=== PATIENT | male | born 1945 | race Caucasian/White ===

== ENCOUNTER → 2017-01-29 | Outpatient (CLI) | payer OTHER ==
[~2017-01-29] MED LIST: ASPEC81 PO; FLM4 PO; LPT40 PO; MULTTAB58 PO; NITR0.4S UT; NRN600 PO; NYSS/ PO; OXGN; OXYC-81 PO; PRT40 PO; PXL20 PO; RIVA1TAB4 PO
--- NOTE | 2017-01-29 14:54 | DIAGNOSTIC IMAGING REPORT ---
VIDEO SWALLOW STUDY CLINICAL HISTORY: Polyneuropathy. Dysphagia. COMPARISON STUDY: Video swallow study dated 06/13/2009. Fluoroscopy time: 3.6 minutes. FINDINGS: Fluoroscopic guidance was provided to the Department of Speech Pathology in performing a video swallow study. The patient consumed barium-impregnated pudding, cracker with paste, nectar thick liquid, and thin barium while the swallowing mechanism was observed in real-time. Disordered swallowing was observed during the examination with large pharyngeal residuals. Silent aspiration was observed with thin barium. No penetration or aspiration was seen with any of the additional sampled textures. IMPRESSION: 1. Silent aspiration was seen with thin barium swallows. 2. No penetration or aspiration was seen with the remaining sampled textures. 3. Disordered swallowing was observed. 4. See dedicated speech pathology report for detailed findings and recommendations. Dictated: 01/29/2017 2:26 PM Transcribed: 01/29/2017 2:53 PM [place] Electronically signed by: Curt Delaney M.D. 01/29/2017 2:56 PM Dictated Date/Time: 01/29/2017 2:26 PM
--- NOTE | 2017-01-29 15:50 | SWALLOWING EVALUATION ---
HISTORY: This 71 year-old man, from home, was referred for a VFSS at [facility] in order to rule out aspiration and identify safe consistencies and compensatory strategies for optimal oral intake. The patient has a PMH significant for Sjogren's syndrome, peripheral neuropathy, GERD, and prostate cancer. He has had 3 previous Swallow studies 2003 with globus sensation, 2005 with worsening globus sensation, dysmotility with solids, incomplete swallows, and CP not opening. Most recent swallow study was 2008 with increased coughing and no dysphasia. Pt's current diet level is regular with thin liquids. PROCEDURE: The patient was seen in the Radiology Department of [facility] for the VFSS. Cursory examination of the oral cavity revealed upper and lower dentures. Movement of the articulators was functional. The patient was seated upright in his motorized wheelchair and was only viewed in the Lateral plane as attempts at viewing A-P were unsuccessful to obstruction from the chair. Volitional phonation exercises were not completed however phonation and vocal quality were WFL. In the lateral plane, the patient was given the following barium-infused boluses: Thin and nectar thick liquids via spoon, cup and straw presentations. Pt. was also given pudding and cracker with barium paste throughout testing. Compensatory strategies included head turn to the left as well as 2 second prep set with chin tuck. RESULTS: Oral Phase: Pt. had labial escape of liquid 1x to mid-chin which he wiped clean independently. Pt. demonstrated a cohesive bolus between tongue and palatal seal. Timely and efficient chewing and mashing was observed with all consistencies as well as brisk tongue motion and complete oral clearance. Initiation of pharyngeal swallow began with bolus head in the pyriforms or below. Overall WFL with the exception of the delay in the initiation of the pharyngeal swallow. Pharyngeal Phase: Soft Palate Elevation was complete for all boluses. Laryngeal elevation was decreased with minimal superior movement of the thyroid cartilage/minimal approximation of arytenoids to epiglottic base. NO EPIGLOTTIC inversion or movement occurred. Laryngeal vestibular closure was limited with a wide column of barium in the laryngeal vestibule. No pharyngeal stripping wave with very limited pharyngeal constriction demonstrating bilateral bulging. Minimal distension with a marked to nearly total obstruction of flow was noted. Tongue base retraction was noted with all consistencies and tongue base made effective contact with posterior pharyngeal wall throughout study. Minimal to NO pharyngeal clearance was observed resulting in need for throat clearing and double effortful swallows to somewhat clear pharyngeal area. Overall moderate pharyngeal dyshagia. Pt. demonstrated penetration consistently with thin liquids. Pt. silently aspirated thin liquids with sequential cup drinks as well as with large drink and straw drinks. No aspiration with small controlled single swallows. Pt. penetrated nectar thick liquids as well as residue of pudding and cracker however no aspiration occurred on these consistencies throughout this study. Pt. has NO epiglottic movement at this time as well as significant impairment in pharyngeal constriction and laryngeal elevation. Pt. was instructed to turn his head to the left as that is his weaker side however no improvement in swallow. Pt. was instructed to complete oral hold with chin tuck which demonstrated slight airway protection with decreased pharyngeal stasis. Pt's had severe pharyngeal stasis which increasingly worsened with increased textured food items. Pt. was educated to completed throat clear/cough with effortful swallow in attempts to clear however pt. only able to clear 50-75% of residue. Esophageal Phase: The UES was not viewed secondary to pt. positioning and wheelchair obstruction. Suspect esophageal dysmotility. SUMMARY/RECOMMENDATIONS: Overall pt. presented with moderate pharyngeal dysphasia characterized by silent aspiration of large uncontrolled amounts of thin liquids as well as no epiglottic movement and significant pharyngeal residue that he is unable to effectively clear. ENDOCRINOLOGY NURSE discussed results of study to pt. and his . They questioned out pt speech therapy to attempt to strengthen musculature. ENDOCRINOLOGY NURSE encouraged pt to attempt speech therapy for dysphagia management, full diet recommendations and pharyngeal strengthening. Recommendin. Regular "SLIPPERY" diet with thin liquids Written diet recommendations given 2. Aspiration precautions - NO STRAWS, oral hold with chin tuck, upright for all meals. 3. Safe Swallow Strategies - SINGLE-SMALL sips, small bites, slow rate 4. GERD Precautions - Upright for all meals and 20 min after, alternate consistencies, follow food suggestions given, elevate head of bed at least 30 degrees at all times 5. Outpt. speech therapy to teach compensatory strategies (aspiration/GERD/Safe swallow), further educate pt. and family on diet recommendations, and complete pharyngeal strengthening exercises. Thank you for referral of this patient. Please contact me at if any additional information is needed.
== END | disposition home or self-care (01) ==
LOC: C.RAD 13:35
PROVIDERS: ATTEND Family Medicine
DX: R13.10 Dysphagia, unspecified (principal); G63 Polyneuropathy in diseases classified elsewhere; R47.02 Dysphasia

== ENCOUNTER 2020-11-07 22:44 | Inpatient (IN) ==
[2020-11-07] MEDS ORDERED: ACETAMINOPHEN 500 MG TAB PO STA (23:01)
[2020-11-07] MEDS ORDERED: PIPERACILL/TAZOBAC CONSULT ACTIVE PRN (23:01)
[2020-11-07] MEDS ORDERED: PIPERACILLIN/TAZOBACTAM 4.5 GM/120 ML BAG IV ONE (23:01)
[2020-11-07] MEDS ORDERED: dexAMETHasone**PF** 10 MG/ML VIAL IV ONE (23:03)
--- NOTE | 2020-11-07 23:06 | Emergency Department Note ---
Impression & Plan Pneumonia, Hypoxia, Fever, Hypomagnesemia ED Provider Note NAME: SEVERIANO GALAVIZ AGE: 75 SEX: M : 1945 ARRIVES VIA: Ambulance INFORMANT: Patient, the patient's significant other ED PROVIDER(S): Octavio Jerome DO CHIEF COMPLAINT: Difficulty breathing HPI: The patient is a 75-year-old male who presented to the emergency department for an evaluation of difficulty breathing. The patient noticed a cough over the last few days. He had his first Covid vaccination last week. The patient started developing fever and cough over the last few days. His symptoms have slowly been worsening. He was not seen by his primary care provider for the symptoms. The patient states that he has been having productive sputum. He does have a history of muscular dystrophy and has difficulty with clearing his secretions. He is also bedbound. The patient denies having any recent traveling. He notices swelling in his legs but this is not new for him. He has been using Tylenol with good relief of the fever symptoms. His last dose was at 7 PM this evening. He has had no abdominal pain. He denies having any nausea or vomiting. The patient states his symptoms are moderate and his significant other called 911 so the patient could be brought to the emergency department by ambulance. ROS: See above HPI for pertinent positives & negatives. A total of 10 systems reviewed and were otherwise negative. PAST MEDICAL HISTORY: See Below PAST SURGICAL HISTORY: See Below FAMILY HISTORY: See Below SOCIAL HISTORY: See Below HOME MEDICATIONS: See Below ALLERGIES: See Below VITALS: See Below PHYSICAL EXAMINATION: GENERAL: The patient is listless but responds to questions appropriately. EYES: The conjunctivae are clear. The pupils are round and reactive. EARS, NOSE, MOUTH AND THROAT: The nose is without any evidence of any deformity. NECK: The neck is nontender and supple. RESPIRATORY: Shallow respirations were noted. Absent breath sounds were noted at the left base. There were scattered rhonchi noted throughout right greater than left. There was significant conversational dyspnea appreciated. CARDIOVASCULAR: Regular rate and rhythm noted there no murmurs rubs or gallops normal S1 normal S2. GASTROINTESTINAL: The abdomen is soft. Abdomen is nontender. MUSCULOSKELETAL/EXTREMITIES: There is no evidence of gross deformity full range of motion is noted in the hips and shoulders. SKIN: Pedal edema was noted bilaterally. Skin was cool and dry. NEUROLOGIC: Patient is awake alert and oriented x3. MEDICAL DECISION MAKING: The patient is a 75-year-old male who presented to the emergency department for an evaluation of difficulty breathing and cough. The patient was noted to have a fever. The patient's chest x-ray initially did not appear to be consistent with an infiltrate rather it appeared to be consistent with an elevated left hemidiaphragm and atelectasis. The patient had a physical exam consistent with pneumonia. He was hypoxic. He was treated with IV fluids IV antibiotics and Tylenol in the emergency department. He was reevaluated multiple times. On subsequent reevaluation he was somewhat improved. Because of the findings on chest x-ray CT of the chest was obtained to further evaluate for possible source of infection. This does appear to be consistent with a left lower lobe infiltrate. I [facility] the [facility] They will evaluate the patient in the emergency department for further management and disposition. Triage Nursing notes reviewed. Prior medical records reviewed Vital Signs: reviewed and remarkable for fever, elevation in blood pressure initially. Differential diagnosis: Viral syndrome, otitis, pharyngitis, pneumonia, influenza, meningitis, urinary t ract infection, sepsis, bacteremia, as well as other pathologies. ER treatment provided: See below Diagnostics interpreted by me: ECG: EKG was obtained in the emergency department. My interpretation is sinus rhythm at 100 bpm. There was no ectopy. There inferior and low lateral ST segment abnormalities were noted. This was compared to a tracing from November 302018. No significant changes were noted. Cardiac Monitoring: An order was placed for continuous cardiac monitoring. The monitor shows a rate of 85 bpm with sinus rhythm. Laboratory studies: As stated above and show below. Imaging studies: See below Consultation(s): [id number]: I discussed this case with Dr. Cowart who is on-call for the [facility] hospitalist group. Past Med/Surg History Medical History (Updated 11/08/20 @ 01:55 by Octavio Jerome DO) Atrial flutter Henry's esophagus Benign neoplasm of colon " 06/09/99- hyperplastic polyp and tubular adenoma 06/27/2011- 2 polyps, path shows adenomatous" BPH (benign prostatic hypertrophy) Dyslipidemia GERD (gastroesophageal reflux disease) H/O alcohol abuse History of stroke "per Epic record, old infarct noted on head CT 08/13" HTN (hypertension) Hx of sepsis Inclusion body myositis (IBM) Malignant neoplasm prostate "s/p implant 07/10/02" Neuropathy Osteoarthritis Paroxysmal atrial tachycardia Sjogren's syndrome Typical atrial flutter Surgical History H/O colonoscopy H/O elbow surgery S/P hemorrhoidectomy S/P hip replacement S/P shoulder replacement "left" Family History Other Family history non-contributory Social History Smoking Status: Former smoker Hx Alcohol Use: Yes Alcohol type: hard liquor Hx Substance Use: No Preferred Language: Arabic Communication Ability: Effective Spouter Required: No Beliefs That Will Affect Care: None marital status: Current Living Situation: Spouse current occupational status: retired Feels Safe at Home: Yes Assistive Devices: None Allergies Allergies Allergy/AdvReac Type Severity Reaction Status Date / Time bee venom protein (honey bee) Allergy Severe ANAPHYLAXIS Verified 11/07/20 23:31 sulfamethoxazole Allergy Intermediate RED Verified 11/07/20 23:31 [From Bactrim] SWOLLEN HIVES trimethoprim [From Bactrim] Allergy Intermediate RED Verified 11/07/20 23:31 SWOLLEN HIVES Home Meds Home Medications Medication Instructions Recorded Confirmed acetaminophen [Tylenol Extra 1,000 mg PO DIRECTED PRN 12/01/18 11/08/20 Strength] atorvastatin 80 mg PO QPM 12/01/18 11/08/20 gabapentin 1,200 mg PO TID 12/01/18 11/08/20 hydroxyzine HCl 12.5 - 25 mg PO Q6H PRN 12/01/18 11/08/20 metoprolol tartrate 25 mg PO BID 12/01/18 11/08/20 pantoprazole 40 mg PO BID 12/01/18 11/08/20 paroxetine HCl [Paxil] 30 mg PO BID 12/01/18 11/08/20 tamsulosin [Flomax] 0.8 mg PO HS 12/01/18 11/08/20 Results & Data (ED) Vital Signs Vital Signs - 24 hr 11/07/20 22:47 11/07/20 23:00 11/07/20 23:02 Temperature 38.6 C H Temperature Source Oral Pulse Rate 106 H 103 H 101 H Pulse Rate from SpO2 Sensor 103 H 102 H Respiratory Rate 28 H 24 24 Respiratory Effort / Characteristics Labored Blood Pressure 186/106 H 175/99 H Blood Pressure Mean 132 124 Pulse Oximetry 85 L 97 96 Oxygen Delivery Method Room Air Oxygen Flow Rate 2 2 Sepsis Recent Fever Within 48 Hours Yes Sepsis New/Unexplained Change in Mental Status N/A Sepsis Action Taken by Nursing Previously Notified 11/07/20 23:23 11/07/20 23:30 11/08/20 00:00 Temperature Temperature Source Pulse Rate 107 H 102 H Pulse Rate from SpO2 Sensor 107 H Respiratory Rate 18 16 Respiratory Effort / Characteristics Blood Pressure Blood Pressure Mean Pulse Oximetry 98 98 99 Oxygen Delivery Method Room Air Nasal Cannula Oxygen Flow Rate 2 2 2 Sepsis Recent Fever Within 48 Hours Sepsis New/Unexplained Change in Mental Status Sepsis Action Taken by Nursing 11/08/20 00:13 11/08/20 00:14 11/08/20 00:30 Temperature Temperature Source Pulse Rate 98 H 97 H 91 H Pulse Rate from SpO2 Sensor 97 H 98 H 89 Respiratory Rate 20 22 18 Respiratory Effort / Characteristics Blood Pressure 119/63 107/58 L Blood Pressure Mean 81 74 Pulse Oximetry 99 95 96 Oxygen Delivery Method Oxygen Flow Rate 2 Sepsis Recent Fever Within 48 Hours Sepsis New/Unexplained Change in Mental Status Sepsis Action Taken by Nursing 11/08/20 00:31 11/08/20 01:08 11/08/20 01:10 Temperature Temperature Source Pulse Rate 93 H 85 Pulse Rate from SpO2 Sensor 86 87 85 Respiratory Rate 19 23 Respiratory Effort / Characteristics Blood Pressure 102/78 Blood Pressure Mean 86 Pulse Oximetry 77 L 96 96 Oxygen Delivery Method Oxygen Flow Rate Sepsis Recent Fever Within 48 Hours Sepsis New/Unexplained Change in Mental Status Sepsis Action Taken by Nursing 11/08/20 01:30 Temperature 37.2 C Temperature Source Oral Pulse Rate Pulse Rate from SpO2 Sensor Respiratory Rate Respiratory Effort / Characteristics Blood Pressure Blood Pressure Mean Pulse Oximetry Oxygen Delivery Method Oxygen Flow Rate Sepsis Recent Fever Within 48 Hours Sepsis New/Unexplained Change in Mental Status Sepsis Action Taken by Detention Medications Current Medication List: was personally reviewed by me Laboratory Data Attestation: I reviewed the patient's lab results. Result diagrams: 11/07/20 23:27 11/07/20 23:27 Lab Results 11/07/20 11/07/2011/07/21 Range/Units 23:00 23:00 23:27 WBC 9.48 (4.8-10.8) K/uL RBC 3.91 L (4.7-6.1) M/uL Hgb 13.6 L (14.0-18.0) g/dL Hct 38.5 L (42-52) % MCV 98.5 (80-100) fL MCH 34.8 H (25-34) pg MCHC 35.3 (32-36) g/dL RDW Std Deviation 45.5 (36.4-46.3) fL RDW Coeff of Mayelin 12.7 (11.5-14.5) % Plt Count 126 L (130-400) K/uL MPV 11.3 H (7.4-10.4) fL Immature Gran % (Auto) 0.1 % Neut % (Auto) 83.7 % Lymph % (Auto) 4.9 % [place] % (Auto) 10.9 % Eos % (Auto) 0.4 % Baso % (Auto) 0.0 % Neut # (Auto) 7.94 H (1.4-6.5) K/uL Lymph # (Auto) 0.46 L (1.2-3.4) K/uL [place] # (Auto) 1.03 H (0.11-0.59) K/uL Eos # (Auto) 0.04 (0-0.5) K/uL Baso # (Auto) 0.00 (0-0.2) K/uL Immature Gran # (Auto) 0.01 (0.00-0.02) K/uL PT (9.0-12.0) Seconds INR (0.9-1.1) APTT (21.0-31.0) Seconds PTT Ratio Sodium (136-145) mmol/L Potassium (3.5-5.1) mmol/L Chloride (98-107) mmol/L Carbon Dioxide (21-32) mmol/L Anion Gap (3-11) BUN (7-18) mg/dl Creatinine (0.6-1.4) mg/dl Est Cr Clr Drug Dosing ml/min Est GFR ( Amer) Est GFR (Non-Af Amer) BUN/Creatinine Ratio (10-20) Glucose (70-99) mg/dl Lactate (0.4-2.0) mmol/L Calcium (8.5-10.1) mg/dl Magnesium (1.8-2.4) mg/dl Total Bilirubin (0.2-1) mg/dl AST (15-37) U/L ALT (12-78) U/L Alkaline Phosphatase (45-117) U/L Troponin I (0-0.045) ng/ml C-Reactive Protein (0-0.29) mg/dl Total Protein (6.4-8.2) gm/dl Albumin (3.4-5.0) gm/dl Globulin (2.5-4.0) gm/dl Albumin/Globulin Ratio (0.9-2) Procalcitonin (0-0.5) ng/ml Urine Color Urine Appearance (Clear) Urine pH (4.5-7.5) Ur Specific Story (1.000-1.030) Urine Protein (Negative) Urine Glucose (UA) (Negative) Urine Ketones (Negative) Urine Blood (Negative) Urine Nitrite (Negative) Urine Bilirubin (Negative) Urine Urobilinogen (Negative) Ur Leukocyte Esterase (Negative) COVID-19 Eval Order CovFluRsv at [facility] SARS-CoV-2 (PCR) NEGATIVE (Negative) Influenza Type A (PCR) Negative (Neg) Influenza Type B (PCR) Negative (Neg) RSV (RT-PCR) Negative (Neg) 11/07/20 11/07/20 11/07/20 Range/Units 23:27 23:27 23:27 WBC (4.8-10.8) K/uL RBC (4.7-6.1) M/uL Hgb (14.0-18.0) g/dL Hct (42-52) % MCV (80-100) fL MCH (25-34) pg MCHC (32-36) g/dL RDW Std Deviation (36.4-46.3) fL RDW Coeff of Mayelin (11.5-14.5) % Plt Count (130-400) K/uL MPV (7.4-10.4) fL Immature Gran % (Auto) % Neut % (Auto) % Lymph % (Auto) % [place] % (Auto) % Eos % (Auto) % Baso % (Auto) % Neut # (Auto) (1.4-6.5) K/uL Lymph # (Auto) (1.2-3.4) K/uL [place] # (Auto) (0.11-0.59) K/uL Eos # (Auto) (0-0.5) K/uL Baso # (Auto) (0-0.2) K/uL Immature Gran # (Auto) (0.00-0.02) K/uL PT 9.8 (9.0-12.0) Seconds INR 1.0 (0.9-1.1) APTT 25.9 (21.0-31.0) Seconds PTT Ratio 1.0 Sodium 132 L (136-145) mmol/L Potassium 4.0 (3.5-5.1) mmol/L Chloride 97 L (98-107) mmol/L Carbon Dioxide 32 (21-32) mmol/L Anion Gap 3.0 (3-11) BUN 14 (7-18) mg/dl Creatinine 0.49 L (0.6-1.4) mg/dl Est Cr Clr Drug Dosing 142.2 ml/min Est GFR ( Amer) 123.0 Est GFR (Non-Af Amer) 106.1 BUN/Creatinine Ratio 27.5 H (10-20) Glucose 100 H (70-99) mg/dl Lactate 1.0 (0.4-2.0) mmol/L Calcium 9.1 (8.5-10.1) mg/dl Magnesium 1.5 L (1.8-2.4) mg/dl Total Bilirubin 0.6 (0.2-1) mg/dl AST 51 H (15-37) U/L ALT 70 (12-78) U/L Alkaline Phosphatase 132 H (45-117) U/L Troponin I < 0.015 (0-0.045) ng/ml C-Reactive Protein 0.81 H (0-0.29) mg/dl Total Protein 7.8 (6.4-8.2) gm/dl Albumin 3.5 (3.4-5.0) gm/dl Globulin 4.3 H (2.5-4.0) gm/dl Albumin/Globulin Ratio 0.8 L (0.9-2) Procalcitonin (0-0.5) ng/ml Urine Color Urine Appearance (Clear) Urine pH (4.5-7.5) Ur Specific Story (1.000-1.030) Urine Protein (Negative) Urine Glucose (UA) (Negative) Urine Ketones (Negative) Urine Blood (Negative) Urine Nitrite (Negative) Urine Bilirubin (Negative) Urine Urobilinogen (Negative) Ur Leukocyte Esterase (Negative) COVID-19 Eval Order SARS-CoV-2 (PCR) (Negative) Influenza Type A (PCR) (Neg) Influenza Type B (PCR) (Neg) RSV (RT-PCR) (Neg) 11/07/20 11/07/20 Range/Units 23:27 23:55 WBC (4.8-10.8) K/uL RBC (4.7-6.1) M/uL Hgb (14.0-18.0) g/dL Hct (42-52) % MCV (80-100) fL MCH (25-34) pg MCHC (32-36) g/dL RDW Std Deviation (36.4-46.3) fL RDW Coeff of Mayelin (11.5-14.5) % Plt Count (130-400) K/uL MPV (7.4-10.4) fL Immature Gran % (Auto) % Neut % (Auto) % Lymph % (Auto) % [place] % (Auto) % Eos % (Auto) % Baso % (Auto) % Neut # (Auto) (1.4-6.5) K/uL Lymph # (Auto) (1.2-3.4) K/uL [place] # (Auto) (0.11-0.59) K/uL Eos # (Auto) (0-0.5) K/uL Baso # (Auto) (0-0.2) K/uL Immature Gran # (Auto) (0.00-0.02) K/uL PT (9.0-12.0) Seconds INR (0.9-1.1) APTT (21.0-31.0) Seconds PTT Ratio Sodium (136-145) mmol/L Potassium (3.5-5.1) mmol/L Chloride (98-107) mmol/L Carbon Dioxide (21-32) mmol/L Anion Gap (3-11) BUN (7-18) mg/dl Creatinine (0.6-1.4) mg/dl Est Cr Clr Drug Dosing ml/min Est GFR ( Amer) Est GFR (Non-Af Amer) BUN/Creatinine Ratio (10-20) Glucose (70-99) mg/dl Lactate (0.4-2.0) mmol/L Calcium (8.5-10.1) mg/dl Magnesium (1.8-2.4) mg/dl Total Bilirubin (0.2-1) mg/dl AST (15-37) U/L ALT (12-78) U/L Alkaline Phosphatase (45-117) U/L Troponin I (0-0.045) ng/ml C-Reactive Protein (0-0.29) mg/dl Total Protein (6.4-8.2) gm/dl Albumin (3.4-5.0) gm/dl Globulin (2.5-4.0) gm/dl Albumin/Globulin Ratio (0.9-2) Procalcitonin < 0.05 (0-0.5) ng/ml Urine Color Yellow Urine Appearance Clear (Clear) Urine pH 8.0 H (4.5-7.5) Ur Specific Story 1.013 (1.000-1.030) Urine Protein Negative (Negative) Urine Glucose (UA) Negative (Negative) Urine Ketones Negative (Negative) Urine Blood Negative (Negative) Urine Nitrite Negative (Negative) Urine Bilirubin Negative (Negative) Urine Urobilinogen Negative (Negative) Ur Leukocyte Esterase Negative (Negative) COVID-19 Eval Order SARS-CoV-2 (PCR) (Negative) Influenza Type A (PCR) (Neg) Influenza Type B (PCR) (Neg) RSV (RT-PCR) (Neg) Administered Medications Magnesium Sulfate/Dextrose (Magnesium Sulfate / D5w) 1 gm in 100 mls @ 100 mls/hr IV Q1H RUPERTO Stop: 11/08/20 02:22 Last Admin: 11/08/20 01:20 Dose: 100 mls/hr Documented by: [id number] Discontinued Medications Acetaminophen (Acetaminophen 500 Mg Tab) 1,000 mg PO NOW STA Stop: 11/07/20 23:02 Last Admin: 11/07/20 23:57 Dose: 1,000 mg Documented by: [id number] Dexamethasone Sodium Phosphate (DexamethasonePf 10 Mg/Ml Vial) 10 mg IV NOW ONE Stop: 11/07/20 23:04 Last Admin: 11/07/20 23:58 Dose: 10 mg Documented by: [id number] Piperacillin Sod/Tazobactam Sod (Zosyn) 4.5 gm in 120 mls @ 240 mls/hr IV NOW ONE Stop: 11/07/20 23:30 Last Admin: 11/07/20 23:57 Dose: 240 mls/hr Documented by: [id number] Sodium Chloride (Nss 1000ml) 1,000 mls @ 999 mls/hr IV .Q1H1M ONE Stop: 11/08/20 01:48 Last Admin: 11/08/20 01:20 Dose: 999 mls/hr Documented by: [id number] Ioversol (Optiray 320 125ml) 125 ml IV ONCE ONE Stop: 11/08/20 01:13 Last Admin: 11/08/20 01:13 Dose: 118 ml Documented by: [id number] Imaging Data Attestation: I personally reviewed and interpreted this imaging study as follows: My Impression: 1 view chest x-ray was obtained in the emergency department. My interpretation is elevation of the left hemidiaphragm. There is atelectasis at the left base. No free air was appreciated. No definite infiltrate was noted. This was compared to a chest x-ray from November 302018. There appears to be increased atelectasis at the left base. Otherwise no significant changes were noted. Radiologist's Impression: Patient: SEVERIANO GALAVIZ (Male) : 43 Status: ER Date: 11/08/20 01:11 Room #: History: FEVER WITH ABD PAIN Slices: 729 Priors: Tech: Cruz Rodriguez @ [phone] Exams: CT ABDOMEN & PELVIS With Contrast Contrast: IV Amt: 118 ML OPTIRAY 320 Accession Numbers: [id number] Preliminary Findings Only See Final Report For Complete Findings CT ABDOMEN & PELVIS With Contrast: Volume loss versus consolidation in the left lung base. No small bowel obstruction. No free fluid or free air. Normal appendix. Stable L3 compression deformity. Multilevel thoracolumbar spondylosis. Comparison made with 02/19/2011 CT lumbar spine Radiologist: Javy Yeboah MD Study ready at 01:17 and initial results transmitted at 01:44 Patient: SEVERIANO GALAVIZ (Male) : 43 Status: ER Date: 11/08/20 01:12 Room #: History: FEVER WITH SOB, R/O PE Slices: 729 Priors: Tech: Cruz Rodriguez @ [phone] Exams: CTA CHEST Contrast: IV Amt: 118 ML OPTIRAY 320 Accession Numbers: [id number] Preliminary Findings Only See Final Report For Complete Findings CTA CHEST: No central pulmonary embolus. Secondary to suboptimal contrast bolus timing, segmental and subsegmental pulmonary emboli cannot be excluded, particularly in the upper portions of the lungs. Several small foci of inflammation about the airways in the left upper lobe which may represent atypical respiratory infection/noninfectious inflammation. Multivessel coronary artery calcifications. Chronic volume loss in the left lung base similar to appearance on 12/24/2015 CT pulmonary angiogram. Radiologist: Javy Yeboah MD Study ready at 01:22 and initial results transmitted at 01:57 Discharge Plan Visit Data Chief Complaint: Fever Stated Complaint: FEVER/SOB ED Provider: Octavio Jerome Discharge Problem: Pneumonia, Hypoxia, Fever, Hypomagnesemia Patient Disposition: Being Evaluated by Hospitalist Condition: Good Forms Stand Alone Forms: My [facility] Prescriptions Prescriptions: No Action atorvastatin 80 mg Tablet 80 mg PO QPM RF: 0 gabapentin 600 mg Tablet 1,200 mg PO TID RF: 0 acetaminophen [Tylenol Extra Strength] 500 mg Tablet 1,000 mg PO DIRECTED PRN (Reason: Fever Or Pain) RF: 0 tamsulosin [Flomax] 0.4 mg Capsule 0.8 mg PO HS RF: 0 paroxetine HCl [Paxil] 30 mg Tablet 30 mg PO BID RF: 0 pantoprazole 40 mg Tablet,Delayed Release (Dr/Ec) 40 mg PO BID RF: 0 hydroxyzine HCl 25 mg Tablet 12.5 - 25 mg PO Q6H PRN (Reason: Itching) RF: 0 metoprolol tartrate 25 mg Tablet 25 mg PO BID RF: 0 Referrals Referrals: Clark Mcfarland MD [Primary Care Provider] - Discharge Problem: Pneumonia Qualifiers: Pneumonia type: due to unspecified organism Laterality: left Lung location: lower lobe of lung Qualified Code(s): J18.9 - Pneumonia, unspecified organism Fever Qualifiers: Fever type: unspecified Qualified Code(s): R50.9 - Fever, unspecified
[2020-11-07 23:44] LABS: Influenza A virus by PCR Negative (Neg); Influenza B virus by PCR Negative (Neg); RSV by PCR Negative (Neg); SARS CoV2 RNA(COVID-19) InHosp NEGATIVE (Negative)
[2020-11-07 23:48] LABS: Eosinophils # (auto) 0.04 K/uL (0-0.5); Eosinophils % (auto) 0.4 %; Hematocrit (blood only) 38.5 % (42-52); Hemoglobin 13.6 g/dL (14.0-18.0); Immature Granulocytes # (auto) 0.01 K/uL (0.00-0.02); Immature Granulocytes % (auto) 0.1 %; Lymphocytes # (auto) 0.46 K/uL (1.2-3.4); Lymphocytes % (auto) 4.9 %; Mean Corpuscular Hemoglobin 34.8 pg (25-34); Mean Corpuscular Hgb Conc 35.3 g/dL (32-36); Mean Corpuscular Volume 98.5 fL (80-100); Mean Platelet Volume 11.3 fL (7.4-10.4); Monocytes # (auto) 1.03 K/uL (0.11-0.59); Monocytes % (auto) 10.9 %; Neutrophils # (auto) 7.94 K/uL (1.4-6.5); Neutrophils % (auto) 83.7 %; Platelet Count 126 K/uL (130-400); RDW Coefficient of Variation 12.7 % (11.5-14.5); RDW Standard Deviation 45.5 fL (36.4-46.3); Red Blood Count 3.91 M/uL (4.7-6.1); White Blood Count 9.48 K/uL (4.8-10.8)
[2020-11-07 23:58] LABS: Partial Thromboplastin Time 25.9 Seconds (21.0-31.0); Prothrombin Time 9.8 Seconds (9.0-12.0)
[2020-11-08 00:06] LABS: Alanine Aminotransferase 70 U/L (12-78); Albumin Level 3.5 gm/dl (3.4-5.0); Aspartate Aminotransferase 51 U/L (15-37); BUN Creatinine Ratio 27.5 (10-20); Blood Urea Nitrogen 14 mg/dl (7-18); Calcium 9.1 mg/dl (8.5-10.1); Carbon Dioxide 32 mmol/L (21-32); Chloride 97 mmol/L (98-107); Creatinine Clr Calc Pharmacy 142.2 ml/min; Est GFR (Non-African American) 106.1; Glucose 100 mg/dl (70-99); Magnesium 1.5 mg/dl (1.8-2.4); Sodium 132 mmol/L (136-145)
[2020-11-08 00:11] LABS: Albumin Globulin Ratio 0.8 (0.9-2); Alkaline Phosphatase 132 U/L (45-117); Bilirubin,Total 0.6 mg/dl (0.2-1); Globulin 4.3 gm/dl (2.5-4.0); Total Protein 7.8 gm/dl (6.4-8.2); Troponin I < 0.015 ng/ml (0-0.045)
[2020-11-08 00:15] LABS: C Reactive Protein 0.81 mg/dl (0-0.29)
[2020-11-08] MEDS ORDERED: SODIUM CHLORIDE 0.9% 1000ML 1,000 ML IV ONE ×2 (00:48→05:30)
[2020-11-08 00:56] LABS: Appearance Urine Clear (Clear); Bilirubin Urine Negative (Negative); Blood Urine Negative (Negative); Color Urine Yellow; Glucose Urine UA Negative (Negative); Ketones Urine Negative (Negative); Leukocyte Esterase Urine Negative (Negative); Nitrite Urine Negative (Negative); Protein Urine Negative (Negative); Specific Gravity Urine 1.013 (1.000-1.030); Urobilinogen Urine Negative (Negative)
[2020-11-08] MEDS ORDERED: OPTIRAY 320 125ml IV ONE (01:12)
[2020-11-08] MEDS: MAGNESIUM SULFATE / D5W 1 GM/100 ML BAG IV SCH ×2 (01:20→03:12)
[2020-11-08 02:56] LABS: Base Excess ABG 1.5 mEq/L (-9-1.8); HCO3 ABG 28 mmol/L (19-24); Oxygen Saturation ABG 95.9 % (90-95); PCO2 ABG 53 mmHg (35-46); PO2 ABG 82 mmHg (80-95); pH ABG 7.34 (7.35-7.45)
[2020-11-08 02:57] LABS: Allen Test POS (Pos)
[2020-11-08] MEDS ORDERED: DOXYCYCLINE HYCLATE 100 MG in DEXTROSE 5% 100 ML IV STA (03:34)
[2020-11-08] MEDS ORDERED: ALBUT/IPRATROP 3MG/0.5MG NEB 3 ML VIAL NEB STA (03:48)
--- NOTE | 2020-11-08 03:49 | History & Physical Report ---
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 on home O2 Sepsis secondary to above paroxysmal atrial flutter status post ablation, patient NSR PVD as per records valvular heart disease (mild /AI) hypertension, BP on the lower side hyperlipidemia on statin Rx Traumatic subdural hematoma as per records prostate cancer status post radiation pancytopenia as per records, possible myelodysplastic syndrome as per hematology Hyperglycemia, possible prediabetes, hemoglobin A1c of 6.1 in 2004 past tobacco/alcohol abuse Medical telemetry Supplemental O2 Cultures, Doxycycline, Zosyn Prednisone course for RLE exacerbation Nebs RTC Aspiration precautions, swallow eval Pulmonary consult if without improvement Check hemoglobin A1c DVT prophylaxis with SCDs Re: Chronic thrombocytopenia, history subdural hematoma Full code Patient's requesting updates for providers. Ms. Maribel Ayala, contact #[phone]. Text document was generated using [email or web address] voice recognition software. It may contain grammatical or spelling errors. Kindly contact undersigned for clarification of any documentation item in question. History of Present Illness Chief Complaint: Cough, shortness of breath Primary Care Provider: Clark Mcfarland MD History obtained from patient, family, and records. 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 Patient confined to [facility] 2018 for traumatic subdural hematoma. No o perative intervention. Patient seen at PCPs office August 2020 for routine follow-up visit. Swallowing difficulty problems as per documentation. Choking episodes on food from time to time as per patient. Patient received first dose of Covid 19 vaccine last week. Dry cough symptoms the last few days which became progressively junky. No chest pain. Worsening shortness of breath. No unusual leg swelling. Noted to be hypoxemic at the ER, O2 sats 70s. Patient received Decadron and Zosyn at the ER for pneumonia. Patient currently more comfortable. 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, lives with Allergies Allergy/AdvReac Type Severity Reaction Status Date / Time bee venom protein (honey bee) Allergy Severe ANAPHYLAXIS Verified 11/07/20 23:31 sulfamethoxazole Allergy Intermediate RED Verified 11/07/20 23:31 [From Bactrim] SWOLLEN HIVES trimethoprim [From Bactrim] Allergy Intermediate RED Verified 11/07/20 23:31 SWOLLEN HIVES Home Medications Medication Instructions Recorded Confirmed Type acetaminophen [Tylenol Extra 1,000 mg PO DIRECTED PRN 12/01/18 11/08/20 History Strength] atorvastatin 80 mg PO QPM 12/01/18 11/08/20 History gabapentin 1,200 mg PO TID 12/01/18 11/08/20 History hydroxyzine HCl 12.5 - 25 mg PO Q6H PRN 12/01/18 11/08/20 History metoprolol tartrate 25 mg PO BID 12/01/18 11/08/20 History pantoprazole 40 mg PO BID 12/01/18 11/08/20 History paroxetine HCl [Paxil] 30 mg PO BID 12/01/18 11/08/20 History tamsulosin [Flomax] 0.8 mg PO HS 12/01/18 11/08/20 History Past Med/Surg History Medical History (Updated 11/08/20 @ 13:27 by Nidhi Canada DO) Atrial flutter Henry's esophagus Benign neoplasm of colon " 06/09/99- hyperplastic polyp and tubular adenoma 06/27/2011- 2 polyps, path shows adenomatous" BPH (benign prostatic hypertrophy) Dyslipidemia GERD (gastroesophageal reflux disease) H/O alcohol abuse History of stroke "per Epic record, old infarct noted on head CT 08/13" HTN (hypertension) Hx of sepsis Inclusion body myositis (IBM) Malignant neoplasm prostate "s/p implant 07/10/02" Neuropathy Osteoarthritis Paroxysmal atrial tachycardia Sjogren's syndrome Typical atrial flutter Surgical History H/O colonoscopy H/O elbow surgery S/P hemorrhoidectomy S/P hip replacement S/P shoulder replacement "left" Family History Other Family history non-contributory Social History Smoking Status: Former smoker Hx Alcohol Use: Yes Alcohol type: other Hx Substance Use: No Preferred Language: Mozambican Communication Ability: Effective Criminal Intelligence Analyst Required: No Beliefs That Will Affect Care: None marital status: Current Living Situation: Family current occupational status: retired Feels Safe at Home: Yes Safety Concerns: Feels Safe At This Time Assistive Devices: Oxygen - Continuous Review of Systems Review of Systems: As per HPI, all 10 systems reviewed, all other ROS negative Physical Exam Physical Exam: GENERAL: Comfortable, pleasant, obese, minimal respiratory distress SKIN: Normal color, warm HEENT: [place] palpebral conjunctivae, no ptosis, dry buccal mucosa, nasal cannula in place NECK : Supple, no tenderness CHEST : Decreased breath sounds, scattered expiratory wheezes,, no tenderness HEART : RRR, systolic murmur ABDOMEN: Some distention, nontender EXTREMITIES : No LE swelling/tenderness, flexion deformity of the upper extremities NEUROLOGIC : Coherent, no facial asymmetry, MMTS BUE 3/5, BLE 2/5 Results & Data Results & Data ([facility]) Vital Signs (Past 12 Hours) Vital Signs Temp Pulse Resp BP Pulse Ox 11/08/20 02:30 15 93 11/08/20 02:01 79 24 91/55 L 93 11/08/20 02:00 79 26 H 92 11/08/20 01:31 80 22 94 11/08/20 01:30 37.2 C 81 23 100/54 L 94 11/08/20 01:10 85 23 102/78 96 11/08/20 01:08 96 11/08/20 00:31 93 H 19 77 L 11/08/20 00:30 91 H 18 107/58 L 96 11/08/20 00:14 97 H 22 95 11/08/20 00:13 98 H 20 119/63 99 11/08/20 00:00 102 H 16 99 11/07/20 23:30 107 H 18 98 11/07/20 23:23 98 11/07/20 23:02 101 H 24 96 11/07/20 23:00 103 H 24 175/99 H 97 11/07/20 22:47 38.6 C H 106 H 28 H 186/106 H 85 L Laboratory Results Laboratory Results WBC 9.48 K/uL (4.8-10.8) 11/07/20 23: RBC 3.91 M/uL (4.7-6.1) L 11/07/20 23: Hgb 13.6 g/dL (14.0-18.0) L 11/07/20 23: Hct 38.5 % (42-52) L 11/07/20 23: MCV 98.5 fL (80-100) 11/07/20: MCH 34.8 pg (25-34) H 11/07/20: MCHC 35.3 g/dL (32-36) 11/07/20: RDW Std Deviation 45.5 fL (36.4-46.3) 11/07/20: RDW Coeff of Mayelin 12.7 % (11.5-14.5) 11/07/20: Plt Count 126 K/uL (130-400) L 11/07/20: MPV 11.3 fL (7.4-10.4) H 11/07/20: Immature Gran % (Auto) 0.1 % 11/07/20: Neut % (Auto) 83.7 % 11/07/20 23: Lymph % (Auto) 4.9 % 11/07/20: [place] % (Auto) 10.9 % 11/07/20: Eos % (Auto) 0.4 % 11/07/20: Baso % (Auto) 0.0 % 11/07/20: Neut # (Auto) 7.94 K/uL (1.4-6.5) H 11/07/20: Lymph # (Auto) 0.46 K/uL (1.2-3.4) L 11/07/20: [place] # (Auto) 1.03 K/uL (0.11-0.59) H 11/07/20: Eos # (Auto) 0.04 K/uL (0-0.5) 11/07/20 23: Baso # (Auto) 0.00 K/uL (0-0.2) 11/07/20 23: Immature Gran # (Auto) 0.01 K/uL (0.00-0.02) 11/07/20 23: PT 9.8 Seconds (9.0-12.0) 11/07/20: INR 1.0 (0.9-1.1) 11/07/20: APTT 25.9 Seconds (21.0-31.0) 11/07/20: PTT Ratio 1.0 11/07/20 23: ABG pH 7.34 (7.35-7.45) L 11/08/20 02:40 ABG pCO2 53 mmHg (35-46) H 11/08/20 02:40 ABG pO2 82 mmHg (80-95) 11/08/20 02:40 ABG HCO3 28 mmol/L (19-24) H 11/08/20 02:40 ABG O2 Saturation 95.9 % (90-95) H 11/08/20 02:40 ABG Base Excess 1.5 mEq/L (-9-1.8) 11/08/20 02:40 Star Test POS (Pos) 11/08/20 02:40 Barometric Pressure 738.0 mm/Hg 11/08/20 02:40 Oxygen Given 2 L 11/08/20 02:40 Sodium 132 mmol/L (136-145) L 11/07/20 23: Potassium 4.0 mmol/L (3.5-5.1) 11/07/20: Chloride 97 mmol/L (98-107) L 11/07/20 23: Carbon Dioxide 32 mmol/L (21-32) 11/07/20 23: Anion Gap 3.0 (3-11) 11/07/20: BUN 14 mg/dl (7-18) 11/07/20 23: Creatinine 0.49 mg/dl (0.6-1.4) L 11/07/20 23: Est Cr Clr Drug Dosing 142.2 ml/min 11/07/20 23: Est GFR ( Amer) 123.0 11/07/20 23:27 Est GFR (Non-Af Amer) 106.1 11/07/20 23: BUN/Creatinine Ratio 27.5 (10-20) H 11/07/20 23: Glucose 100 mg/dl (70-99) H 11/07/20 23: Lactate 1.0 mmol/L (0.4-2.0) 11/07/20 23: Calcium 9.1 mg/dl (8.5-10.1) 11/07/20 23: Magnesium 1.5 mg/dl (1.8-2.4) L 11/07/20 23: Total Bilirubin 0.6 mg/dl (0.2-1) 11/07/20 23: AST 51 U/L (15-37) H 11/07/20 23: ALT 70 U/L (12-78) 11/07/20 23: Alkaline Phosphatase 132 U/L (45-117) H 11/07/20 23: Troponin I < 0.015 ng/ml (0-0.045) 11/07/20 23: C-Reactive Protein 0.81 mg/dl (0-0.29) H 11/07/20 23: Total Protein 7.8 gm/dl (6.4-8.2) 11/07/20 23: Albumin 3.5 gm/dl (3.4-5.0) 11/07/20 23: Globulin 4.3 gm/dl (2.5-4.0) H 11/07/20 23: Albumin/Globulin Ratio 0.8 (0.9-2) L 11/07/20 23: Procalcitonin < 0.05 ng/ml (0-0.5) 11/07/20 23: Urine Color Yellow 11/07/20 23:55 Urine Appearance Clear (Clear) 11/07/20 23: Urine pH 8.0 (4.5-7.5) H 11/07/20 23:55 Ur Specific [place] 1.013 (1.000-1.030) 11/07/20 23:55 Urine Protein Negative (Negative) 11/07/20 23: Urine Glucose (UA) Negative (Negative) 11/07/20 23: Urine Ketones Negative (Negative) 11/07/20 23:55 Urine Blood Negative (Negative) 11/07/20 23:55 Urine Nitrite Negative (Negative) 11/07/20 23:55 Urine Bilirubin Negative (Negative) 11/07/20 23:55 Urine Urobilinogen Negative (Negative) 11/07/20 23:55 Ur Leukocyte Esterase Negative (Negative) 11/07/20 23:55 COVID-19 Eval Order CovFluRsv at [facility] 11/07/20 23:00 SARS-CoV-2 (PCR) NEGATIVE (Negative) 11/07/20 23:00 Influenza Type A (PCR) Negative (Neg) 11/07/20 23:00 Influenza Type B (PCR) Negative (Neg) 11/07/20 23:00 RSV (RT-PCR) Negative (Neg) 11/07/20 23:[address] chest initial read: No syncopal embolus. Several small foci of inflammation about the airways in the left upper lobe which may represent atypical respiratory infection/noninfectious inflammation. Multivessel coronary calcifications. CT abdomen pelvis initial read: Volume loss versus consolidation left lung base. No small bowel obstruction. Stable L3 compression deformity. EKG as per my interpretation rate 100, NSR, normal axis, LVH, no ischemia
[2020-11-08] MEDS ORDERED: oxyCODONE HCL IR 5 MG TAB (IMMEDIATE RELEASE) PO PRN (05:30)
[2020-11-08] MEDS ORDERED: PROMETHAZINE HCL 12.5 MG in SODIUM CHLORIDE 0.9% 50 ML IV PRN (05:30)
[2020-11-08] MEDS ORDERED: ACETAMINOPHEN 325 MG TAB PO PRN (05:30)
[2020-11-08 05:54] LABS: Hematocrit (blood only) 37.2 % (42-52); Hemoglobin 13.1 g/dL (14.0-18.0); Immature Granulocytes # (auto) 0.02 K/uL (0.00-0.02); Immature Granulocytes % (auto) 0.2 %; Lymphocytes # (auto) 0.42 K/uL (1.2-3.4); Lymphocytes % (auto) 3.7 %; Mean Corpuscular Hemoglobin 34.9 pg (25-34); Mean Corpuscular Hgb Conc 35.2 g/dL (32-36); Mean Corpuscular Volume 99.2 fL (80-100); Mean Platelet Volume 11.2 fL (7.4-10.4); Monocytes % (auto) 3.5 %; Neutrophils # (auto) 10.58 K/uL (1.4-6.5); Neutrophils % (auto) 92.6 %; Platelet Count 116 K/uL (130-400); RDW Coefficient of Variation 12.7 % (11.5-14.5); RDW Standard Deviation 46.2 fL (36.4-46.3); Red Blood Count 3.75 M/uL (4.7-6.1); White Blood Count 11.42 K/uL (4.8-10.8)
[2020-11-08 06:19] LABS: Albumin Level 3.2 gm/dl (3.4-5.0); BUN Creatinine Ratio 23.7 (10-20); Bilirubin Direct 0.3 mg/dl (0-0.2); Calcium 8.5 mg/dl (8.5-10.1); Creatinine Clr Calc Pharmacy 128.9 ml/min; Est GFR (African American) 118.2; Magnesium 2.2 mg/dl (1.8-2.4); Potassium 3.9 mmol/L (3.5-5.1)
--- NOTE | 2020-11-08 06:20 | XRay Report ---
XR chest 1V portable CLINICAL HISTORY: SEPSIS COMPARISON STUDY: Chest radiograph November 30, 2018. FINDINGS: Left shoulder arthroplasty is partially imaged. Elevation left hemidiaphragm is unchanged. There is left basilar opacity. There is no evidence for pulmonary edema. Cardiomegaly is unchanged. IMPRESSION: No acute cardiopulmonary findings. No significant change in appearance of the chest. ACT 112: Negative or not required by law. Electronically signed by: Reggie Knight M.D. 11/08/2020 6:18 AM
[2020-11-08 06:23] LABS: Bilirubin,Total 0.6 mg/dl (0.2-1); Total Protein 7.9 gm/dl (6.4-8.2)
[2020-11-08] MEDS: PIPERACILLIN/TAZOBACTAM 3.375 GM in DEXTROSE 5% 100 ML IV SCH ×3 (06:26→22:06)
--- NOTE | 2020-11-08 06:27 | CT Scan Report ---
CT ANGIOGRAPHY OF THE CHEST, PULMONARY EMBOLUS PROTOCOL CLINICAL HISTORY: Fever. Shortness of breath. COMPARISON STUDY: Chest CT December 24, 2015. Chest radiograph performed earlier today. TECHNIQUE: Following IV administration of 118 mL of Optiray-320, helical axial images of the chest we re obtained utilizing the pulmonary embolus protocol. Maximal intensity projections and sagittal and coronal reformats were viewed on an independent 3D workstation. IV contrast was administered withou t complication. Automated exposure control was utilized for the study. A dose lowering technique wa s utilized adhering to the principles of ALARA. CT DOSE: 1928.77 mGy.cm FINDINGS: No central pulmonary embolus is identified. The remainder of the pulmonary arteries are dowling boptimally assessed on this exam due to respiratory motion artifact and suboptimal opacification of t he upper lobe vessels. There is moderate cardiomegaly. There is no thoracic aortic dissection. Extens jason coronary artery calcification is noted. No enlarged thoracic lymph nodes are present. Elevation o f the left hemidiaphragm is unchanged. Extensive left lower lobe airspace opacity with volume loss fa vors atelectasis. Note is made of multiple small groundglass opacities within the left upper lobe. No pneumothorax is present. There is no pleural effusion. No suspicious lesions within the bony thorax are noted. Abdomen and pelvis will be reported separately. IMPRESSION: 1. No central pulmonary emboli identified. Remainder of pulmonary arteries suboptimally assessed on t his exam, as described above. 2. Multifocal groundglass opacities within left upper lobe suggestive of an infectious process. 3. Stable elevation of the left hemidiaphragm with extensive left lower lobe airspace opacity with vo lume loss which favors atelectasis. 4. Moderate cardiomegaly. Extensive coronary artery calcification. ACT 112: Negative or not required by law. Electronically signed by: Reggie Knight M.D. 11/08/2020 6:25 AM
--- NOTE | 2020-11-08 06:34 | CT Scan Report ---
CT OF THE ABDOMEN AND PELVIS WITH CONTRAST CLINICAL HISTORY: Fever. Abdominal pain. COMPARISON STUDY: CT of the abdomen and pelvis February 19, 2011. TECHNIQUE: Following IV administration of 118 mL of Optiray-320, axial images of the abdomen and pelv is were obtained from the lung bases to the proximal femurs. Images were reviewed in the axial, sagit luis miguel, and coronal planes. IV contrast was administered without complication. Automated exposure contr ol was utilized for the study. A dose lowering technique was utilized adhering to the principles of ALARA. FINDINGS: The chest CT will be reported separately. Elevation of the left hemidiaphragm is chronic. E xtensive left lower lobe airspace opacity favors atelectasis. There are multifocal groundglass opacit ies within the lingula which are likely infectious. No pneumatosis, free air or portal venous gas is present. Liver, spleen, adrenal glands, kidneys and pancreas are unremarkable. There is no biliary or pancreatic ductal dilatation. No hydronephrosis. There is no peripancreatic or pericholecystic infil tration. Left hip arthroplasty is noted. Sigmoid colon is mildly distended There is no evidence for a bowel obstruction. There is no lymphadenopathy or ascites. There are brachytherapy seeds within the prostate. Moderate atherosclerotic plaque is noted. Old L3 compression fracture is noted. Multilevel degenerative changes within lumbar spine are incidentally noted. Old fracture of the left inferior pu bic ramus is noted. IMPRESSION: 1. No acute process within the abdomen or pelvis. 2. Mild distention of the sigmoid colon without evidence for a bowel obstruction. 3. No bowel wall thickening. Normal appendix. 3. Elevation of the left hemidiaphragm with left lower lobe airspace opacity consistent with atelecta sis. Lingular groundglass opacities, better depicted on chest CT, suggest an infectious process. ACT 112: Negative or not required by law. Electronically signed by: Reggie Knight M.D. 11/08/2020 6:32 AM
[2020-11-08] MEDS ORDERED: IPRATROPIUM BROMIDE NEB SOLN 0.02% 2.5 ML VIAL INH SCH (07:00)
[2020-11-08] MEDS ORDERED: LEVALBUTEROL 1.25MG/0.5ML NEB INH SCH (07:00)
[2020-11-08] MEDS ORDERED: XOPENEX/ATROVENT 1.25mg/0.5MG NEB COMBO NEB SCH (07:00)
[2020-11-08] MEDS: GABAPENTIN 600 MG TAB PO SCH ×3 (08:55→21:13)
[2020-11-08] MEDS: PANTOprazole 40 MG TAB PO SCH ×2 (08:55→21:13)
[2020-11-08] MEDS: PARoxetine HCL 20 MG TAB PO SCH ×2 (08:55→21:13)
[2020-11-08] MEDS: METOPROLOL TARTRATE 25 MG TAB PO SCH ×2 (08:55→21:13)
[2020-11-08] MEDS ORDERED: predniSONE 20 MG TAB PO SCH (09:00)
[2020-11-08] MEDS ORDERED: METOPROLOL TARTRATE 25 MG TAB PO SCH (09:00)
--- NOTE | 2020-11-08 09:24 | Hospitalist Progress Note ---
Date of Service November 08, 2020 Assessment & Plan (1) Hypoxia: Secondary to restrictive lung disease exacerbation secondary to CAP, possible aspiration hx chronic respiratory failure secondary to bronchiectasis, muscular dystrophy/inclusion body myositis as per records on home O2 At baseline patient uses 2 LPM via nasal cannula at night. He continues to require continuous oxygen but is feeling much improved today. Continue current antibiotic therapy with Zosyn and doxycycline. We will stop steroid therapy for now with no evidence of wheezing and improvement overnight. De-escalate bronchodilator therapy to as needed. De-escalate therapy pending blood cultures and continued clinical improvement. Continue good pulmonary toilet efforts in this bedbound patient. (2) Pneumonia: Continue antibiotic therapy as above. (3) Sepsis: Resuscitated, likely secondary to pneumonia. (4) Dysphagia: Related to progressive muscular dystrophy and inclusion body myositis. Minced and moist diet. (5) Paroxysmal atrial flutter: Remains in sinus rhythm on telemetry overnight. Continue metoprolol twice daily per home regimen. 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 Continue aggressive pulmonary toilet measures. (7) Hereditary progressive muscular dystrophy: Chronic, plan as above. (8) DVT prophylaxis: SCDs/no chemoprophylaxis in setting of history of subdural hematoma. Full code Disposition-patient to return home once clinically improved and oxygen needs are back to baseline DO Josef Walker Hospitalist Admission and Anticipated Discharge Date Admission Date: November 08, 2020 Subjective Mr. Gipson is a 75-year-old bedbound man who presented to the emergency department via ambulance from home for evaluation of difficulty breathing. After his first Covid vaccination last week he developed fever and cough over the last few days which is slowly been worsening. Sputum has been nonproductive. He does have missed muscular dystrophy and has difficulty with clearing secretions and is bedbound. In the ER he was hypoxic and was treated with IV fluids IV antibiotics and Tylenol. Imaging revealed evidence of pneumonia and he had no evidence of a pulmonary embolus on CT angio of the chest. No concerning findings on EKG were present. Initial temperature was 38.6, pulse was 106 and with infectious symptoms, developing sepsis was a concern. He was admitted to the hospitalist service and placed on Zosyn and doxycycline in addition to a prednisone course. Bronchodilators were scheduled. This morning the patient reports feeling much better overall. He is tolerating his clear liquid diet and is asking for something more substantial. Denies any GI symptoms or chest pain at this time. Review of Systems Review of Systems: All systems reviewed & are unremarkable except as noted in Subjective Physical Exam Physical Exam: CONSTITUTIONAL: WNWD, vitals as above, generally well- appearing EYES: normal conjunctivae, no scleral icterus ENT: external ear and nose normal, oropharynx clear, MMM, edentulous NECK: trachea midline RESPIRATORY: clear to auscultation bilaterally, no crackles, rales or wheezes, normal respiratory effort CARDIOVASCULAR: regular rate and rhythm, S1 and 2 heard without murmurs, gallops or rubs, no JVD, no peripheral edema GASTROINTESTINAL: soft, nontender, nondistended MUSCULOSKELETAL: moves extremities equally but generalized weakness present. SKIN: warm and dry NEUROLOGIC: CN 2-12 grossly intact, normal cognition, normal speech PSYCHIATRIC: alert cooperative and oriented to person, place and time. Results & Data Results & Data ([facility]) Vital Signs (Past 12 Hours) Vital Signs Temp Pulse Pulse Resp BP BP Pulse Ox 11/08/20 08:19 36.6 C 87 16 157/74 H 99 11/08/20 07:04 81 18 97 11/08/20 06:09 73 11/08/20 05:00 36.5 C 78 22 160/83 H 97 11/08/20 04:32 75 18 98 11/08/20 04:30 75 22 96 11/08/20 04:00 74 22 129/70 96 11/08/20 03:30 78 21 129/76 97 11/08/20 03:16 163/108 H 95 11/08/20 03:01 91 H 100/82 92 11/08/20 03:00 87 95 11/08/20 02:30 15 93 11/08/20 02:01 79 24 91/55 L 93 11/08/20 02:00 79 26 H 92 11/08/20 01:31 80 22 94 11/08/20 01:30 37.2 C 81 23 100/54 L 94 11/08/20 01:10 85 23 102/78 96 11/08/20 01:08 96 11/08/20 00:31 93 H 19 77 L 11/08/20 00:30 91 H 18 107/58 L 96 11/08/20 00:14 97 H 22 95 11/08/20 00:13 98 H 20 119/63 99 11/08/20 00:00 102 H 16 99 11/07/20 23:30 107 H 18 98 11/07/20 23:23 98 11/07/20 23:02 101 H 24 96 11/07/20 23:00 103 H 24 175/99 H 97 11/07/20 22:47 38.6 C H 106 H 28 H 186/106 H 85 L Laboratory Results Short CBC 11/07/20 11/08/20 Range/Units 23:27 05:37 WBC 9.48 11.42 H (4.8-10.8) K/uL Hgb 13.6 L 13.1 L (14.0-18.0) g/dL Hct 38.5 L 37.2 L (42-52) % Plt Count 126 L 116 L (130-400) K/uL BMP 11/07/20 11/08/20 23:27 05:37 Sodium 132 L 133 L Potassium 4.0 3.9 Chloride 97 L 98 Carbon Dioxide 32 31 BUN 14 13 Creatinine 0.49 L 0.54 L Glucose 100 H 164 H Calcium 9.1 8.5 Cardiac Enzymes 11/07/20 Range/Units 23:27 Troponin I < 0.015 (0-0.045) ng/ml Liver Function 11/07/20 11/08/20 Range/Units 23:27 05:37 Total Bilirubin 0.6 0.6 (0.2-1) mg/dl Direct Bilirubin 0.3 H (0-0.2) mg/dl AST 51 H 42 H (15-37) U/L ALT 70 63 (12-78) U/L Alkaline Phosphatase 132 H 122 H (45-117) U/L Albumin 3.5 3.2 L (3.4-5.0) gm/dl Urine 11/07/20 Range/Units 23:55 Urine Color Yellow Urine Appearance Clear (Clear) Urine pH 8.0 H (4.5-7.5) Ur Specific [place] 1.013 (1.000-1.030) Urine Protein Negative (Negative) Urine Glucose (UA) Negative (Negative) Medications Administered Current Inpatient Medications Acetaminophen (Acetaminophen 325 Mg Tab) 325 mg PO Q6H PRN PRN Reason: Mild Pain Stop: 12/08/20 05:29 Atorvastatin Calcium (Atorvastatin 40 Mg Tab) 80 mg PO QPM [facility] Stop: 12/08/20 20:59 Doxycycline Hyclate (Doxycycline Hyclate 100 Mg Cap) 100 mg PO BID [facility] Stop: 11/15/20 20:59 Gabapentin (Gabapentin 600 Mg Tab) 1,200 mg PO TID [facility] Stop: 12/08/20 08:59 Last Admin: 11/08/20 08:55 Dose: 1,200 mg Documented by: Sodium Chloride (Nss 1000ml) 1,000 mls @ 50 mls/hr IV .Q20H ONE Stop: 11/09/20 01:29 Last Admin: 11/08/20 05:44 Dose: 50 mls/hr Documented by: Promethazine HCl 12.5 mg/ (Sodium Chloride) 50.5 mls @ 202 mls/hr IV Q6H PRN PRN Reason: Nausea And Vomiting Stop: 12/08/20 05:29 Piperacillin Sod/Tazobactam (Sod 3.375 gm/ Dextrose) 115 mls @ 28.75 mls/hr IV Q8H [facility]; Protocol Stop: 11/15/20 05:59 Last Admin: 11/08/20 06:26 Dose: 28.8 mls/hr Documented by: Ipratropium [place] (Ipratropium [place] Neb Soln 0.02% 2.5 Ml Vial) 0.5 mg INH Q6R [facility] Stop: 12/08/20 06:59 Last Admin: 11/08/20 07:04 Dose: 0.5 mg Documented by: Levalbuterol HCl (Levalbuterol 1.25mg/0.5ml Neb) 1.25 mg INH Q6R [facility] Stop: 12/08/20 06:59 Last Admin: 11/08/20 07:04 Dose: 1.25 mg Documented by: Metoprolol Tartrate (Metoprolol Tartrate 25 Mg Tab) 25 mg PO BID [facility] Stop: 12/08/20 08:59 Last Admin: 11/08/20 08:55 Dose: 25 mg Documented by: Miscellaneous Information (Piperacill/Tazobac Consult Active) 1 ea N/A UD PRN PRN Reason: Consult Stop: 12/07/20 23:00 Oxycodone HCl (Oxycodone Hcl Ir 5 Mg Tab (Immediate Release)) 5 mg PO Q4H PRN PRN Reason: Pain Stop: 11/22/20 05:29 Pantoprazole Sodium (Pantoprazole 40 Mg Tab) 40 mg PO BID [facility] Stop: 12/08/20 08:59 Last Admin: 11/08/20 08:55 Dose: 40 mg Documented by: Paroxetine HCl (Paroxetine Hcl 20 Mg Tab) 30 mg PO BID [facility] Stop: 12/08/20 08:59 Last Admin: 11/08/20 08:55 Dose: 30 mg Documented by: Prednisone (Prednisone 20 Mg Tab) 40 mg PO DAILY [facility] Stop: 11/12/20 08:59 Tamsulosin HCl (Tamsulosin Hcl 0.4 Mg Cap) 0.8 mg PO HS [facility] Stop: 12/08/20 20:59 (1) Pneumonia Laterality: left Lung location: lower lobe of lung Pneumonia type: due to unspecified organism Qualified Code(s): J18.9 - Pneumonia, unspecified organism (2) Sepsis Sepsis type: sepsis due to unspecified organism Qualified Code(s): A41.9 - Sepsis, unspecified organism (3) Dysphagia Dysphagia type: unspecified Qualified Code(s): R13.10 - Dysphagia, unspecified
[2020-11-08] MEDS ORDERED: LEVALBUTEROL 1.25MG/0.5ML NEB INH PRN (12:38)
[2020-11-08] MEDS ORDERED: IPRATROPIUM BROMIDE NEB SOLN 0.02% 2.5 ML VIAL INH PRN (12:38)
--- NOTE | 2020-11-08 15:05 | Electrocardiogram Report ---
Test Reason : Blood Pressure : / mmHG Vent. Rate : 100 BPM Atrial Rate : 100 BPM P-R Int : 148 ms QRS Dur : 092 ms QT Int : 358 ms P-R-T Axes : 045 024 028 degrees QTc Int : 461 ms Normal sinus rhythm Minimal voltage criteria for LVH, may be normal variant Nonspecific ST abnormality Abnormal ECG When compared with ECG of 30-NOV-2018 23:33, No significant change was found Confirmed by Octavio Magaña ([id number]) on 11/08/2020 3:05:25 PM Referred By: REFERRED SELF Confirmed By:Octavio Magaña
[2020-11-08] MEDS ORDERED: hydrALAZINE HCL 20 MG/ML VIAL IV STA (16:49)
[2020-11-08] MEDS ORDERED: hydrALAZINE HCL 20 MG/ML VIAL ONE (16:52)
[2020-11-08] MEDS: TAMSULOSIN HCL 0.4 MG CAP PO SCH (21:13)
[2020-11-08] MEDS: DOXYCYCLINE HYCLATE 100 MG CAP PO SCH (21:13)
[2020-11-08] MEDS: ATORVASTATIN 40 MG TAB PO SCH (21:14)
[2020-11-09] MEDS: PIPERACILLIN/TAZOBACTAM 3.375 GM in DEXTROSE 5% 100 ML IV SCH ×3 (05:00→21:55)
[2020-11-09 06:17] LABS: Hematocrit (blood only) 35.1 % (42-52); Hemoglobin 12.4 g/dL (14.0-18.0); Mean Corpuscular Hemoglobin 34.5 pg (25-34); Mean Corpuscular Hgb Conc 35.3 g/dL (32-36); Mean Corpuscular Volume 97.8 fL (80-100); Mean Platelet Volume 11.7 fL (7.4-10.4); Platelet Count 120 K/uL (130-400); RDW Coefficient of Variation 12.7 % (11.5-14.5); RDW Standard Deviation 45.1 fL (36.4-46.3); Red Blood Count 3.59 M/uL (4.7-6.1)
[2020-11-09 06:45] LABS: BUN Creatinine Ratio 25.4 (10-20); Calcium 8.6 mg/dl (8.5-10.1); Creatinine Clr Calc Pharmacy 182.8 ml/min; Est GFR (African American) 136.6; Est GFR (Non-African American) 117.8; Magnesium 1.8 mg/dl (1.8-2.4); Potassium 3.6 mmol/L (3.5-5.1)
[2020-11-09 06:46] LABS: Phosphorus 2.4 mg/dl (2.5-4.9)
[2020-11-09] MEDS: GABAPENTIN 600 MG TAB PO SCH ×3 (08:16→19:18)
[2020-11-09] MEDS: METOPROLOL TARTRATE 25 MG TAB PO SCH ×2 (08:16→19:18)
[2020-11-09] MEDS: PARoxetine HCL 20 MG TAB PO SCH ×2 (08:16→19:16)
[2020-11-09] MEDS: PANTOprazole 40 MG TAB PO SCH ×2 (08:16→19:18)
[2020-11-09] MEDS: DOXYCYCLINE HYCLATE 100 MG CAP PO SCH ×2 (08:17→19:17)
[2020-11-09] MEDS ORDERED: SODIUM PHOSPHATE 3 MMOL/1 ML INFUSION IV STA (09:03)
[2020-11-09] MEDS ORDERED: MAGNESIUM SULFATE / D5W 1 GM/100 ML BAG IV ONE (09:15)
[2020-11-09] MEDS ORDERED: SODIUM PHOSPHATE 9 MMOL in SODIUM CHLORIDE 0.9% 250 ML IV ONE (09:30)
--- NOTE | 2020-11-09 16:41 | Hospitalist Progress Note ---
Date of Service November 09, 2020 Assessment & Plan (1) Hypoxia: Secondary to restrictive lung disease exacerbation secondary to CAP, possible aspiration hx chronic respiratory failure secondary to bronchiectasis, muscular dystrophy/inclusion body myositis as per records on home O2 At baseline patient uses 2 LPM via nasal cannula at night. He continues to require continuous oxygen and still feeling short of breath but is feeling improved today, less "wet" breathing. Continue current antibiotic therapy with Zosyn and doxycycline. We will stop steroid therapy for now with no evidence of wheezing and improvement overnight. De-escalate bronchodilator therapy to as needed. De-escalate therapy pending blood cultures and continued clinical improvement. Continue good pulmonary toilet efforts in this bedbound patient. (2) Pneumonia: Continue antibiotic therapy as above. (3) Sepsis: Resuscitated, likely secondary to pneumonia. (4) Dysphagia: Related to progressive muscular dystrophy and inclusion body myositis. Minced and moist diet. (5) Paroxysmal atrial flutter: Remains in sinus rhythm on telemetry overnight. Continue metoprolol twice daily per home regimen. 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 Continue aggressive pulmonary toilet measures. (7) Hereditary progressive muscular dystrophy: Chronic, plan as above. Diarrhea/ ? chronic -per pt has had for at least several weeks- months after loose stools/ formed stools/ now loose again - will obtain c. diff and stool cultx (8) DVT prophylaxis: SCDs/no chemoprophylaxis in setting of history of subdural hematoma. Full code Disposition-patient to return home once clinically improved and oxygen needs are back to baseline. Pt's Maribel updated at the bedside. Admission and Anticipated Discharge Date Admission Date: November 08, 2020 Subjective Pt seen in follow up of hypoxia, shortness of breath, pna Mr. Gipson is a 75-year-old bedbound man who presented to the emergency department via ambulance from home for evaluation of difficulty breathing. After his first Covid vaccination last week he developed fever and cough over the last few days which is slowly been worsening. Sputum has been nonproductive. He does have muscular dystrophy and has difficulty with clearing secretions and is bedbound. In the ER he was hypoxic and was treated with IV fluids IV antibiotics and Tylenol. Imaging revealed evidence of pneumonia and he had no evidence of a pulmonary embolus on CT angio of the chest. No concerning findings on EKG were present. Initial temperature was 38.6, pulse was 106 and with infectious symptoms, developing sepsis was a concern. He was admitted to the hospitalist service and placed on Zosyn and doxycycline in addition to a prednisone course. Bronchodilators were scheduled. Pt is currently laying in bed in [facility], using suppl O2 2L, and reports some shortness of breath No fever or chills Pt's is at the bedside They both report that his breathing does not sound as "wet" but still feels short of breath also reports weeks of diarrhea and and then formed stool and again loose stools, almost watery, will obtain c. diff and stool cultx Review of Systems Review of Systems: All systems reviewed & are unremarkable except as noted in HPI & below Constitutional: + fatigue; no fever and no chills Respiratory: + cough and + dyspnea (somewhat improved) Cardiovascular: no chest pain and no palpitations Gastrointestinal: + diarrhea/loose stools; no vomiting Physical Exam Physical Exam: CONSTITUTIONAL: WNWD, elderly male laying in bed, on 2L of O2 EYES: normal conjunctivae, no scleral icterus ENT: external ear and nose normal, oropharynx clear, MMM NECK: trachea midline RESPIRATORY: clear to auscultation bilaterally, no crackles, rales or wheezes, normal respiratory effort CARDIOVASCULAR: regular rate and rhythm, S1 and 2, no gallops or rubs, no JVD, no peripheral edema GASTROINTESTINAL: soft, nontender, nondistended, + bowel sounds MUSCULOSKELETAL: moves extremities equally but generalized weakness present. SKIN: warm and dry NEUROLOGIC: CN 2-12 grossly intact, normal cognition, normal speech PSYCHIATRIC: alert cooperative and oriented to person, place and time. Results & Data Results & Data ([facility]) Vital Signs (Past 12 Hours) Vital Signs Temp Pulse Pulse Resp BP BP Pulse Ox 11/09/20 15:37 75 11/09/20 15:25 36.4 C L 76 19 174/83 H 91 11/09/20 12:00 169/87 H 11/09/20 10:55 36.6 C 76 20 169/92 H 100 11/09/20 08:01 159/85 H 11/09/20 08:00 75 11/09/20 07:30 36.5 C 84 16 178/79 H 94 Laboratory Results 11/09/20 11/09/2021 Range/Units 05:31 05:31 05:31 WBC 9.00 (4.8-10.8) K/uL RBC 3.59 L (4.7-6.1) M/uL Hgb 12.4 L (14.0-18.0) g/dL Hct 35.1 L (42-52) % MCV 97.8 (80-100) fL MCH 34.5 H (25-34) pg MCHC 35.3 (32-36) g/dL RDW Std Deviation 45.1 (36.4-46.3) fL RDW Coeff of Mayelin 12.7 (11.5-14.5) % Plt Count 120 L (130-400) K/uL MPV 11.7 H (7.4-10.4) fL Sodium 131 L (136-145) mmol/L Potassium 3.6 (3.5-5.1) mmol/L Chloride 97 L (98-107) mmol/L Carbon Dioxide 30 (21-32) mmol/L Anion Gap 4.0 (3-11) BUN 10 (7-18) mg/dl Creatinine 0.38 L (0.6-1.4) mg/dl Est Cr Clr Drug Dosing 182.8 ml/min Est GFR ( Amer) 136.6 Est GFR (Non-Af Amer) 117.8 BUN/Creatinine Ratio 25.4 H (10-20) Glucose 134 H (70-99) mg/dl Calcium 8.6 (8.5-10.1) mg/dl Phosphorus 2.4 L (2.5-4.9) mg/dl Magnesium 1.8 (1.8-2.4) mg/dl Procalcitonin 0.05 (0-0.5) ng/ml Medications Administered Current Inpatient Medications Acetaminophen (Acetaminophen 325 Mg Tab) 325 mg PO Q6H PRN PRN Reason: Mild Pain Stop: 12/08/20 05:29 Atorvastatin Calcium (Atorvastatin 40 Mg Tab) 80 mg PO QPM RUPERTO Stop: 12/08/20 20:59 Last Admin: 11/08/20 21:14 Dose: 80 mg Documented by: Doxycycline Hyclate (Doxycycline Hyclate 100 Mg Cap) 100 mg PO BID RUPERTO Stop: 11/15/20 20:59 Last Admin: 11/09/20 08:17 Dose: 100 mg Documented by: Gabapentin (Gabapentin 600 Mg Tab) 1,200 mg PO TID [facility] Stop: 12/08/20 08:59 Last Admin: 11/09/20 13:47 Dose: 1,200 mg Documented by: Promethazine HCl 12.5 mg/ (Sodium Chloride) 50.5 mls @ 202 mls/hr IV Q6H PRN PRN Reason: Nausea And Vomiting Stop: 12/08/20 05:29 Piperacillin Sod/Tazobactam (Sod 3.375 gm/ Dextrose) 115 mls @ 28.75 mls/hr IV Q8H RUPERTO; Protocol Stop: 11/15/20 05:59 Last Admin: 11/09/20 13:46 Dose: 28.8 mls/hr Documented by: Potassium Chloride (K Alex / Wtr) 10 meq in 100 mls @ 100 mls/hr IV Q1H STA Stop: 11/09/20 17:40 Ipratropium [place] (Ipratropium [place] Neb Soln 0.02% 2.5 Ml Vial) 0.5 mg INH Q6R PRN PRN Reason: SOB/wheezing Stop: 12/08/20 06:59 Levalbuterol HCl (Levalbuterol 1.25mg/0.5ml Neb) 1.25 mg INH Q6R PRN PRN Reason: SOB/wheezing Stop: 12/08/20 06:59 Metoprolol Tartrate (Metoprolol Tartrate 25 Mg Tab) 25 mg PO BID [facility] Stop: 12/08/20 08:59 Last Admin: 11/09/20 08:16 Dose: 25 mg Documented by: Miscellaneous Information (Piperacill/Tazobac Consult Active) 1 ea N/A UD PRN PRN Reason: Consult Stop: 12/07/20 23:00 Oxycodone HCl (Oxycodone Hcl Ir 5 Mg Tab (Immediate Release)) 5 mg PO Q4H PRN PRN Reason: Pain Stop: 11/22/20 05:29 Pantoprazole Sodium (Pantoprazole 40 Mg Tab) 40 mg PO BID [facility] Stop: 12/08/20 08:59 Last Admin: 11/09/20 08:16 Dose: 40 mg Documented by: Paroxetine HCl (Paroxetine Hcl 20 Mg Tab) 30 mg PO BID [facility] Stop: 12/08/20 08:59 Last Admin: 11/09/20 08:16 Dose: 30 mg Documented by: Tamsulosin HCl (Tamsulosin Hcl 0.4 Mg Cap) 0.8 mg PO HS RUPERTO Stop: 12/08/20 20:59 Last Admin: 11/08/20 21:13 Dose: 0.8 mg Documented by:
[2020-11-09] MEDS ORDERED: POTASSIUM CHLORIDE / WTR 10 MEQ/100 ML PLCT IV SCH (17:00)
[2020-11-09] MEDS ORDERED: POTASSIUM CHLORIDE CRTAB 20 MEQ TABCR PO STA (17:29)
--- NOTE | 2020-11-09 17:39 | XRay Report ---
XR chest 1V portable HISTORY: 75 years-old Male follow up acute shortness of breath with fever COMPARISON: CTA chest 11/08/2020, chest radiograph 11/07/2020 TECHNIQUE: Portable AP view of the chest FINDINGS: Cardiomegaly. Unchanged left hemidiaphragmatic elevation with unchanged left lung base consolidation. The previously noted ill-defined groundglass densities of the lingula are better characterized on co mparison CTA of the chest. Degenerative changes of the right shoulder and spine. Left shoulder total joint arthroplasty. IMPRESSION: 1. Cardiomegaly without pulmonary edema. 2. Unchanged left hemidiaphragmatic elevation with left lung base consolidation. 3. Groundglass opacities of the left upper lobe are better seen on comparison chest CT. ACT 112: Negative or not required by law. The above report was generated using voice recognition software. It may contain grammatical, syntax o r spelling errors. Electronically signed by: Saul Moran M.D. 11/09/2020 5:38 PM
[2020-11-09] MEDS: TAMSULOSIN HCL 0.4 MG CAP PO SCH (19:16)
[2020-11-09] MEDS: ATORVASTATIN 40 MG TAB PO SCH (19:18)
[2020-11-10] MEDS: PIPERACILLIN/TAZOBACTAM 3.375 GM in DEXTROSE 5% 100 ML IV SCH ×3 (05:52→21:38)
[2020-11-10 07:15] LABS: Hematocrit (blood only) 35.8 % (42-52); Hemoglobin 12.5 g/dL (14.0-18.0); Mean Corpuscular Hemoglobin 34.3 pg (25-34); Mean Corpuscular Hgb Conc 34.9 g/dL (32-36); Mean Corpuscular Volume 98.4 fL (80-100); Mean Platelet Volume 11.5 fL (7.4-10.4); Platelet Count 119 K/uL (130-400); RDW Coefficient of Variation 12.9 % (11.5-14.5); RDW Standard Deviation 46.5 fL (36.4-46.3); Red Blood Count 3.64 M/uL (4.7-6.1); White Blood Count 7.21 K/uL (4.8-10.8)
[2020-11-10 07:41] LABS: BUN Creatinine Ratio 19.8 (10-20); Calcium 8.8 mg/dl (8.5-10.1); Creatinine Clr Calc Pharmacy 182.4 ml/min; Est GFR (African American) 136.6; Est GFR (Non-African American) 117.8; Magnesium 1.8 mg/dl (1.8-2.4); Potassium 3.4 mmol/L (3.5-5.1)
[2020-11-10 07:42] LABS: Phosphorus 2.3 mg/dl (2.5-4.9)
[2020-11-10] MEDS: DOXYCYCLINE HYCLATE 100 MG CAP PO SCH ×2 (08:03→21:38)
[2020-11-10] MEDS: PARoxetine HCL 20 MG TAB PO SCH ×2 (08:03→21:37)
[2020-11-10] MEDS: METOPROLOL TARTRATE 25 MG TAB PO SCH ×2 (08:03→21:36)
[2020-11-10] MEDS: GABAPENTIN 600 MG TAB PO SCH ×3 (08:03→21:36)
[2020-11-10] MEDS: PANTOprazole 40 MG TAB PO SCH ×2 (08:03→21:37)
[2020-11-10] MEDS ORDERED: POTASSIUM CHLORIDE CRTAB 20 MEQ TABCR PO STA (08:49)
[2020-11-10] MEDS ORDERED: POTASSIUM PHOS 3 MMOL/1 ML INFUSION IV STA (08:49)
--- NOTE | 2020-11-10 08:52 | Hospitalist Progress Note ---
Date of Service November 10, 2020 Assessment & Plan (1) Hypoxia: Secondary to restrictive lung disease exacerbation secondary to CAP, possible aspiration hx chronic respiratory failure secondary to bronchiectasis, muscular dystrophy/inclusion body myositis as per records on home O2 At baseline patient uses 2 LPM via nasal cannula at night. He continues to require continuous oxygen and still feeling short of breath but is feeling improved today Continue current antibiotic therapy with Zosyn and doxycycline. Cont. steroid therapy for now as +wheezing bronchodilator therapy to as needed blood cultures - 1 bottle posit. for coag negat. staph, repeat blood cultx (poss. contaminant) Continue good pulmonary toilet efforts in this bedbound patient. (2) Pneumonia: Continue antibiotic therapy as above. (3) Sepsis: Resuscitated, likely secondary to pneumonia. (4) Dysphagia: Related to progressive muscular dystrophy and inclusion body myositis. Minced and moist diet. (5) Paroxysmal atrial flutter: Remains in sinus rhythm on telemetry overnight. Continue metoprolol twice daily per home regimen. 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 Continue aggressive pulmonary toilet measures. (7) Hereditary progressive muscular dystrophy: Chronic, plan as above. Diarrhea/ ? chronic -per pt has had for at least several weeks- months after loose stools/ formed stools/ now loose again - will obtain c. diff and stool cultx (8) DVT prophylaxis: SCDs/no chemoprophylaxis in setting of history of subdural hematoma. Full code Disposition-patient to return home once clinically improved and oxygen needs are back to baseline. Pt's Maribel updated at the bedside yesterday. Admission and Anticipated Discharge Date Admission Date: November 08, 2020 Subjective Pt seen in follow up of hypoxia, shortness of breath, pna Mr. Gipson is a 75 y/o bedbound man who presented to the ED via ambulance from [facility] for evaluation of difficulty breathing. After his first Covid vaccination last week he developed fever and cough over the last few days which is slowly been worsening. Sputum has been nonproductive. He does have muscular dystrophy and has difficulty with clearing secretions and is bedbound. In the ER he was hypoxic and was treated with IV fluids IV antibiotics and Tylenol. Initial temperature was 38.6, pulse was 106 and with infectious symptoms, developing sepsis was a concern. On Zosyn and doxycycline in addition to a prednisone course. Bronchodilators were scheduled. Pt is currently laying in bed in [facility], using suppl O2 2L, in NAD No fever or chills mentioned yesterday weeks of diarrhea off and ordered c. diff and stool cultx 1 blood cultx - coag negative staph, repeat blood cultx obtained Review of Systems Review of Systems: All systems reviewed & are unremarkable except as noted in HPI & below As per HPI, all 10 systems reviewed, all other ROS negative Constitutional: + fatigue; no fever and no chills Respiratory: + cough and + dyspnea (somewhat improved) Cardiovascular: no chest pain and no palpitations Gastrointestinal: + diarrhea/loose stools; no vomiting Physical Exam Physical Exam: CONSTITUTIONAL: WNWD, elderly male laying in bed, on 2L of O2 EYES: normal conjunctivae, no scleral icterus ENT: external ear and nose normal, oropharynx clear, MMM NECK: trachea midline RESPIRATORY: clear to auscultation bilaterally, no crackles, rales or wheezes, normal respiratory effort CARDIOVASCULAR: regular rate and rhythm, S1 and 2, no gallops or rubs, no JVD, no peripheral edema GASTROINTESTINAL: soft, nontender, nondistended, + bowel sounds MUSCULOSKELETAL: moves extremities equally but generalized weakness present. SKIN: warm and dry NEUROLOGIC: CN 2-12 grossly intact, normal cognition, normal speech PSYCHIATRIC: alert cooperative and oriented to person, place and time. Results & Data Results & Data ([facility]) Vital Signs (Past 12 Hours) Vital Signs Temp Pulse Pulse Pulse Resp BP Pulse Ox 11/10/20 07:27 36 C L 87 20 180/93 H 97 11/10/20 04:26 79 11/10/20 04:00 36.6 C 98 H 18 167/76 H 94 11/10/20 00:34 36.7 C 76 18 153/78 H 92 11/09/20 22:59 36.5 C 74 18 166/86 H 94 Laboratory Results 11/10/20 11/10/20 11/07/20 Range/Units 06:46 06:46 23:27 WBC 7.21 (4.8-10.8) K/uL RBC 3.64 L (4.7-6.1) M/uL Hgb 12.5 L (14.0-18.0) g/dL Hct 35.8 L (42-52) % MCV 98.4 (80-100) fL MCH 34.3 H (25-34) pg MCHC 34.9 (32-36) g/dL RDW Std Deviation 46.5 H (36.4-46.3) fL RDW Coeff of Mayelin 12.9 (11.5-14.5) % Plt Count 119 L (130-400) K/uL MPV 11.5 H (7.4-10.4) fL Sodium 134 L (136-145) mmol/L Potassium 3.4 L (3.5-5.1) mmol/L Chloride 100 (98-107) mmol/L Carbon Dioxide 32 (21-32) mmol/L Anion Gap 2.0 L (3-11) BUN 8 (7-18) mg/dl Creatinine 0.38 L (0.6-1.4) mg/dl Est Cr Clr Drug Dosing 182.4 ml/min Est GFR ( Amer) 136.6 Est GFR (Non-Af Amer) 117.8 BUN/Creatinine Ratio 19.8 (10-20) Glucose 97 (70-99) mg/dl Calcium 8.8 (8.5-10.1) mg/dl Phosphorus 2.3 L (2.5-4.9) mg/dl Magnesium 1.8 (1.8-2.4) mg/dl Bld Cult Staph aureus PCR Negative (Negative) Blood Culture MRSA PCR Negative (Negative) Medications Administered Current Inpatient Medications Acetaminophen (Acetaminophen 325 Mg Tab) 325 mg PO Q6H PRN PRN Reason: Mild Pain Stop: 12/08/20 05:29 Atorvastatin Calcium (Atorvastatin 40 Mg Tab) 80 mg PO QPM RUPERTO Stop: 12/08/20 20:59 Last Admin: 11/09/20 19:18 Dose: 80 mg Documented by: Doxycycline Hyclate (Doxycycline Hyclate 100 Mg Cap) 100 mg PO BID [facility]ERTO Stop: 11/15/20 20:59 Last Admin: 11/10/20 08:03 Dose: 100 mg Documented by: Gabapentin (Gabapentin 600 Mg Tab) 1,200 mg PO TID [facility]ERTO Stop: 12/08/20 08:59 Last Admin: 11/10/20 08:03 Dose: 1,200 mg Documented by: Promethazine HCl 12.5 mg/ (Sodium Chloride) 50.5 mls @ 202 mls/hr IV Q6H PRN PRN Reason: Nausea And Vomiting Stop: 12/08/20 05:29 Piperacillin Sod/Tazobactam (Sod 3.375 gm/ Dextrose) 115 mls @ 28.75 mls/hr IV Q8H RUPERTO; Protocol Stop: 11/15/20 05:59 Last Admin: 11/10/20 05:52 Dose: 28.8 mls/hr Documented by: Magnesium Sulfate/Dextrose (Magnesium Sulfate / D5w) 1 gm in 100 mls @ 50 mls/hr IV ONE ONE Stop: 11/10/20 10:49 Ipratropium [place] (Ipratropium [place] Neb Soln 0.02% 2.5 Ml Vial) 0.5 mg INH Q6R PRN PRN Reason: SOB/wheezing Stop: 12/08/20 06:59 Levalbuterol HCl (Levalbuterol 1.25mg/0.5ml Neb) 1.25 mg INH Q6R PRN PRN Reason: SOB/wheezing Stop: 12/08/20 06:59 Metoprolol Tartrate (Metoprolol Tartrate 25 Mg Tab) 25 mg PO BID [facility] Stop: 12/08/20 08:59 Last Admin: 11/10/20 08:03 Dose: 25 mg Documented by: Miscellaneous Information (Piperacill/Tazobac Consult Active) 1 ea N/A UD PRN PRN Reason: Consult Stop: 12/07/20 23:00 Oxycodone HCl (Oxycodone Hcl Ir 5 Mg Tab (Immediate Release)) 5 mg PO Q4H PRN PRN Reason: Pain Stop: 11/22/20 05:29 Pantoprazole Sodium (Pantoprazole 40 Mg Tab) 40 mg PO BID [facility] Stop: 12/08/20 08:59 Last Admin: 11/10/20 08:03 Dose: 40 mg Documented by: Paroxetine HCl (Paroxetine Hcl 20 Mg Tab) 30 mg PO BID [facility] Stop: 12/08/20 08:59 Last Admin: 11/10/20 08:03 Dose: 30 mg Documented by: Potassium Chloride (Potassium Chloride Crtab 20 Meq Tabcr) 20 meq PO NOW STA Stop: 11/10/20 08:50 Potassium Phosphate (Potassium Phos 3 Mmol/1 Ml Infusion) 9 mmol IV NOW STA Stop: 11/10/20 08:50 Tamsulosin HCl (Tamsulosin Hcl 0.4 Mg Cap) 0.8 mg PO HS [facility] Stop: 12/08/20 20:59 Last Admin: 11/09/20 19:16 Dose: 0.8 mg Documented by:
[2020-11-10] MEDS ORDERED: MAGNESIUM SULFATE / D5W 1 GM/100 ML BAG IV ONE (09:30)
[2020-11-10] MEDS ORDERED: POTASSIUM PHOSPHATE 9 MMOL in SODIUM CHLORIDE 0.9% 250 ML IV ONE (11:00)
[2020-11-10] MEDS ORDERED: methylPREDNISolone 40 MG in SYRINGE 0 ML IV ONE (14:30)
[2020-11-10] MEDS: IPRATROPIUM BROMIDE NEB SOLN 0.02% 2.5 ML VIAL INH SCH (20:14)
[2020-11-10] MEDS: LEVALBUTEROL 1.25MG/0.5ML NEB INH SCH (20:14)
[2020-11-10] MEDS: TAMSULOSIN HCL 0.4 MG CAP PO SCH (21:35)
[2020-11-10] MEDS: ATORVASTATIN 40 MG TAB PO SCH (21:36)
[2020-11-11] MEDS: IPRATROPIUM BROMIDE NEB SOLN 0.02% 2.5 ML VIAL INH SCH ×2 (00:18→07:41)
[2020-11-11] MEDS: LEVALBUTEROL 1.25MG/0.5ML NEB INH SCH ×2 (00:18→07:41)
[2020-11-11] MEDS ORDERED: METOPROLOL TARTRATE 1 MG/ML VIAL IV STA ×2 (01:33→09:14)
[2020-11-11] MEDS ORDERED: CALCIUM CARBONATE 500 MG CHEWABLE TAB PO STA (01:34)
[2020-11-11] MEDS ORDERED: METOPROLOL TARTRATE 1 MG/ML VIAL IV ONE (01:39)
[2020-11-11 05:38] LABS: Hematocrit (blood only) 34.4 % (42-52); Mean Corpuscular Hemoglobin 34.5 pg (25-34); Mean Corpuscular Hgb Conc 34.9 g/dL (32-36); Mean Corpuscular Volume 98.9 fL (80-100); Mean Platelet Volume 10.8 fL (7.4-10.4); Platelet Count 120 K/uL (130-400); RDW Coefficient of Variation 12.8 % (11.5-14.5); RDW Standard Deviation 45.9 fL (36.4-46.3); Red Blood Count 3.48 M/uL (4.7-6.1); White Blood Count 5.37 K/uL (4.8-10.8)
[2020-11-11 06:20] LABS: BUN Creatinine Ratio 22.2 (10-20); Blood Urea Nitrogen 9 mg/dl (7-18); Calcium 8.5 mg/dl (8.5-10.1); Carbon Dioxide 33 mmol/L (21-32); Chloride 99 mmol/L (98-107); Creatinine Clr Calc Pharmacy 177.7 ml/min; Est GFR (African American) 135.1; Est GFR (Non-African American) 116.6; Glucose 124 mg/dl (70-99); Phosphorus 3.2 mg/dl (2.5-4.9); Potassium 3.7 mmol/L (3.5-5.1); Sodium 135 mmol/L (136-145); Troponin I < 0.015 ng/ml (0-0.045)
[2020-11-11] MEDS: PIPERACILLIN/TAZOBACTAM 3.375 GM in DEXTROSE 5% 100 ML IV SCH ×3 (06:35→22:10)
[2020-11-11] MEDS: METOPROLOL TARTRATE 25 MG TAB PO SCH ×2 (08:08→22:09)
[2020-11-11] MEDS: GABAPENTIN 600 MG TAB PO SCH ×3 (08:10→22:09)
[2020-11-11] MEDS: PARoxetine HCL 20 MG TAB PO SCH ×2 (08:11→22:08)
[2020-11-11] MEDS: PANTOprazole 40 MG TAB PO SCH ×2 (08:12→22:08)
[2020-11-11] MEDS: DOXYCYCLINE HYCLATE 100 MG CAP PO SCH ×2 (08:12→22:07)
[2020-11-11] MEDS ORDERED: LEVALBUTEROL 1.25MG/0.5ML NEB INH PRN (08:16)
[2020-11-11] MEDS ORDERED: IPRATROPIUM BROMIDE NEB SOLN 0.02% 2.5 ML VIAL INH PRN (08:16)
[2020-11-11] MEDS ORDERED: POTASSIUM CHLORIDE CRTAB 20 MEQ TABCR PO STA (09:11)
--- NOTE | 2020-11-11 09:57 | Hospitalist Progress Note ---
Date of Service November 11, 2020 Assessment & Plan (1) Hypoxia: Secondary to restrictive lung disease exacerbation secondary to CAP, possible aspiration hx chronic respiratory failure secondary to bronchiectasis, muscular dystrophy/inclusion body myositis as per records on home O2 At baseline patient uses 2 LPM via nasal cannula at night. He continues to require continuous oxygen, he actually feels improved but now in afib / flutter w/ RVR Continue current antibiotic therapy with Zosyn and doxycycline. +/- steroid therapy for now as was wheezing yesterday, no wheezing today bronchodilator therapy as needed Will try to only use as needed as may be contributing to pt's arrhythmia blood cultures - 1 bottle posit. for coag negat. staph, repeat blood cultx (poss. contaminant) Continue good pulmonary toilet efforts in this bedbound patient. (2) Pneumonia: Continue antibiotic therapy as above. (3) Sepsis: Resuscitated, likely secondary to pneumonia. (4) Dysphagia: Related to progressive muscular dystrophy and inclusion body myositis. Mi nced and moist diet. (5) Paroxysmal atrial flutter: Pt was in sinus rhythm Afib/flutter overnight received IV metoprolol Afib/flutter w/ RVR again this AM (11/11) Continued home PO metoprolol twice daily per home regimen. Gave IV metoprolol Cardiology consulted Pt not anticoagulated d/t hx of subdural hematoma in 2019 and hx of thrombocytopenia Hx of ablation? 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 Continue aggressive pulmonary toilet measures. (7) Hereditary progressive muscular dystrophy: Chronic, plan as above. Diarrhea/ ? chronic -per pt has had for at least several weeks- months after loose stools/ formed stools/ now loose again - will obtain c. diff and stool cultx (8) DVT prophylaxis: SCDs/no chemoprophylaxis in setting of history of subdural hematoma. Will discuss further w/ cardiology given now in Afib/flutter. Full code Disposition-patient to return home once clinically improved and oxygen needs are back to baseline. Pt's Maribel to be updated. Admission and Anticipated Discharge Date Admission Date: November 08, 2020 Subjective Pt seen in follow up of hypoxia, shortness of breath, pna Mr. Gipson is a 75 y/o bedbound man who presented from home for evaluation of difficulty breathing. He does have muscular dystrophy and has difficulty with clearing secretions and is bedbound. In the ER he was hypoxic and was treated with IV fluids IV an tibiotics. Initial temperature was 38.6, pulse was 106 and with infectious symptoms, developing sepsis was a concern. On Zosyn and doxycycline in addition to a prednisone course. Bronchodilators wer e scheduled. Overnight pt in Afib/ aflutter w/ RVR, received IV metoprolol 5mg Pt is currently laying in bed in NAD, using suppl O2 2-4L, in NAD Again went into Afib/flutter at HR 150-160, pt asymptomatic , IV and PO metoprolol given, cardiology consulted Pt is not any anticoag. d/t hx of sudural hematoma, hx of ablation for aflutter No fever or chills 1 blood cultx - coag negative staph,poss. contaminant, cont. IV Abx, repeat blood cultx obtained Review of Systems Review of Systems: All systems reviewed & are unremarkable except as noted in HPI & below As per HPI, all 10 systems reviewed, all other ROS negative Constitutional: + fatigue; no fever and no chills Respiratory: + cough and + dyspnea (somewhat improved) Cardiovascular: no chest pain Gastrointestinal: + diarrhea/loose stools; no vomiting Physical Exam Physical Exam: CONSTITUTIONAL: WNWD, elderly male laying in bed, on 2L of O2 EYES: normal conjunctivae, no scleral icterus ENT: external ear and nose normal, oropharynx clear, MMM NECK: trachea midline RESPIRATORY: clear to auscultation bilaterally, no crackles, rales or wheezes, normal respiratory effort CARDIOVASCULAR: regular rate and rhythm, S1 and 2, no gallops or rubs, no JVD, no peripheral edema GASTROINTESTINAL: soft, nontender, nondistended, + bowel sounds MUSCULOSKELETAL: moves extremities equally but generalized weakness present. SKIN: warm and dry NEUROLOGIC: CN 2-12 grossly intact, normal cognition, normal speech PSYCHIATRIC: alert cooperative and oriented to person, place and time. Results & Data Results & Data ([facility]) Vital Signs (Past 12 Hours) Vital Signs Temp Pulse Pulse Pulse Resp BP BP 11/11/20 09:31 155 H 105/82 11/11/20 08:27 36.5 C 108 H 18 139/75 11/11/20 08:05 139/75 11/11/20 07:41 71 16 11/11/20 04:00 36.4 C L 95 H 18 133/81 11/11/20 02:00 95 H 134/86 11/11/20 01:50 125 H 110/76 11/11/20 01:45 153 H 109/75 11/11/20 01:30 36.8 C 153 H 17 109/76 11/11/20 00:18 95 H 18 11/10/20 23:31 95 H 11/10/20 23:09 36.6 C 79 18 175/85 H Pulse Ox 11/11/20 09:31 11/11/20 08:27 94 11/11/20 08:05 11/11/20 07:41 95 11/11/20 04:00 96 11/11/20 02:00 11/11/20 01:50 11/11/20 01:45 11/11/20 01:30 97 11/11/20 00:18 94 11/10/20 23:31 11/10/20 23:09 94 Laboratory Results 11/11/20 11/11/20 11/11/20 Range/Units 07:40 05:29 05:29 WBC 5.37 (4.8-10.8) K/uL RBC 3.48 L (4.7-6.1) M/uL Hgb 12.0 L (14.0-18.0) g/dL Hct 34.4 L (42-52) % MCV 98.9 (80-100) fL MCH 34.5 H (25-34) pg MCHC 34.9 (32-36) g/dL RDW Std Deviation 45.9 (36.4-46.3) fL RDW Coeff of Mayelin 12.8 (11.5-14.5) % Plt Count 120 L (130-400) K/uL MPV 10.8 H (7.4-10.4) fL Sodium 135 L (136-145) mmol/L Potassium 3.7 (3.5-5.1) mmol/L Chloride 99 (98-107) mmol/L Carbon Dioxide 33 H (21-32) mmol/L Anion Gap 3.0 (3-11) BUN 9 (7-18) mg/dl Creatinine 0.39 L (0.6-1.4) mg/dl Est Cr Clr Drug Dosing 177.7 ml/min Est GFR ( Amer) 135.1 Est GFR (Non-Af Amer) 116.6 BUN/Creatinine Ratio 22.2 H (10-20) Glucose 124 H (70-99) mg/dl POC Glucose 124 H (70-99) mg/dl Calcium 8.5 (8.5-10.1) mg/dl Phosphorus 3.2 (2.5-4.9) mg/dl Magnesium 2.0 (1.8-2.4) mg/dl Troponin I < 0.015 (0-0.045) ng/ml Medications Administered Current Inpatient Medications Acetaminophen (Acetaminophen 325 Mg Tab) 325 mg PO Q6H PRN PRN Reason: Mild Pain Stop: 12/08/20 05:29 Atorvastatin Calcium (Atorvastatin 40 Mg Tab) 80 mg PO QPM [facility] Stop: 12/08/20 20:59 Last Admin: 11/10/20 21:36 Dose: 80 mg Documented by: Doxycycline Hyclate (Doxycycline Hyclate 100 Mg Cap) 100 mg PO BID [facility] Stop: 11/15/20 20:59 Last Admin: 11/11/20 08:12 Dose: 100 mg Documented by: Gabapentin (Gabapentin 600 Mg Tab) 1,200 mg PO TID [facility] Stop: 12/08/20 08:59 Last Admin: 11/11/20 08:10 Dose: 1,200 mg Documented by: Promethazine HCl 12.5 mg/ (Sodium Chloride) 50.5 mls @ 202 mls/hr IV Q6H PRN PRN Reason: Nausea And Vomiting Stop: 12/08/20 05:29 Piperacillin Sod/Tazobactam (Sod 3.375 gm/ Dextrose) 115 mls @ 28.75 mls/hr IV Q8H [facility]; Protocol Stop: 11/15/20 05:59 Last Admin: 11/11/20 06:35 Dose: 28.8 mls/hr Documented by: Ipratropium [place] (Ipratropium [place] Neb Soln 0.02% 2.5 Ml Vial) 0.5 mg INH Q6R PRN PRN Reason: Shortness Of Breath Or Wheezing Stop: 12/10/20 18:59 Levalbuterol HCl (Levalbuterol 1.25mg/0.5ml Neb) 1.25 mg INH Q6R PRN PRN Reason: Shortness Of Breath Or Wheezing Stop: 12/10/20 18:59 Metoprolol Tartrate (Metoprolol Tartrate 25 Mg Tab) 25 mg PO BID [facility] Stop: 12/08/20 08:59 Last Admin: 11/11/20 08:08 Dose: 25 mg Documented by: Miscellaneous Information (Piperacill/Tazobac Consult Active) 1 ea N/A UD PRN PRN Reason: Consult Stop: 12/07/20 23:00 Oxycodone HCl (Oxycodone Hcl Ir 5 Mg Tab (Immediate Release)) 5 mg PO Q4H PRN PRN Reason: Pain Stop: 11/22/20 05:29 Pantoprazole Sodium (Pantoprazole 40 Mg Tab) 40 mg PO BID [facility] Stop: 12/08/20 08:59 Last Admin: 11/11/20 08:12 Dose: 40 mg Documented by: Paroxetine HCl (Paroxetine Hcl 20 Mg Tab) 30 mg PO BID [facility] Stop: 12/08/20 08:59 Last Admin: 11/11/20 08:11 Dose: 30 mg Documented by: Tamsulosin HCl (Tamsulosin Hcl 0.4 Mg Cap) 0.8 mg PO HS [facility] Stop: 12/08/20 20:59 Last Admin: 11/10/20 21:35 Dose: 0.8 mg Documented by:
--- NOTE | 2020-11-11 09:57 | Cardiology Consultation ---
Date of Consultation November 11, 2020 Assessment & Plan (1) Hypoxia: Hypoxic on admission but is better now on oxygen. (2) Pneumonia: Chest x-ray has groundglass appearance of the apex bilaterally possibly consistent with infectious pneumonitis. (3) Acute and chronic respiratory failure with hypercapnia: The patient has a history of muscular dystrophy and chronic aspiration. (4) Atrial fibrillation with RVR: This patient had a brief episode of sinus mechanism after being given IV metoprolol. He is not a great candidate for anticoagulation due to his history of muscular dystrophy, falls and a previous subdural hematoma. I think it is in the best interest of the patient that we try to get him into sinus mechanism as quickly as possible. Although amiodarone is a less attractive drug in somebody that has a pneumonitis it is our best antiarrhythmic for atrial fibrillation. Therefore I am going to start IV amiodarone on the patient. We will follow his clinical course thereafter and make further decisions regarding long-term antiarrhythmic therapy. History of Present Illness Attending Physician: Collin Granda MD History of Present Illness This is a 75-year-old male patient with a history of muscular dystrophy. He was admitted with progressive respiratory failure. He is being treated for CAP and possible aspiration. He has had a previous ablation performed in 2015 for atrial flutter. He is now having runs of atrial fibrillation with RVR. This arrhythmia started this morning and he was given some IV metoprolol. He broke from the atrial fibrillation for short time and then reverted back into this arrhythmia. He has a history of a subdural hematoma in 2019. He is not a great candidate for anticoagulation. We have been asked to see him in regard to the atrial fibrillation. He has the past medical history as listed below. Past medical history: 1. Paroxysmal atrial flutter (typical) s/p CTI ablation 01/2016 -no recurrence -regular rhythm on exam 2. Mild aortic stenosis - stable per echocardiogram 03/2019 3. Dyslipidemia goal LDL less than 70mg/dL - borderline control, tolerating atorvastatin 4. Labile HTN - controlled 5. PVC's 6. Former tobacco abuse 7. Inclusion body myositis Allergies Allergy/AdvReac Type Severity Reaction Status Date / Time bee venom protein (honey bee) Allergy Severe ANAPHYLAXIS Verified 11/07/20 23:31 sulfamethoxazole Allergy Intermediate RED Verified 11/07/20 23:31 [From Bactrim] SWOLLEN HIVES trimethoprim [From Bactrim] Allergy Intermediate RED Verified 11/07/20 23:31 SWOLLEN HIVES Home Medications Medication Instructions Recorded Confirmed Type acetaminophen [Tylenol Extra 1,000 mg PO DIRECTED PRN 12/01/18 11/08/20 History Strength] atorvastatin 80 mg PO QPM 12/01/18 11/08/20 History gabapentin 1,200 mg PO TID 12/01/18 11/08/20 History hydroxyzine HCl 12.5 - 25 mg PO Q6H PRN 12/01/18 11/08/20 History metoprolol tartrate 25 mg PO BID 12/01/18 11/08/20 History pantoprazole 40 mg PO BID 12/01/18 11/08/20 History paroxetine HCl [Paxil] 30 mg PO BID 12/01/18 11/08/20 History tamsulosin [Flomax] 0.8 mg PO HS 12/01/18 11/08/20 History Patient History Medical History (Updated 11/11/20 @ 10:16 by Efren Robert DO) Atrial flutter Henry's esophagus Benign neoplasm of colon " 06/09/99- hyperplastic polyp and tubular adenoma 06/27/2011- 2 polyps, path shows adenomatous" BPH (benign prostatic hypertrophy) Dyslipidemia GERD (gastroesophageal reflux disease) H/O alcohol abuse History of stroke "per Epic record, old infarct noted on head CT 08/13" HTN (hypertension) Hx of sepsis Inclusion body myositis (IBM) Malignant neoplasm prostate "s/p implant 07/10/02" Neuropathy Osteoarthritis Paroxysmal atrial tachycardia Sjogren's syndrome Typical atrial flutter Surgical History H/O colonoscopy H/O elbow surgery S/P hemorrhoidectomy S/P hip replacement S/P shoulder replacement "left" Family History Other Family history non-contributory Social History Smoking Status: Former smoker Hx Alcohol Use: Yes Alcohol type: other Hx Substance Use: No Preferred Language: Ukrainian Communication Ability: Effective Credit And Collection Manager Required: No Beliefs That Will Affect Care: None marital status: Current Living Situation: Family current occupational status: retired Feels Safe at Home: Yes Safety Concerns: Feels Safe At This Time Assistive Devices: Oxygen - Continuous Review of Systems Review of Systems: All systems reviewed & are unremarkable except as noted in HPI & below Nothing additional to add. Physical Exam Physical Exam: General: no acute distress and stated age Head: normocephalic, no masses, lesions, tenderness or abnormalities Eyes: conjunctiva are pink and non-injected, sclera clear Neck: supple, no adenopathy, no bruits, normal jugular venous pulse, no hepatojugular reflux Chest: normal shape and normal respiratory effort Lungs: clear to auscultation and percussion Cardiac Exam: - irregular rate & rhythm, no murmurs gallops or rubs - normal S1, normal S2 Pulses: 2(+) throughout Abdomen: abdomen soft, non-tender, no abnormal masses and no hepatosplenomegaly Musculoskeletal: no gait disturbance, no joint inflammation, no deforming arthritis Extremities: no edema and no cyanosis Neuro: grossly normal exam Results & Data ([facility]) Vital Signs (Past 12 Hours) Vital Signs Temp Pulse Pulse Pulse Resp BP BP 11/11/20 09:31 155 H 105/82 11/11/20 08:27 36.5 C 108 H 18 139/75 11/11/20 08:05 139/75 11/11/20 07:41 71 16 11/11/20 04:00 36.4 C L 95 H 18 133/81 11/11/20 02:00 95 H 134/86 11/11/20 01:50 125 H 110/76 11/11/20 01:45 153 H 109/75 11/11/20 01:30 36.8 C 153 H 17 109/76 11/11/20 00:18 95 H 18 11/10/20 23:31 95 H 11/10/20 23:09 36.6 C 79 18 175/85 H Pulse Ox 11/11/20 09:31 11/11/20 08:27 94 11/11/20 08:05 11/11/20 07:41 95 11/11/20 04:00 96 11/11/20 02:00 11/11/20 01:50 11/11/20 01:45 11/11/20 01:30 97 11/11/20 00:18 94 11/10/20 23:31 11/10/20 23:09 94 Laboratory Results Laboratory Results - last 24 hr 11/11/20 11/11/20 11/11/20 05:29 05:29 07:40 WBC 5.37 RBC 3.48 L Hgb 12.0 L Hct 34.4 L MCV 98.9 MCH 34.5 H MCHC 34.9 RDW Std Deviation 45.9 RDW Coeff of Mayelin 12.8 Plt Count 120 L MPV 10.8 H Sodium 135 L Potassium 3.7 Chloride 99 Carbon Dioxide 33 H Anion Gap 3.0 BUN 9 Creatinine 0.39 L Est Cr Clr Drug Dosing 177.7 Est GFR ( Amer) 135.1 Est GFR (Non-Af Amer) 116.6 BUN/Creatinine Ratio 22.2 H Glucose 124 H POC Glucose 124 H Calcium 8.5 Phosphorus 3.2 Magnesium 2.0 Troponin I < 0.015 Diagnostic Findings Telemetry reviewed and consistent with atrial fibrillation RVR. Medications Administered Current Inpatient Medications Acetaminophen (Acetaminophen 325 Mg Tab) 325 mg PO Q6H PRN PRN Reason: Mild Pain Stop: 12/08/20 05:29 Amiodarone HCl (Amiodarone Iv Bolus & Drip) 1 ea IV NOW STA; Protocol Stop: 11/11/20 10:11 Atorvastatin Calcium (Atorvastatin 40 Mg Tab) 80 mg PO QPM [facility] Stop: 12/08/20 20:59 Last Admin: 11/10/20 21:36 Dose: 80 mg Documented by: Doxycycline Hyclate (Doxycycline Hyclate 100 Mg Cap) 100 mg PO BID [facility] Stop: 11/15/20 20:59 Last Admin: 11/11/20 08:12 Dose: 100 mg Documented by: Gabapentin (Gabapentin 600 Mg Tab) 1,200 mg PO TID [facility] Stop: 12/08/20 08:59 Last Admin: 11/11/20 08:10 Dose: 1,200 mg Documented by: Promethazine HCl 12.5 mg/ (Sodium Chloride) 50.5 mls @ 202 mls/hr IV Q6H PRN PRN Reason: Nausea And Vomiting Stop: 12/08/20 05:29 Piperacillin Sod/Tazobactam (Sod 3.375 gm/ Dextrose) 115 mls @ 28.75 mls/hr IV Q8H [facility]; Protocol Stop: 11/15/20 05:59 Last Admin: 11/11/20 06:35 Dose: 28.8 mls/hr Documented by: N/A (0.2 Micron Filter Set 17" W/Clave,Non-Dehp) 0 mls @ 0.333 mls/hr IV ONE ONE Stop: 11/11/20 10:11 Amiodarone HCl/Dextrose (Nexterone / D5w) 150 mg in 100 mls @ 600 mls/hr IV NOW STA Stop: 11/11/20 10:19 Amiodarone HCl/Dextrose (Nexterone / D5w) 360 mg in 200 mls @ 33.333 mls/hr IV ONE ONE Stop: 11/11/20 16:09 Amiodarone HCl/Dextrose (Nexterone / D5w) 360 mg in 200 mls @ 16.667 mls/hr IV .Q12H [facility] Stop: 12/11/20 16:09 Ipratropium [place] (Ipratropium [place] Neb Soln 0.02% 2.5 Ml Vial) 0.5 mg INH Q6R PRN PRN Reason: Shortness Of Breath Or Wheezing Stop: 12/10/20 18:59 Levalbuterol HCl (Levalbuterol 1.25mg/0.5ml Neb) 1.25 mg INH Q6R PRN PRN Reason: Shortness Of Breath Or Wheezing Stop: 12/10/20 18:59 Metoprolol Tartrate (Metoprolol Tartrate 25 Mg Tab) 25 mg PO BID [facility] Stop: 12/08/20 08:59 Last Admin: 11/11/20 08:08 Dose: 25 mg Documented by: Metoprolol Tartrate (Metoprolol Tartrate 25 Mg Tab) 12.5 mg PO QAM [facility] Stop: 12/11/20 10:14 Miscellaneous (Stat Iv Infusion Titration Per Protocol) 1 ea N/A NOW STA Stop: 11/11/20 10:11 Miscellaneous Information (Piperacill/Tazobac Consult Active) 1 ea N/A UD PRN PRN Reason: Consult Stop: 12/07/20 23:00 Oxycodone HCl (Oxycodone Hcl Ir 5 Mg Tab (Immediate Release)) 5 mg PO Q4H PRN PRN Reason: Pain Stop: 04/13/21 05:29 Pantoprazole Sodium (Pantoprazole 40 Mg Tab) 40 mg PO BID [facility] Stop: 12/08/20 08:59 Last Admin: 11/11/20 08:12 Dose: 40 mg Documented by: Paroxetine HCl (Paroxetine Hcl 20 Mg Tab) 30 mg PO BID [facility] Stop: 12/08/20 08:59 Last Admin: 11/11/20 08:11 Dose: 30 mg Documented by: Tamsulosin HCl (Tamsulosin Hcl 0.4 Mg Cap) 0.8 mg PO HS [facility] Stop: 12/08/20 20:59 Last Admin: 11/10/20 21:35 Dose: 0.8 mg Documented by: (1) Pneumonia Laterality: left Lung location: lower lobe of lung Pneumonia type: due to unspecified organism Qualified Code(s): J18.9 - Pneumonia, unspecified organism
[2020-11-11] MEDS ORDERED: STAT IV Infusion **Titration per Protocol STA (10:10)
[2020-11-11] MEDS ORDERED: 0.2 MICRON FILTER SET 1 EA IV ONE (10:10)
[2020-11-11] MEDS ORDERED: AMIODARONE IV BOLUS & DRIP IV STA (10:10)
[2020-11-11] MEDS ORDERED: METOPROLOL TARTRATE 25 MG TAB PO SCH (10:15)
[2020-11-11] MEDS ORDERED: AMIODARONE / D5W 150 MG/100 ML BAG IV STA (10:17)
[2020-11-11] MEDS ORDERED: AMIODARONE / D5W 360 MG/200 ML BAG IV ONE (10:27)
[2020-11-11] MEDS ORDERED: hydrOXYzine HCl 25 MG TAB PO PRN (11:56)
--- NOTE | 2020-11-11 16:08 | Electrocardiogram Report ---
Test Reason : Blood Pressure : / mmHG Vent. Rate : 154 BPM Atrial Rate : 159 BPM P-R Int : 000 ms QRS Dur : 090 ms QT Int : 308 ms P-R-T Axes : 000 032 259 degrees QTc Int : 493 ms Atrial fibrillation with rapid ventricular response with premature ventricular or aberrantly conducte d complexes Marked ST abnormality, possible inferior subendocardial injury Marked ST abnormality, possible anterior subendocardial injury Abnormal ECG When compared with ECG of 07-NOV-2020 23:18, Significant changes have occurred Confirmed by Octavio Magaña ([id number]) on 11/11/2020 4:07:56 PM Referred By: REFERRED SELF Confirmed By:Octavio Magaña
[2020-11-11] MEDS: AMIODARONE / D5W 360 MG/200 ML BAG IV SCH (17:01)
[2020-11-11] MEDS: ATORVASTATIN 40 MG TAB PO SCH (22:07)
[2020-11-11] MEDS: TAMSULOSIN HCL 0.4 MG CAP PO SCH (22:08)
[2020-11-12] MEDS: AMIODARONE / D5W 360 MG/200 ML BAG IV SCH ×2 (04:41→16:56)
[2020-11-12] MEDS: PIPERACILLIN/TAZOBACTAM 3.375 GM in DEXTROSE 5% 100 ML IV SCH ×2 (06:48→14:52)
[2020-11-12 07:15] LABS: Hematocrit (blood only) 40.3 % (42-52); Hemoglobin 13.2 g/dL (14.0-18.0); Mean Corpuscular Hemoglobin 32.8 pg (25-34); Mean Corpuscular Hgb Conc 32.8 g/dL (32-36); Mean Corpuscular Volume 100.2 fL (80-100); Platelet Count 121 K/uL (130-400); RDW Coefficient of Variation 12.9 % (11.5-14.5); RDW Standard Deviation 47.4 fL (36.4-46.3); Red Blood Count 4.02 M/uL (4.7-6.1); White Blood Count 4.84 K/uL (4.8-10.8)
[2020-11-12 07:43] LABS: BUN Creatinine Ratio 17.3 (10-20); Calcium 9.1 mg/dl (8.5-10.1); Creatinine Clr Calc Pharmacy 162.8 ml/min; Est GFR (African American) 131.1; Est GFR (Non-African American) 113.1; Magnesium 1.6 mg/dl (1.8-2.4); Phosphorus 3.5 mg/dl (2.5-4.9); Potassium 3.5 mmol/L (3.5-5.1)
[2020-11-12] MEDS: PARoxetine HCL 20 MG TAB PO SCH ×2 (08:10→19:53)
[2020-11-12] MEDS: PANTOprazole 40 MG TAB PO SCH ×2 (08:10→19:53)
[2020-11-12] MEDS: METOPROLOL TARTRATE 25 MG TAB PO SCH ×2 (08:10→19:52)
[2020-11-12] MEDS: DOXYCYCLINE HYCLATE 100 MG CAP PO SCH ×2 (08:11→19:52)
[2020-11-12] MEDS: GABAPENTIN 600 MG TAB PO SCH ×3 (08:11→19:53)
--- NOTE | 2020-11-12 08:46 | Electrocardiogram Report ---
Test Reason : Blood Pressure : / mmHG Vent. Rate : 081 BPM Atrial Rate : 081 BPM P-R Int : 142 ms QRS Dur : 086 ms QT Int : 392 ms P-R-T Axes : 052 039 042 degrees QTc Int : 455 ms Normal sinus rhythm Left atrial enlargement Borderline ECG When compared with ECG of 11-NOV-2020 01:29, Sinus rhythm has replaced Atrial fibrillation Vent. rate has decreased BY [address] no longer depressed in Inferior leads ST no longer depressed in Anterolateral leads Confirmed by Man Menjivar ([id number]) on 11/12/2020 8:46:05 AM Referred By: REFERRED SELF Confirmed By:Man Menjivar
--- NOTE | 2020-11-12 09:36 | Hospitalist Progress Note ---
Date of Service November 12, 2020 Assessment & Plan (1) Hypoxia: Secondary to restrictive lung disease exacerbation secondary to CAP, possible aspiration hx chronic respiratory failure secondary to bronchiectasis, muscular dystrophy/inclusion body myositis as per records on home O2 At baseline patient uses 2 LPM via nasal cannula at night. He continues to require continuous oxygen, he actually feels improved but developed afib w/ RVR Continue current antibiotic therapy with Zosyn and doxycycline. +/- steroid therapy for now as was wheezing before, no wheezing today bronchodilator therapy as needed Will try to only use as needed as may be contributing to pt's arrhythmia blood cultures - 1 bottle posit. for coag negat. staph not lugdunensis , (likely contaminant), repeat blood cultx negative Continue good pulmonary toilet efforts in this bedbound patient. (2) Pneumonia: Continue antibiotic therapy as above. (3) Sepsis: Resuscitated, likely secondary to pneumonia. (4) Dysphagia: Related to progressive muscular dystrophy and inclusion body myositis. Minced and moist diet. (5) Paroxysmal atrial flutter: Pt was in sinus rhythm on admission Developed Afib w/ RVR AM (11/11) Continued home PO metoprolol twice daily per home regimen. 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 Continue aggressive pulmonary toilet measures. (7) Hereditary progressive muscular dystrophy: Chronic, plan as above. Diarrhea/ ? chronic -per pt has had for at least several weeks- months after loose stools/ formed stools/ now loose again - will obtain c. diff and stool cultx (8) DVT prophylaxis: SCDs/no chemoprophylaxis in setting of history of subdural hematoma. Full code Disposition-patient to return home once clinically improved and oxygen needs are back to baseline. Pt's Maribel to be updated. Admission and Anticipated Discharge Date Admission Date: November 08, 2020 Subjective Pt seen in follow up of hypoxia, shortness of breath, pna Pt is bedbound, presented from home for evaluation of difficulty breathing. Has muscular dystrophy and has difficulty with clearing secretions and is bedbound. Developed Afib/ aflutter w/ RVR, now on amio drip Pt converted to sinus rhythm yesterday PM Pt is currently laying in bed in NAD, denies shortness of breath, chest pain, palp., using suppl O2 2L, in NAD Pt is not any anticoag. d/t hx of sudural hematoma, hx of ablation for aflutter No fever or chills 1 blood cultx - coag negative staph,poss. contaminant, cont. IV Abx, repeat blood cultx obtained Review of Systems Review of Systems: All systems reviewed & are unremarkable except as noted in HPI & below Constitutional: no fever and no chills Respiratory: + cough and + dyspnea (improved) Cardiovascular: no chest pain and no palpitations Gastrointestinal: no abdominal pain, no nausea and no vomiting Physical Exam Physical Exam: CONSTITUTIONAL: WNWD, elderly male laying in bed, in NAD, on 2L of O2 EYES: normal conjunctivae, no scleral icterus ENT: external ear and nose normal, oropharynx clear, MMM NECK: trachea midline RESPIRATORY: normal respiratory effort, on suppl. O2, +mild rhonchi, no wheezing CARDIOVASCULAR: regular rate and rhythm, S1 and 2, no gallops or rubs, no JVD, no peripheral edema GASTROINTESTINAL: soft, nontender, nondistended, + bowel sounds MUSCULOSKELETAL: moves extremities but generalized weakness present. SKIN: warm and dry NEUROLOGIC: CN 2-12 grossly intact, normal cognition, normal speech PSYCHIATRIC: alert cooperative and oriented to person, place and time. Results & Data Results & Data ([facility]) Vital Signs (Past 12 Hours) Vital Signs Temp Pulse Pulse Pulse Resp BP BP 11/12/20 07:35 36.9 C 79 21 172/63 H 11/12/20 03:00 36.7 C 70 20 169/90 H 11/11/20 23:00 36.7 C 81 78 16 166/92 H Pulse Ox 11/12/20 07:35 97 11/12/20 03:00 99 11/11/20 23:00 93 Laboratory Results 11/12/20 11/12/20 Range/Units 06:51 06:51 WBC 4.84 (4.8-10.8) K/uL RBC 4.02 L (4.7-6.1) M/uL Hgb 13.2 L (14.0-18.0) g/dL Hct 40.3 L (42-52) % MCV 100.2 H (80-100) fL MCH 32.8 (25-34) pg MCHC 32.8 (32-36) g/dL RDW Std Deviation 47.4 H (36.4-46.3) fL RDW Coeff of Mayelin 12.9 (11.5-14.5) % Plt Count 121 L (130-400) K/uL MPV 11.0 H (7.4-10.4) fL Sodium 132 L (136-145) mmol/L Potassium 3.5 (3.5-5.1) mmol/L Chloride 97 L (98-107) mmol/L Carbon Dioxide 31 (21-32) mmol/L Anion Gap 4.0 (3-11) BUN 7 (7-18) mg/dl Creatinine 0.42 L (0.6-1.4) mg/dl Est Cr Clr Drug Dosing 162.8 ml/min Est GFR ( Amer) 131.1 Est GFR (Non-Af Amer) 113.1 BUN/Creatinine Ratio 17.3 (10-20) Glucose 98 (70-99) mg/dl Calcium 9.1 (8.5-10.1) mg/dl Phosphorus 3.5 (2.5-4.9) mg/dl Magnesium 1.6 L (1.8-2.4) mg/dl Medications Administered Current Inpatient Medications Acetaminophen (Acetaminophen 325 Mg Tab) 325 mg PO Q6H PRN PRN Reason: Mild Pain Stop: 12/08/20 05:29 Atorvastatin Calcium (Atorvastatin 40 Mg Tab) 80 mg PO QPM [facility] Stop: 12/08/20 20:59 Last Admin: 11/11/20 22:07 Dose: 80 mg Documented by: Doxycycline Hyclate (Doxycycline Hyclate 100 Mg Cap) 100 mg PO BID R[facility]ERTO Stop: 11/15/20 20:59 Last Admin: 11/12/20 08:11 Dose: 100 mg Documented by: Gabapentin (Gabapentin 600 Mg Tab) 1,200 mg PO TID RUPERTO Stop: 12/08/20 08:59 Last Admin: 11/12/20 08:11 Dose: 1,200 mg Documented by: Promethazine HCl 12.5 mg/ (Sodium Chloride) 50.5 mls @ 202 mls/hr IV Q6H PRN PRN Reason: Nausea And Vomiting Stop: 12/08/20 05:29 Piperacillin Sod/Tazobactam (Sod 3.375 gm/ Dextrose) 115 mls @ 28.75 mls/hr IV Q8H [facility]; Protocol Stop: 11/15/20 05:59 Last Admin: 11/12/20 06:48 Dose: 28.8 mls/hr Documented by: Amiodarone HCl/Dextrose (Nexterone / D5w) 360 mg in 200 mls @ 16.667 mls/hr IV .Q12H [facility] Stop: 12/11/20 16:26 Last Admin: 11/12/20 04:41 Dose: 0.5 mg/min, 16.7 mls/hr Documented by: Magnesium Sulfate/Dextrose (Magnesium Sulfate / D5w) 1 gm in 100 mls @ 50 mls/hr IV ONE ONE Stop: 11/12/20 11:59 Ipratropium [place] (Ipratropium [place] Neb Soln 0.02% 2.5 Ml Vial) 0.5 mg INH Q6R PRN PRN Reason: Shortness Of Breath Or Wheezing Stop: 12/10/20 18:59 Levalbuterol HCl (Levalbuterol 1.25mg/0.5ml Neb) 1.25 mg INH Q6R PRN PRN Reason: Shortness Of Breath Or Wheezing Stop: 12/10/20 18:59 Metoprolol Tartrate (Metoprolol Tartrate 25 Mg Tab) 25 mg PO BID [facility] Stop: 12/08/20 08:59 Last Admin: 11/12/20 08:10 Dose: 25 mg Documented by: Miscellaneous Information (Piperacill/Tazobac Consult Active) 1 ea N/A UD PRN PRN Reason: Consult Stop: 12/07/20 23:00 Oxycodone HCl (Oxycodone Hcl Ir 5 Mg Tab (Immediate Release)) 5 mg PO Q4H PRN PRN Reason: Pain Stop: 11/22/20 05:29 Pantoprazole Sodium (Pantoprazole 40 Mg Tab) 40 mg PO BID [facility] Stop: 12/08/20 08:59 Last Admin: 11/12/20 08:10 Dose: 40 mg Documented by: Paroxetine HCl (Paroxetine Hcl 20 Mg Tab) 30 mg PO BID [facility] Stop: 12/08/20 08:59 Last Admin: 11/12/20 08:10 Dose: 30 mg Documented by: Potassium Chloride (Potassium Chloride Crtab 20 Meq Tabcr) 40 meq PO NOW ONE Stop: 11/12/20 10:01 Tamsulosin HCl (Tamsulosin Hcl 0.4 Mg Cap) 0.8 mg PO HS [facility] Stop: 12/08/20 20:59 Last Admin: 11/11/20 22:08 Dose: 0.8 mg Documented by:
[2020-11-12] MEDS ORDERED: POTASSIUM CHLORIDE CRTAB 20 MEQ TABCR PO ONE (10:00)
[2020-11-12] MEDS ORDERED: MAGNESIUM SULFATE / D5W 1 GM/100 ML BAG IV ONE (10:00)
[2020-11-12] MEDS ORDERED: AMIODARONE 200 MG TAB PO STA (16:55)
--- NOTE | 2020-11-12 17:04 | Cardiology Progress Note ---
Date of Service November 12, 2020 Assessment & Plan (1) Atrial fibrillation with RVR: Outpatient problem list as follows: 1. Paroxysmal atrial flutter (typical) s/p CTI ablation 01/2016 2. Mild aortic stenosis - stable per echocardiogram 03/2019 3. Dyslipidemia 4. Labile 5. PVC's 6. Former tobacco abuse 7. Inclusion body myositis EKG performed 11/11/2020 at 1:29 AM revealed atrial fibrillation with rapid ventricular response 154 bpm, with diffuse ST depression consistent with rate related ischemia. Repeat tracing performed 11/11/2020, 1822, reveals sinus rhythm [address] depression has resolved. Patient with atrial fibrillation, likely related to pneumonitis, as well as the medication effects of his inhaled bronchodilators. Discontinue amiodarone infusion. Transition to oral amiodarone 200 mg twice daily. Continue metoprolol tartrate 25 mg twice daily. He is felt to be a poor anticoagulation candidate with history of past subdural hematoma. Magnesium and potassium replacement ordered earlier today by the primary team. Repeat TSH and LFTs tomorrow. Admission and Anticipated Discharge Date Admission Date: November 08, 2020 Subjective Patient seen in cardiology follow-up. He is feeling well. Not coughing. Swallowing pills. He remains in sinus rhythm in the 60s, currently on an amiodarone infusion. Physical Exam Physical Exam: Temp Pulse Resp BP Pulse Ox 36.5 C 70 18 165/88 H 97 11/12/20 14:26 11/12/20 15:00 11/12/20 14:26 11/12/20 14:26 11/12/20 14:26 Constitutional: WD/WN, vitals as above Respiratory: Coarse breath sounds at the apices, no rales rhonchi or wheezing Cardiovascular: Rate/Rhythm: regular rhythm Heart Sounds: + murmur (1/6 systolic murmur) Gastrointestinal (Abdomen): normal bowel sounds, soft, nontender, no hepatosplenomegaly Neurologic: PERRL, EOMI, accommodation nl, no face palsy, no dysarthria Results & Data ([facility]) Vital Signs (Past 12 Hours) Vital Signs Temp Pulse Pulse Resp BP BP Pulse Ox 11/12/20 15:00 70 11/12/20 14:26 36.5 C 71 18 165/88 H 97 11/12/20 11:57 95 11/12/20 11:28 36.6 C 71 20 176/85 H 86 L 11/12/20 07:35 36.9 C 79 21 172/63 H 97 Laboratory Results CBC 11/12/20 Range/Units 06:51 WBC 4.84 (4.8-10.8) K/uL RBC 4.02 L (4.7-6.1) M/uL Hgb 13.2 L (14.0-18.0) g/dL Hct 40.3 L (42-52) % Plt Count 121 L (130-400) K/uL Comprehensive Metabolic Panel 11/12/20 Range/Units 06:51 Sodium 132 L (136-145) mmol/L Potassium 3.5 (3.5-5.1) mmol/L Chloride 97 L (98-107) mmol/L Carbon Dioxide 31 (21-32) mmol/L BUN 7 (7-18) mg/dl Creatinine 0.42 L (0.6-1.4) mg/dl Glucose 98 (70-99) mg/dl Calcium 9.1 (8.5-10.1) mg/dl Intake and Output 11/12/20 11/12/20 11/12/20 06:59 14:59 22:59 Intake Total 709.833 / 2394.833 740 / 940 200 / 940 Output Total 1451 / 2251 500 / 500 Balance -741.167 / 143.833 240 / 440 200 / 440 Intake: IV 309.833 / 839.833 215 / 415 200 / 415 NEXTERONE / D5W 360 mg In 200 194.833 / 194.833 200 / 200 ml @ 0.5 MG/MIN 16.667 mls/hr IV .Q12H [facility] Rx#:[id number] MAGNESIUM SULFATE / D5W 1 gm In 100 / 100 100 ml @ 50 mls/hr IV ONE ONE Rx#:[id number] Zosyn 3.375 gm In D5 100 ml @ 115 / 345 115 / 115 28.75 mls/hr IV Q8H [facility] Rx#: [id number] Oral 400 / 1555 525 / 525 Output: Urine 1450 / 2250 500 / 500 # Bowel Movements / Other: Weight 89.7 kg Weight Measurement Method Built in [facility]
[2020-11-12] MEDS: TAMSULOSIN HCL 0.4 MG CAP PO SCH (19:52)
[2020-11-12] MEDS: ATORVASTATIN 40 MG TAB PO SCH (19:52)
[2020-11-13] MEDS: PIPERACILLIN/TAZOBACTAM 3.375 GM in DEXTROSE 5% 100 ML IV SCH ×4 (01:01→22:08)
--- NOTE | 2020-11-13 07:07 | Hospitalist Progress Note ---
Date of Service November 13, 2020 Assessment & Plan (1) Hypoxia: Secondary to restrictive lung disease exacerbation secondary to CAP, possible aspiration hx chronic respiratory failure secondary to bronchiectasis, muscular dystrophy/inclusion body myositis as per records on home O2 At baseline patient uses 2 LPM via nasal cannula at night. He continues to require continuous oxygen, he actually feels improved but developed afib w/ RVR Continue current antibiotic therapy with Zosyn and doxycycline. +/- steroid therapy for now as was wheezing before, no wheezing now bronchodilator therapy as needed Will try to only use as needed as may be contributing to pt's arrhythmia blood cultures - 1 bottle posit. for coag negat. staph not lugdunensis , (likely contaminant), repeat blood cultx negative Continue good pulmonary toilet efforts in this bedbound patient. Patient currently feeling much better (4/), he is still on 2 liters of supplemental O2, however satting 98%, discussed with the nursing staff to try to wean off of oxygen. Continues to be now in sinus rhythm on telemetry. (2) Pneumonia: Continue antibiotic therapy as above. (3) Sepsis: Resuscitated, likely secondary to pneumonia. (4) Dysphagia: Related to progressive muscular dystrophy and inclusion body myositis. Minced and moist diet. (5) Paroxysmal atrial flutter: Pt was in sinus rhythm on admission Developed Afib w/ RVR AM (11/11) Continued home PO metoprolol twice daily per home regimen. 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 Continue aggressive pulmonary toilet measures. (7) Hereditary progressive muscular dystrophy: Chronic, plan as above. Diarrhea/ ? chronic -per pt has had for at least several weeks- months after loose stools/ formed stools/ now loose again - will obtain c. diff and stool cultx Discussed with the patient, he reports to have loose stools, couple a day, per nursing staff, his stools were not loose. We will continue to closely monitor. If patient does have loose stools we will send for cultures as above. (8) DVT prophylaxis: SCDs/no chemoprophylaxis in setting of history of subdural hematoma. Full code Disposition-patient to return home once clinically improved and oxygen needs are back to baseline. Pt's Maribel to be updated. Admission and Anticipated Discharge Date Admission Date: November 08, 2020 Subjective Pt seen in follow up of hypoxia, shortness of breath, pna Pt is bedbound, presented from home for evaluation of difficulty breathing. Has muscular dystrophy and has difficulty with clearing secretions and is bedbound. Developed Afib/ aflutter w/ RVR, was started on amio Pt converted to sinus rhythm Pt is currently laying in bed in NAD, denies shortness of breath, chest pain, palp., using suppl O2 2L, in NAD and satting 98% this AM Discussed with nursing staff to try to wean off oxygen during the day No fever or chills Also discussed with nursing staff patient's concern for loose stools. Per nursing staff patient did not have loose stools, will continue to monitor. If patient has loose stools will send for stool culture. Review of Systems Review of Systems: All systems reviewed & are unremarkable except as noted in HPI & below As per HPI, all 10 systems reviewed, all other ROS negative Constitutional: no fever and no chills Respiratory: + cough and + dyspnea (improved) Cardiovascular: no chest pain and no palpitations Gastrointestinal: no abdominal pain, no nausea and no vomiting Physical Exam Physical Exam: CONSTITUTIONAL: WNWD, elderly male laying in bed, in NAD, on 2L of O2 EYES: normal conjunctivae, no scleral icterus ENT: external ear and nose normal, oropharynx clear, MMM NECK: trachea midline RESPIRATORY: normal respiratory effort, on suppl. O2, +mild rhonchi, no wheezing CARDIOVASCULAR: regular rate and rhythm, S1 and 2, no gallops or rubs, no JVD, no peripheral edema GASTROINTESTINAL: soft, nontender, nondistended, + bowel sounds MUSCULOSKELETAL: moves extremities but generalized weakness present. SKIN: warm and dry NEUROLOGIC: CN 2-12 grossly intact, normal cognition, normal speech PSYCHIATRIC: alert cooperative and oriented to person, place and time. Results & Data Results & Data ([facility]) Vital Signs (Past 12 Hours) Vital Signs Temp Pulse Pulse Resp BP Pulse Ox 11/13/20 03:00 36.7 C 16 116/64 94 04/04/21 00:07 71 11/12/20 23:00 36.8 C 75 17 175/91 H 92 11/12/20 19:48 199/102 H Laboratory Results 11/13/20 Range/Units 06:29 Sodium 133 L (136-145) mmol/L Potassium 3.8 (3.5-5.1) mmol/L Chloride 99 (98-107) mmol/L Carbon Dioxide 30 (21-32) mmol/L Anion Gap 4.0 (3-11) BUN 7 (7-18) mg/dl Creatinine 0.43 L (0.6-1.4) mg/dl Est Cr Clr Drug Dosing 159.2 ml/min Est GFR ( Amer) 129.8 Est GFR (Non-Af Amer) 112.0 BUN/Creatinine Ratio 15.2 (10-20) Glucose 99 (70-99) mg/dl Calcium 8.8 (8.5-10.1) mg/dl Phosphorus 4.0 (2.5-4.9) mg/dl Magnesium 1.7 L (1.8-2.4) mg/dl Total Bilirubin 0.5 (0.2-1) mg/dl AST 91 H (15-37) U/L ALT 94 H (12-78) U/L Alkaline Phosphatase 101 (45-117) U/L Total Protein 7.3 (6.4-8.2) gm/dl Albumin 2.9 L (3.4-5.0) gm/dl Globulin 4.4 H (2.5-4.0) gm/dl Albumin/Globulin Ratio 0.7 L (0.9-2) TSH 4.910 H (0.300-4.500) uIu/ml Free T4 1.39 (0.8-1.6) ng/dl Specimen Hemolysis Medications Administered Current Inpatient Medications Acetaminophen (Acetaminophen 325 Mg Tab) 325 mg PO Q6H PRN PRN Reason: Mild Pain Stop: 12/08/20 05:29 Amiodarone HCl (Amiodarone 200 Mg Tab) 200 mg PO BIDM R[facility]ERTO Stop: 12/13/20 07:59 Atorvastatin Calcium (Atorvastatin 40 Mg Tab) 80 mg PO QPM [facility]O Stop: 12/08/20 20:59 Last Admin: 11/12/20 19:52 Dose: 80 mg Documented by: Doxycycline Hyclate (Doxycycline Hyclate 100 Mg Cap) 100 mg PO BID [facility] Stop: 11/15/20 20:59 Last Admin: 11/12/20 19:52 Dose: 100 mg Documented by: Gabapentin (Gabapentin 600 Mg Tab) 1,200 mg PO TID [facility] Stop: 12/08/20 08:59 Last Admin: 11/12/20 19:53 Dose: 1,200 mg Documented by: Promethazine HCl 12.5 mg/ (Sodium Chloride) 50.5 mls @ 202 mls/hr IV Q6H PRN PRN Reason: Nausea And Vomiting Stop: 12/08/20 05:29 Piperacillin Sod/Tazobactam (Sod 3.375 gm/ Dextrose) 115 mls @ 28.75 mls/hr IV Q8H [facility]; Protocol Stop: 11/15/20 05:59 Last Admin: 11/13/20 05:23 Dose: 28.8 mls/hr Documented by: Magnesium Sulfate/Dextrose (Magnesium Sulfate / D5w) 1 gm in 100 mls @ 50 mls/hr IV Q2H [facility] Stop: 11/13/20 10:09 Ipratropium [place] (Ipratropium [place] Neb Soln 0.02% 2.5 Ml Vial) 0.5 mg INH Q6R PRN PRN Reason: Shortness Of Breath Or Wheezing Stop: 12/10/20 18:59 Levalbuterol HCl (Levalbuterol 1.25mg/0.5ml Neb) 1.25 mg INH Q6R PRN PRN Reason: Shortness Of Breath Or Wheezing Stop: 12/10/20 18:59 Metoprolol Tartrate (Metoprolol Tartrate 25 Mg Tab) 25 mg PO BID [facility] Stop: 12/08/20 08:59 Last Admin: 11/12/20 19:52 Dose: 25 mg Documented by: Miscellaneous Information (Piperacill/Tazobac Consult Active) 1 ea N/A UD PRN PRN Reason: Consult Stop: 12/07/20 23:00 Oxycodone HCl (Oxycodone Hcl Ir 5 Mg Tab (Immediate Release)) 5 mg PO Q4H PRN PRN Reason: Pain Stop: 11/22/20 05:29 Pantoprazole Sodium (Pantoprazole 40 Mg Tab) 40 mg PO BID [facility] Stop: 12/08/20 08:59 Last Admin: 11/12/20 19:53 Dose: 40 mg Documented by: Paroxetine HCl (Paroxetine Hcl 20 Mg Tab) 30 mg PO BID [facility] Stop: 12/08/20 08:59 Last Admin: 11/12/20 19:53 Dose: 30 mg Documented by: Tamsulosin HCl (Tamsulosin Hcl 0.4 Mg Cap) 0.8 mg PO HS [facility] Stop: 12/08/20 20:59 Last Admin: 11/12/20 19:52 Dose: 0.8 mg Documented by:
[2020-11-13 07:37] LABS: Albumin Level 2.9 gm/dl (3.4-5.0); BUN Creatinine Ratio 15.2 (10-20); Calcium 8.8 mg/dl (8.5-10.1); Creatinine Clr Calc Pharmacy 159.2 ml/min; Est GFR (African American) 129.8; Magnesium 1.7 mg/dl (1.8-2.4); Potassium 3.8 mmol/L (3.5-5.1)
[2020-11-13 07:49] LABS: Albumin Globulin Ratio 0.7 (0.9-2); Bilirubin,Total 0.5 mg/dl (0.2-1); Globulin 4.4 gm/dl (2.5-4.0); Thyroid Stimulating Hormone 4.91 uIu/ml (0.300-4.500); Total Protein 7.3 gm/dl (6.4-8.2)
[2020-11-13 08:05] LABS: T4 Free Thyroxine 1.39 ng/dl (0.8-1.6)
[2020-11-13] MEDS ORDERED: POTASSIUM CHLORIDE CRTAB 20 MEQ TABCR PO STA (08:12)
[2020-11-13] MEDS: PANTOprazole 40 MG TAB PO SCH ×2 (08:21→20:53)
[2020-11-13] MEDS: DOXYCYCLINE HYCLATE 100 MG CAP PO SCH ×2 (08:21→20:53)
[2020-11-13] MEDS: GABAPENTIN 600 MG TAB PO SCH ×3 (08:22→20:52)
[2020-11-13] MEDS: METOPROLOL TARTRATE 25 MG TAB PO SCH ×2 (08:22→20:52)
[2020-11-13] MEDS: PARoxetine HCL 20 MG TAB PO SCH ×2 (08:22→20:51)
[2020-11-13] MEDS: AMIODARONE 200 MG TAB PO SCH ×2 (08:22→17:48)
[2020-11-13] MEDS: MAGNESIUM SULFATE / D5W 1 GM/100 ML BAG IV SCH ×2 (09:06→11:12)
--- NOTE | 2020-11-13 12:28 | Communication Note ---
Date of Service: November 13, 2020 Denies in chest pain. Remains in SR.
--- NOTE | 2020-11-13 12:33 | Cardiology Progress Note ---
Date of Service November 13, 2020 Assessment & Plan (1) Atrial fibrillation with RVR: Outpatient problem list as follows: 1. Paroxysmal atrial flutter (typical) s/p CTI ablation 01/2016 2. Mild aortic stenosis - stable per echocardiogram 03/2019 3. Dyslipidemia 4. Labile 5. PVC's 6. Former tobacco abuse 7. Inclusion body myositis EKG performed 11/11/2020 at 1:29 AM revealed atrial fibrillation with rapid ventricular response 154 bpm, with diffuse ST depression consistent with rate related ischemia. Repeat tracing performed 11/11/2020, 1822, reveals sinus rhythm [address] depression had resolved. Patient with atrial fibrillation, likely related to pneumonitis, as well as the medication effects of his inhaled bronchodilators. Denies in chest pain. Remains in SR. AST / ALT, TSH mildly elevated. Continue oral metoprolol 25 mg BID. Continue oral amiodarone 200 mg BID for now, feel benefits of rhythm control strategy with amiodarone outweigh risks. Has other potential causes of elevated LFTs, sepsis, antibiotic therapy. Poor anticoagulation candidate. Admission and Anticipated Discharge Date Admission Date: November 08, 2020 Subjective No complaints. Remains in SR. Physical Exam Physical Exam: Temp Pulse Resp BP Pulse Ox 36.7 C 73 17 145/88 H 98 11/13/20 11:00 11/13/20 11:00 11/13/20 11:00 11/13/20 11:00 11/13/20 11:00 Constitutional: WD/WN, vitals as above Respiratory: no cough Auscultation: no crackles and no wheezes Cardiovascular: RRR, no murmur, no edema Neurologic: PERRL, EOMI, accommodation nl, no face palsy, no dysarthria Results & Data ([facility]) Vital Signs (Past 12 Hours) Vital Signs Temp Pulse Pulse Pulse Resp BP Pulse Ox 11/13/20 11:00 36.7 C 73 17 145/88 H 98 11/13/20 07:15 79 11/13/20 07:13 36.4 C L 73 20 146/79 H 98 11/13/20 03:00 36.7 C 16 116/64 94 Laboratory Results Cardiac Enzymes 11/13/20 Range/Units 06:29 AST 91 H (15-37) U/L Comprehensive Metabolic Panel 11/13/20 Range/Units 06:29 Sodium 133 L (136-145) mmol/L Potassium 3.8 (3.5-5.1) mmol/L Chloride 99 (98-107) mmol/L Carbon Dioxide 30 (21-32) mmol/L BUN 7 (7-18) mg/dl Creatinine 0.43 L (0.6-1.4) mg/dl Glucose 99 (70-99) mg/dl Calcium 8.8 (8.5-10.1) mg/dl AST 91 H (15-37) U/L ALT 94 H (12-78) U/L Alkaline Phosphatase 101 (45-117) U/L Total Protein 7.3 (6.4-8.2) gm/dl Albumin 2.9 L (3.4-5.0) gm/dl Intake and Output 11/12/20 11/13/20 11/13/20 22:59 06:59 14:59 Intake Total 565 / 1720 415 / 1720 215 / 215 Output Total 1300 / 2150 350 / 2150 Balance -735 / -430 65 / -430 215 / 215 Intake: IV 315 / 645 115 / 645 215 / 215 NEXTERONE / D5W 360 mg In 200 200 / 200 ml @ 0.5 MG/MIN 16.667 mls/hr IV .Q12H [facility] Rx#:[id number] MAGNESIUM SULFATE / D5W 1 gm In 100 / 100 100 ml @ 50 mls/hr IV Q2H [facility] Rx#:[id number] Zosyn 3.375 gm In D5 100 ml @ 115 / 345 115 / 345 115 / 115 28.75 mls/hr IV Q8H [facility] Rx#: [id number] Oral 250 / 1075 300 / 1075 Output: Urine 1300 / 2150 350 / 2150 Other: Weight 89.9 kg
--- NOTE | 2020-11-13 13:41 | XRay Report ---
SINGLE VIEW CHEST CLINICAL HISTORY: Fever and dyspnea. FINDINGS: An AP, portable, upright chest radiograph is compared to study dated 11/09/2020 and correlat ed with chest CT dated 11/08/2020. The examination is degraded by portable technique, apical lordotic positioning, and patient rotation. The heart is enlarged noting atherosclerotic calcification of the thoracic and. The pulmonary vasculature is noncongested. There is chronic elevation of left hemidiaph ragm with atelectasis of the left lung base. Scarring/atelectasis is also seen at the right lung base . No lobar consolidation or large pleural effusion is identified. No pneumothorax is seen. The skelet al structures are osteopenic. The bony thorax is grossly intact. A left shoulder arthroplasty is in p lace. IMPRESSION: 1. Cardiomegaly without radiographic evidence of congestive failure. 2. Chronic parenchymal changes as above with no acute cardiopulmonary abnormality. 3. Patchy groundglass opacities seen by CT cannot be assessed by x-ray. ACT 112: Negative or not required by law. Electronically signed by: Curt Delaney M.D. 11/13/2020 1:40 PM
[2020-11-13] MEDS: ATORVASTATIN 40 MG TAB PO SCH (20:51)
[2020-11-13] MEDS: TAMSULOSIN HCL 0.4 MG CAP PO SCH (20:53)
[2020-11-14] MEDS: PIPERACILLIN/TAZOBACTAM 3.375 GM in DEXTROSE 5% 100 ML IV SCH ×2 (06:01→14:13)
[2020-11-14 07:20] LABS: BUN Creatinine Ratio 18.7 (10-20); Calcium 8.6 mg/dl (8.5-10.1); Creatinine Clr Calc Pharmacy 163.5 ml/min; Est GFR (African American) 131.1; Est GFR (Non-African American) 113.1; Phosphorus 3.6 mg/dl (2.5-4.9); Potassium 3.6 mmol/L (3.5-5.1)
[2020-11-14] MEDS: PANTOprazole 40 MG TAB PO SCH (08:12)
[2020-11-14] MEDS: AMIODARONE 200 MG TAB PO SCH ×2 (08:12→17:15)
[2020-11-14] MEDS: METOPROLOL TARTRATE 25 MG TAB PO SCH (08:12)
[2020-11-14] MEDS: DOXYCYCLINE HYCLATE 100 MG CAP PO SCH (08:12)
[2020-11-14] MEDS: PARoxetine HCL 20 MG TAB PO SCH (08:12)
[2020-11-14] MEDS: GABAPENTIN 600 MG TAB PO SCH ×2 (08:12→14:08)
--- NOTE | 2020-11-14 08:21 | Hospitalist Progress Note ---
Date of Service November 14, 2020 Assessment & Plan (1) Hypoxia: Secondary to restrictive lung disease exacerbation secondary to CAP, possible aspiration hx chronic respiratory failure secondary to bronchiectasis, muscular dystrophy/inclusion body myositis as per records on home O2 At baseline patient uses 2 LPM via nasal cannula at night. He continues to require continuous oxygen, he actually feels improved but developed afib w/ RVR Continue current antibiotic therapy with Zosyn and doxycycline. +/- steroid therapy for now as was wheezing before, no wheezing now bronchodilator therapy as needed Will try to only use as needed as may be contributing to pt's arrhythmia blood cultures - 1 bottle posit. for coag negat. staph not lugdunensis , (likely contaminant), repeat blood cultx negative Continue good pulmonary toilet efforts in this bedbound patient. Patient currently feeling much better (11/13), he is still on 2 liters of supplemental O2, however satting 98%, discussed with the nursing staff to try to wean off of oxygen. Patient was then on room air yesterday, also on room air this morning (11/14), satting 91-92%. Breathing comfortably, speaking in full sentences, not using any accessory muscles. He is inquiring about going home. Continues to be now in sinus rhythm on telemetry. Discussed upcoming follow-up appointments with his as well. (2) Pneumonia: Continue antibiotic therapy as above. (3) Sepsis: Resuscitated, likely secondary to pneumonia. (4) Dysphagia: Related to progressive muscular dystrophy and inclusion body myositis. Minced and moist diet. (5) Paroxysmal atrial flutter: Pt was in sinus rhythm on admission Developed Afib w/ RVR AM (11/11) Continued home PO metoprolol twice daily per home regimen. Cardiology consulted, pt started on IV amiodarone Pt converted to sinus rhythm 11/12 Pt not anticoagulated d/t hx of subdural hematoma in 2018 and hx of thrombocytopenia Hx of ablation for Aflutter in the past Now switch to PO amiodarone 200 BID - per cardiology, plan for 200 mg twice daily for 5 days, then 200 mg daily. He is supposed to follow-up with cardiology in 1 to 2 weeks. 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 Continue aggressive pulmonary toilet measures. (7) Hereditary progressive muscular dystrophy: Chronic, plan as above. Diarrhea/ ? chronic -per pt has had for at least several weeks- months after loose stools/ formed stools/ now loose again - will obtain c. diff and stool cultx Discussed with the patient, he reports to have loose stools, couple a day, per nursing staff, his stools were not loose. We will continue to closely monitor. If patient does have loose stools we will send for cultures as above. Per nursing staff, patient has soft stools, but normal, and not adequate for cultures. (8) DVT prophylaxis: SCDs/no chemoprophylaxis in setting of history of subdural hematoma. Full code Disposition- plan to return home Pt's Maribel updated over the phone. Admission and Anticipated Discharge Date Admission Date: November 08, 2020 Subjective Pt seen in follow up of hypoxia, shortness of breath, A. fib Pt is bedbound, presented from home for evaluation of difficulty breathing. Has muscular dystrophy and has difficulty with clearing secretions Developed Afib/ aflutter w/ RVR, was started on amio Pt converted to sinus rhythm Pt is currently sitting up in bed in NAD, denies shortness of breath, chest pain, palpitations Yesterday he was using oxygen, 2 L, and was satting in high 90s. Then he was on room air yesterday. Room air as well this morning, satting about 91 to 92%. He is not short of breath, very comfortable, and he is inquiring about going home. He tells me that at home usually he is satting 88 to 90% on room air. He occasionally uses oxygen during the day as well. I discussed this with his , and he may use oxygen as needed at home. Continue 2 L at night. They have already appointment scheduled with pulmonary medicine. I discussed with the also upcoming appointment with cardiology, given new treatment for A. fib with RVR. Review of Systems Review of Systems: All systems reviewed & are unremarkable except as noted in HPI & below Constitutional: no fever and no chills Respiratory: + cough (chronic); no dyspnea Cardiovascular: no chest pain and no palpitations Gastrointestinal: no abdominal pain, no nausea, no vomiting and no diarrhea/loose stools Physical Exam Physical Exam: CONSTITUTIONAL: WNWD, elderly male laying in bed, in NAD, on 2L of O2 EYES: normal conjunctivae, no scleral icterus ENT: external ear and nose normal, oropharynx clear, MMM NECK: trachea midline RESPIRATORY: normal respiratory effort, on suppl. O2, +mild rhonchi, no wheezing CARDIOVASCULAR: regular rate and rhythm, S1 and 2, no gallops or rubs, no JVD, no peripheral edema GASTROINTESTINAL: soft, nontender, nondistended, + bowel sounds MUSCULOSKELETAL: moves extremities but generalized weakness present. SKIN: warm and dry NEUROLOGIC: CN 2-12 grossly intact, normal cognition, normal speech PSYCHIATRIC: alert cooperative and oriented to person, place and time. Results & Data Results & Data ([facility]) Vital Signs (Past 12 Hours) Vital Signs Temp Pulse Pulse Pulse Resp BP Pulse Ox 11/14/20 08:05 36.4 C L 71 18 127/72 96 11/14/20 07:09 66 11/14/20 05:00 11/14/20 03:30 36.5 C 70 20 118/72 96 11/13/20 23:20 36.7 C 72 20 115/62 98 11/13/20 23:05 71 11/13/20 20:49 86 175/94 H Pulse Ox 11/14/20 08:05 11/14/20 07:09 11/14/20 05:00 94 11/14/20 03:30 11/13/20 23:20 11/13/20 23:05 11/13/20 20:49 Laboratory Results 11/14/20 Range/Units 05:48 Sodium 133 L (136-145) mmol/L Potassium 3.6 (3.5-5.1) mmol/L Chloride 97 L (98-107) mmol/L Carbon Dioxide 33 H (21-32) mmol/L Anion Gap 3.0 (3-11) BUN 8 (7-18) mg/dl Creatinine 0.42 L (0.6-1.4) mg/dl Est Cr Clr Drug Dosing 163.5 ml/min Est GFR ( Amer) 131.1 Est GFR (Non-Af Amer) 113.1 BUN/Creatinine Ratio 18.7 (10-20) Glucose 101 H (70-99) mg/dl Calcium 8.6 (8.5-10.1) mg/dl Phosphorus 3.6 (2.5-4.9) mg/dl Magnesium 2.0 (1.8-2.4) mg/dl Medications Administered Current Inpatient Medications Acetaminophen (Acetaminophen 325 Mg Tab) 325 mg PO Q6H PRN PRN Reason: Mild Pain Stop: 12/08/20 05:29 Amiodarone HCl (Amiodarone 200 Mg Tab) 200 mg PO BIDM [facility] Stop: 12/13/20 07:59 Last Admin: 11/14/20 08:12 Dose: 200 mg Documented by: Atorvastatin Calcium (Atorvastatin 40 Mg Tab) 80 mg PO QPM [facility] Stop: 12/08/20 20:59 Last Admin: 11/13/20 20:51 Dose: 80 mg Documented by: Doxycycline Hyclate (Doxycycline Hyclate 100 Mg Cap) 100 mg PO BID [facility] Stop: 11/15/20 20:59 Last Admin: 11/14/20 08:12 Dose: 100 mg Documented by: Gabapentin (Gabapentin 600 Mg Tab) 1,200 mg PO TID [facility] Stop: 12/08/20 08:59 Last Admin: 11/14/20 08:12 Dose: 1,200 mg Documented by: Promethazine HCl 12.5 mg/ (Sodium Chloride) 50.5 mls @ 202 mls/hr IV Q6H PRN PRN Reason: Nausea And Vomiting Stop: 12/08/20 05:29 Piperacillin Sod/Tazobactam (Sod 3.375 gm/ Dextrose) 115 mls @ 28.75 mls/hr IV Q8H [facility]; Protocol Stop: 11/15/20 05:59 Last Admin: 11/14/20 06:01 Dose: 28.8 mls/hr Documented by: Ipratropium [place] (Ipratropium [place] Neb Soln 0.02% 2.5 Ml Vial) 0.5 mg INH Q6R PRN PRN Reason: Shortness Of Breath Or Wheezing Stop: 12/10/20 18:59 Levalbuterol HCl (Levalbuterol 1.25mg/0.5ml Neb) 1.25 mg INH Q6R PRN PRN Reason: Shortness Of Breath Or Wheezing Stop: 12/10/20 18:59 Metoprolol Tartrate (Metoprolol Tartrate 25 Mg Tab) 25 mg PO BID [facility] Stop: 12/08/20 08:59 Last Admin: 11/14/20 08:12 Dose: 25 mg Documented by: Miscellaneous Information (Piperacill/Tazobac Consult Active) 1 ea N/A UD PRN PRN Reason: Consult Stop: 12/07/20 23:00 Oxycodone HCl (Oxycodone Hcl Ir 5 Mg Tab (Immediate Release)) 5 mg PO Q4H PRN PRN Reason: Pain Stop: 11/22/20 05:29 Pantoprazole Sodium (Pantoprazole 40 Mg Tab) 40 mg PO BID [facility] Stop: 12/08/20 08:59 Last Admin: 11/14/20 08:12 Dose: 40 mg Documented by: Paroxetine HCl (Paroxetine Hcl 20 Mg Tab) 30 mg PO BID [facility] Stop: 12/08/20 08:59 Last Admin: 11/14/20 08:12 Dose: 30 mg Documented by: Potassium Chloride (Potassium Chloride Crtab 20 Meq Tabcr) 20 meq PO NOW STA Stop: 11/14/20 08:20 Tamsulosin HCl (Tamsulosin Hcl 0.4 Mg Cap) 0.8 mg PO HS [facility] Stop: 12/08/20 20:59 Last Admin: 11/13/20 20:53 Dose: 0.8 mg Documented by:
[2020-11-14] MEDS ORDERED: POTASSIUM CHLORIDE CRTAB 20 MEQ TABCR PO ONE (08:30)
[2020-11-14] MEDS ORDERED: COUGH DROP (SUGAR FREE) LOZ 24 LOZ/1 BOX BUCCAL PRN (09:16)
--- NOTE | 2020-11-14 11:18 | Cardiology Progress Note ---
Date of Service November 14, 2020 Assessment & Plan (1) Paroxysmal atrial fibrillation: (2) Pneumonia: (3) Inclusion body myositis (IBM): 75-year-old patient admitted with restrictive lung disease exacerbation related to community-acquired pneumonia. Transient atrial fibrillation treated with intravenous amiodarone to maintain sinus rhythm. Continue amiodarone 200 mg twice daily for 5 days then reduce dose to 200 mg daily. Atrial fibrillation occurring in setting of potentially reversible causes although he carries history of atrial flutter making possibility paroxysmal atrial fibrillation more likely throughout his lifetime. Outpatient cardiology follow-up in 1 to 2 weeks. Plan repeat ZIO monitor for assessment of rhythm control. Anticoagulation may be considered in the future if necessary. Patient has not suffered any recurrent falls recently. He is essentially wheelchair-bound at this time. Recommend repeat LFTs in 1 week post discharge. Admission and Anticipated Discharge Date Admission Date: November 08, 2020 Subjective Patient seen and examined at the bedside. Telemetry reveals sinus rhythm in the 70s. No recurrent atrial fibrillation. Tolerating metoprolol and amiodarone. Chart reviewed. Atrial fibrillation present in the setting of acute pneumonitis. Overall, respiratory status has improved with residual cough. Patient reports sputum production in the a.m. No orthopnea or PND. Denies palpitations, lightheadedness, dizziness, syncope, or near syncope. No chest discomfort or heaviness. Review of Systems Review of Systems: All systems reviewed & are unremarkable except as noted in HPI & below Physical Exam Constitutional: well nourished and + ill appearing; no acute distress Respiratory: Auscultation: + diminished lung sounds (B/L); no rales, no rhonchi and no wheezes Cardiovascular: Rate/Rhythm: regular rate and regular rhythm Heart Sounds: normal S1 and normal S2; no murmur Vessels: no JVD Extremities: no edema Gastrointestinal (Abdomen): Inspection/Auscultation: abdomen normal to inspection and normal bowel sounds; abdomen not distended Percussion/Palp ation: abdomen soft; abdomen nontender, no guarding and abdomen not rigid Psychiatric: A+Ox3, euthymic affect Results & Data ([facility]) Vital Signs (Past 12 Hours) Vital Signs Temp Pulse Pulse Pulse Resp BP Pulse Ox 11/14/20 08:05 36.4 C L 71 18 127/72 96 11/14/20 07:09 66 11/14/20 05:00 11/14/20 03:30 36.5 C 70 20 118/72 96 11/13/20 23:20 36.7 C 72 20 115/62 98 Pulse Ox 11/14/20 08:05 11/14/20 07:09 11/14/20 05:00 94 11/14/20 03:30 11/13/20 23:20 (1) Pneumonia Laterality: unspecified laterality Lung location: unspecified part of lung Pneumonia type: due to unspecified organism Qualified Code(s): J18.9 - Pneumonia, unspecified organism
--- NOTE | 2020-11-14 13:08 | Discharge Summary ---
Date of Service November 14, 2020 Admission HPI Per Admitting Provider History obtained from patient, family, and records. 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 Patient confined to [facility] 2018 for traumatic subdural hematoma. No ope rative intervention. Patient seen at PCPs office August 2020 for routine follow-up visit. Swallowing difficulty problems as per documentation. Choking episodes on food from time to time as per patient. Patient received first dose of Covid 19 vaccine last week. Dry cough symptoms the last few days which became progressively junky. No chest pain. Worsening shortness of breath. No unusual leg swelling. Noted to be hypoxemic at the ER, O2 sats 70s. Patient received Decadron and Zosyn at the ER for pneumonia. Patient currently more comfortable. 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, lives with Admission Exam Per Admitting Provider GENERAL: Comfortable, pleasant, obese, minimal respiratory distress SKIN: Normal color, warm HEENT: [place] palpebral conjunctivae, no ptosis, dry buccal mucosa, nasal cannula in place NECK : Supple, no tenderness CHEST : Decreased breath sounds, scattered expiratory wheezes,, no tenderness HEART : RRR, systolic murmur ABDOMEN: Some distention, nontender EXTREMITIES : No LE swelling/tenderness, flexion deformity of the upper extremities NEUROLOGIC : Coherent, no facial asymmetry, MMTS BUE 3/5, BLE 2/5 Principal Diagnosis Hypoxia, respiratory failure, possible aspiration in the setting of restrictive lung disease, muscular dystrophy/inclusion body myositis and dysphagia Atrial fibrillation with RVR Discharge Exam CONSTITUTIONAL: WNWD, elderly male laying in bed, in NAD, on 2L of O2 EYES: normal conjunctivae, no scleral icterus ENT: external ear and nose normal, oropharynx clear, MMM NECK: trachea midline RESPIRATORY: normal respiratory effort, on suppl. O2, +mild rhonchi, no wheezing CARDIOVASCULAR: regular rate and rhythm, S1 and 2, no gallops or rubs, no JVD, no peripheral edema GASTROINTESTINAL: soft, nontender, nondistended, + bowel sounds MUSCULOSKELETAL: moves extremities but generalized weakness present. SKIN: warm and dry NEUROLOGIC: CN 2-12 grossly intact, normal cognition, normal speech PSYCHIATRIC: alert cooperative and oriented to person, place and time. Discharge Data Allergies Allergy/AdvReac Type Severity Reaction Status Date / Time bee venom protein (honey bee) Allergy Severe ANAPHYLAXIS Verified 11/07/20 23:31 sulfamethoxazole Allergy Intermediate RED Verified 11/07/20 23:31 [From Bactrim] SWOLLEN HIVES trimethoprim [From Bactrim] Allergy Intermediate RED Verified 11/07/20 23:31 SWOLLEN HIVES Consultations 11/08/20 01:41 ED Decision to Admit Stat 11/11/20 09:16 Consult Cardiology Routine Ordered Studies 11/08/20 00:20 CT angio chest PE protocol Urgent IMPRESSION: 1. No central pulmonary emboli identified. Remainder of pulmonary arteries suboptimally assessed on this exam, as described above. 2. Multifocal groundglass opacities within left upper lobe suggestive of an infectious process. 3. Stable elevation of the left hemidiaphragm with extensive left lower lobe airspace opacity with volume loss which favors atelectasis. 4. Moderate cardiomegaly. Extensive coronary artery calcification. 11/08/20 00:40 CT abd pelvis IV con only Urgent IMPRESSION: 1. No acute process within the abdomen or pelvis. 2. Mild distention of the sigmoid colon without evidence for a bowel obstruction. 3. No bowel wall thickening. Normal appendix. 3. Elevation of the left hemidiaphragm with left lower lobe airspace opacity consistent with atelectasis. Lingular groundglass opacities, better depicted on chest CT, suggest an infectious process. Hospital Course (1) Hypoxia: Secondary to restrictive lung disease exacerbation secondary to CAP, possible aspiration hx chronic respiratory failure secondary to bronchiectasis, muscular dystrophy/inclusion body myositis as per records on home O2 At baseline patient uses 2 LPM via nasal cannula at night. He continues to require continuous oxygen, he actually feels improved but developed afib w/ RVR Continue current antibiotic therapy with Zosyn and doxycycline. +/- steroid therapy for now as was wheezing before, no wheezing now bronchodilator therapy as needed Will try to only use as needed as may be contributing to pt's arrhythmia blood cultures - 1 bottle posit. for coag negat. staph not lugdunensis , (likely contaminant), repeat blood cultx negative Continue good pulmonary toilet efforts in this bedbound patient. Patient currently feeling much better (11/13), he is still on 2 liters of supplemental O2, however satting 98%, discussed with the nursing staff to try to wean off of oxygen. Patient was then on room air yesterday, also on room air this morning (11/14), satting 91-92%. Breathing comfortably, speaking in full sentences, not using any accessory muscles. He is inquiring about going home. Continues to be now in sinus rhythm on telemetry. Discussed upcoming follow-up appointments with his as well. (2) Pneumonia: Continue antibiotic therapy as above. (3) Sepsis: Resuscitated, likely secondary to pneumonia. (4) Dysphagia: Related to progressive muscular dystrophy and inclusion body myositis. Minced and moist diet. (5) Paroxysmal atrial flutter: Pt was in sinus rhythm on admission Developed Afib w/ RVR AM (11/11) Continued home PO metoprolol twice daily per home regimen. Cardiology consulted, pt started on IV amiodarone Pt converted to sinus rhythm 11/12 Pt not anticoagulated d/t hx of subdural hematoma in 2018 and hx of thrombocytopenia Hx of ablation for Aflutter in the past Now switch to PO amiodarone 200 BID - per cardiology, plan for 200 mg twice daily for 5 days, then 200 mg daily. He is supposed to follow-up with cardiology in 1 to 2 weeks. 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 Continue aggressive pulmonary toilet measures. (7) Hereditary progressive muscular dystrophy: Chronic, plan as above. Diarrhea/ ? chronic -per pt has had for at least several weeks- months after loose stools/ formed stools/ now loose again - will obtain c. diff and stool cultx Discussed with the patient, he reports to have loose stools, couple a day, per nursing staff, his stools were not loose. We will continue to closely monitor. If patient does have loose stools we will send for cultures as above. Per nursing staff, patient has soft stools, but normal, and not adequate for cultures. (8) DVT prophylaxis: SCDs/no chemoprophylaxis in setting of history of subdural hematoma. Full code Disposition- plan to return home Pt's Maribel updated over the phone. Total Time Total Time Spent Total Time Spent (In Minutes): 37 Total Time Includes: Examination of the Patient, Discharge Planning and Me dication Reconciliation Discharge Plan Discharge Items Patient Disposition: Home - Self-Care Reason For Visit: RESPIRATORY FAILURE Discharge Diagnosis: Hypoxia, respiratory failure, possible aspiration in the setting of restrictive lung disease, muscular dystrophy/inclusion body myositis and dysphagia Atrial fibrillation with RVR Condition on Discharge: Good Activity: Per Instructions section Non-emergency contact: Primary Care Provider and Foot Press Operator Call non-emergency contact if: you have any medication questions and your symptoms worsen Follow-up/Referrals: Clark Mcfarland MD [Primary Care Provider] - (Date & Time 11/18/2020 3:00 PM Provider Clark Mcfarland MD [facility] ) Diet: Regular and Other - See Diet Comment Diet Comment: Minced and moist diet, dysphagia diet Addtl Attending Provider Instructions: Follow-up with your primary care doctor, the appointment was scheduled for you for November 18. You will also need to follow-up with cardiology you will be contacted about the appointment -you should be seen in 1 to 2 weeks. You were started on a new medication, amiodarone, for your abnormal heart rhythm. Take amiodarone 200 mg twice a day for 5 days, then reduce the dose to 200 mg daily. Finish antibiotic treatment as prescribed, with Augmentin and doxycycline. Do not take hydroxyzine, while you are taking the amiodarone. Pending Studies at Discharge: No Stand-Alone Forms: [facility] [employer], Smoking Cessation Medications and DC Order Prescriptions: New doxycycline hyclate 100 mg Capsule 100 mg PO BID 2 Days Qty: 4 RF: 0 amiodarone 200 mg Tablet 200 mg PO UD Qty: 30 RF: 0 amoxicillin-pot clavulanate [Augmentin] 875-125 mg tablet 1 tab PO BID 2 Days Qty: 4 RF: 0 Continued atorvastatin 80 mg Tablet 80 mg PO QPM RF: 0 gabapentin 600 mg Tablet 1,200 mg PO TID RF: 0 acetaminophen [Tylenol Extra Strength] 500 mg Tablet 1,000 mg PO DIRECTED PRN (Reason: Fever Or Pain) RF: 0 tamsulosin [Flomax] 0.4 mg Capsule 0.8 mg PO HS RF: 0 paroxetine HCl [Paxil] 30 mg Tablet 30 mg PO BID RF: 0 pantoprazole 40 mg Tablet,Delayed Release (Dr/Ec) 40 mg PO BID RF: 0 metoprolol tartrate 25 mg Tablet 25 mg PO BID RF: 0 Discontinued hydroxyzine HCl 25 mg Tablet 12.5 - 25 mg PO Q6H PRN (Reason: Itching) RF: 0 Discharge Orders: Discharge Order (Routine); Ordered 11/14/20 Ordered By: Collin Woodward/Other Patient Handouts: Understanding Atrial Fibrillation, Amiodarone tablets Admission Data Admit Date/Time: 11/08/20 03:51 Attending Provider: Collin Granda Admit Provider: Johnathon Faustin Primary Care Provider: Clark Mcfarland Other Providers: Nidhi [place] ; Johnathon Faustin ; Efren Robert
== END 2020-11-14 18:25 | disposition home health service (06) | DRG 871 ==
LOC: ED 22:44 → 2S 11-08 03:51 → SUATTDRO 11-08 03:51 → 2S 11-08 05:13 → 2W 11-10 00:03 → 2S 11-11 11:51

== ENCOUNTER 2021-03-18 09:54 | Inpatient (IN) ==
--- NOTE | 2021-03-18 10:46 | Emergency Department Note ---
Impression & Plan Aspiration pneumonia, Hypoxia, Hereditary progressive muscular dystrophy, Breathlessness ED Provider Note Provider: Ruben Howell MD DATE OF SERVICE: 03/18/2021 CHIEF COMPLAINT: Cough, shortness of breath HISTORY OF PRESENT ILLNESS: Patient is a 75-year-old gentleman with a past medical history of hypertension, Henry's esophagus, myotonic dystrophy, and paroxysmal atrial fibrillation presenting today with stating over the past approximately 3 days she had worsening breathing. States has had some increased secretions and has been coughing some stuff up. Denies any fever or chills. Reports some upper pain behind his shoulder blades. Denies any abdominal pain or nausea. States when he lays flat the breathing seems much worse. Similar to prior episode in November when he was admitted here for pneumonia. Reports he uses some home oxygen at night and intermittently over the last day or 2 has been using it at home due to shortness of breath. No significant leg swelling jennings ges been reported. Patient has received the Covid vaccine. Patient relays a history of chronic issues with swallowing due to his myotonic dystrophy and states he often has aspiration events. REVIEW OF SYSTEMS: A total of 10 review of systems was obtained and negative except as stated above in the HPI. PAST MEDICAL HISTORY: As noted above MEDICATIONS: Reviewed home medication list SOCIAL HISTORY: Lives at home with PHYSICAL EXAM: GENERAL: alert and oriented in no acute distress on stretcher Head: normocephalic and atraumatic EYES: No injection, discharge or icterus. NECK: Trachea midline. Supple. ENT: Mucous membranes pink and moist. Pharynx without erythema or exudate. LUNGS: Airway patent. Mild increased work of breathing and tachypnea. Crackles in the bilateral bases. No significant wheeze appreciated. HEART: Regular rate and rhythm. No chest wall tenderness ABDOMEN: Soft and non-tender, without guarding or rebound. SKIN: Acyanotic, warm, dry EXTREMITIES: Trace bilateral pedal edema without bilateral calf tenderness. Some mild contractures and weakness of the hands noted. NEUROLOGICAL: No focal deficits. No aphasia. No facial droop or slurred speech. EK bpm normal sinus rhythm. No PVC or PAC. No acute ST segment elevation or depression. QTC 449. CONTINUOUS CARDIAC MONITORING: was ordered and showed a heart rate of bpm in Patient's laboratory studies and imaging reviewed. Differential includes Reactive airway disease, pneumonia, pneumothorax, COPD, CHF, infections, cardiac ischemia, pulmonary embolism, musculoskeletal, gastrointestinal, as well as other pathologies. IMPRESSION/MEDICAL DECISION MAKING: Patient with unfortunate history of muscular dystrophy now with some worsening breathing a little bit of posterior back discomfort. No fevers reported. Patient is a history of aspiration and a history of pneumonia. Some mild in creased work of breathing and tachypnea is noted on clinical exam. Does have some what sounds like crackles in the bilateral lower lung yu and is requiring a little bit of oxygen on room air at this point. Minimal swelling of the lower legs and low suspicion for CHF exacerbation. Basic labs will be ordered. Chest x-ray per radiology questions left basilar infiltrate with chronic left diaphragm elevation. Patient and report that with nebulizers he has had episodes of A. fib before and they wish to avoid this if possible. Patient has been Covid vaccinated. Covid test negative. Blood work reviewed with chronic hyponatremia but little bit of ALT and alk phos elevation. Benign abdomen on exam. Urinalysis is negative. Troponin undetectable and lactate not elevated. He is requiring some oxygen at rest at room air which is new during the day and question given his swallowing issues if this is an aspiration. Chest x-ray questions a left lower lobe infiltrate versus atelectasis. D-dimer was positive and given his immobile status will complete a CT of the chest to exclude PE as well and further evaluate the lung. Given concerns however empirically given a dose of Zosyn for pna. Blood cultures are previously obtained but he does not appear septic. Given his ox requirement during the day and slight tachypnea feel that in any event he will require further care here at the hospital. Updated the patient and his at bedside. CT scan of the chest to be completed.evidence of Per radiology no evidence of large PE although some limitations in the distal vasculature due to motion; multifocal pneumonia noted. Hospitalist contacted. DIAGNOSIS: Multifocal pneumonia, hypoxia, hereditary muscular dystrophy DISPOSITION: Hospitalist will evaluate Patient was agreeable with this plan. Past Med/Surg History Medical History (Updated 03/18/21 @ 14:59 by Ruben Howell M.D.) Atrial flutter Henry's esophagus Benign neoplasm of colon " 06/09/99- hyperplastic polyp and tubular adenoma 06/27/2011- 2 polyps, path shows adenomatous" BPH (benign prostatic hypertrophy) Dyslipidemia GERD (gastroesophageal reflux disease) H/O alcohol abuse History of stroke "per Epic record, old infarct noted on head CT 08/13" HTN (hypertension) Hx of sepsis Inclusion body myositis (IBM) Malignant neoplasm prostate "s/p implant 07/10/02" Neuropathy Osteoarthritis Paroxysmal atrial tachycardia Sjogren's syndrome Typical atrial flutter Surgical History H/O colonoscopy H/O elbow surgery S/P hemorrhoidectomy S/P hip replacement S/P shoulder replacement "left" Family History Other Family history non-contributory Social History Smoking Status: Former smoker Hx Alcohol Use: Yes Alcohol type: other Hx Substance Use: No Preferred Language: Pashto Communication Ability: Effective Horticultural Agent Required: No Beliefs That Will Affect Care: None marital status: Current Living Situation: Family current occupational status: retired Feels Safe at Home: Yes Assistive Devices: Oxygen - at Night Allergies Allergies Allergy/AdvReac Type Severity Reaction Status Date / Time bee venom protein (honey bee) Allergy Severe ANAPHYLAXIS Verified 11/07/20 23:31 sulfamethoxazole Allergy Intermediate RED Verified 11/07/20 23:31 [From Bactrim] SWOLLEN HIVES trimethoprim [From Bactrim] Allergy Intermediate RED Verified 11/07/20 23:31 SWOLLEN HIVES Home Meds Home Medications Medication Instructions Recorded Confirmed acetaminophen 500 mg tablet 1,000 mg PO DIRECTED PRN 12/01/18 11/08/20 (Tylenol Extra Strength) atorvastatin 80 mg tablet 80 mg PO QPM 12/01/18 11/08/20 gabapentin 600 mg tablet 1,200 mg PO TID 12/01/18 11/08/20 metoprolol tartrate 25 mg tablet 25 mg PO BID 12/01/18 11/08/20 pantoprazole 40 mg tablet,delayed 40 mg PO BID 12/01/18 11/08/20 release paroxetine HCl 30 mg tablet (Paxil) 30 mg PO BID 12/01/18 11/08/20 tamsulosin 0.4 mg capsule (Flomax) 0.8 mg PO HS 12/01/18 11/08/20 Previous Rx's Medication Instructions Recorded amiodarone 200 mg tablet 200 mg PO UD #30 tab 11/14/20 Results & Data (ED) Vital Signs Vital Signs - 24 hr 03/18/21 10:07 03/18/21 10:30 03/18/21 11:17 Temperature 36.4 C L 37.2 C 37.2 C Temperature Source Temporal Artery Scan Oral Oral Pulse Rate 86 Pulse Rate [Right Radial] 88 88 Pulse Rhythm Regular Pulse Rhythm [Right Radial] Regular Regular Pulse Strength Normal Pulse Strength [Right Radial] Normal Normal Respiratory Rate 20 24 24 Respiratory Effort / Characteristics Non-Labored Spontaneous Short of Breath Short of Breath Respiratory Depth Normal Normal Normal Respiratory Pattern Regular Tachypnea Tachypnea Blood Pressure 129/71 Blood Pressure [Right Arm] 182/95 H 182/95 H Blood Pressure Mean 90 Blood Pressure Mean [Right Arm] 124 124 Blood Pressure Position Sitting Blood Pressure Position [Right Arm] Semi-fowlers Semi-fowlers Pulse Oximetry 88 L 96 Oxygen Delivery Method Room Air Nasal Cannula Nasal Cannula Oxygen Flow Rate 2 2 Sepsis Recent Fever Within 48 Hours No Sepsis New/Unexplained Change in Mental Status N/A Sepsis Action Taken by Nursing No Action Required Pulse Oximetry Post Tiitration 96 03/18/21 11:21 03/18/21 13:01 Temperature Temperature Source Pulse Rate 87 Pulse Rate [Right Radial] 89 Pulse Rhythm Regular Pulse Rhythm [Right Radial] Pulse Strength Pulse Strength [Right Radial] Respiratory Rate 22 26 H Respiratory Effort / Characteristics Respiratory Depth Respiratory Pattern Blood Pressure Blood Pressure [Right Arm] 206/92 H Blood Pressure Mean Blood Pressure Mean [Right Arm] 130 Blood Pressure Position Blood Pressure Position [Right Arm] Sitting Pulse Oximetry 96 96 Oxygen Delivery Method Nasal Cannula Nasal Cannula Oxygen Flow Rate 2 2 Sepsis Recent Fever Within 48 Hours Sepsis New/Unexplained Change in Mental Status Sepsis Action Taken by Nursing Pulse Oximetry Post Tiitration Laboratory Data Result diagrams: 03/18/21 11:20 03/18/21 11:20 Lab Results 03/18/21 03/18/21 03/18/21 Range/Units 11:20 11:20 11:20 WBC 8.50 (4.8-10.8) K/uL RBC 4.17 L (4.7-6.1) M/uL Hgb 14.0 (14.0-18.0) g/dL Hct 40.6 L (42-52) % MCV 97.4 (80-100) fL MCH 33.6 (25-34) pg MCHC 34.5 (32-36) g/dL RDW Std Deviation 46.0 (36.4-46.3) fL RDW Coeff of [place] 13.1 (11.5-14.5) % Plt Count 168 (130-400) K/uL MPV 11.6 H (7.4-10.4) fL Immature Gran % (Auto) 0.2 % Neut % (Auto) 83.0 % Lymph % (Auto) 5.6 % [place] % (Auto) 10.0 % Eos % (Auto) 1.1 % Baso % (Auto) 0.1 % Neut # (Auto) 7.05 H (1.4-6.5) K/uL Lymph # (Auto) 0.48 L (1.2-3.4) K/uL [place] # (Auto) 0.85 H (0.11-0.59) K/uL Eos # (Auto) 0.09 (0-0.5) K/uL Baso # (Auto) 0.01 (0-0.2) K/uL Immature Gran # (Auto) 0.02 (0.00-0.02) K/uL PT Cancelled INR Cancelled D-Dimer Cancelled Sodium 131 L (136-145) mmol/L Potassium (3.5-5.1) mmol/L Chloride 96 L (98-107) mmol/L Carbon Dioxide 34 H (21-32) mmol/L Anion Gap 1.0 L (3-11) BUN 10 (7-18) mg/dl Creatinine 0.38 L (0.6-1.4) mg/dl Est Cr Clr Drug Dosing Not Reportable Est GFR ( Amer) 136.6 ml/min Est GFR (Non-Af Amer) 117.8 ml/min BUN/Creatinine Ratio 25.7 H (10-20) Glucose 121 H (70-99) mg/dl Lactate (0.4-2.0) mmol/L Calcium 8.8 (8.5-10.1) mg/dl Magnesium (1.8-2.4) mg/dl Total Bilirubin 0.6 (0.2-1) mg/dl AST (15-37) U/L ALT 96 H (12-78) U/L Alkaline Phosphatase 131 H (45-117) U/L Troponin I < 0.015 (0-0.045) ng/ml NT-Pro-B Natriuret Pep 437 (0-1800) pg/ml Total Protein 7.8 (6.4-8.2) gm/dl Albumin 3.2 L (3.4-5.0) gm/dl Globulin 4.6 H (2.5-4.0) gm/dl Albumin/Globulin Ratio 0.7 L (0.9-2) Urine Color Urine Appearance (Clear) Urine pH (4.5-7.5) Ur Specific [place] (1.000-1.030) Urine Protein (Negative) Urine Glucose (UA) (Negative) Urine Ketones (Negative) Urine Blood (Negative) Urine Nitrite (Negative) Urine Bilirubin (Negative) Urine Urobilinogen (Negative) Ur Leukocyte Esterase (Negative) COVID-19 Eval Order SARS-CoV-2 (PCR) (Negative) 03/18/21 03/18/21 03/18/21 Range/Units 11:40 11:40 12:19 WBC (4.8-10.8) K/uL RBC (4.7-6.1) M/uL Hgb (14.0-18.0) g/dL Hct (42-52) % MCV (80-100) fL MCH (25-34) pg MCHC (32-36) g/dL RDW Std Deviation (36.4-46.3) fL RDW Coeff of [place] (11.5-14.5) % Plt Count (130-400) K/uL MPV (7.4-10.4) fL Immature Gran % (Auto) % Neut % (Auto) % Lymph % (Auto) % [place] % (Auto) % Eos % (Auto) % Baso % (Auto) % Neut # (Auto) (1.4-6.5) K/uL Lymph # (Auto) (1.2-3.4) K/uL [place] # (Auto) (0.11-0.59) K/uL Eos # (Auto) (0-0.5) K/uL Baso # (Auto) (0-0.2) K/uL Immature Gran # (Auto) (0.00-0.02) K/uL PT INR D-Dimer Sodium (136-145) mmol/L Potassium (3.5-5.1) mmol/L Chloride (98-107) mmol/L Carbon Dioxide (21-32) mmol/L Anion Gap (3-11) BUN (7-18) mg/dl Creatinine (0.6-1.4) mg/dl Est Cr Clr Drug Dosing Est GFR ( Amer) ml/min Est GFR (Non-Af Amer) ml/min BUN/Creatinine Ratio (10-20) Glucose (70-99) mg/dl Lactate 0.8 (0.4-2.0) mmol/L Calcium (8.5-10.1) mg/dl Magnesium (1.8-2.4) mg/dl Total Bilirubin (0.2-1) mg/dl AST (15-37) U/L ALT (12-78) U/L Alkaline Phosphatase (45-117) U/L Troponin I (0-0.045) ng/ml NT-Pro-B Natriuret Pep (0-1800) pg/ml Total Protein (6.4-8.2) gm/dl Albumin (3.4-5.0) gm/dl Globulin (2.5-4.0) gm/dl Albumin/Globulin Ratio (0.9-2) Urine Color Urine Appearance (Clear) Urine pH (4.5-7.5) Ur Specific [place] (1.000-1.030) Urine Protein (Negative) Urine Glucose (UA) (Negative) Urine Ketones (Negative) Urine Blood (Negative) Urine Nitrite (Negative) Urine Bilirubin (Negative) Urine Urobilinogen (Negative) Ur Leukocyte Esterase (Negative) COVID-19 Eval Order Covid19 at [facility] SARS-CoV-2 (PCR) NEGATIVE (Negative) 03/18/21 03/18/21 Range/Units 12:19 12:21 WBC (4.8-10.8) K/uL RBC (4.7-6.1) M/uL Hgb (14.0-18.0) g/dL Hct (42-52) % MCV (80-100) fL MCH (25-34) pg MCHC (32-36) g/dL RDW Std Deviation (36.4-46.3) fL RDW Coeff of [place] (11.5-14.5) % Plt Count (130-400) K/uL MPV (7.4-10.4) fL Immature Gran % (Auto) % Neut % (Auto) % Lymph % (Auto) % [place] % (Auto) % Eos % (Auto) % Baso % (Auto) % Neut # (Auto) (1.4-6.5) K/uL Lymph # (Auto) (1.2-3.4) K/uL [place] # (Auto) (0.11-0.59) K/uL Eos # (Auto) (0-0.5) K/uL Baso # (Auto) (0-0.2) K/uL Immature Gran # (Auto) (0.00-0.02) K/uL PT 10.0 INR 1.0 D-Dimer 560 H* Sodium (136-145) mmol/L Potassium (3.5-5.1) mmol/L Chloride (98-107) mmol/L Carbon Dioxide (21-32) mmol/L Anion Gap (3-11) BUN (7-18) mg/dl Creatinine (0.6-1.4) mg/dl Est Cr Clr Drug Dosing Est GFR ( Amer) ml/min Est GFR (Non-Af Amer) ml/min BUN/Creatinine Ratio (10-20) Glucose (70-99) mg/dl Lactate (0.4-2.0) mmol/L Calcium (8.5-10.1) mg/dl Magnesium (1.8-2.4) mg/dl Total Bilirubin (0.2-1) mg/dl AST (15-37) U/L ALT (12-78) U/L Alkaline Phosphatase (45-117) U/L Troponin I (0-0.045) ng/ml NT-Pro-B Natriuret Pep (0-1800) pg/ml Total Protein (6.4-8.2) gm/dl Albumin (3.4-5.0) gm/dl Globulin (2.5-4.0) gm/dl Albumin/Globulin Ratio (0.9-2) Urine Color Dark Yellow Urine Appearance Clear (Clear) Urine pH 7.0 (4.5-7.5) Ur Specific [place] 1.018 (1.000-1.030) Urine Protein Negative (Negative) Urine Glucose (UA) Negative (Negative) Urine Ketones Negative (Negative) Urine Blood Negative (Negative) Urine Nitrite Negative (Negative) Urine Bilirubin Negative (Negative) Urine Urobilinogen Negative (Negative) Ur Leukocyte Esterase Negative (Negative) COVID-19 Eval Order SARS-CoV-2 (PCR) (Negative) Administered Medications Discontinued Medications Piperacillin Sod/Tazobactam Sod (Zosyn) 4.5 gm in 120 mls @ 240 mls/hr IV NOW ONE Stop: 03/18/21 13:41 Last Infusion: 03/18/21 13:53 Dose: 0 mls/hr Documented by: [id number] Admin: 03/18/21 13:23 Dose: 240 mls/hr Documented by: [id number] Ioversol (Optiray 320 125ml) 120 ml IV ONCE ONE Stop: 03/18/21 13:16 Last Admin: 03/18/21 13:15 Dose: 120 ml Documented by: [id number] Imaging Data Radiologist's Impression: Chest X-Ray 03/18/21 10:30 XR chest 1V portable CLINICAL HISTORY: Dyspnea COMPARISON STUDY: November 13, 2020 FINDINGS: No definite pneumothorax seen however evaluation is limited because bilateral lung apices are obscured by patient's chin. . Significantly elevated left hemidiaphragm is again seen and associated with atelectasis/infiltrate at the left base. Diffuse reticular nodular prominence of pulmonary interstitium is seen bilaterally. Possible minimal atelectasis at the right base. Cardiomediastinal silhouette is mildly enlarged. Pulmonary vasculature is indistinct. Aorta is calcified. Osseous structures: Degenerative changes of the spine. Prosthetic left shoulder joint is again seen. Gas-filled loops of large bowel is seen within left upper quadrant. IMPRESSION: 1. Persistent elevation of the left hemidiaphragm associated with atelectasis/infiltrate at the left base. 2. Small atelectasis at the right base. 3. Stable cardiomegaly. ACT 112: Negative or not required by law. The above report was generated using voice recognition software. It may contain grammatical, syntax or spelling errors. Electronically signed by: Raiza Powers DO 03/18/2021 11:20 AM Chest CTA 03/18/21 13:12 CT ANGIOGRAM OF THE CHEST CLINICAL HISTORY: PE, +dimer, sob hypoxia, ?LLL PNA COMPARISON STUDY: November 08, 2020 TECHNIQUE: Following the IV administration of 120 mL of Optiray, CT angiogram of the thorax was performed from the thoracic inlet to the lung bases utilizing the pulmonary embolus protocol. Images are reviewed in the axial, sagittal, and coronal planes. IV contrast was administered without complication. MIP imaging was performed. A dose lowering technique was utilized adhering to the principles of ALARA. CT DOSE: 414.39 mGy.cm FINDINGS: There is adequate opacification within main pulmonary artery. Evaluation is limited due to beam hardening and motion artifact. No definite central pulmonary embolus is seen. Evaluation of peripheral branches of pulmonary artery is limited due to motion artifact. Main pulmonary artery is within upper limits of normal. No right heart strain seen. Mild four-chamber cardiomegaly seen. Severe calcifications of the mitral annulus, aortic valve and coronary arteries are seen. There is no axillary, supra clavicle or internal mammary lymphadenopathy seen. Thoracic inlet evaluation is significantly limited due to beam hardening artifact from left shoulder orthopedic hardware. Mediastinal lymph nodes are not significantly enlarged. Visualized portion of thyroid gland shows no evidence of focal lesions. Superior aspect of esophagus is patulous. Moderate hiatal hernia is seen. There was no evidence of thoracic aortic dilatation. Scattered calcifications of aortic wall are seen. Tracheobronchial tree is patent. The study was acquired during partial expiratory phase. Multifocal airspace opacities are seen within the right upper lobe, left middle lobe. Almost complete collapse of the left lower lobe is seen. Minimal left pleural effusion is seen. Also there is atelectasis at dependent portion of the right lower lobe. Limited evaluation of upper abdominal viscera shows gaseous distention of the colonic loop and elevation of the left hemidiaphragm. Osseous structures: Multilevel degenerative changes of the spine. IMPRESSION: No definite acute central pulmonary embolus is seen. Evaluation of peripheral branches of the pulmonary artery is limited due to motion artifact. Multifocal airspace opacity within the right upper lobe and left upper lobe likely representing pneumonia. Short-term follow-up in 4-[address] on nonemergency basis is recommended. Evaluation of the right hemidiaphragm with complete atelectasis of the left lower lobe. Gas-filled loop of large bowel is seen within upper abdomen which is in upper limits of normal. Mild four-chamber cardiomegaly. The rest of findings as above. ACT 112: Positive. There are findings on this exam that require communication between the performing entity and the patient following Patient Test Result Information Act ([place] Act 112) guidelines. The above report was generated using voice recognition software. It may contain grammatical, syntax or spelling errors. Electronically signed by: Raiza Powers DO 03/18/2021 2:54 PM Discharge Plan Visit Data Chief Complaint: Shortness of Breath/Dyspnea Stated Complaint: SOB ED Provider: Ruben Howell Discharge Problem: Aspiration pneumonia, Hypoxia, Hereditary progressive muscular dystrophy, Breathlessness Patient Disposition: Being Evaluated by Hospitalist Forms Stand Alone Forms: [facility] Prescriptions Prescriptions: No Action atorvastatin 80 mg Tablet 80 mg PO QPM RF: 0 gabapentin 600 mg Tablet 1,200 mg PO TID RF: 0 acetaminophen [Tylenol Extra Strength] 500 mg Tablet 1,000 mg PO DIRECTED PRN (Reason: Fever Or Pain) RF: 0 tamsulosin [Flomax] 0.4 mg Capsule 0.8 mg PO HS RF: 0 paroxetine HCl [Paxil] 30 mg Tablet 30 mg PO BID RF: 0 pantoprazole 40 mg Tablet,Delayed Release (Dr/Ec) 40 mg PO BID RF: 0 metoprolol tartrate 25 mg Tablet 25 mg PO BID RF: 0 amiodarone 200 mg Tablet 200 mg PO UD Qty: 30 RF: 0 Referrals Referrals: Clark Mcfarland MD [Primary Care Provider] -
--- NOTE | 2021-03-18 11:21 | XRay Report ---
XR chest 1V portable CLINICAL HISTORY: Dyspnea COMPARISON STUDY: November 13, 2020 FINDINGS: No definite pneumothorax seen however evaluation is limited because bilateral lung apices are obscure d by patient's chin. . Significantly elevated left hemidiaphragm is again seen and associated with atelectasis/infiltrate at the left base. Diffuse reticular nodular prominence of pulmonary interstitium is seen bilaterally. Possible minimal atelectasis at the right base. Cardiomediastinal silhouette is mildly enlarged. Pulmonary vasculature is indistinct. Aorta is calcified. Osseous structures: Degenerative changes of the spine. Prosthetic left shoulder joint is again seen. Gas-filled loops of large bowel is seen within left upper quadrant. IMPRESSION: 1. Persistent elevation of the left hemidiaphragm associated with atelectasis/infiltrate at the left base. 2. Small atelectasis at the right base. 3. Stable cardiomegaly. ACT 112: Negative or not required by law. The above report was generated using voice recognition software. It may contain grammatical, syntax o r spelling errors. Electronically signed by: Raiza Powers DO 03/18/2021 11:20 AM
[2021-03-18 11:31] LABS: Basophils # (auto) 0.01 K/uL (0-0.2); Basophils % (auto) 0.1 %; Eosinophils # (auto) 0.09 K/uL (0-0.5); Eosinophils % (auto) 1.1 %; Hematocrit (blood only) 40.6 % (42-52); Immature Granulocytes # (auto) 0.02 K/uL (0.00-0.02); Immature Granulocytes % (auto) 0.2 %; Lymphocytes # (auto) 0.48 K/uL (1.2-3.4); Lymphocytes % (auto) 5.6 %; Mean Corpuscular Hemoglobin 33.6 pg (25-34); Mean Corpuscular Hgb Conc 34.5 g/dL (32-36); Mean Corpuscular Volume 97.4 fL (80-100); Mean Platelet Volume 11.6 fL (7.4-10.4); Monocytes # (auto) 0.85 K/uL (0.11-0.59); Neutrophils # (auto) 7.05 K/uL (1.4-6.5); Platelet Count 168 K/uL (130-400); RDW Coefficient of Variation 13.1 % (11.5-14.5); Red Blood Count 4.17 M/uL (4.7-6.1)
[2021-03-18 11:54] LABS: Blood Urea Nitrogen 10 mg/dl (7-18); Carbon Dioxide 34 mmol/L (21-32); Chloride 96 mmol/L (98-107); Sodium 131 mmol/L (136-145)
[2021-03-18 11:55] LABS: Alanine Aminotransferase 96 U/L (12-78); Albumin Level 3.2 gm/dl (3.4-5.0); BUN Creatinine Ratio 25.7 (10-20); Calcium 8.8 mg/dl (8.5-10.1); Est GFR (African American) 136.6 ml/min; Est GFR (Non-African American) 117.8 ml/min; Glucose 121 mg/dl (70-99)
[2021-03-18 11:57] LABS: Albumin Globulin Ratio 0.7 (0.9-2); Alkaline Phosphatase 131 U/L (45-117); Bilirubin,Total 0.6 mg/dl (0.2-1); Globulin 4.6 gm/dl (2.5-4.0); NT Pro B Type Natriuretic Pept 437 pg/ml (0-1800); Total Protein 7.8 gm/dl (6.4-8.2); Troponin I < 0.015 ng/ml (0-0.045)
[2021-03-18 12:35] LABS: Appearance Urine Clear (Clear); Bilirubin Urine Negative (Negative); Blood Urine Negative (Negative); Color Urine Dark Yellow; Glucose Urine UA Negative (Negative); Ketones Urine Negative (Negative); Leukocyte Esterase Urine Negative (Negative); Nitrite Urine Negative (Negative); Protein Urine Negative (Negative); Specific Gravity Urine 1.018 (1.000-1.030); Urobilinogen Urine Negative (Negative)
[2021-03-18 12:58] LABS: D Dimer 560 ug/L FEU (0-500)
[2021-03-18] MEDS ORDERED: PIPERACILL/TAZOBAC CONSULT ACTIVE PRN (13:12)
[2021-03-18] MEDS ORDERED: PIPERACILLIN/TAZOBACTAM 4.5 GM/120 ML BAG IV ONE (13:12)
[2021-03-18] MEDS ORDERED: OPTIRAY 320 125ml IV ONE (13:15)
--- NOTE | 2021-03-18 14:55 | CT Scan Report ---
CT ANGIOGRAM OF THE CHEST CLINICAL HISTORY: PE, +dimer, sob hypoxia, ?LLL PNA COMPARISON STUDY: November 08, 2020 TECHNIQUE: Following the IV administration of 120 mL of Optiray, CT angiogram of the thorax was perfo rmed from the thoracic inlet to the lung bases utilizing the pulmonary embolus protocol. Images are r eviewed in the axial, sagittal, and coronal planes. IV contrast was administered without complication . MIP imaging was performed. A dose lowering technique was utilized adhering to the principles of AL RAFAEL. CT DOSE: 414.39 mGy.cm FINDINGS: There is adequate opacification within main pulmonary artery. Evaluation is limited due to beam harde cosme and motion artifact. No definite central pulmonary embolus is seen. Evaluation of peripheral branches of pulmonary artery is limited due to motion artifact. Main pulmonary artery is within upper limits of normal. No right heart strain seen. Mild four-chamber cardiomegaly seen. Severe calcifications of the mitral annulus, aortic valve and co ronary arteries are seen. There is no axillary, supra clavicle or internal mammary lymphadenopathy seen. Thoracic inlet evaluat ion is significantly limited due to beam hardening artifact from left shoulder orthopedic hardware. M ediastinal lymph nodes are not significantly enlarged. Visualized portion of thyroid gland shows no evidence of focal lesions. Superior aspect of esophagus is patulous. Moderate hiatal hernia is seen. There was no evidence of thoracic aortic dilatation. Scattered calcifications of aortic wall are seen . Tracheobronchial tree is patent. The study was acquired during partial expiratory phase. Multifocal airspace opacities are seen within the right upper lobe, left middle lobe. Almost complete collapse of the left lower lobe is seen. Minimal left pleural effusion is seen. Also there is atelectasis at dependent portion of the right lower lobe. Limited evaluation of upper abdominal viscera shows gaseous distention of the colonic loop and elevat ion of the left hemidiaphragm. Osseous structures: Multilevel degenerative changes of the spine. IMPRESSION: No definite acute central pulmonary embolus is seen. Evaluation of peripheral branches of the pulmona ry artery is limited due to motion artifact. Multifocal airspace opacity within the right upper lobe and left upper lobe likely representing pneum onia. Short-term follow-up in 4-[address] on nonemergency basis is recommended. Evaluation of the right hemidiaphragm with complete atelectasis of the left lower lobe. Gas-filled loop of large bowel is seen within upper abdomen which is in upper limits of normal. Mild four-chamber cardiomegaly. The rest of findings as above. ACT 112: Positive. There are findings on this exam that require communication between the performing entity and the patient following Patient Test Result Information Act ([place] Act 112) guidelines. The above report was generated using voice recognition software. It may contain grammatical, syntax o r spelling errors. Electronically signed by: Raiza Powers DO 03/18/2021 2:54 PM
--- NOTE | 2021-03-18 18:00 | History & Physical Report ---
Date of Service March 18, 2021 Assessment & Plan (1) Acute and chronic respiratory failure with hypoxia: (2) Aspiration pneumonia: (3) Multilobar lung infiltrate: Plan: This is a 75-year-old male with PMH of inclusion body myositis muscular dystrophy, chronic hyponatremia, MITZI with nocturnal hypoxemia on 2 L nasal cannula O2, restrictive lung disease due to muscular dystrophy, paroxysmal atrial fibrillation in setting of bronchodilators, hypertension, mild aortic valve stenosis, BPH and other medical problems listed below who presents with worsening shortness of breath over the past few days and found to have acute on chronic hypoxic respiratory failure and multilobar pneumonia. Hypoxic at 88% on room air initially with respiratory distress, improved to 97% on 4L oxymask Chest CTA with multifocal airspace opacity within the right upper lobe and left upper lobe likely representing pneumonia. Complete atelectasis of the left lower lobe. No PE visualized Started on empiric Zosyn. Will continue and add Doxycycline for atypical coverage. MRSA swab pending Xopenex nebs PRN only for now due to development of A Fib with RVR in setting of previous bronchodilators Mucinex 1,200mg BID, flutter valve, chest PT Speech therapy consult due to chronic aspiration in setting of muscular dystrophy Continue supplemental O2 Consider pulm consult if no improvement (4) Inclusion body myositis (IBM): Plan: Progressive, very limited motor function in LUE. Now ambulating in motorized scooter Follows with [facility] Fall precautions, able to eat soft bite sized diet (5) Chronic hyponatremia: Plan: Baseline Na 129-131 in setting of SIADH and excessive fluid intake, per recent consultation by Dr. Leggett Continue fluid restriction of 1.7 L Monitor with daily BMP (6) Paroxysmal atrial fibrillation: Plan: Follows with Dr. Bowen of cardiology Amiodarone recently discontinued Continue Lopressor 25mg BID Awaiting results of OP ziomonitor Ongoing discussion re: anticoagulation (7) BPH (benign prostatic hypertrophy): Plan: Continue Flomax DVT Ppx: SQ heparin Code status: FULL PCP: Bruna Dispo: Admitted to PCU. Discharge planning ordered Patient seen in collaboration with Dr. Granda. Please see addendum. 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 Patient significantly short of breath 4 days ago, requiring him to sit upright. Also endorsing cough with productive yellow sputum. Issues with chronic aspiration in setting of muscular dystrophy. No fever or chills. Denies any headache, lightheadedness, chest pain. Some pleuritic pain in central back when coughing. Denies any nausea, vomiting or abdominal pain. No dysuria, diarrhea constipation. Patient now ambulates with motorized vehicle. 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 Recommended for fluids to be restricted to 60 ounces daily. Also recently established with Dr. Minor of cardiology in setting of paroxysmal atrial fibrillation in setting of bronchodilators. Amiodarone was discontinued at this visit. Outpatient Zio patch monitor results pending. Not on anticoagulation at this point. PCP is Dr. Mcfarland. Allergies Allergy/AdvReac Type Severity Reaction Status Date / Time bee venom protein (honey bee) Allergy Severe ANAPHYLAXIS Verified 03/18/21 16:38 sulfamethoxazole Allergy Intermediate RED Verified 03/18/21 16:38 [From Bactrim] SWOLLEN HIVES trimethoprim [From Bactrim] Allergy Intermediate RED Verified 03/18/21 16:38 SWOLLEN HIVES Home Medications Medication Instructions Recorded Confirmed Type acetaminophen 500 mg tablet 1,000 mg PO DIRECTED PRN 12/01/18 03/18/21 History (Tylenol Extra Strength) gabapentin 600 mg tablet 1,200 mg PO BID 12/01/18 03/18/21 History metoprolol tartrate 25 mg tablet 25 mg PO BID 12/01/18 03/18/21 History pantoprazole 40 mg tablet,delayed 40 mg PO BID 12/01/18 03/18/21 History release paroxetine HCl 30 mg tablet (Paxil) 30 mg PO BID 12/01/18 03/18/21 History tamsulosin 0.4 mg capsule (Flomax) 0.8 mg PO HS 12/01/18 03/18/21 History aspirin 81 mg tablet 81 mg PO DAILY 03/18/21 03/18/21 History atorvastatin 40 mg tablet 40 mg PO DAILY 03/18/21 03/18/21 History hydroxyzine HCl 25 mg tablet 25 mg PO Q6 PRN 03/18/21 03/18/21 History magnesium chloride 64 mg 64 mg PO DAILY 03/18/21 03/18/21 History tablet,extended release triamcinolone acetonide 0.1 % 1 applic TOPICAL BID 03/18/21 03/18/21 History topical cream Past Med/Surg History Medical History (Updated 03/19/21 @ 19:14 by Yenny Ruvalcaba MD) Atrial flutter Henry's esophagus Benign neoplasm of colon " 06/09/99- hyperplastic polyp and tubular adenoma 06/27/2011- 2 polyps, path shows adenomatous" BPH (benign prostatic hypertrophy) Chronic hyponatremia Dyslipidemia GERD (gastroesophageal reflux disease) H/O alcohol abuse History of stroke "per Epic record, old infarct noted on head CT 08/13" HTN (hypertension) Hx of sepsis Inclusion body myositis (IBM) Malignant neoplasm prostate "s/p implant 07/10/02" Neuropathy Osteoarthritis Paroxysmal atrial tachycardia Sjogren's syndrome Typical atrial flutter Surgical History H/O colonoscopy H/O elbow surgery S/P hemorrhoidectomy S/P hip replacement S/P shoulder replacement "left" Family History Other Cancer Diabetes Heart disease Stroke Social History Smoking Status: Former smoker Hx Alcohol Use: Yes Alcohol type: other Hx Substance Use: No Preferred Language: Setswana Communication Ability: Effective Personal Financial Planner Required: No Beliefs That Will Affect Care: None marital status: Current Living Situation: Spouse and Family current occupational status: retired Other Information That Helps Us Care for You: No Feels Safe at Home: Yes Safety Concerns: Feels Safe At This Time Assistive Devices: Denture - Upper, Denture - Lower and Oxygen - Continuous Assistive Devices Comment: no glasses with him Review of Systems Review of Systems: At least ten systems reviewed and negative except as noted in the HPI. Physical Exam Physical Exam: General Appearance: vitals as above, NAD, sitting up in bed, pleasant, conversing easily Head: normocephalic, atraumatic Eyes: normal inspection, PERRL, conjunctivae normal, anicteric sclerae ENT: external ear and nose normal, oropharynx normal Neck: normal visual inspection, trachea midline, no thyromegaly Respiratory: increased respiratory effort, diminished lung sounds throughout with rhonchi, no wheeze or rales. + accessory muscle use Cardiovascular: tachycardic rate, rhythm, no murmur appreciated, normal peripheral pulses, 1+ BLE edema. Vessels: no JVD Chest: normal inspection of chest Abdomen/GI: normal bowel sounds, soft, nontender, no hepatosplenomegaly Extremities/Musculoskeletal: Hands contracted bilaterally, chronic LUE weakness, no cyanosis or clubbing Neurologic: PERRL, EOMI, accommodation nl, no face palsy, no dysarthria, CN's II-XI intact bilaterally and moves all extremities Psychiatric: A+Ox3, euthymic affect Skin: no rashes, normal color, warm/dry Results & Data Results & Data ([facility]) Vital Signs (Past 12 Hours) Vital Signs Temp Pulse Pulse Resp BP BP Pulse Ox 03/18/21 17:00 94 H 20 180/105 H 97 03/18/21 16:00 92 H 27 H 186/93 H 98 03/18/21 15:39 95 H 27 H 166/99 H 96 03/18/21 15:00 95 H 20 184/102 H 94 03/18/21 14:02 91 H 26 H 191/80 H 96 03/18/21 13:01 89 26 H 206/92 H 96 03/18/21 11:21 87 22 96 03/18/21 11:17 37.2 C 88 24 182/95 H 03/18/21 10:30 37.2 C 88 24 182/95 H 96 03/18/21 10:07 36.4 C L 86 20 129/71 88 L Laboratory Results Short CBC 03/18/21 Range/Units 11:20 WBC 8.50 (4.8-10.8) K/uL Hgb 14.0 (14.0-18.0) g/dL Hct 40.6 L (42-52) % Plt Count 168 (130-400) K/uL BMP 03/18/21 11:20 Sodium 131 L Potassium Chloride 96 L Carbon Dioxide 34 H BUN 10 Creatinine 0.38 L Glucose 121 H Calcium 8.8 Cardiac Enzymes 03/18/21 Range/Units 11:20 Troponin I < 0.015 (0-0.045) ng/ml Liver Function 03/18/21 Range/Units 11:20 Total Bilirubin 0.6 (0.2-1) mg/dl AST (15-37) U/L ALT 96 H (12-78) U/L Alkaline Phosphatase 131 H (45-117) U/L Albumin 3.2 L (3.4-5.0) gm/dl Urine 03/18/21 Range/Units 12:21 Urine Color Dark Yellow Urine Appearance Clear (Clear) Urine pH 7.0 (4.5-7.5) Ur Specific [place] 1.018 (1.000-1.030) Urine Protein Negative (Negative) Urine Glucose (UA) Negative (Negative) Diagnostic Findings Chest X-Ray 03/18/21 10:30 XR chest 1V portable CLINICAL HISTORY: Dyspnea COMPARISON STUDY: November 13, 2020 FINDINGS: No definite pneumothorax seen however evaluation is limited because bilateral lung apices are obscured by patient's chin. . Significantly elevated left hemidiaphragm is again seen and associated with atelectasis/infiltrate at the left base. Diffuse reticular nodular prominence of pulmonary interstitium is seen bilaterally. Possible minimal atelectasis at the right base. Cardiomediastinal silhouette is mildly enlarged. Pulmonary vasculature is indistinct. Aorta is calcified. Osseous structures: Degenerative changes of the spine. Prosthetic left shoulder joint is again seen. Gas-filled loops of large bowel is seen within left upper quadrant. IMPRESSION: 1. Persistent elevation of the left hemidiaphragm associated with atelectasis/infiltrate at the left base. 2. Small atelectasis at the right base. 3. Stable cardiomegaly. ACT 112: Negative or not required by law. The above report was generated using voice recognition software. It may contain grammatical, syntax or spelling errors. Electronically signed by: Raiza Powers DO 03/18/2021 11:20 AM Chest CTA 03/18/21 13:12 CT ANGIOGRAM OF THE CHEST CLINICAL HISTORY: PE, +dimer, sob hypoxia, ?LLL PNA COMPARISON STUDY: November 08, 2020 TECHNIQUE: Following the IV administration of 120 mL of Optiray, CT angiogram of the thorax was performed from the thoracic inlet to the lung bases utilizing the pulmonary embolus protocol. Images are reviewed in the axial, sagittal, and coronal planes. IV contrast was administered without complication. MIP imaging was performed. A dose lowering technique was utilized adhering to the principles of ALARA. CT DOSE: 414.39 mGy.cm FINDINGS: There is adequate opacification within main pulmonary artery. Evaluation is limited due to beam hardening and motion artifact. No definite central pulmonary embolus is seen. Evaluation of peripheral branches of pulmonary artery is limited due to motion artifact. Main pulmonary artery is within upper limits of normal. No right heart strain seen. Mild four-chamber cardiomegaly seen. Severe calcifications of the mitral annulus, aortic valve and coronary arteries are seen. There is no axillary, supra clavicle or internal mammary lymphadenopathy seen. Thoracic inlet evaluation is significantly limited due to beam hardening artifact from left shoulder orthopedic hardware. Mediastinal lymph nodes are not significantly enlarged. Visualized portion of thyroid gland shows no evidence of focal lesions. Superior aspect of esophagus is patulous. Moderate hiatal hernia is seen. There was no evidence of thoracic aortic dilatation. Scattered calcifications of aortic wall are seen. Tracheobronchial tree is patent. The study was acquired during partial expiratory phase. Multifocal airspace opacities are seen within the right upper lobe, left middle lobe. Almost complete collapse of the left lower lobe is seen. Minimal left pleural effusion is seen. Also there is atelectasis at dependent portion of the right lower lobe. Limited evaluation of upper abdominal viscera shows gaseous distention of the colonic loop and elevation of the left hemidiaphragm. Osseous structures: Multilevel degenerative changes of the spine. IMPRESSION: No definite acute central pulmonary embolus is seen. Evaluation of peripheral branches of the pulmonary artery is limited due to motion artifact. Multifocal airspace opacity within the right upper lobe and left upper lobe likely representing pneumonia. Short-term follow-up in 4-[address] on nonemergency basis is recommended. Evaluation of the right hemidiaphragm with complete atelectasis of the left lower lobe. Gas-filled loop of large bowel is seen within upper abdomen which is in upper limits of normal. Mild four-chamber cardiomegaly. The rest of findings as above. ACT 112: Positive. There are findings on this exam that require communication between the performing entity and the patient following Patient Test Result Information Act ([place] Act 112) guidelines. The above report was generated using voice recognition software. It may contain grammatical, syntax or spelling errors. Electronically signed by: Raiza JuanitaelsaDO 03/18/2021 2:54 PM Code Status & VTE Plan VTE Prophylaxis Plan VTE Prophylaxis will be ordered: Yes Supervising Physician Co-Signing Physician Notes Patient seen and examined by me, care coordinated with Radha Cruz PA-C, please refer to note above for further detail. 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 Patient is currently sitting up in bed, in ER, on oxygen mask, more comfortable. He is not using accessory muscles anymore. Lung sounds are mostly diminished, with mild rhonchi noted, no significant wheezing noted. Mildly tachycardic. Abdomen is soft, nontender, nondistended. No significant lower extremity edema noted. Patient is able to answer simple questions, he is alert and oriented x3. Patient's is at the bedside. Both report difficulty with getting any mucus out however patient is coughing at home without much difficulty. Patient's reports that amiodarone was discontinued recently and also both very hesitant about any DuoNeb's treatment to avoid tachycardia or A. fib. Denies any fever or chills, chest pain. Continue current treatment, closely monitor on telemetry. Will start Mucinex, flutter valve, chest PT. Continue Zosyn and doxycycline for now. Will discuss further with pulmonary medicine if patient does not improve. Jasmyn Granda MD (1) Aspiration pneumonia Aspiration pneumonia type: unspecified Laterality: bilateral Lung location: upper lobe of lung Qualified Code(s): J69.0 - Pneumonitis due to inhalation of food and vomit
[2021-03-18] MEDS ORDERED: hydrOXYzine HCl 25 MG TAB PO PRN (18:27)
[2021-03-18] MEDS ORDERED: LEVALBUTEROL 0.31MG/3 ML VIAL NEB PRN (18:27)
[2021-03-18] MEDS ORDERED: ACETAMINOPHEN 325 MG TAB PO PRN (18:27)
[2021-03-18] MEDS ORDERED: POLYETHYLENE (MIRALAX) 17 GM PACK PO PRN (18:27)
[2021-03-18] MEDS ORDERED: ONDANSETRON INJ 2 MG/ML 2 ML VIAL IV PRN (18:27)
[2021-03-18 18:42] LABS: Allen Test Pos (Pos); Base Excess ABG 5.7 mEq/L (-9-1.8); HCO3 ABG 32 mmol/L (19-24); Oxygen Saturation ABG 95.9 % (90-95); PCO2 ABG 52 mmHg (35-46); PO2 ABG 80 mmHg (80-95)
[2021-03-18] MEDS ORDERED: hydrALAZINE HCL 20 MG/ML VIAL IV PRN (19:00)
[2021-03-18] MEDS ORDERED: PATIENT'S HEIGHT NEEDED SCH (19:30)
[2021-03-18] MEDS ORDERED: SODIUM BICARB 8.4% INJ 50 MEQ/50 ML SYR IV ONE ×2 (19:41→19:44)
[2021-03-18] MEDS ORDERED: MIDAZOLAM HCL 5 MG/ML VIAL IV ONE ×2 (19:43→19:44)
[2021-03-18] MEDS ORDERED: ROCURONIUM BROMIDE 10 MG/ML 5 ML VIAL IV ONE (19:43)
[2021-03-18] MEDS ORDERED: fentaNYL citrate 100 MCG/2 ML VIAL IV ONE (19:43)
[2021-03-18] MEDS ORDERED: ETOMIDATE 2 MG/ML 20 ML VIAL IV ONE (19:43)
[2021-03-18] MEDS ORDERED: LIDOCAINE 2% 20 MG/ML 5 ML SYR IV ONE (19:44)
[2021-03-18] MEDS ORDERED: SODIUM CHLORIDE 0.9% 10ML FLUSH IV ONE (19:44)
[2021-03-18] MEDS: PIPERACILLIN/TAZOBACTAM 3.375 GM in DEXTROSE 5% 100 ML IV SCH (20:04)
[2021-03-18] MEDS: guaiFENesin 600 MG TABCR PO SCH (20:05)
[2021-03-18] MEDS: PANTOprazole 40 MG TAB PO SCH (20:18)
[2021-03-18] MEDS: TRIAMCINOLONE ACET 0.1% CR 15 GM TUBE TOP SCH (20:18)
[2021-03-18] MEDS: TAMSULOSIN HCL 0.4 MG CAP PO SCH (20:18)
[2021-03-18] MEDS: METOPROLOL TARTRATE 25 MG TAB PO SCH (20:19)
[2021-03-18] MEDS: GABAPENTIN 600 MG TAB PO SCH (20:19)
[2021-03-18] MEDS: PARoxetine HCL 20 MG TAB PO SCH (20:20)
[2021-03-18] MEDS: HEPARIN SOD 5,000 UNIT/0.5 ML VIAL SQ SCH (21:43)
[2021-03-18] MEDS: DOXYCYCLINE HYCLATE 100 MG in DEXTROSE 5% 100 ML IV SCH (22:16)
[2021-03-19] MEDS: PIPERACILLIN/TAZOBACTAM 3.375 GM in DEXTROSE 5% 100 ML IV SCH ×3 (04:08→20:36)
[2021-03-19 05:15] LABS: Hematocrit (blood only) 35.7 % (42-52); Mean Corpuscular Hemoglobin 32.8 pg (25-34); Mean Corpuscular Hgb Conc 33.6 g/dL (32-36); Mean Corpuscular Volume 97.5 fL (80-100); Mean Platelet Volume 10.4 fL (7.4-10.4); Platelet Count 117 K/uL (130-400); RDW Standard Deviation 46.3 fL (36.4-46.3); Red Blood Count 3.66 M/uL (4.7-6.1); White Blood Count 10.18 K/uL (4.8-10.8)
[2021-03-19] MEDS: HEPARIN SOD 5,000 UNIT/0.5 ML VIAL SQ SCH ×3 (05:37→21:55)
[2021-03-19 05:46] LABS: BUN Creatinine Ratio 27.5 (10-20); Calcium 8.4 mg/dl (8.5-10.1); Creatinine Clr Calc Pharmacy 178.8 ml/min; Est GFR (Non-African American) 123.4 ml/min; Magnesium 1.7 mg/dl (1.8-2.4); Potassium 3.6 mmol/L (3.5-5.1)
[2021-03-19 05:47] LABS: Phosphorus 3.1 mg/dl (2.5-4.9)
--- NOTE | 2021-03-19 07:24 | Electrocardiogram Report ---
Test Reason : Blood Pressure : / mmHG Vent. Rate : 084 BPM Atrial Rate : 084 BPM P-R Int : 158 ms QRS Dur : 092 ms QT Int : 380 ms P-R-T Axes : 041 005 040 degrees QTc Int : 449 ms Normal sinus rhythm Normal ECG When compared with ECG of 11-NOV-2020 18:22, No significant change was found Confirmed by Sandeep Ballesteros ([id number]) on 03/19/2021 7:24:30 AM Referred By: REFERRED SELF Confirmed By:Ezio Ballesteros
[2021-03-19] MEDS: DOXYCYCLINE HYCLATE 100 MG in DEXTROSE 5% 100 ML IV SCH ×2 (08:38→20:36)
[2021-03-19] MEDS: ASPIRIN 81 MG ECTAB PO SCH (08:43)
[2021-03-19] MEDS: ATORVASTATIN 40 MG TAB PO SCH (08:44)
[2021-03-19] MEDS: GABAPENTIN 600 MG TAB PO SCH ×2 (08:44→20:36)
[2021-03-19] MEDS: guaiFENesin 600 MG TABCR PO SCH ×2 (08:44→20:36)
[2021-03-19] MEDS: MAGNESIUM CHLORIDE 64MG DELAYED REL TAB PO SCH (08:44)
[2021-03-19] MEDS: METOPROLOL TARTRATE 25 MG TAB PO SCH ×2 (08:44→20:37)
[2021-03-19] MEDS: PARoxetine HCL 20 MG TAB PO SCH ×2 (08:45→20:37)
[2021-03-19] MEDS: TRIAMCINOLONE ACET 0.1% CR 15 GM TUBE TOP SCH ×2 (08:46→21:54)
[2021-03-19] MEDS: PANTOprazole 40 MG TAB PO SCH ×2 (09:01→20:37)
--- NOTE | 2021-03-19 09:45 | Hospitalist Progress Note ---
Date of Service March 19, 2021 Assessment & Plan (1) Acute and chronic respiratory failure with hypoxia: (2) Aspiration pneumonia: (3) Multilobar lung infiltrate: Plan: This is a 75-year-old male with PMH of inclusion body myositis muscular dystrophy, chronic hyponatremia, MITZI with nocturnal hypoxemia on 2 L nasal cannula O2, restrictive lung disease due to muscular dystrophy, paroxysmal atrial fibrillation in setting of bronchodilators, hypertension, mild aortic valve stenosis, BPH and other medical problems listed below who presents with worsening shortness of breath over the past few days and found to have acute on chronic hypoxic respiratory failure and multilobar pneumonia. Hypoxic at 88% on room air initially with respiratory distress, improved to 97% on 4L oxymask Chest CTA with multifocal airspace opacity within the right upper lobe and left upper lobe likely representing pneumonia. Complete atelectasis of the left lower lobe. No PE visualized Started on empiric Zosyn. Will continue and add Doxycycline for atypical coverage. MRSA swab pending Xopenex nebs PRN only for now due to development of A Fib with RVR in setting of previous bronchodilators Mucinex 1,200mg BID, flutter valve, chest PT Speech therapy consult due to chronic aspiration in setting of muscular dystrophy Continue supplemental O2 Consider pulm consult if no improvement 03/19 -patient w/ more coarse lung sounds today on physical exam, and per nurse patient was more struggling with breathing earlier. Will order Lasix, BiPAP as needed, will obtain ABG and chest x-ray Also contacted pulmonary medicine for further evaluation. (4) Inclusion body myositis (IBM): Plan: Progressive, very limited motor function in LUE. Now ambulating in motorized scooter Follows with [facility] Fall precautions, able to eat soft bite sized diet (5) Chronic hyponatremia: Plan: Baseline Na 129-131 in setting of SIADH and excessive fluid intake, per recent consultation by Dr. Leggett Continue fluid restriction of 1.7 L Monitor with daily BMP (6) Paroxysmal atrial fibrillation: Plan: Follows with Dr. Bowen of cardiology Amiodarone recently discontinued Continue Lopressor 25mg BID Awaiting results of OP ziomonitor Ongoing discussion re: anticoagulation (7) BPH (benign prostatic hypertrophy): Plan: Continue Flomax DVT Ppx: SQ heparin Code status: FULL PCP: Bruna Dispo: Admitted to PCU. Discharge planning ordered Update: pt now transferred to ICU, pls see ICU note for further detail. Admission and Anticipated Discharge Date Admission Date: March 18, 2021 Subjective Patient seen in follow-up of increased shortness of breath Currently sitting in bed, in no acute distress, he is alert oriented and answering questions appropriately Per nursing staff, he seemed to struggle more with breathing Currently he is on oxygen mask 4 L, without any accessory muscle use Denies any chest pain, or discomfort He feels more tired, reports he still has difficulty getting any sputum out His breath sounds also sounds more coarse Ordered chest x-ray, Lasix, ABG, BiPAP as needed and contacted pulmonary medicine as well for further evaluation. Update: Later in the day, patient's was visiting, and as pt was eating dinner, she noted that he choked on his food. VERONIQUE SPANN was called, patient required resuscitation and intubation, was taken to the ICU for further treatment Review of Systems Review of Systems: All systems reviewed & are unremarkable except as noted in Subjective Physical Exam Physical Exam: General Appearance: sitting up in bed in NAD, on oxymask Head: normocephalic, atraumatic Eyes: normal inspection, PERRL, EOMI, conjunctivae normal, anicteric sclerae ENT: external ear and nose normal, oropharynx normal Neck: normal visual inspection, trachea midline, no thyromegaly Respiratory:+ course diffuse breath sounds Cardiovascular: RRR no murmur appreciated, normal peripheral pulses, 1+ BLE edema. Vessels: no JVD Chest: normal inspection of chest Abdomen/GI: normal bowel sounds, soft, nontender Extremities/Musculoskeletal: Hands contracted bilaterally, chronic LUE weakness, no cyanosis or clubbing Neurologic: PERRL, EOMI, no face palsy, speech unchanged Psychiatric: A+Ox3, euthymic affect, answering questions appropriately Skin: no rashes, normal color, warm/dry Results & Data Results & Data ([facility]) Vital Signs (Past 12 Hours) Vital Signs Temp Pulse Pulse Resp BP Pulse Ox 03/19/21 07:53 83 03/19/21 07:29 36.6 C 79 20 103/65 91 03/19/21 04:00 36.8 C 82 20 166/78 H 96 03/19/21 00:36 83 03/18/21 22:00 37.0 C 86 18 177/80 H 94 Laboratory Results 03/19/21 03/19/21 03/18/21 Range/Units 04:54 04:54 Unknown WBC 10.18 (4.8-10.8) K/uL RBC 3.66 L (4.7-6.1) M/uL Hgb 12.0 L (14.0-18.0) g/dL Hct 35.7 L (42-52) % MCV 97.5 (80-100) fL MCH 32.8 (25-34) pg MCHC 33.6 (32-36) g/dL RDW Std Deviation 46.3 (36.4-46.3) fL RDW Coeff of Mayelin 13.0 (11.5-14.5) % Plt Count 117 L (130-400) K/uL MPV 10.4 (7.4-10.4) fL Immature Gran % (Auto) % Neut % (Auto) % Lymph % (Auto) % Hard[place] % (Auto) % Eos % (Auto) % Baso % (Auto) % Neut # (Auto) (1.4-6.5) K/uL Lymph # (Auto) (1.2-3.4) K/uL Hardin # (Auto) (0.11-0.59) K/uL Eos # (Auto) (0-0.5) K/uL Baso # (Auto) (0-0.2) K/uL Immature Gran # (Auto) (0.00-0.02) K/uL PT INR D-Dimer ABG pH (7.35-7.45) ABG pCO2 (35-46) mmHg ABG pO2 (80-95) mmHg ABG HCO3 (19-24) mmol/L ABG O2 Saturation (90-95) % ABG Base Excess (-9-1.8) mEq/L Star Test (Pos) Barometric Pressure mm/Hg Oxygen Given Sodium 129 L (136-145) mmol/L Potassium 3.6 (3.5-5.1) mmol/L Chloride 93 L (98-107) mmol/L Carbon Dioxide 31 (21-32) mmol/L Anion Gap 5.0 (3-11) BUN 9 (7-18) mg/dl Creatinine 0.34 L (0.6-1.4) mg/dl Est Cr Clr Drug Dosing 178.8 Est GFR ( Amer) 143.0 ml/min Est GFR (Non-Af Amer) 123.4 ml/min BUN/Creatinine Ratio 27.5 H (10-20) Glucose 103 H (70-99) mg/dl Lactate (0.4-2.0) mmol/L Calcium 8.4 L (8.5-10.1) mg/dl Phosphorus 3.1 (2.5-4.9) mg/dl Magnesium 1.7 L (1.8-2.4) mg/dl Total Bilirubin (0.2-1) mg/dl AST (15-37) U/L ALT (12-78) U/L Alkaline Phosphatase (45-117) U/L Troponin I (0-0.045) ng/ml NT-Pro-B Natriuret Pep (0-1800) pg/ml Total Protein (6.4-8.2) gm/dl Albumin (3.4-5.0) gm/dl Globulin (2.5-4.0) gm/dl Albumin/Globulin Ratio (0.9-2) Urine Color Urine Appearance (Clear) Urine pH (4.5-7.5) Ur Specific [place] (1.000-1.030) Urine Protein (Negative) Urine Glucose (UA) (Negative) Urine Ketones (Negative) Urine Blood (Negative) Urine Nitrite (Negative) Urine Bilirubin (Negative) Urine Urobilinogen (Negative) Ur Leukocyte Esterase (Negative) Nasal Screen MRSA (PCR) Negative (Negative) COVID-19 Eval Order SARS-CoV-2 (PCR) (Negative) 03/18/21 03/18/21 03/18/21 Range/Units 18:33 12:21 12:19 WBC (4.8-10.8) K/uL RBC (4.7-6.1) M/uL Hgb (14.0-18.0) g/dL Hct (42-52) % MCV (80-100) fL MCH (25-34) pg MCHC (32-36) g/dL RDW Std Deviation (36.4-46.3) fL RDW Coeff of Mayelin (11.5-14.5) % Plt Count (130-400) K/uL MPV (7.4-10.4) fL Immature Gran % (Auto) % Neut % (Auto) % Lymph % (Auto) % [place] % (Auto) % Eos % (Auto) % Baso % (Auto) % Neut # (Auto) (1.4-6.5) K/uL Lymph # (Auto) (1.2-3.4) K/uL [place] # (Auto) (0.11-0.59) K/uL Eos # (Auto) (0-0.5) K/uL Baso # (Auto) (0-0.2) K/uL Immature Gran # (Auto) (0.00-0.02) K/uL PT 10.0 INR 1.0 D-Dimer 560 H* ABG pH 7.40 (7.35-7.45) ABG pCO2 52 H (35-46) mmHg ABG pO2 80 (80-95) mmHg ABG HCO3 32 H (19-24) mmol/L ABG O2 Saturation 95.9 H (90-95) % ABG Base Excess 5.7 H (-9-1.8) mEq/L Star Test Pos (Pos) Barometric Pressure 732.7 mm/Hg Oxygen Given 4 L Sodium (136-145) mmol/L Potassium (3.5-5.1) mmol/L Chloride (98-107) mmol/L Carbon Dioxide (21-32) mmol/L Anion Gap (3-11) BUN (7-18) mg/dl Creatinine (0.6-1.4) mg/dl Est Cr Clr Drug Dosing Est GFR ( Amer) ml/min Est GFR (Non-Af Amer) ml/min BUN/Creatinine Ratio (10-20) Glucose (70-99) mg/dl Lactate (0.4-2.0) mmol/L Calcium (8.5-10.1) mg/dl Phosphorus (2.5-4.9) mg/dl Magnesium (1.8-2.4) mg/dl Total Bilirubin (0.2-1) mg/dl AST (15-37) U/L ALT (12-78) U/L Alkaline Phosphatase (45-117) U/L Troponin I (0-0.045) ng/ml NT-Pro-B Natriuret Pep (0-1800) pg/ml Total Protein (6.4-8.2) gm/dl Albumin (3.4-5.0) gm/dl Globulin (2.5-4.0) gm/dl Albumin/Globulin Ratio (0.9-2) Urine Color Dark Yellow Urine Appearance Clear (Clear) Urine pH 7.0 (4.5-7.5) Ur Specific [place] 1.018 (1.000-1.030) Urine Protein Negative (Negative) Urine Glucose (UA) Negative (Negative) Urine Ketones Negative (Negative) Urine Blood Negative (Negative) Urine Nitrite Negative (Negative) Urine Bilirubin Negative (Negative) Urine Urobilinogen Negative (Negative) Ur Leukocyte Esterase Negative (Negative) Nasal Screen MRSA (PCR) (Negative) COVID-19 Eval Order SARS-CoV-2 (PCR) (Negative) 03/18/21 03/18/21 03/18/21 Range/Units 12:19 11:40 11:40 WBC (4.8-10.8) K/uL RBC (4.7-6.1) M/uL Hgb (14.0-18.0) g/dL Hct (42-52) % MCV (80-100) fL MCH (25-34) pg MCHC (32-36) g/dL RDW Std Deviation (36.4-46.3) fL RDW Coeff of Mayelin (11.5-14.5) % Plt Count (130-400) K/uL MPV (7.4-10.4) fL Immature Gran % (Auto) % Neut % (Auto) % Lymph % (Auto) % [place] % (Auto) % Eos % (Auto) % Baso % (Auto) % Neut # (Auto) (1.4-6.5) K/uL Lymph # (Auto) (1.2-3.4) K/uL [place] # (Auto) (0.11-0.59) K/uL Eos # (Auto) (0-0.5) K/uL Baso # (Auto) (0-0.2) K/uL Immature Gran # (Auto) (0.00-0.02) K/uL PT INR D-Dimer ABG pH (7.35-7.45) ABG pCO2 (35-46) mmHg ABG pO2 (80-95) mmHg ABG HCO3 (19-24) mmol/L ABG O2 Saturation (90-95) % ABG Base Excess (-9-1.8) mEq/L Star Test (Pos) Barometric Pressure mm/Hg Oxygen Given Sodium (136-145) mmol/L Potassium (3.5-5.1) mmol/L Chloride (98-107) mmol/L Carbon Dioxide (21-32) mmol/L Anion Gap (3-11) BUN (7-18) mg/dl Creatinine (0.6-1.4) mg/dl Est Cr Clr Drug Dosing Est GFR ( Amer) ml/min Est GFR (Non-Af Amer) ml/min BUN/Creatinine Ratio (10-20) Glucose (70-99) mg/dl Lactate 0.8 (0.4-2.0) mmol/L Calcium (8.5-10.1) mg/dl Phosphorus (2.5-4.9) mg/dl Magnesium (1.8-2.4) mg/dl Total Bilirubin (0.2-1) mg/dl AST (15-37) U/L ALT (12-78) U/L Alkaline Phosphatase (45-117) U/L Troponin I (0-0.045) ng/ml NT-Pro-B Natriuret Pep (0-1800) pg/ml Total Protein (6.4-8.2) gm/dl Albumin (3.4-5.0) gm/dl Globulin (2.5-4.0) gm/dl Albumin/Globulin Ratio (0.9-2) Urine Color Urine Appearance (Clear) Urine pH (4.5-7.5) Ur Specific [place] (1.000-1.030) Urine Protein (Negative) Urine Glucose (UA) (Negative) Urine Ketones (Negative) Urine Blood (Negative) Urine Nitrite (Negative) Urine Bilirubin (Negative) Urine Urobilinogen (Negative) Ur Leukocyte Esterase (Negative) Nasal Screen MRSA (PCR) (Negative) COVID-19 Eval Order Covid19 at [facility] SARS-CoV-2 (PCR) NEGATIVE (Negative) 03/18/21 03/18/21 03/18/21 Range/Units 11:20 11:20 11:20 WBC 8.50 (4.8-10.8) K/uL RBC 4.17 L (4.7-6.1) M/uL Hgb 14.0 (14.0-18.0) g/dL Hct 40.6 L (42-52) % MCV 97.4 (80-100) fL MCH 33.6 (25-34) pg MCHC 34.5 (32-36) g/dL RDW Std Deviation 46.0 (36.4-46.3) fL RDW Coeff of Mayelin 13.1 (11.5-14.5) % Plt Count 168 (130-400) K/uL MPV 11.6 H (7.4-10.4) fL Immature Gran % (Auto) 0.2 % Neut % (Auto) 83.0 % Lymph % (Auto) 5.6 % [place] % (Auto) 10.0 % Eos % (Auto) 1.1 % Baso % (Auto) 0.1 % Neut # (Auto) 7.05 H (1.4-6.5) K/uL Lymph # (Auto) 0.48 L (1.2-3.4) K/uL [place] # (Auto) 0.85 H (0.11-0.59) K/uL Eos # (Auto) 0.09 (0-0.5) K/uL Baso # (Auto) 0.01 (0-0.2) K/uL Immature Gran # (Auto) 0.02 (0.00-0.02) K/uL PT Cancelled INR Cancelled D-Dimer Cancelled ABG pH (7.35-7.45) ABG pCO2 (35-46) mmHg ABG pO2 (80-95) mmHg ABG HCO3 (19-24) mmol/L ABG O2 Saturation (90-95) % ABG Base Excess (-9-1.8) mEq/L Star Test (Pos) Barometric Pressure mm/Hg Oxygen Given Sodium 131 L (136-145) mmol/L Potassium (3.5-5.1) mmol/L Chloride 96 L (98-107) mmol/L Carbon Dioxide 34 H (21-32) mmol/L Anion Gap 1.0 L (3-11) BUN 10 (7-18) mg/dl Creatinine 0.38 L (0.6-1.4) mg/dl Est Cr Clr Drug Dosing Not Reportable Est GFR ( Amer) 136.6 ml/min Est GFR (Non-Af Amer) 117.8 ml/min BUN/Creatinine Ratio 25.7 H (10-20) Glucose 121 H (70-99) mg/dl Lactate (0.4-2.0) mmol/L Calcium 8.8 (8.5-10.1) mg/dl Phosphorus (2.5-4.9) mg/dl Magnesium (1.8-2.4) mg/dl Total Bilirubin 0.6 (0.2-1) mg/dl AST (15-37) U/L ALT 96 H (12-78) U/L Alkaline Phosphatase 131 H (45-117) U/L Troponin I < 0.015 (0-0.045) ng/ml NT-Pro-B Natriuret Pep 437 (0-1800) pg/ml Total Protein 7.8 (6.4-8.2) gm/dl Albumin 3.2 L (3.4-5.0) gm/dl Globulin 4.6 H (2.5-4.0) gm/dl Albumin/Globulin Ratio 0.7 L (0.9-2) Urine Color Urine Appearance (Clear) Urine pH (4.5-7.5) Ur Specific [place] (1.000-1.030) Urine Protein (Negative) Urine Glucose (UA) (Negative) Urine Ketones (Negative) Urine Blood (Negative) Urine Nitrite (Negative) Urine Bilirubin (Negative) Urine Urobilinogen (Negative) Ur Leukocyte Esterase (Negative) Nasal Screen MRSA (PCR) (Negative) COVID-19 Eval Order SARS-CoV-2 (PCR) (Negative) Medications Administered Current Inpatient Medications Acetaminophen (Acetaminophen 325 Mg Tab) 650 mg PO Q4H PRN PRN Reason: Pain or Fever Stop: 04/17/21 18:26 Aspirin (Aspirin 81 Mg Ectab) 81 mg PO DAILY [facility] Stop: 04/18/21 08:59 Last Admin: 03/19/21 08:43 Dose: 81 mg Documented by: Atorvastatin Calcium (Atorvastatin 40 Mg Tab) 40 mg PO DAILY [facility] Stop: 04/18/21 08:59 Last Admin: 03/19/21 08:44 Dose: 40 mg Documented by: Gabapentin (Gabapentin 600 Mg Tab) 1,200 mg PO BID [facility] Stop: 04/17/21 20:59 Last Admin: 03/19/21 08:44 Dose: 1,200 mg Documented by: Guaifenesin (Guaifenesin 600 Mg Tabcr) 1,200 mg PO Q12 [facility] Stop: 04/17/21 18:59 Last Admin: 03/19/21 08:44 Dose: 1,200 mg Documented by: Heparin Sodium (Porcine) (Heparin Sod 5,000 Unit/0.5 Ml Vial) 5,000 units SQ Q8 [facility] Stop: 04/17/21 21:59 Last Admin: 03/19/21 05:37 Dose: 5,000 units Documented by: Hydralazine HCl (Hydralazine Hcl 20 Mg/Ml Vial) 5 mg IV Q4H PRN PRN Reason: SBP >170 Stop: 04/17/21 18:59 Hydroxyzine HCl (Hydroxyzine Hcl 25 Mg Tab) 25 mg PO Q6 PRN PRN Reason: Itching Stop: 04/17/21 18:26 Doxycycline Hyclate 100 mg/ (Dextrose) 110 mls @ 50 mls/hr IV Q12H [facility] Stop: 03/25/21 19:59 Last Admin: 03/19/21 08:38 Dose: 50 mls/hr Documented by: Piperacillin Sod/Tazobactam (Sod 3.375 gm/ Dextrose) 115 mls @ 28.75 mls/hr IV Q8H [facility]; Protocol Stop: 03/25/21 19:29 Last Infusion: 03/19/21 08:27 Dose: Infused Documented by: Magnesium Sulfate/Dextrose (Magnesium Sulfate / D5w) 1 gm in 100 mls @ 50 mls/hr IV Q2H [facility] Stop: 03/19/21 13:59 Levalbuterol HCl (Levalbuterol 0.31mg/3 Ml Vial) 0.31 mg NEB Q6R PRN PRN Reason: Shortness Of Breath Or Wheezin Stop: 04/17/21 18:26 Magnesium Chloride (Magnesium Chloride 64mg Delayed Rel Tab) 64 mg PO DAILY [facility] Stop: 04/18/21 08:59 Last Admin: 03/19/21 08:44 Dose: 64 mg Documented by: Metoprolol Tartrate (Metoprolol Tartrate 25 Mg Tab) 25 mg PO BID [facility] Stop: 04/17/21 20:59 Last Admin: 03/19/21 08:44 Dose: 25 mg Documented by: Miscellaneous Information (Piperacill/Tazobac Consult Active) 1 ea N/A UD PRN PRN Reason: Consult Stop: 04/17/21 13:11 Ondansetron HCl (Ondansetron Inj 2 Mg/Ml 2 Ml Vial) 4 mg IV Q6H PRN PRN Reason: Nausea Stop: 04/17/21 18:26 Pantoprazole Sodium (Pantoprazole 40 Mg Tab) 40 mg PO BID [facility] Stop: 04/17/21 20:59 Last Admin: 03/19/21 09:01 Dose: 40 mg Documented by: Paroxetine HCl (Paroxetine Hcl 20 Mg Tab) 30 mg PO BID [facility] Stop: 04/17/21 20:59 Last Admin: 03/19/21 08:45 Dose: 30 mg Documented by: Polyethylene Glycol (Polyethylene (Miralax) 17 Gm Pack) 17 gm PO DAILY PRN PRN Reason: Constipation Stop: 04/17/21 18:26 Tamsulosin HCl (Tamsulosin Hcl 0.4 Mg Cap) 0.8 mg PO HS [facility] Stop: 04/17/21 20:59 Last Admin: 03/18/21 20:18 Dose: 0.8 mg Documented by: Triamcinolone Acetonide (Triamcinolone Acet 0.1% Cr 15 Gm Tube) 1 appln TOP BID [facility] Stop: 04/17/21 20:59 Last Admin: 03/19/21 08:46 Dose: 1 appln Documented by: (1) Aspiration pneumonia Aspiration pneumonia type: unspecified Laterality: bilateral Lung location: upper lobe of lung Qualified Code(s): J69.0 - Pneumonitis due to inhalation of food and vomit
[2021-03-19] MEDS: MAGNESIUM SULFATE / D5W 1 GM/100 ML BAG IV SCH ×2 (10:34→12:24)
[2021-03-19] MEDS: POTASSIUM CHLORIDE / WTR 10 MEQ/100 ML PLCT IV SCH ×2 (10:40→11:57)
[2021-03-19] MEDS ORDERED: FUROSEMIDE 40 MG/4 ML VIAL IV ONE (12:45)
[2021-03-19] MEDS ORDERED: FUROSEMIDE 10 MG in SYRINGE 0 ML IV ONE (12:45)
[2021-03-19] MEDS ORDERED: FUROSEMIDE 20 MG in SYRINGE 0 ML IV ONE (12:45)
[2021-03-19 13:03] LABS: Base Excess ABG 4.5 mEq/L (-9-1.8); HCO3 ABG 31 mmol/L (19-24); Oxygen Saturation ABG 95.4 % (90-95); PCO2 ABG 56 mmHg (35-46); PO2 ABG 79 mmHg (80-95); pH ABG 7.36 (7.35-7.45)
[2021-03-19 13:05] LABS: Allen Test Pos (Pos)
--- NOTE | 2021-03-19 13:18 | XRay Report ---
SINGLE VIEW CHEST CLINICAL HISTORY: Respiratory failure. FINDINGS: An AP, portable, upright chest radiograph is compared to chest x-ray and chest CT dated 03/18. The heart is enlarged noting atherosclerotic calcification of the thoracic aorta. There is pro minence of the pulmonary vasculature. There is chronic elevation of the left hemidiaphragm. Dense air space consolidation is again seen in the left lower lobe. Mild patchy opacities are seen in the left upper lobe. Opacities at the right lung base may represent atelectasis. There are small pleural effus ions, left larger than right. No pneumothorax is seen. The skeletal structures are osteopenic. The [place] thorax is grossly intact. A left shoulder arthroplasty is in place. IMPRESSION: 1. Dense left basilar consolidation with milder airspace opacities in the left upper lobe has increas ed from yesterday and is typical for pneumonia. Clinical correlation will be required and radiographi c follow-up to resolution is recommended. 2. Left larger than right pleural effusions. 3. Cardiomegaly with prominence of the pulmonary vasculature. Correlate clinically for evidence of dowling perimposed congestive failure. ACT 112: Negative or not required by law. Electronically signed by: Curt Delaney M.D. 03/19/2021 1:16 PM
--- NOTE | 2021-03-19 14:35 | Pulmonary Consultation ---
Date of Consultation March 19, 2021 Assessment & Plan (1) Multilobar lung infiltrate: (2) Acute and chronic respiratory failure with hypoxia: (3) Aspiration pneumonia: Aspiration pneumonia type: unspecified Laterality: bilateral Lung location: upper lobe of lung Qualified Code(s): J69.0 - Pneumonitis due to inhalation of food and vomit (4) Cardiac arrest: -- VDRF Likely secondary to hypoxic cardiac arrest secondary to choking Continue with ventilatory support Patient did awaken started to follow commands. No hypothermia protocol Keep RASS -1 --Shock Likely cardiogenic s/p PEA Continue vasopressor support to keep MAP greater than 65 --Aspiration pneumonia Continue with antibiotics Follow-up culture --History of muscular dystrophy With restrictive lung disease Patient also has chronically elevated left hemidiaphragm I think patient will likely need trach --History of esophageal dysmotility Most likely the cause of choking Patient might end up with a PEG tube --Chronic hyponatremia Baseline sodium 129-131 Monitor --Paroxysmal A. fib Recently discontinued amiodarone Not on anticoagulation currently --No CPR --Prophylaxis VTE: IPC's GI: Protonix Lines: Left IJ, right radial, right tibia IO Diet: N.p.o. Plan: Continue with vent support. Patient will likely need trach given the severe muscular dystrophy as well as a PEG tube with severe esophageal dysmotility Continue with vasopressor support to keep map greater than 65 Continue with antibiotics Follow-up nasal MRSA Patient's left hand was cold. A-line was removed from the left radial. We will get Doppler of the left arm. I did update patient's as well as patient's daughter along with Dr. Granda after resuscitating the patient. I have personally spent 65 minutes of critical care time in the direct management of this patient. This is a life/limb threatening event. This includes time spent evaluating patient, direct bedside care, chart review, placing orders, interpretation of diagnostic studies, discussion with consultants, patient, and family members, as well as other required patient management activities. This time is exclusive of all separately billable procedures, and teaching time and separate from and in addition to any other critical care service time. Please note the above document was generated using voice recognition software. It may contain grammatical, syntax or spelling errors. History of Present Illness Attending Physician: Collin Granda MD History of Present Illness 75-year-old male past medical history of muscular dystrophy, MITZI with nocturnal hypoxemia on 2 L, restrictive lung disease due to muscular dystrophy, paroxysmal A. fib, aortic valve stenosis present to the hospital with complaints of shortness of breath going on since last couple of days. Patient was having dinner while the was in the room. He started to choke and turned blue Code purple was called returning to CODE BLUE Patient was successfully resuscitated after doing CPR. Initial cold lasted for 10 minutes. He lost his pulse again after for which another code was run which lasted for 10 minutes. I was present during the code. Intubation was performed after the first ROSC. History obtained from previous chart as well as patient's Allergies Allergy/AdvReac Type Severity Reaction Status Date / Time bee venom protein (honey bee) Allergy Severe ANAPHYLAXIS Verified 03/18/21 16:38 sulfamethoxazole Allergy Intermediate RED Verified 03/18/21 16:38 [From Bactrim] SWOLLEN HIVES trimethoprim [From Bactrim] Allergy Intermediate RED Verified 03/18/21 16:38 SWOLLEN HIVES Home Medications Medication Instructions Recorded Confirmed Type acetaminophen 500 mg tablet 1,000 mg PO DIRECTED PRN 12/01/18 03/18/21 History (Tylenol Extra Strength) gabapentin 600 mg tablet 1,200 mg PO BID 12/01/18 03/18/21 History metoprolol tartrate 25 mg tablet 25 mg PO BID 12/01/18 03/18/21 History pantoprazole 40 mg tablet,delayed 40 mg PO BID 12/01/18 03/18/21 History release paroxetine HCl 30 mg tablet (Paxil) 30 mg PO BID 12/01/18 03/18/21 History tamsulosin 0.4 mg capsule (Flomax) 0.8 mg PO HS 12/01/18 03/18/21 History aspirin 81 mg tablet 81 mg PO DAILY 03/18/21 03/18/21 History atorvastatin 40 mg tablet 40 mg PO DAILY 03/18/21 03/18/21 History hydroxyzine HCl 25 mg tablet 25 mg PO Q6 PRN 03/18/21 03/18/21 History magnesium chloride 64 mg 64 mg PO DAILY 03/18/21 03/18/21 History tablet,extended release triamcinolone acetonide 0.1 % 1 applic TOPICAL BID 03/18/21 03/18/21 History topical cream Patient History Medical History (Updated 03/19/21 @ 19:14 by Yenny Ruvalcaba MD) Atrial flutter Henry's esophagus Benign neoplasm of colon " 06/09/99- hyperplastic polyp and tubular adenoma 06/27/2011- 2 polyps, path shows adenomatous" BPH (benign prostatic hypertrophy) Chronic hyponatremia Dyslipidemia GERD (gastroesophageal reflux disease) H/O alcohol abuse History of stroke "per Epic record, old infarct noted on head CT 08/13" HTN (hypertension) Hx of sepsis Inclusion body myositis (IBM) Malignant neoplasm prostate "s/p implant 07/10/02" Neuropathy Osteoarthritis Paroxysmal atrial tachycardia Sjogren's syndrome Typical atrial flutter Surgical History H/O colonoscopy H/O elbow surgery S/P hemorrhoidectomy S/P hip replacement S/P shoulder replacement "left" Family History Other Cancer Diabetes Heart disease Stroke Social History Smoking Status: Former smoker Hx Alcohol Use: Yes Alcohol type: other Hx Substance Use: No Preferred Language: Maltese Communication Ability: Effective Chemotherapist Required: No Beliefs That Will Affect Care: None marital status: Current Living Situation: Spouse and Family current occupational status: retired Other Information That Helps Us Care for You: No Feels Safe at Home: Yes Safety Concerns: Feels Safe At This Time Assistive Devices: Denture - Upper, Denture - Lower and Oxygen - Continuous Assistive Devices Comment: no glasses with him Review of Systems Review of Systems: Unobtainable due to endotracheal tube Physical Exam Physical Exam: Constitutional: No acute distress HEENT: PERRLA Respiratory system: Decreased air entry bilaterally, no wheeze, positive rhonchi, positive crackles bilateral lower lobes CVS: S1-S2 positive, no murmurs or gallops Abdomen: Soft, nontender, nondistended, positive bowel sounds x4, obese Extremities: +1 pulses bilaterally radialis/ dorsalis pedis, no cyanosis, no edema Neuro: Awake, following commands Psych: Unable to assess G/U: Positive Gonsalves Skin: no rashes, warm and dry Lymphatic: no cervical or axillary lymphadenopathy Results & Data Results & Data ([facility]) Vital Signs (Past 12 Hours) Vital Signs Temp Pulse Pulse Resp BP Pulse Ox 03/19/21 13:00 82 22 94 03/19/21 11:15 37.0 C 88 18 110/63 94 03/19/21 07:53 83 03/19/21 07:29 36.6 C 79 20 103/65 91 03/19/21 04:00 36.8 C 82 20 166/78 H 96 03/19/21 04:54 03/19/21 04:54 PG Care Time/CCT Total # of Minutes Spent Total Time Spent with Patient: Total time spent is greater than 50% in coordination of care (as documented) at patient's floor/unit and/or counseling patient: Critical Care Time: Yes Total Critical Care Time: 65 Coding Level of Care Code None Diagnoses Multilobar lung infiltrate R91.8 Acute and chronic respiratory failure with hypoxia J96.21 Aspiration pneumonia J69.0 Aspiration pneumonia type: unspecified Laterality: bilateral Lung location: upper lobe of lung Cardiac arrest I46.9 Additional Codes Critical Care Time - Critical Care Time: Yes ([id number]) Time Spent (min) 65
[2021-03-19] MEDS ORDERED: RAPID SEQUENCE INDUCTION BAG ONE (17:03)
[2021-03-19] MEDS ORDERED: fentaNYL citrate 100 MCG/2 ML VIAL ONE (17:46)
[2021-03-19] MEDS ORDERED: STAT IV Infusion **Titration per Protocol STA (17:57)
[2021-03-19] MEDS: fentaNYL DRIP 1,250 MCG/250 ML BAG IV SCH (18:00)
[2021-03-19] MEDS: Standard 16mcg/mL; 4 MG in 250 mL for HYPOTENSION IV SCH (18:01)
[2021-03-19] MEDS ORDERED: fentaNYL citrate 100 MCG/2 ML VIAL IV STA (18:02)
--- NOTE | 2021-03-19 18:12 | XRay Report ---
SINGLE VIEW CHEST CLINICAL HISTORY: Respiratory failure. Intubation. FINDINGS: An AP, portable, supine chest radiograph is compared to chest x-ray performed earlier the day 03/19/[address] dated 03/18/2021. An enteric tube has been placed. The tip project below the diaphragm over the gastric fundus. Endotracheal tube has been placed. The tip projects approximat sky 3.5 cm above the edwar. The heart is enlarged noting atherosclerotic calcification of the thorac ic aorta. . There is chronic elevation of the left hemidiaphragm. There is increasing/confluent airsp tyesha consolidation throughout both lungs, left greater than right. Pleural effusions are noted. No pne umothorax is seen. The skeletal structures are osteopenic. The bony thorax is grossly intact. A left shoulder arthroplasty is in place. IMPRESSION: 1. Endotracheal and enteric tube placement as above. 2. There is diffuse airspace opacification seen throughout both lungs, which has significantly increa sed from today's earlier examination. This could represent pulmonary edema, multifocal pneumonia, and /or ARDS. Clinical correlation will be essential. 3. Cardiomegaly. 4. Pleural effusions. ACT 112: Negative or not required by law. Electronically signed by: Curt Delaney M.D. 03/19/2021 6:10 PM
--- NOTE | 2021-03-19 18:38 | Hospitalist Progress Note ---
Date of Service March 19, 2021 Assessment & Plan Admission and Anticipated Discharge Date Admission Date: March 18, 2021 Subjective CODE BLUE called on the patient, after observed by his choking on food. Patient found pulseless, and chest compressions started before my arrival. ICU present immediately as well. Patient was intubated, and small piece of food was removed. Patient lost pulse again and resuscitation efforts resumed, with chest compressions. Please refer to further detail to ICU note. I updated patient's in the hospital, and after arrival of her daughter to the hospital, patient's and daughter were updated by Dr. Ruvalcaba as well. Patient was taken to the ICU room 102. Jasmyn Granda MD Results & Data Results & Data ([facility]) Vital Signs (Past 12 Hours) Vital Signs Temp Pulse Pulse Resp BP Pulse Ox 03/19/21 17:30 149 H 22 100 03/19/21 15:45 37.0 C 79 16 111/59 L 97 03/19/21 14:30 89 03/19/21 13:00 82 22 94 03/19/21 11:15 37.0 C 88 18 110/63 94 03/19/21 07:53 83 03/19/21 07:29 36.6 C 79 20 103/65 91
--- NOTE | 2021-03-19 19:06 | Procedure Note ---
Procedure Note Date of Service March 19, 2021 Note ARTERIAL LINE PROCEDURE NOTE: Procedure: Arterial Line Placement Attending: Dr. Yenny Ruvalcaba MD Indication: Monitoring on Pressors Anesthesia: General anesthesia Emergent consent was applied A time-out was completed verifying correct patient, procedure, site, positioning, and implant(s) or special equipment if applicable. Allens test was performed to ensure adequate perfusion. Patients left wrist was prepped and draped in the usual sterile fashion. Ultrasound guidance was used to aid needle placement. A 20g Arrow arterial line was introduced into the left radial artery. Catheter was threaded, and the needle was removed with appropriate pulsatile blood return. Good waveform was observed on the monitor. The patient tolerated the procedure well. Confirmation of placement with ultrasound. Complications: None Blood Loss: Less than 2 cc Coding CPT Codes Tubes, Drains, and Vasc Access - Tubes, Drains, and Vasc Access: [id number] Place Catheter In Artery ([id number]) Tubes, Drains, and Vasc Access - Tubes, Drains, and Vasc Access: [id number] Ultrasound Guidance For Vascular ([id number]) [facility] [place] Procedure Codes (Charges) Tubes, Drains, and Vasc Access Procedure 1: Tubes, Drains, and Vasc Access: [id number] Place Catheter In Artery Procedure 2: Tubes, Drains, and Vasc Access: [id number] Ultrasound Guidance For Vascular
--- NOTE | 2021-03-19 19:07 | Procedure Note ---
Procedure Note Date of Service March 19, 2021 Note INTUBATION PROCEDURE NOTE: Attending: Dr Yenny Ruvalcaba MD During CODE BLUE Sedative agent used: 3 mg of midazolam, 100 mg of lidocaine Emergent consent was implied given patients rapidly declining clinical status and need for airway protection. The patient was prepared in the appropriate fashion. The patient was easily pre-oxygenated by using [id number] ventilation. With help of glide scope grade 1 vocal cords were visualized and 7.5 Arabic ETT was introduced on first attempt to 23 cm at the lip. The stylette was removed and balloon was inflated with 10mL of air. Appropriate Colorimetric change was appreciated for at least 10 breaths. Bilateral chest rise and breath sounds were appreciated without air sounds in the epigastrium. Patient tolerated the procedure well and there were no immediate complications. Chest Xray to follow for confirming placement. Coding CPT Codes Resuscitation - Resuscitation: [id number] Endotracheal Intubation, emergency ([id number]) [facility] [place] Procedure Codes (Charges) Resuscitation Resuscitation: [id number] Endotracheal Intubation, emergency
--- NOTE | 2021-03-19 19:08 | Procedure Note ---
Procedure Note Date of Service March 19, 2021 Note Procedure: Inserting ultrasound-guided central line installer trolley: Dr. Yenny Ruvalcaba Indication: Hypotension Consent: Emergent Anesthesia: 1% lidocaine without epinephrine local. Procedure: Consent was verified and timeout performed. Appropriate imaging studies were reviewed prior to the procedure. Under aseptic and sterile condition, left IJ vein was accessed under direct ultrasound guidance. Guidewire was confirmed to be within the lumen of vein with the help of ultrasound. Catheter was introduced via Seldinger technique. Guide a wire was removed. Good non-pulsatile blood flow was appreciated from all the ports. The catheter was placed at 24 cm and sut[address] in place. BioPatch was applied to the catheter and a sterile Tegaderm dressing was applied over the catheter with careful attention to sterility. Lung sliding was appreciated post procedure with the help ultrasound. Chest x-ray to follow Patient tolerated the procedure well. Blood loss: Less than 2 cc Complications: None Coding CPT Codes Tubes, Drains, and Vasc Access - Tubes, Drains, and Vasc Access: [id number] Place catheter in vein superior or inferior vena cava ([id number]) Tubes, Drains, and Vasc Access - Tubes, Drains, and Vasc Access: [id number] Ultrasound Guidance For Vascular ([id number]) [facility] [place] Procedure Codes (Charges) Tubes, Drains, and Vasc Access Procedure 1: Tubes, Drains, and Vasc Access: [id number] Place catheter in vein superior or inferior vena cava Procedure 2: Tubes, Drains, and Vasc Access: [id number] Ultrasound Guidance For Vascular
--- NOTE | 2021-03-19 19:10 | Procedure Note ---
Procedure Note Date of Service March 19, 2021 Coding
[2021-03-19 19:12] LABS: iSTAT Art Bld Gas pCO2 Correct 47 mmHg (35-46); iSTAT Art Bld Gas pH Corrected 7.431 (7.35-7.45); iSTAT Arterial Blood Gas HCO3 31 meg/L (19-24); iSTAT Arterial Blood Gas pCO2 47 mmHg (35-46); iSTAT Arterial Blood Gas pH 7.43 (7.35-7.45); iSTAT Arterial Blood Gas pO2 73 mmHg (80-95); iSTAT Arterial Blood Gas pO2 C 73; iSTAT Carbon Dioxide 32 mmol/L (24-31); iSTAT FiO2 100 %; iSTAT Hematocrit 35 % (42-52); iSTAT Hemoglobin 11.9 g/dl (14.0-18.0); iSTAT Site Art Line; iSTAT Sodium 130 mmol/L (135-144)
--- NOTE | 2021-03-19 19:21 | Procedure Note ---
Procedure Note Date of Service March 19, 2021 Note Procedure: Arterial Line Placement Attending: Dr. Ruvalcaba APC: Dave Sam PA-C Indication: Hemodynamic monitoring Anesthesia: Lidocaine 1% Emergent Consent implied in the setting of clinical deterioration and need for close hemodynamic monitoring, ABG monitoring, frequent lab draws, etc. A time-out was completed verifying correct patient, procedure, site, positioning, and implant(s) or special equipment if applicable. Allens test was performed to ensure adequate perfusion. Patients RIGHT wrist was prepped and draped in the usual sterile fashion. Ultrasound guidance was used to aid needle placement. A 20g Arrow arterial line was introduced into the RIGHT Radial artery. Catheter was threaded, and the needle was removed with appropriate blood return. Good waveform was observed. The patient tolerated the procedure well. Confirmation of placement with ultrasound. Blood Loss: Minimal Complications: None Coding CPT Codes Tubes, Drains, and Vasc Access - Tubes, Drains, and Vasc Access: [id number] Place Catheter In Artery ([id number]) [facility] [place] Procedure Codes (Charges) Tubes, Drains, and Vasc Access Procedure 3: Tubes, Drains, and Vasc Access: [id number] Place Catheter In Artery
--- NOTE | 2021-03-19 19:45 | Procedure Note ---
Procedure Note: Bronchoscopy Procedure PREOPERATIVE DIAGNOSIS: Aspiration POSTOPERATIVE DIAGNOSIS: Aspiration with thick mucous plugging PROCEDURE PERFORMED: Flexible fiberoptic bronchoscopy with BAL COMPLICATIONS: None. INDICATION: As above PROCEDURE: Emergent consent was applied Patient was already intubated. 100 MCG of fentanyl bolus was given Bronchoscope was advanced through the ETT. Topical anesthesia with 1% lidocaine was applied to the trachea and edwar. The trachea appeared normal.thick mucus was appreciated right at the edwar. This was suctioned clear. The bronchoscope was then advanced through the edwar, which was sharp. The scope was then advanced into the right main stem and each segment, subsegement in the right upper lobe, right middle lobe and right lower lobe were visualized. There was minimal amount of brownish secretions which were suctioned out. There were no other findings including evidence of mass, anatomic distortions, or hemorrhage. The bronchoscope was subsequently withdrawn and advanced into the left mainstem. Again, each segment and subsegment was well visualized. No specific masses or other lesions were identified throughout the tracheobronchial tree on the left. There were minimal amount of thick brownish secretion which were suctioned out The bronchoscope was then wedged in the left lower lobe and bronchoalveolar lavage samples were obtained. 60 ml of saline was instilled and 25 ml of fluid was aspirated back.The bronchoscope was withdrawn and the area was suctioned clear. The bronchoscope was then withdrawn to the mainstem. The area was suctioned clear. The bronchoscope was then withdrawn. The patient tolerated the procedure well without evidence of desaturation or complications. Bronchoalveolar lavage samples were sent for cell count, Gram stain and bacterial culture, AFB culture and smear, fungal culture and smear and cytology. Recommendations: Follow-up chest x-ray Follow-up culture.
--- NOTE | 2021-03-19 19:56 | XRay Report ---
SINGLE VIEW CHEST CLINICAL HISTORY: Central venous catheter placement. FINDINGS: An AP, portable, supine chest radiograph is compared to chest x-rays performed earlier the same day 03/19/[address] dated 03/18/2021. The examination is degraded by portable technique and patient rotation. Endotracheal and enteric tubes are unchanged in position. A left internal jugular c entral venous catheter has been placed. The tip projects over the SVC. The heart is enlarged noting a therosclerotic calcification of the thoracic aorta. There is chronic elevation of the left hemidiaphr agm. Diffuse/confluent airspace consolidation is again seen throughout both lungs. This is unchanged from previous. Pleural effusions are noted. No pneumothorax is seen. The skeletal structures are oste openic. The bony thorax is grossly intact. A left shoulder arthroplasty is in place. IMPRESSION: 1. Lines and tubes as above. No pneumothorax is seen post procedure. 2. Diffuse airspace consolidation throughout both lungs is unchanged from the most recent prior exami [facility] [place]. 3. Cardiomegaly. 4. Pleural effusions. ACT 112: Negative or not required by law. Electronically signed by: Curt Delaney M.D. 03/19/2021 7:54 PM
[2021-03-19] MEDS: TAMSULOSIN HCL 0.4 MG CAP PO SCH (20:37)
[2021-03-19 22:06] LABS: Eosinophil Body Fluid Man 0 %; Fluid Mono/Macrophage 13 %; Lymphocyte Body Fluid Man 10 %; Neutrophil Body Fluid Man 60 %
[2021-03-20] MEDS: PIPERACILLIN/TAZOBACTAM 3.375 GM in DEXTROSE 5% 100 ML IV SCH (03:30)
[2021-03-20] MEDS: Standard 16mcg/mL; 4 MG in 250 mL for HYPOTENSION IV SCH (03:40)
[2021-03-20] MEDS ORDERED: STAT IV Infusion **Titration per Protocol STA ×2 (03:50→07:51)
[2021-03-20] MEDS ORDERED: NOREPINEPHRINE/D5W 8 MG/508 ML BAG IV SCH (04:00)
[2021-03-20 05:26] LABS: Hematocrit (blood only) 33.1 % (42-52); Hemoglobin 11.4 g/dL (14.0-18.0); Mean Corpuscular Hgb Conc 34.4 g/dL (32-36); Mean Corpuscular Volume 95.9 fL (80-100); Mean Platelet Volume 10.9 fL (7.4-10.4); Platelet Count 148 K/uL (130-400); RDW Coefficient of Variation 12.9 % (11.5-14.5); RDW Standard Deviation 45.1 fL (36.4-46.3); Red Blood Count 3.45 M/uL (4.7-6.1); White Blood Count 8.22 K/uL (4.8-10.8)
[2021-03-20 05:54] LABS: iSTAT Art Bld Gas pCO2 Correct 39 mmHg (35-46); iSTAT Art Bld Gas pH Corrected 7.534 (7.35-7.45); iSTAT Arterial Blood Gas HCO3 33 meg/L (19-24); iSTAT Arterial Blood Gas pCO2 39 mmHg (35-46); iSTAT Arterial Blood Gas pH 7.53 (7.35-7.45); iSTAT Arterial Blood Gas pO2 98 mmHg (80-95); iSTAT Arterial Blood Gas pO2 C 98; iSTAT Carbon Dioxide 34 mmol/L (24-31); iSTAT FiO2 80 %; iSTAT Hematocrit 35 % (42-52); iSTAT Hemoglobin 11.9 g/dl (14.0-18.0); iSTAT Potassium 2.8 mmol/L (3.3-5.0); iSTAT Site Art Line; iSTAT Sodium 131 mmol/L (135-144)
[2021-03-20 06:02] LABS: Albumin Level 2.3 gm/dl (3.4-5.0); BUN Creatinine Ratio 23.7 (10-20); Bilirubin Direct 0.3 mg/dl (0-0.2); Bilirubin,Total 0.7 mg/dl (0.2-1); Creatinine Clr Calc Pharmacy 160.3 ml/min; Est GFR (African American) 131.1 ml/min; Est GFR (Non-African American) 113.1 ml/min; Magnesium 1.8 mg/dl (1.8-2.4); Phosphorus 2.2 mg/dl (2.5-4.9); Potassium 2.8 mmol/L (3.5-5.1); Total Protein 6.1 gm/dl (6.4-8.2)
[2021-03-20] MEDS: HEPARIN SOD 5,000 UNIT/0.5 ML VIAL SQ SCH (06:19)
[2021-03-20] MEDS ORDERED: POTASSIUM PHOS 3 MMOL/1 ML INFUSION IV STA (06:20)
[2021-03-20] MEDS: POTASSIUM CHLORIDE / WTR 20 MEQ/100 ML PLCT IV SCH ×2 (06:40→08:46)
[2021-03-20] MEDS ORDERED: POTASSIUM PHOSPHATE 15 MMOL in SODIUM CHLORIDE 0.9% 250 ML IV ONE (06:45)
--- NOTE | 2021-03-20 07:11 | Ultrasound Report ---
US arterial duplex UE LT CLINICAL HISTORY: 75 years-old Male presenting with ? occlusion. TECHNIQUE: Real-time grayscale ultrasound imaging of the left upper extremity was performed for a foc used evaluation at the site of clinical concern. COMPARISON: None. FINDINGS: Common carotid artery was not adequately evaluated due to the vascular line per signal technician report. -Triphasic flow with peak systolic velocity measuring 134 cm/s within subclavian artery. -Biphasic flow within the axillary artery with peak systolic velocity of 97 cm/s. -Biphasic flow within brachial artery with peak systolic velocity 121 cm/s. -Mid-distal aspect of the radial artery is occluded. There is biphasic flow within its proximal aspec t with peak systolic velocity measuring 67 cm/s. -Biphasic flow is seen within ulnar artery with peak systolic velocity 59 cm/s. IMPRESSION: 1. Occlusion of the mid-distal aspect of the right radial artery. Report will be sent to emergency D epartment. 2. The rest of findings as above. ACT 112: Negative or not required by law. Electronically signed by: Raiza Powers DO 03/20/2021 7:10 AM
--- NOTE | 2021-03-20 07:21 | XRay Report ---
XR chest 1V portable HISTORY: 75 years-old Male f/u acute shortness of breath COMPARISON: Chest radiograph 03/19/2021 TECHNIQUE: AP view of the chest FINDINGS: Endotracheal tube overlies the midline, 3.8 cm superior to the edwar. Enteric tube loops within the region of the proximal stomach with distal tip near the gastric cardia. Left IJ [id number] cathete r distal tip terminates near the mid SVC. No pneumothorax or large pleural effusion. Trace pleural ef fusions suggested. Pulmonary vascular congestion with interstitial coarsening and asymmetric left hannah g airspace opacities, mild to moderately improved from comparison. Degenerative changes of the right shoulder and spine. Left shoulder total joint arthroplasty. IMPRESSION: 1. Lines and tubes as above. 2. Cardiomegaly with mild to moderately improved aeration of the lungs. 3. Trace pleural effusions. ACT 112: Negative or not required by law. The above report was generated using voice recognition software. It may contain grammatical, syntax o r spelling errors. Electronically signed by: Thierry Mroan M.D. 03/20/2021 7:19 AM
--- NOTE | 2021-03-20 08:10 | Hospitalist Progress Note ---
Date of Service March 20, 2021 Assessment & Plan (1) Acute and chronic respiratory failure with hypoxia: (2) Aspiration pneumonia: (3) Multilobar lung infiltrate: Plan: This is a 75-year-old male with PMH of inclusion body myositis muscular dystrophy, chronic hyponatremia, MITZI with nocturnal hypoxemia on 2 L nasal cannula O2, restrictive lung disease due to muscular dystrophy, paroxysmal atrial fibrillation in setting of bronchodilators, hypertension, mild aortic valve stenosis, BPH and other medical problems listed below who presents with worsening shortness of breath over the past few days and found to have acute on chronic hypoxic respiratory failure and multilobar pneumonia. Hypoxic at 88% on room air initially with respiratory distress, improved to 97% on 4L oxymask Chest CTA with multifocal airspace opacity within the right upper lobe and left upper lobe likely representing pneumonia. Complete atelectasis of the left lower lobe. No PE visualized Started on empiric Zosyn. Will continue and add Doxycycline for atypical coverage. MRSA swab pending Xopenex nebs PRN only for now due to development of A Fib with RVR in setting of previous bronchodilators Mucinex 1,200mg BID, flutter valve, chest PT Speech therapy consult due to chronic aspiration in setting of muscular dystrophy Continue supplemental O2 Consider pulm consult if no improvement 03/19 -patient w/ more coarse lung sounds today on physical exam, and per nurse patient was more struggling with breathing earlier. Will order Lasix, BiPAP as needed, will obtain ABG and chest x-ray Also contacted pulmonary medicine for further evaluation. Aspiration Respiratory arrest leading to cardiac arrest 03/19 21 - PM - VERONIQUE SPANN patient's was visiting, and as pt was eating dinner, she noted that he choked on his food. VERONIQUE ZANA was called, patient required resuscitation and intubation, was taken to the ICU for further treatment Piece of food was removed at intubation, patient then also underwent bronchoscopy Thicker brown secretions were noted during bronchoscopy Patient tolerated procedure well without any desaturations or complications Bronchoalveolar lavage samples were sent for cell count, Gram stain and bacterial culture, AFB culture and smear, fungal culture and smear and cytology. Patient remains intubated on vent. support continue antibiotics, patient was admitted on Zosyn and doxycycline, further now zosyn changed to Unasyn per ICU team Patient may need trach History of esophageal dysmotility, most likely causing choking, may end up with PEG tube Patient requiring vasopressor support, tachycardic this morning On epi and levo, per ICU staff, epi was stopped and plan to wean off levo as able Further care per ICU team (4) Inclusion body myositis (IBM): Plan: Progressive, very limited motor function in LUE. Now ambulating in motorized scooter Follows with [place] [facility] Fall precautions, able to eat soft bite sized diet Pt chocked on food, (as above) (5) Chronic hyponatremia: Plan: Baseline Na 129-131 in setting of SIADH and excessive fluid intake, per recent consultation by Dr. Leggett Continue fluid restriction of 1.7 L Monitor with daily BMP current treatment per ICU team (6) Paroxysmal atrial fibrillation: Plan: Follows with Dr. Bowen of cardiology Amiodarone recently discontinued At home Continued Lopressor 25mg BID - now per ICU team Awaiting results of OP ziomonitor Ongoing discussion re: anticoagulation (7) BPH (benign prostatic hypertrophy): Plan: Continue Flomax DVT Ppx: SQ heparin Code status: FULL PCP: Dr. Mcfarland Dispo: ICU (after chocking episode) Admission and Anticipated Discharge Date Admission Date: March 18, 2021 Subjective Patient seen in follow-up of increased shortness of breath Now intubated on ventilator, after aspiration yesterday He is awake, and follows simple commands Review of system limited due to intubation however denies any pain or any discomfort Updated the patient about what happened yesterday, also told him that his and daughter aware and were in the hospital yesterday Tachycardic this morning, was on epi and levo, epi was stopped and levo is being weaned down per staff in ICU Review of Systems Review of Systems: All systems reviewed & are unremarkable except as noted in Subjective Physical Exam Physical Exam: General Appearance: laying in bed, awake, intubated on vent. Head: normocephalic, atraumatic Eyes: normal inspection, PERRL, EOMI, conjunctivae normal, anicteric sclerae ENT: external ear and nose normal, oropharynx normal Neck: normal visual inspection, trachea midline, central line placed Respiratory:+ course diffuse breath sounds Cardiovascular: RRR no murmur appreciated, normal peripheral pulses, 1+ BLE edema. Vessels: no JVD Chest: normal inspection of chest Abdomen/GI: normal bowel sounds, soft, nontender Extremities/Musculoskeletal: Hands contracted bilaterally, chronic LUE weakness Neurologic: PERRL, EOMI, no face palsy, speech unchanged Psychiatric: awake, euthymic affect, follow simple commands Skin: no rashes, normal color, warm/dry Results & Data Results & Data ([facility]) Vital Signs (Past 12 Hours) Vital Signs Temp Pulse Pulse Resp BP BP Pulse Ox 03/20/21 07:04 117 H 17 97 03/20/21 05:47 118 H 102/73 95 03/20/21 05:32 117 H 116/74 97 03/20/21 05:17 117 H 108/64 98 03/20/21 05:02 119 H 137/56 L 97 03/20/21 04:47 101 H 138/68 98 03/20/21 04:32 107 H 119/67 97 03/20/21 04:17 109 H 108/91 97 03/20/21 04:08 100 H 18 112 H 03/20/21 04:02 36.4 C L 110 H 101/62 96 03/20/21 04:00 36.9 C 115 H 20 104/72 99 03/20/21 03:04 113 H 95 03/20/21 02:02 105 H 119/56 L 98 03/20/21 01:02 103 H 135/73 99 03/20/21 00:06 105 H 18 98 03/20/21 00:02 104 H 134/66 98 03/19/21 23:17 108 H 113/76 98 03/19/21 21:37 105 H 121/68 99 Laboratory Results 03/20/21 03/20/21 03/20/21 Range/Units 05:40 04:34 04:34 WBC (4.8-10.8) K/uL RBC (4.7-6.1) M/uL Hgb (14.0-18.0) g/dL POC Hgb 11.9 L (14.0-18.0) g/dl Hct (42-52) % POC Hct 35 L (42-52) % MCV (80-100) fL MCH (25-34) pg MCHC (32-36) g/dL RDW Std Deviation (36.4-46.3) fL RDW Coeff of Mayelin (11.5-14.5) % Plt Count (130-400) K/uL MPV (7.4-10.4) fL Sample Site Art Line POC pH 7.53 H* (7.35-7.45) POC pCO2 39 (35-46) mmHg POC pO2 98 H (80-95) mmHg POC HCO3 33 H (19-24) annette/L POC Total CO2 34 H (24-31) mmol/L POC Base Excess 10.0 H (-9-1.8) annette/L ABG pH (7.35-7.45) ABG pH (Temp Correct) 7.534 H* (7.35-7.45) ABG pCO2 (35-46) mmHg ABG pCO2 (Temp Corrct 39 (35-46) mmHg ABG pO2 (80-95) mmHg POC ABG pO2 at Pt Temp 98 ABG HCO3 (19-24) mmol/L POC ABG O2 Sat 98.0 H (90-95) % ABG O2 Saturation (90-95) % ABG Base Excess (-9-1.8) mEq/L Star Test NA (Pos) Barometric Pressure mm/Hg Oxygen Given O2 Delivery Device Ventilator POC O2 Rate 18 Minute Ventilation 8.1 POC FiO2 80 % Tidal Volume 450 PEEP 8 POC Sodium 131 L (135-144) mmol/L Sodium 132 L (136-145) mmol/L POC Potassium 2.8 L (3.3-5.0) mmol/L Potassium 2.8 L D (3.5-5.1) mmol/L Chloride 93 L (98-107) mmol/L Carbon Dioxide 34 H (21-32) mmol/L Anion Gap 5.0 (3-11) BUN 10 (7-18) mg/dl Creatinine 0.42 L (0.6-1.4) mg/dl Est Cr Clr Drug Dosing 160.3 ml/min Est GFR ( Amer) 131.1 ml/min Est GFR (Non-Af Amer) 113.1 ml/min BUN/Creatinine Ratio 23.7 H (10-20) Glucose 180 H (70-99) mg/dl Calcium 8.0 L (8.5-10.1) mg/dl Phosphorus 2.2 L (2.5-4.9) mg/dl Magnesium 1.8 (1.8-2.4) mg/dl Total Bilirubin 0.7 (0.2-1) mg/dl Direct Bilirubin 0.3 H (0-0.2) mg/dl AST 106 H (15-37) U/L ALT 88 H (12-78) U/L Alkaline Phosphatase 91 (45-117) U/L Total Protein 6.1 L D (6.4-8.2) gm/dl Albumin 2.3 L (3.4-5.0) gm/dl Procalcitonin 1.21 H (0-0.5) ng/ml Fluid Neutrophils % % Fluid Lymphocytes % % Fluid Eosinophils % % Fl Monocyt/Macrophag % % Fluid Comment 03/20/21 03/19/21 03/19/21 Range/Units 04:34 19:30 18:43 WBC 8.22 (4.8-10.8) K/uL RBC 3.45 L (4.7-6.1) M/uL Hgb 11.4 L (14.0-18.0) g/dL POC Hgb 11.9 L (14.0-18.0) g/dl Hct 33.1 L (42-52) % POC Hct 35 L (42-52) % MCV 95.9 (80-100) fL MCH 33.0 (25-34) pg MCHC 34.4 (32-36) g/dL RDW Std Deviation 45.1 (36.4-46.3) fL RDW Coeff of Mayelin 12.9 (11.5-14.5) % Plt Count 148 (130-400) K/uL MPV 10.9 H (7.4-10.4) fL Sample Site Art Line POC pH 7.43 (7.35-7.45) POC pCO2 47 H (35-46) mmHg POC pO2 73 L (80-95) mmHg POC HCO3 31 H (19-24) annette/L POC Total CO2 32 H (24-31) mmol/L POC Base Excess 7.0 H (-9-1.8) annette/L ABG pH (7.35-7.45) ABG pH (Temp Correct) 7.431 (7.35-7.45) ABG pCO2 (35-46) mmHg ABG pCO2 (Temp Corrct 47 H (35-46) mmHg ABG pO2 (80-95) mmHg POC ABG pO2 at Pt Temp 73 ABG HCO3 (19-24) mmol/L POC ABG O2 Sat 95.0 (90-95) % ABG O2 Saturation (90-95) % ABG Base Excess (-9-1.8) mEq/L Star Test NA (Pos) Barometric Pressure mm/Hg Oxygen Given O2 Delivery Device Ventilator POC O2 Rate 22 Minute Ventilation POC FiO2 100 % Tidal Volume 480 PEEP 5 POC Sodium 130 L (135-144) mmol/L Sodium (136-145) mmol/L POC Potassium 3.0 L (3.3-5.0) mmol/L Potassium (3.5-5.1) mmol/L Chloride (98-107) mmol/L Carbon Dioxide (21-32) mmol/L Anion Gap (3-11) BUN (7-18) mg/dl Creatinine (0.6-1.4) mg/dl Est Cr Clr Drug Dosing ml/min Est GFR ( Amer) ml/min Est GFR (Non-Af Amer) ml/min BUN/Creatinine Ratio (10-20) Glucose (70-99) mg/dl Calcium (8.5-10.1) mg/dl Phosphorus (2.5-4.9) mg/dl Magnesium (1.8-2.4) mg/dl Total Bilirubin (0.2-1) mg/dl Direct Bilirubin (0-0.2) mg/dl AST (15-37) U/L ALT (12-78) U/L Alkaline Phosphatase (45-117) U/L Total Protein (6.4-8.2) gm/dl Albumin (3.4-5.0) gm/dl Procalcitonin (0-0.5) ng/ml Fluid Neutrophils % 60 % Fluid Lymphocytes % 10 % Fluid Eosinophils % 0 % Fl Monocyt/Macrophag % 13 % Fluid Comment 03/19/21 Range/Units 12:46 WBC (4.8-10.8) K/uL RBC (4.7-6.1) M/uL Hgb (14.0-18.0) g/dL POC Hgb (14.0-18.0) g/dl Hct (42-52) % POC Hct (42-52) % MCV (80-100) fL MCH (25-34) pg MCHC (32-36) g/dL RDW Std Deviation (36.4-46.3) fL RDW Coeff of Mayelin (11.5-14.5) % Plt Count (130-400) K/uL MPV (7.4-10.4) fL Sample Site POC pH (7.35-7.45) POC pCO2 (35-46) mmHg POC pO2 (80-95) mmHg POC HCO3 (19-24) annette/L POC Total CO2 (24-31) mmol/L POC Base Excess (-9-1.8) annette/L ABG pH 7.36 (7.35-7.45) ABG pH (Temp Correct) (7.35-7.45) ABG pCO2 56 H (35-46) mmHg ABG pCO2 (Temp Corrct (35-46) mmHg ABG pO2 79 L (80-95) mmHg POC ABG pO2 at Pt Temp ABG HCO3 31 H (19-24) mmol/L POC ABG O2 Sat (90-95) % ABG O2 Saturation 95.4 H (90-95) % ABG Base Excess 4.5 H (-9-1.8) mEq/L Star Test Pos (Pos) Barometric Pressure 734.6 mm/Hg Oxygen Given 2.5L O2 Delivery Device POC O2 Rate Minute Ventilation POC FiO2 % Tidal Volume PEEP POC Sodium (135-144) mmol/L Sodium (136-145) mmol/L POC Potassium (3.3-5.0) mmol/L Potassium (3.5-5.1) mmol/L Chloride (98-107) mmol/L Carbon Dioxide (21-32) mmol/L Anion Gap (3-11) BUN (7-18) mg/dl Creatinine (0.6-1.4) mg/dl Est Cr Clr Drug Dosing ml/min Est GFR ( Amer) ml/min Est GFR (Non-Af Amer) ml/min BUN/Creatinine Ratio (10-20) Glucose (70-99) mg/dl Calcium (8.5-10.1) mg/dl Phosphorus (2.5-4.9) mg/dl Magnesium (1.8-2.4) mg/dl Total Bilirubin (0.2-1) mg/dl Direct Bilirubin (0-0.2) mg/dl AST (15-37) U/L ALT (12-78) U/L Alkaline Phosphatase (45-117) U/L Total Protein (6.4-8.2) gm/dl Albumin (3.4-5.0) gm/dl Procalcitonin (0-0.5) ng/ml Fluid Neutrophils % % Fluid Lymphocytes % % Fluid Eosinophils % % Fl Monocyt/Macrophag % % Fluid Comment Medications Administered Current Inpatient Medications Acetaminophen (Acetaminophen 325 Mg Tab) 650 mg PO Q4H PRN PRN Reason: Pain or Fever Stop: 04/17/21 18:26 Aspirin (Aspirin 81 Mg Ectab) 81 mg PO DAILY [facility] Stop: 04/18/21 08:59 Last Admin: 03/19/21 08:43 Dose: 81 mg Documented by: Atorvastatin Calcium (Atorvastatin 40 Mg Tab) 40 mg PO DAILY [facility] Stop: 04/18/21 08:59 Last Admin: 03/19/21 08:44 Dose: 40 mg Documented by: Fentanyl Citrate (Fentanyl Bolus From Bag) 50 mcg IV Q60M PRN PRN Reason: Pain or Agitation Stop: 04/02/21 17:56 Gabapentin (Gabapentin 600 Mg Tab) 1,200 mg PO BID [facility] Stop: 04/17/21 20:59 Last Admin: 03/19/21 20:36 Dose: Not Given Documented by: Guaifenesin (Guaifenesin 600 Mg Tabcr) 1,200 mg PO Q12 [facility] Stop: 04/17/21 18:59 Last Admin: 03/19/21 20:36 Dose: Not Given Documented by: Heparin Sodium (Porcine) (Heparin Sod 5,000 Unit/0.5 Ml Vial) 5,000 units SQ Q8 [facility] Stop: 04/17/21 21:59 Last Admin: 03/20/21 06:19 Dose: 5,000 units Documented by: Hydralazine HCl (Hydralazine Hcl 20 Mg/Ml Vial) 5 mg IV Q4H PRN PRN Reason: SBP >170 Stop: 04/17/21 18:59 Hydroxyzine HCl (Hydroxyzine Hcl 25 Mg Tab) 25 mg PO Q6 PRN PRN Reason: Itching Stop: 04/17/21 18:26 Doxycycline Hyclate 100 mg/ (Dextrose) 110 mls @ 50 mls/hr IV Q12H [facility] Stop: 03/25/21 19:59 Last Infusion: 03/19/21 22:48 Dose: Infused Documented by: Piperacillin Sod/Tazobactam (Sod 3.375 gm/ Dextrose) 115 mls @ 28.75 mls/hr IV Q8H [facility]; Protocol Stop: 03/25/21 19:29 Last Infusion: 03/20/21 07:30 Dose: Infused Documented by: Fentanyl Citrate (Fentanyl Drip) 1,250 mcg in 250 mls @ 10 mls/hr IV .Q25H [facility]; Protocol Stop: 04/02/21 17:59 Last Titration: 03/20/21 07:00 Dose: 50 mcg/hr, 10 mls/hr Documented by: Norepinephrine Bitartrate (Levophed/D5w) 8 mg in 508 mls @ 29.729 mls/hr IV .Q17H6M [facility]; Protocol Stop: 04/19/21 03:59 Last Titration: 03/20/21 07:00 Dose: 0.09 mcg/kg/min, 29.7 mls/hr Documented by: Potassium Chloride (K Alex / Wtr) 20 meq in 100 mls @ 50 mls/hr IV Q2H [facility] Stop: 03/20/21 10:29 Last Admin: 03/20/21 06:40 Dose: 50 mls/hr Documented by: Potassium Phosphate 15 mmol/ (Sodium Chloride) 255 mls @ 102 mls/hr IV ONE ONE Stop: 03/20/21 09:14 Last Admin: 03/20/21 06:40 Dose: 102 mls/hr Documented by: Phenylephrine HCl 20 mg/ (Dextrose) 502 mls @ 64.382 mls/hr IV .Q7H48M [facility]; Protocol Stop: 04/19/21 07:59 Levalbuterol HCl (Levalbuterol 0.31mg/3 Ml Vial) 0.31 mg NEB Q6R PRN PRN Reason: Shortness Of Breath Or Wheezin Stop: 04/17/21 18:26 Magnesium Chloride (Magnesium Chloride 64mg Delayed Rel Tab) 64 mg PO DAILY [facility] Stop: 04/18/21 08:59 Last Admin: 03/19/21 08:44 Dose: 64 mg Documented by: Metoprolol Tartrate (Metoprolol Tartrate 25 Mg Tab) 25 mg PO BID [facility] Stop: 04/17/21 20:59 Last Admin: 03/19/21 20:37 Dose: Not Given Documented by: Miscellaneous Information (Piperacill/Tazobac Consult Active) 1 ea N/A UD PRN PRN Reason: Consult Stop: 04/17/21 13:11 Ondansetron HCl (Ondansetron Inj 2 Mg/Ml 2 Ml Vial) 4 mg IV Q6H PRN PRN Reason: Nausea Stop: 04/17/21 18:26 Pantoprazole Sodium (Pantoprazole 40 Mg Tab) 40 mg PO BID [facility] Stop: 04/17/21 20:59 Last Admin: 03/19/21 20:37 Dose: Not Given Documented by: Paroxetine HCl (Paroxetine Hcl 20 Mg Tab) 30 mg PO BID [facility] Stop: 04/17/21 20:59 Last Admin: 03/19/21 20:37 Dose: Not Given Documented by: Polyethylene Glycol (Polyethylene (Miralax) 17 Gm Pack) 17 gm PO DAILY PRN PRN Reason: Constipation Stop: 04/17/21 18:26 Tamsulosin HCl (Tamsulosin Hcl 0.4 Mg Cap) 0.8 mg PO HS [facility] Stop: 04/17/21 20:59 Last Admin: 03/19/21 20:37 Dose: Not Given Documented by: Triamcinolone Acetonide (Triamcinolone Acet 0.1% Cr 15 Gm Tube) 1 appln TOP BID [facility] Stop: 04/17/21 20:59 Last Admin: 03/19/21 21:54 Dose: 1 appln Documented by: (1) Aspiration pneumonia Aspiration pneumonia type: unspecified Laterality: bilateral Lung location: upper lobe of lung Qualified Code(s): J69.0 - Pneumonitis due to inhalation of food and vomit
[2021-03-20] MEDS: PHENYLEPHRINE HCL 20 MG in DEXTROSE 5% 500 ML IV SCH ×2 (09:19→12:53)
[2021-03-20] MEDS: DOXYCYCLINE HYCLATE 100 MG in DEXTROSE 5% 100 ML IV SCH ×2 (09:27→20:08)
--- NOTE | 2021-03-20 09:39 | Critical Care Progress Note ---
Date of Service March 20, 2021 Assessment & Plan (1) Admitted to intensive care unit: Plan: 75 y/o male w/ PMHx of pAF, BPH, IBM, and muscular dystrophy admitted for acute on chronic respiratory failure on 03/18 and transferred to ICU on 03/19/21 after cardiac arrest 2/2 choking episode. Currently, still requiring pressor support, but he is doing well from a respiratory standpoint. NEURO - CAM-ICU: negative (1 error on inattention) sedation: none (fentanyl 50 mcg/kg/min discontinued this AM) RASS 0 (while on Fentanyl 50) and not in distress, so did not increase sedation. Following commands. CARDIAC - - shock - 13:48 03/20/21: MAP low 90s NIBP. MAP 66 A line. Earlier in day, A line showed fluctuating MAPs down to 50s sustained, possibly from error vs pressor weaning. - likely cardiogenic shock s/p PEA - per records review, patient mostly has not had MAP issues in past. He was usually normotensive-hypertensive. - less likely obstructive- CTA 03/18 neg for PE, though he is at increased risk because had not been on anticoag - less likely septic shock - in process of weaning down pressors. MAP R radial A line was consistently 30 points below NIBP, despite adjusting settings. Will remove A line. - currently on phenylephrine 1.9 mcg/kg/min (started this while weaning off levo and epi in context of tachycardia). wean as able. - echo EF>70%, hyperdynamic. No LV wall motion abnormalities. Moderately calcified aortic valve. Afib w/ RVR during study, technically difficult study. -normal echo function less consistent w/ cardiogenic shock - check ecg and trop - hold home metoprolol - paroxysmal atrial fibrillation - converted to sinus this AM after weaned off levo and epi, HR 110s->90s - avoid BB/CCB because hypotensive needing pressor support - patient had been on amiodarone at last admission in 11/2020, but this had been discontinued as outpatient - was not on anticoag previously. reviewed hx. subdural hematoma from fall in 2019. thrombocytopenia in past, resolved currently. - starting on therapeutic heparin drip because has L arterial clot. - elevated trop - 03/20: 0.628, likely 2/2 cardiac arrest on 03/19. <0.015 on 03/18 - trend until peaked RESP - - ventilator dependent acute on chronic respiratory failure with hypoxia - VC. Vt 450. RR 16. PEEP 8. FiO2 50. P peak 25.9 - AB.43/47/73/31->7.53/39/98/33, hypoxia resolved - likely secondary to hypoxic cardiac arrest secondary to choking - fluid overload may be contributory - continue w/ ventilatory support until pressor requirement decreased - defer diuresis until pressor requirement decreased. cxr w/ pulm vasc congestion, cxr diffuse airspace opacities w/ improvement from yesterday -history of muscular dystrophy - with restrictive lung disease and chronically elevated L hemidiaphragm - may potentially need trach GI - - history of esophageal dysmotility, most likely the cause of choking - started discussion of potential PEG tube. patient open to idea RENAL/LYTES metabolic alkalosis - will check urinary Cl and K - considered volume depletion. GI losses via NG has not been significant (400mL) - repleted K hypokalemia - 2.8. repleted w/ 15mmol KPhos and 40meq KCl --Chronic hyponatremia 131 - similar to baseline sodium - reviewed chart records, did not find prior workup, so will order osm and urine studies. AM corticol tomorrow. - follow via BMP - chahal, 1.4L in 800mL out. cumulative 2.7L in 3.0L, most likely hypervolemic ENDO - AM cortisol as per above to check for adrenal insufficiency, no known prior hx HEME - had issues w/ thrombocytopenia in past, currently resolved. follow cbc - heparin drip ID - -aspiration pneumonia - 03/18 CTA: multifocal airspace opacity within the right upper lobe and left upper lobe likely representing pneumonia - Continue with antibiotics. Zosyn->Unasyn. Doxy for atypical coverage. 48-72 hour course before titrate down - 03/18 BC NG 48 hrs. 03/19 bronchial culture pin point growth, reincubating. Gram stain w/ rare epithlial cells, rare gram pos cocci, rare gram pos bacilli, many polys. Other bronchoalveolar studies pending -Prophylaxis VTE: SCDs and therapeutic heparin drip GI: Lansoprazole Lines: Left IJ, right radial, right tibia IO (removed) Diet: NPO. Start trickle tube feeds Dispo: continue ICU care code status: full. reconfirmed today. patient desires both cpr and intubation in event of cardiac arrest. (2) Cardiac arrest: (3) Chronic hyponatremia: (4) Acute and chronic respiratory failure with hypoxia: (5) Aspiration pneumonia: (6) Paroxysmal atrial fibrillation: (7) Dysphagia: (8) BPH (benign prostatic hypertrophy): (9) Inclusion body myositis (IBM): (10) Elevated troponin: (11) Hypokalemia: Admission and Anticipated Discharge Date Admission Date: March 18, 2021 Supervising Physician Co-Signing Physician Notes Patient seen and examined. EMR reviewed. Discussed with off going precipitator operator and with family practice resident. Agree with assessment plan as noted. Patient was discussed on multidisciplinary rounds and with critical care bedside nurse. Transition the patient from epinephrine and Levophed to Nic-Synephrine with improvement in the patient's tachycardia and blood pressure. D escalated antibiotics. Does not need antipseudomonal coverage. Unasyn should be adequate. Can discontinue vancomycin. Follow cultures. Wean FiO2 as tolerated. Once the patient's oxygenation and hemodynamics are stable, will consider SBT. Placed on a heparin drip given the left arterial thrombosis, likely precipitated by an arterial line. He also has intermittent atrial fibrillation which is better once we have weaned him off of some of the vasoactive drips. He had a prior history of a subdural hematoma so we will need to address long-term anticoagulation with the patient and his once he is extubated and stable. Echocardiogram appeared reassuring. Suspect his cardiac arrest was related to an aspiration event with hypoxemia/hypercarbia. Had discussion with patient at bedside regarding tracheostomy and PEG tube placement. He apparently is not considered these in the past. As this is his first respiratory event, we will see if we can get him off of mechanical ventilation and potentially pursue swallow evaluation with speech therapy. Patient nods in agreement with that plan. Total of 45 minutes critical care time was spent in evaluation management stabilization of this patient. Subjective No overnight events. Patient denies subjective complaints. No confusion, pain, headache, CP, SOB, N/V, abd pain. Denies dizziness or lightheadedness. Review of Systems Review of Systems: All systems reviewed & are unremarkable except as noted in HPI & below Physical Exam Physical Exam: Constitutional: Appears to be A&Ox3 via nodding. NAD. Cooperative HEENT: PERRL Respiratory system: +ETT. CTAB anteriorly. CVS: Tachycardic rate, regular rhythm. No murmurs, rubs, or gallops. Abdomen: Soft, nontender, nondistender. +BS. Extremities: L hand is swollen and cooler to touch. Neuro: Awake, following commands G/U: Positive Chahal Results & Data Results & Data ([facility]) Vital Signs (Past 12 Hours) Vital Signs Temp Pulse Pulse Resp BP BP Pulse Ox 03/20/21 07:04 117 H 17 97 03/20/21 05:47 118 H 102/73 95 03/20/21 05:32 117 H 116/74 97 03/20/21 05:17 117 H 108/64 98 03/20/21 05:02 119 H 137/56 L 97 03/20/21 04:47 101 H 138/68 98 03/20/21 04:32 107 H 119/67 97 03/20/21 04:17 109 H 108/91 97 03/20/21 04:08 100 H 18 112 H 03/20/21 04:02 36.4 C L 110 H 101/62 96 03/20/21 04:00 36.9 C 115 H 20 104/72 99 03/20/21 03:04 113 H 95 03/20/21 02:02 105 H 119/56 L 98 03/20/21 01:02 103 H 135/73 99 03/20/21 00:06 105 H 18 98 03/20/21 00:02 104 H 134/66 98 03/19/21 23:17 108 H 113/76 98 Laboratory Results Abnormal lab results 03/19/21 03/19/21 03/20/21 Range/Units 12:46 18:43 04:34 RBC 3.45 L (4.7-6.1) M/uL Hgb 11.4 L (14.0-18.0) g/dL POC Hgb 11.9 L (14.0-18.0) g/dl Hct 33.1 L (42-52) % POC Hct 35 L (42-52) % MPV 10.9 H (7.4-10.4) fL POC pH (7.35-7.45) POC pCO2 47 H (35-46) mmHg POC pO2 73 L (80-95) mmHg POC HCO3 31 H (19-24) annette/L POC Total CO2 32 H (24-31) mmol/L POC Base Excess 7.0 H (-9-1.8) annette/L ABG pH (Temp Correct) (7.35-7.45) ABG pCO2 56 H (35-46) mmHg ABG pCO2 (Temp Corrct 47 H (35-46) mmHg ABG pO2 79 L (80-95) mmHg ABG HCO3 31 H (19-24) mmol/L POC ABG O2 Sat (90-95) % ABG O2 Saturation 95.4 H (90-95) % ABG Base Excess 4.5 H (-9-1.8) mEq/L POC Sodium 130 L (135-144) mmol/L Sodium (136-145) mmol/L POC Potassium 3.0 L (3.3-5.0) mmol/L Potassium (3.5-5.1) mmol/L Chloride (98-107) mmol/L Carbon Dioxide (21-32) mmol/L Creatinine (0.6-1.4) mg/dl BUN/Creatinine Ratio (10-20) Glucose (70-99) mg/dl Calcium (8.5-10.1) mg/dl Phosphorus (2.5-4.9) mg/dl Direct Bilirubin (0-0.2) mg/dl AST (15-37) U/L ALT (12-78) U/L Troponin I (0-0.045) ng/ml Total Protein (6.4-8.2) gm/dl Albumin (3.4-5.0) gm/dl Procalcitonin (0-0.5) ng/ml 03/20/21 03/20/21 03/20/21 Range/Units 04:34 04:34 05:40 RBC (4.7-6.1) M/uL Hgb (14.0-18.0) g/dL POC Hgb 11.9 L (14.0-18.0) g/dl Hct (42-52) % POC Hct 35 L (42-52) % MPV (7.4-10.4) fL POC pH 7.53 H* (7.35-7.45) POC pCO2 (35-46) mmHg POC pO2 98 H (80-95) mmHg POC HCO3 33 H (19-24) annette/L POC Total CO2 34 H (24-31) mmol/L POC Base Excess 10.0 H (-9-1.8) annette/L ABG pH (Temp Correct) 7.534 H* (7.35-7.45) ABG pCO2 (35-46) mmHg ABG pCO2 (Temp Corrct (35-46) mmHg ABG pO2 (80-95) mmHg ABG HCO3 (19-24) mmol/L POC ABG O2 Sat 98.0 H (90-95) % ABG O2 Saturation (90-95) % ABG Base Excess (-9-1.8) mEq/L POC Sodium 131 L (135-144) mmol/L Sodium 132 L (136-145) mmol/L POC Potassium 2.8 L (3.3-5.0) mmol/L Potassium 2.8 L D (3.5-5.1) mmol/L Chloride 93 L (98-107) mmol/L Carbon Dioxide 34 H (21-32) mmol/L Creatinine 0.42 L (0.6-1.4) mg/dl BUN/Creatinine Ratio 23.7 H (10-20) Glucose 180 H (70-99) mg/dl Calcium 8.0 L (8.5-10.1) mg/dl Phosphorus 2.2 L (2.5-4.9) mg/dl Direct Bilirubin 0.3 H (0-0.2) mg/dl AST 106 H (15-37) U/L ALT 88 H (12-78) U/L Troponin I (0-0.045) ng/ml Total Protein 6.1 L D (6.4-8.2) gm/dl Albumin 2.3 L (3.4-5.0) gm/dl Procalcitonin 1.21 H (0-0.5) ng/ml 03/20/21 Range/Units 11:47 RBC (4.7-6.1) M/uL Hgb (14.0-18.0) g/dL POC Hgb (14.0-18.0) g/dl Hct (42-52) % POC Hct (42-52) % MPV (7.4-10.4) fL POC pH (7.35-7.45) POC pCO2 (35-46) mmHg POC pO2 (80-95) mmHg POC HCO3 (19-24) annette/L POC Total CO2 (24-31) mmol/L POC Base Excess (-9-1.8) annette/L ABG pH (Temp Correct) (7.35-7.45) ABG pCO2 (35-46) mmHg ABG pCO2 (Temp Corrct (35-46) mmHg ABG pO2 (80-95) mmHg ABG HCO3 (19-24) mmol/L POC ABG O2 Sat (90-95) % ABG O2 Saturation (90-95) % ABG Base Excess (-9-1.8) mEq/L POC Sodium (135-144) mmol/L Sodium (136-145) mmol/L POC Potassium (3.3-5.0) mmol/L Potassium (3.5-5.1) mmol/L Chloride (98-107) mmol/L Carbon Dioxide (21-32) mmol/L Creatinine (0.6-1.4) mg/dl BUN/Creatinine Ratio (10-20) Glucose (70-99) mg/dl Calcium (8.5-10.1) mg/dl Phosphorus (2.5-4.9) mg/dl Direct Bilirubin (0-0.2) mg/dl AST (15-37) U/L ALT (12-78) U/L Troponin I 0.628 H* (0-0.045) ng/ml Total Protein (6.4-8.2) gm/dl Albumin (3.4-5.0) gm/dl Procalcitonin (0-0.5) ng/ml Diagnostic Findings Duplex Scan Upper Extremity Artery 03/19/21 19:40 US arterial duplex UE LEFT FINDINGS: Common carotid artery was not adequately evaluated due to the vascular line per refrigeration technician report. -Triphasic flow with peak systolic velocity measuring 134 cm/s within subclavian artery. -Biphasic flow within the axillary artery with peak systolic velocity of 97 cm/s. -Biphasic flow within brachial artery with peak systolic velocity 121 cm/s. -Mid-distal aspect of the radial artery is occluded. There is biphasic flow within its proximal aspect with peak systolic velocity measuring 67 cm/s. -Biphasic flow is seen within ulnar artery with peak systolic velocity 59 cm/s. Chest X-Ray 03/20/21 07:00 FINDINGS: Endotracheal tube overlies the midline, 3.8 cm superior to the edwar. Enteric tube loops within the region of the proximal stomach with distal tip near the gastric cardia. Left IJ [id number] catheter distal tip terminates near the mid SVC. No pneumothorax or large pleural effusion. Trace pleural effusions suggested. Pulmonary vascular congestion with interstitial coarsening and asymmetric left lung airspace opacities, mild to moderately improved from comparison. Degenerative changes of the right shoulder and spine. Left shoulder total joint arthroplasty. IMPRESSION: 1. Lines and tubes as above. 2. Cardiomegaly with mild to moderately improved aeration of the lungs. 3. Trace pleural effusions. Resident Activity Tracking Resident Involvement: Resident Care Provided Care Provided: Adult Hospital Medicine (1) Dysphagia Dysphagia type: unspecified Qualified Code(s): R13.10 - Dysphagia, unspecified (2) Aspiration pneumonia Aspiration pneumonia type: unspecified Laterality: bilateral Lung location: upper lobe of lung Qualified Code(s): J69.0 - Pneumonitis due to inhalation of food and vomit
[2021-03-20] MEDS: guaiFENesin 600 MG TABCR PO SCH (10:56)
[2021-03-20] MEDS: ASPIRIN 81 MG ECTAB PO SCH (10:56)
[2021-03-20] MEDS: GABAPENTIN 600 MG TAB PO SCH (10:56)
[2021-03-20] MEDS: ATORVASTATIN 40 MG TAB PO SCH (10:56)
[2021-03-20] MEDS: MAGNESIUM CHLORIDE 64MG DELAYED REL TAB PO SCH (10:57)
[2021-03-20] MEDS: METOPROLOL TARTRATE 25 MG TAB PO SCH (10:57)
[2021-03-20] MEDS: PARoxetine HCL 20 MG TAB PO SCH (10:57)
[2021-03-20] MEDS: PANTOprazole 40 MG TAB PO SCH (10:57)
[2021-03-20] MEDS ORDERED: PEPTAMEN INTENSE VHP 1.0 CAL 1,000 ML BAG OG SCH ×2 (11:15→12:58)
[2021-03-20] MEDS: ASPIRIN 81 MG CHEW NG SCH (11:47)
[2021-03-20] MEDS: LANSOPRAZOLE 30 MG SOLTAB NG SCH (11:47)
[2021-03-20] MEDS: GABAPENTIN 250 MG/5 ML 470 ML BTL PO SCH ×2 (11:47→20:09)
[2021-03-20] MEDS: TRIAMCINOLONE ACET 0.1% CR 15 GM TUBE TOP SCH ×2 (11:49→20:09)
[2021-03-20] MEDS ORDERED: HEPARIN SOD (PORCINE) 1000 UNIT/ML IV ONE (12:30)
[2021-03-20] MEDS: PHENYLEPHRINE HCL 40 MG in DEXTROSE 5% 500 ML IV SCH ×2 (12:46→18:33)
[2021-03-20] MEDS: HEPARIN SODIUM/DEXTROSE 25,000 UNITS/500 ML BAG IV SCH (12:54)
[2021-03-20] MEDS: TUBE FEEDING WATER FLUSH GT SCH ×4 (13:31→20:09)
[2021-03-20] MEDS: Heparin IV Adult Wt-Based Standard WITH Bolus Protocol IV SCH (13:41)
[2021-03-20] MEDS: AMPICILLIN/SULBACTAM SOD 3,000 MG in 0.9 % SODIUM CHLORIDE 100 ML IV SCH ×3 (14:17→23:59)
[2021-03-20 14:37] LABS: Potassium Random Urine 86.2 mmol/L
--- NOTE | 2021-03-20 14:41 | Billing Data ---
Date of Service March 20, 2021 Coding Level of Care Code Critical Care 1st 30-74 mins Time Spent (min) 48
[2021-03-20] MEDS ORDERED: FUROSEMIDE 40 MG in SYRINGE 0 ML IV ONE (17:00)
[2021-03-20 19:54] LABS: Partial Thromboplastin Ratio > 5.3
[2021-03-20 20:00] LABS: BUN Creatinine Ratio 25.1 (10-20); Calcium 7.7 mg/dl (8.5-10.1); Est GFR (African American) 136.6 ml/min; Est GFR (Non-African American) 117.8 ml/min; Magnesium 1.3 mg/dl (1.8-2.4); Phosphorus 2.8 mg/dl (2.5-4.9); Troponin I 0.388 ng/ml (0-0.045)
[2021-03-20 20:02] LABS: Potassium 3.7 mmol/L (3.5-5.1)
[2021-03-20 20:06] LABS: Partial Thromboplastin Time > 139.0 Seconds (21.0-31.0)
[2021-03-20] MEDS: TAMSULOSIN HCL 0.4 MG CAP PO SCH (20:09)
[2021-03-20 22:50] LABS: Partial Thromboplastin Ratio 3.2
[2021-03-20 23:29] LABS: Partial Thromboplastin Time 83.4 Seconds (21.0-31.0)
[2021-03-21 03:38] LABS: Mean Corpuscular Hemoglobin 32.9 pg (25-34); Mean Corpuscular Hgb Conc 34.4 g/dL (32-36); Mean Corpuscular Volume 95.8 fL (80-100); Mean Platelet Volume 10.2 fL (7.4-10.4); Platelet Count 103 K/uL (130-400); RDW Coefficient of Variation 13.1 % (11.5-14.5); Red Blood Count 3.34 M/uL (4.7-6.1); White Blood Count 8.25 K/uL (4.8-10.8)
[2021-03-21 03:54] LABS: BUN Creatinine Ratio 32.2 (10-20); Blood Urea Nitrogen 9 mg/dl (7-18); Calcium 7.7 mg/dl (8.5-10.1); Carbon Dioxide 32 mmol/L (21-32); Chloride 92 mmol/L (98-107); Creatinine Clr Calc Pharmacy 238.9 ml/min; Est GFR (African American) > 150.0 ml/min; Est GFR (Non-African American) 133.6 ml/min; Glucose 103 mg/dl (70-99); Magnesium 1.8 mg/dl (1.8-2.4); Potassium 3.3 mmol/L (3.5-5.1); Sodium 126 mmol/L (136-145)
[2021-03-21 04:03] LABS: Phosphorus 2.8 mg/dl (2.5-4.9); Troponin I 0.209 ng/ml (0-0.045)
[2021-03-21] MEDS: TUBE FEEDING WATER FLUSH GT SCH ×2 (04:57→09:13)
[2021-03-21] MEDS: fentaNYL DRIP 1,250 MCG/250 ML BAG IV SCH (04:57)
[2021-03-21] MEDS: POTASSIUM CHLORIDE / WTR 20 MEQ/100 ML PLCT IV SCH ×3 (06:18→10:20)
[2021-03-21] MEDS: AMPICILLIN/SULBACTAM SOD 3,000 MG in 0.9 % SODIUM CHLORIDE 100 ML IV SCH ×3 (06:36→17:33)
[2021-03-21] MEDS: METOPROLOL TARTRATE 1 MG/ML VIAL IV PRN ×3 (08:07→10:42)
--- NOTE | 2021-03-21 08:53 | Hospitalist Progress Note ---
Date of Service March 21, 2021 Assessment & Plan (1) Acute and chronic respiratory failure with hypoxia: (2) Aspiration pneumonia: (3) Multilobar lung infiltrate: Plan: This is a 75 y/o male with PMH of inclusion body myositis muscular dystrophy, chronic hyponatremia, MITZI with nocturnal hypoxemia on 2 L nasal cannula O2, restrictive lung disease due to muscular dystrophy, paroxysmal atrial fibrillation in setting of bronchodilators, hypertension, mild aortic valve stenosis, BPH and other medical problems listed below who presents with worsening shortness of breath over the past few days and found to have acute on chronic hypoxic respiratory failure and multilobar pneumonia. Hypoxic at 88% on room air initially with respiratory distress, improved to 97% on 4L oxymask Chest CTA with multifocal airspace opacity within the right upper lobe and left upper lobe likely representing pneumonia. Complete atelectasis of the left lower lobe. No PE visualized Started on empiric Zosyn. Continued and add Doxycycline for atypical coverage. MRSA swab pending Xopenex nebs PRN only due to development of A Fib with RVR in setting of previous bronchodilators Mucinex 1,200mg BID, flutter valve, chest PT Speech therapy consult due to chronic aspiration in setting of muscular dystrophy Continue supplemental O2 Consider pulm consult if no improvement 03/19 -patient w/ more coarse lung sounds today on physical exam, and per nurse patient was more struggling with breathing earlier. Will order Lasix, BiPAP as needed, will obtain ABG and chest x-ray Also contacted pulmonary medicine for further evaluation. Aspiration Respiratory arrest leading to cardiac arrest 03/19 21 - PM - VERONIQUE SPANN patient's was visiting, and as pt was eating dinner, she noted that he choked on his food. VERONIQUE SPANN was called, patient required resuscitation and intubation, was taken to the ICU for further treatment Piece of food was removed at intubation, patient then also underwent bronchoscopy Thicker brown secretions were noted during bronchoscopy Patient tolerated procedure well without any desaturations or complications Bronchoalveolar lavage samples were sent for cell count, Gram stain and bacterial culture, AFB culture and smear, fungal culture and smear and cytology. Patient intubated on vent. support continue antibiotics, patient was admitted on Zosyn and doxycycline, further now zosyn changed to Unasyn per ICU team Patient may need trach History of esophageal dysmotility, most likely causing choking, may end up with PEG tube Patient requiring vasopressor support, tachycardic On epi and levo, per ICU staff, epi was stopped and plan to wean off levo as able Further care per ICU team 03/21 -patient extubated Had speech eval and aspirated again, and required bronchoscopy GI consult for PEG tube placement Afib w/ RVR -Episode previously due to bronchodilators -Now HR managed with IV metoprolol -Continue to closely monitor (4) Inclusion body myositis (IBM): Plan: Progressive, very limited motor function in LUE. Now ambulating in motorized scooter Follows with [place] [facility] Fall precautions, at home able to eat soft bite sized diet Pt chocked on food, (as above) (5) Chronic hyponatremia: Plan: Baseline Na 129-131 in setting of SIADH and excessive fluid intake, per recent consultation by Dr. Leggett Continue fluid restriction of 1.7 L Monitor with daily BMP current treatment per ICU team (6) Paroxysmal atrial fibrillation: Plan: Follows with Dr. Bowen of cardiology Amiodarone recently discontinued At home Continued Lopressor 25mg BID - now per ICU team Awaiting results of OP ziomonitor Ongoing discussion re: anticoagulation (7) BPH (benign prostatic hypertrophy): Plan: Continue Flomax DVT Ppx: SQ heparin Code status: FULL PCP: Dr. Mcfarland Dispo: ICU (after chocking episode) Admission and Anticipated Discharge Date Admission Date: March 18, 2021 Subjective Patient seen in follow-up of increased shortness of breath Was intubated on ventilator, after aspiration event, now extubated Had speech eval and aspirated again - required bronch Now in Afib w/RVR He is awake, and follows simple commands Has no complaints at this time Review of Systems Review of Systems: All systems reviewed & are unremarkable except as noted in Subjective Physical Exam Physical Exam: General Appearance: elderly frail male sitting up in bed in NAD Head: normocephalic, atraumatic Eyes: normal inspection, PERRL, EOMI, conjunctivae normal, anicteric sclerae ENT: external ear and nose normal, oropharynx normal Neck: normal visual inspection, trachea midline, central line placed Respiratory:+ course diffuse breath sounds Cardiovascular: tachycardic, normal peripheral pulses, 1+ BLE edema. Chest: normal inspection of chest Abdomen/GI: normal bowel sounds, soft, nontender Extremities/MSK: Hands contracted bilaterally, chronic LUE weakness Neurologic: PERRL, EOMI, no face palsy, speech unchanged Psychiatric: awake, euthymic affect, follow simple commands Skin: no rashes, normal color, warm/dry Results & Data Results & Data ([facility]) Vital Signs (Past 12 Hours) Vital Signs Pulse Resp BP Pulse Ox 03/21/21 08:07 158 H 115/88 03/21/21 04:32 110 H 24 136/65 94 03/21/21 04:17 108 H 19 118/68 95 03/21/21 04:03 111 H 20 121/64 93 03/21/21 03:48 108 H 18 95/68 L 95 03/21/21 03:32 107 H 17 135/73 97 03/21/21 03:18 108 H 17 107/65 96 03/21/21 03:03 105 H 17 130/89 96 03/21/21 02:48 106 H 17 99/71 L 96 03/21/21 02:32 105 H 20 94/70 L 96 03/21/21 02:17 106 H 20 94/56 L 98 03/21/21 02:02 106 H 20 112/91 96 03/21/21 01:47 107 H 20 134/109 H 97 03/21/21 01:33 107 H 17 106/64 97 03/21/21 01:17 107 H 18 124/51 L 96 03/21/21 01:02 109 H 22 110/65 95 03/21/21 00:47 107 H 17 129/70 97 03/21/21 00:32 109 H 18 103/68 96 03/21/21 00:17 108 H 18 99/59 L 96 03/21/21 00:02 114 H 21 122/65 95 03/20/21 23:47 116 H 27 H 106/58 L 94 03/20/21 23:34 107 H 18 106/62 97 03/20/21 23:18 108 H 19 94/60 L 96 03/20/21 23:03 110 H 19 104/62 96 03/20/21 22:02 110 H 19 93/61 L 96 03/20/21 21:02 113 H 21 104/55 L 97 Laboratory Results 03/21/21 03/21/21 03/21/21 Range/Units 07:00 03:22 03:22 WBC 8.25 (4.8-10.8) K/uL RBC 3.34 L (4.7-6.1) M/uL Hgb 11.0 L (14.0-18.0) g/dL Hct 32.0 L (42-52) % MCV 95.8 (80-100) fL MCH 32.9 (25-34) pg MCHC 34.4 (32-36) g/dL RDW Std Deviation 46.0 (36.4-46.3) fL RDW Coeff of Mayelin 13.1 (11.5-14.5) % Plt Count 103 L (130-400) K/uL MPV 10.2 (7.4-10.4) fL APTT 80.0 H* (21.0-31.0) Seconds PTT Ratio 3.0 Sodium (136-145) mmol/L Potassium (3.5-5.1) mmol/L Chloride (98-107) mmol/L Carbon Dioxide (21-32) mmol/L Anion Gap (3-11) BUN (7-18) mg/dl Creatinine (0.6-1.4) mg/dl Est Cr Clr Drug Dosing ml/min Est GFR ( Amer) ml/min Est GFR (Non-Af Amer) ml/min BUN/Creatinine Ratio (10-20) Glucose (70-99) mg/dl Osmolality (280-300) mOsm/kg Calcium (8.5-10.1) mg/dl Phosphorus (2.5-4.9) mg/dl Magnesium (1.8-2.4) mg/dl Troponin I (0-0.045) ng/ml Cortisol AM Sample Pending Urine Osmolality (500-800) mOsm/kg Ur Random Creatinine Ur Random Sodium mmol/L Ur Random Potassium Ur Random Chloride mmol/L Ur Random Urea Nitrogn 03/21/21 03/20/21 03/20/21 Range/Units 03:22 Unknown 22:17 WBC (4.8-10.8) K/uL RBC (4.7-6.1) M/uL Hgb (14.0-18.0) g/dL Hct (42-52) % MCV (80-100) fL MCH (25-34) pg MCHC (32-36) g/dL RDW Std Deviation (36.4-46.3) fL RDW Coeff of Mayelin (11.5-14.5) % Plt Count (130-400) K/uL MPV (7.4-10.4) fL APTT 83.4 H* (21.0-31.0) Seconds PTT Ratio 3.2 Sodium 126 L (136-145) mmol/L Potassium 3.3 L (3.5-5.1) mmol/L Chloride 92 L (98-107) mmol/L Carbon Dioxide 32 (21-32) mmol/L Anion Gap 2.0 L (3-11) BUN 9 (7-18) mg/dl Creatinine 0.28 L (0.6-1.4) mg/dl Est Cr Clr Drug Dosing 238.9 ml/min Est GFR ( Amer) > 150.0 ml/min Est GFR (Non-Af Amer) 133.6 ml/min BUN/Creatinine Ratio 32.2 H (10-20) Glucose 103 H (70-99) mg/dl Osmolality (280-300) mOsm/kg Calcium 7.7 L (8.5-10.1) mg/dl Phosphorus 2.8 (2.5-4.9) mg/dl Magnesium 1.8 (1.8-2.4) mg/dl Troponin I 0.209 H* (0-0.045) ng/ml Cortisol AM Sample Urine Osmolality (500-800) mOsm/kg Ur Random Creatinine Ur Random Sodium 100 mmol/L Ur Random Potassium Ur Random Chloride mmol/L Ur Random Urea Nitrogn 03/20/21 03/20/21 03/20/21 Range/Units 19:09 19:09 13:44 WBC (4.8-10.8) K/uL RBC (4.7-6.1) M/uL Hgb (14.0-18.0) g/dL Hct (42-52) % MCV (80-100) fL MCH (25-34) pg MCHC (32-36) g/dL RDW Std Deviation (36.4-46.3) fL RDW Coeff of Mayelin (11.5-14.5) % Plt Count (130-400) K/uL MPV (7.4-10.4) fL APTT > 139.0 H* (21.0-31.0) Seconds PTT Ratio > 5.3 Sodium 129 L (136-145) mmol/L Potassium 3.7 D (3.5-5.1) mmol/L Chloride 92 L (98-107) mmol/L Carbon Dioxide 31 (21-32) mmol/L Anion Gap 6.0 (3-11) BUN 9 (7-18) mg/dl Creatinine 0.38 L (0.6-1.4) mg/dl Est Cr Clr Drug Dosing 176.0 ml/min Est GFR ( Amer) 136.6 ml/min Est GFR (Non-Af Amer) 117.8 ml/min BUN/Creatinine Ratio 25.1 H (10-20) Glucose 120 H (70-99) mg/dl Osmolality (280-300) mOsm/kg Calcium 7.7 L (8.5-10.1) mg/dl Phosphorus 2.8 (2.5-4.9) mg/dl Magnesium 1.3 L (1.8-2.4) mg/dl Troponin I 0.388 H* (0-0.045) ng/ml Cortisol AM Sample Urine Osmolality (500-800) mOsm/kg Ur Random Creatinine 117.0 Ur Random Sodium mmol/L Ur Random Potassium 86.2 Ur Random Chloride 31 mmol/L Ur Random Urea Nitrogn 484 03/20/21 03/20/21 03/20/21 Range/Units 13:44 13:44 13:44 WBC (4.8-10.8) K/uL RBC (4.7-6.1) M/uL Hgb (14.0-18.0) g/dL Hct (42-52) % MCV (80-100) fL MCH (25-34) pg MCHC (32-36) g/dL RDW Std Deviation (36.4-46.3) fL RDW Coeff of Mayelin (11.5-14.5) % Plt Count (130-400) K/uL MPV (7.4-10.4) fL APTT (21.0-31.0) Seconds PTT Ratio Sodium (136-145) mmol/L Potassium (3.5-5.1) mmol/L Chloride (98-107) mmol/L Carbon Dioxide (21-32) mmol/L Anion Gap (3-11) BUN (7-18) mg/dl Creatinine (0.6-1.4) mg/dl Est Cr Clr Drug Dosing ml/min Est GFR ( Amer) ml/min Est GFR (Non-Af Amer) ml/min BUN/Creatinine Ratio (10-20) Glucose (70-99) mg/dl Osmolality (280-300) mOsm/kg Calcium (8.5-10.1) mg/dl Phosphorus (2.5-4.9) mg/dl Magnesium (1.8-2.4) mg/dl Troponin I (0-0.045) ng/ml Cortisol AM Sample Urine Osmolality 484 L (500-800) mOsm/kg Ur Random Creatinine Cancelled Ur Random Sodium mmol/L Ur Random Potassium Cancelled Ur Random Chloride mmol/L Ur Random Urea Nitrogn Cancelled 03/20/21 03/20/21 Range/Units 11:47 11:47 WBC (4.8-10.8) K/uL RBC (4.7-6.1) M/uL Hgb (14.0-18.0) g/dL Hct (42-52) % MCV (80-100) fL MCH (25-34) pg MCHC (32-36) g/dL RDW Std Deviation (36.4-46.3) fL RDW Coeff of Mayelin (11.5-14.5) % Plt Count (130-400) K/uL MPV (7.4-10.4) fL APTT (21.0-31.0) Seconds PTT Ratio Sodium (136-145) mmol/L Potassium (3.5-5.1) mmol/L Chloride (98-107) mmol/L Carbon Dioxide (21-32) mmol/L Anion Gap (3-11) BUN (7-18) mg/dl Creatinine (0.6-1.4) mg/dl Est Cr Clr Drug Dosing ml/min Est GFR ( Amer) ml/min Est GFR (Non-Af Amer) ml/min BUN/Creatinine Ratio (10-20) Glucose (70-99) mg/dl Osmolality 266 L (280-300) mOsm/kg Calcium (8.5-10.1) mg/dl Phosphorus (2.5-4.9) mg/dl Magnesium (1.8-2.4) mg/dl Troponin I 0.628 H* (0-0.045) ng/ml Cortisol AM Sample Urine Osmolality (500-800) mOsm/kg Ur Random Creatinine Ur Random Sodium mmol/L Ur Random Potassium Ur Random Chloride mmol/L Ur Random Urea Nitrogn Medications Administered Current Inpatient Medications Aspirin (Aspirin 81 Mg Ectab) 81 mg PO DAILY [facility] Stop: 04/18/21 08:59 Last Admin: 03/20/21 10:56 Dose: Not Given Documented by: Aspirin (Aspirin 81 Mg Chew) 81 mg NG DAILY [facility] Stop: 04/19/21 10:59 Last Admin: 03/20/21 11:47 Dose: 81 mg Documented by: Atorvastatin Calcium (Atorvastatin 40 Mg Tab) 40 mg PO DAILY [facility] Stop: 04/18/21 08:59 Last Admin: 03/20/21 10:56 Dose: Not Given Documented by: Gabapentin (Gabapentin 600 Mg Tab) 1,200 mg PO BID [facility] Stop: 04/17/21 20:59 Last Admin: 03/20/21 10:56 Dose: Not Given Documented by: Gabapentin (Gabapentin 250 Mg/5 Ml 470 Ml Btl) 1,200 mg PO BID [facility] Stop: 04/19/21 10:59 Last Admin: 03/20/21 20:09 Dose: Not Given Documented by: Guaifenesin (Guaifenesin 600 Mg Tabcr) 1,200 mg PO Q12 [facility] Stop: 04/17/21 18:59 Last Admin: 03/20/21 10:56 Dose: Not Given Documented by: Hydralazine HCl (Hydralazine Hcl 20 Mg/Ml Vial) 5 mg IV Q4H PRN PRN Reason: SBP >170 Stop: 04/17/21 18:59 Hydroxyzine HCl (Hydroxyzine Hcl 25 Mg Tab) 25 mg PO Q6 PRN PRN Reason: Itching Stop: 04/17/21 18:26 Doxycycline Hyclate 100 mg/ (Dextrose) 110 mls @ 50 mls/hr IV Q12H [facility] Stop: 03/25/21 19:59 Last Infusion: 03/20/21 22:20 Dose: Infused Documented by: Ampicillin Sodium/Sulbactam Sodium 3,000 mg/ Sodium Chloride 108 mls @ 216 mls/hr IV Q6H [facility]; Protocol Stop: 03/25/21 11:59 Last Infusion: 03/21/21 07:07 Dose: Infused Documented by: Heparin Sodium/Dextrose (Heparin Sodium/Dextrose) 25,000 units in 500 mls @ 17 mls/hr IV .Q24H [facility]; Protocol Stop: 04/19/21 12:29 Last Titration: 03/21/21 07:07 Dose: 850 units/hr, 17 mls/hr Documented by: Potassium Chloride (K Alex / Wtr) 20 meq in 100 mls @ 50 mls/hr IV Q2H [facility] Stop: 03/21/21 10:59 Last Admin: 03/21/21 08:07 Dose: 50 mls/hr Documented by: Lansoprazole (Lansoprazole 30 Mg Soltab) 30 mg NG DAILY [facility] Stop: 04/19/21 10:59 Last Admin: 03/20/21 11:47 Dose: 30 mg Documented by: Levalbuterol HCl (Levalbuterol 0.31mg/3 Ml Vial) 0.31 mg NEB Q6R PRN PRN Reason: Shortness Of Breath Or Wheezin Stop: 04/17/21 18:26 Magnesium Chloride (Magnesium Chloride 64mg Delayed Rel Tab) 64 mg PO DAILY [facility] Stop: 04/18/21 08:59 Last Admin: 03/20/21 10:57 Dose: Not Given Documented by: Metoprolol Tartrate (Metoprolol Tartrate 25 Mg Tab) 25 mg PO BID [facility] Stop: 04/17/21 20:59 Last Admin: 03/20/21 10:57 Dose: Not Given Documented by: Metoprolol Tartrate (Metoprolol Tartrate 1 Mg/Ml Vial) 5 mg IV Q5M PRN PRN Reason: Tachycardia, HR >120 Last Admin: 03/21/21 08:07 Dose: 5 mg Documented by: Metoprolol Tartrate (Metoprolol Tartrate 25 Mg Tab) 25 mg PO BID [facility] Stop: 04/20/21 08:59 Ondansetron HCl (Ondansetron Inj 2 Mg/Ml 2 Ml Vial) 4 mg IV Q6H PRN PRN Reason: Nausea Stop: 04/17/21 18:26 Pantoprazole Sodium (Pantoprazole 40 Mg Tab) 40 mg PO BID [facility] Stop: 04/17/21 20:59 Last Admin: 03/20/21 10:57 Dose: Not Given Documented by: Paroxetine HCl (Paroxetine Hcl 20 Mg Tab) 30 mg PO BID [facility] Stop: 04/17/21 20:59 Last Admin: 03/20/21 10:57 Dose: Not Given Documented by: Polyethylene Glycol (Polyethylene (Miralax) 17 Gm Pack) 17 gm PO DAILY PRN PRN Reason: Constipation Stop: 04/17/21 18:26 Sterile Water (Tube Feeding Water Flush) 30 ml GT Q4H [facility] Stop: 04/19/21 11:14 Last Admin: 03/21/21 04:57 Dose: Not Given Documented by: Tamsulosin HCl (Tamsulosin Hcl 0.4 Mg Cap) 0.8 mg PO HS [facility] Stop: 04/17/21 20:59 Last Admin: 03/20/21 20:09 Dose: Not Given Documented by: Triamcinolone Acetonide (Triamcinolone Acet 0.1% Cr 15 Gm Tube) 1 appln TOP BID [facility] Stop: 04/17/21 20:59 Last Admin: 03/20/21 20:09 Dose: 1 appln Documented by: (1) Aspiration pneumonia Aspiration pneumonia type: unspecified Laterality: bilateral Lung location: upper lobe of lung Qualified Code(s): J69.0 - Pneumonitis due to inhalation of food and vomit
--- NOTE | 2021-03-21 09:10 | Critical Care Progress Note ---
Date of Service March 21, 2021 Assessment & Plan (1) Admitted to intensive care unit: Plan: 75 y/o male w/ PMHx of pAF, BPH, IBM, and muscular dystrophy admitted for acute on chronic respiratory failure on 03/18 and transferred to ICU on 03/19/21 after cardiac arrest 2/2 choking episode. Extubated 4:40pm on 03/20. Off of sedation and pressors since 03/20. He aspirated during the speech swallow eval on 03/21 w/ desaturation and is s/p bronchoscopy for mucous plug removal. aspiration event ~10:45am during speech eval. He desaturated to low 70s on 6L, switched to oxymask, then to cpap. + increased work of breathing on exam. HR 160. IV lasix 40, IV metoprolol5 and duoneb ordered. At 11:20 on cpap, patient saturating 95. HR 116 - bronchoscopy not indicated because aspirated liquid, not solids - ordered cxr. showing left hemithorax opacification. compressive atele ctasis. trachea deviated towards this. L hemithorax is elevated more than baseline. - bronchoscopy because of mucous plug - vest, hypertonic saline flush, flutter valve NEURO - [facility]: negative (negative for inattention). CARDIAC - - paroxysmal atrial fibrillation, currently in afib - was not on anticoag previously. reviewed hx. subdural hematoma from fall in 2019. thrombocytopenia in past - started on therapeutic heparin drip on 03/20 because has L arterial clot. - PRN IV metoprolol for HR >120. x3 doses so far - PO metoprolol after NG tube placement - shock, resolved - likely cardiogenic shock s/p PEA - echo EF>70%, hyperdynamic. No LV wall motion abnormalities. Moderately calcified aortic valve. Afib w/ RVR during study, technically difficult study. - elevated trop has peaked - weaned off pressors 03/20 RESP - - acute on chronic respiratory failure with hypoxia, off ventilator 03/20. - likely secondary to hypoxic cardiac arrest secondary to choking - fluid overload may be contributory - cxr w/ pulm vasc congestion - diuresing w/ IV lasix 40 ~1x/day. overall patient is net intake positive - exacerbated on 03/21 10:45AM as per above; aspirated during speech swallow eval. cxr w/ opacified L hemithorax as above - weaned off cpap to nasal cannula. saturating 93% on 6L. continue diuresis, duonebs, and chest therapy - cxr opacified L hemithorax resolved on repeat cxr. atelectasis at bottom. L hemidiaphragm remains elevated. Per prior records review, -history of muscular dystrophy - with restrictive lung disease and chronically elevated L hemidiaphragm - may potentially need trach GI - - history of esophageal dysmotility, most likely the cause of choking - started discussion of potential PEG tube. - consulted GI after speech eval - GI plans for PEG tube placement 03/23 or 03/24 - place Corsafe NG tube. check cxr/kub RENAL/LYTES metabolic alkalosis, most likely saline-responsive - urine Cl 31, indeterminate range, 2/2 lasix - considered volume depletion, less likely GI losses - no further workup. no additional blood gases hypokalemia - repleted, follow BMPs --Chronic hyponatremia 129- 131 - Na this admission downtrended to 126 - per workup, hypotonic 266. volume status euvolemic vs hypervolemic - if euvolemic hyponatremia: Uosm 484, most consistent w/ SIADH. AM cortisol upper limit of normal, not low. - if hypervolemic hyponatremia: consider CHF/volume overload. FENa 0.2% - per chart review, patient has seen [facility] nephrology in past who suspected SIADH - follow via BMP. check TSH. fluid restrict. diuresing as above - 2.7L in 1.4L out past 24 hrs. cumulative 5.7L in 2.7L out, most likely hypervolemic - remove chahal today ENDO - AM cortisol upper limit of normal, no known prior hx of endocrine problems - TSH pending HEME - had issues w/ thrombocytopenia in past, stable. follow cbc left radial thrombus - heparin drip - recheck LUE arterial doppler in 3-4 days to make sure clot not spreading ID - -aspiration pneumonia - 03/18 CTA: multifocal airspace opacity within the right upper lobe and left upper lobe likely representing pneumonia - Continue with antibiotics. Zosyn->Unasyn. Doxy for atypical coverage. 48-72 hour course before titrate down - 03/18 BC NG 48 hrs. follow. 03/19 bronchial culture w/ light normal alejandra. Gram stain w/ rare epithlial cells, rare gram pos cocci, rare gram pos bacilli, many polys. - 03/21 stopped doxy. continue Unasyn for 24 more hours. VTE: SCDs and therapeutic heparin drip GI: Lansoprazole Lines: Bilateral PIVs Left IJ (to be removed), right radial arterial (removed 03/20), right tibia IO (removed). Diet: NPO. No meds or water by mouth. Oral hygiene (mouth swabs). Dispo: stable for downgrade to PCU code status: full continue goals of care discussion. (2) Cardiac arrest: (3) Chronic hyponatremia: (4) Acute and chronic respiratory failure with hypoxia: (5) Aspiration pneumonia: (6) Paroxysmal atrial fibrillation: (7) Dysphagia: (8) BPH (benign prostatic hypertrophy): (9) Inclusion body myositis (IBM): (10) Elevated troponin: (11) Hypokalemia: (12) Aspiration into airway: Admission and Anticipated Discharge Date Admission Date: March 18, 2021 Subjective No acute events overnight. This morning, patient felt well overall. He had some chest tightness and mild sore throat. No other complaints. Update at 10:45PM. Patient aspirated during the speech eval and desaturated to low 70s on 6L later transitioned to oxymask. 1:15PM: Patient denies SOB. Patient briefly forgot where he was and asked for reminder. Review of Systems Review of Systems: Constitutional: Denies fever, chills ENT: + mild sore throat Cardiovascular: + L chest soreness Respiratory: Denies shortness of breath Gastrointestinal: Denies abdominal pain, nausea, vomiting Genitourinary: + chahal Musculoskeletal: Denies weakness, muscle aches/pain, joint aches/pain Neurological: Denies headache, numbness, tingling, focal weakness Physical Exam Physical Exam: Constitutional: A&O to person, place, year (2019), context. NAD. Cooperative HEENT: PERRL, EOMI Respiratory system: Low pitched sound on neck auscultation. CVS: Tachycardic rate, irregular rhythm. No murmurs, rubs, or gallops. Abdomen: Soft, nontender, nondistended. Extremities: Moving all extremities Neuro: Awake, following commands G/U: Positive Chahal Results & Data Results & Data ([facility]) Vital Signs (Past 12 Hours) Vital Signs Pulse Resp BP Pulse Ox 03/21/21 08:57 123 H 103/75 03/21/21 08:07 158 H 115/88 03/21/21 04:32 110 H 24 136/65 94 03/21/21 04:17 108 H 19 118/68 95 03/21/21 04:03 111 H 20 121/64 93 03/21/21 03:48 108 H 18 95/68 L 95 03/21/21 03:32 107 H 17 135/73 97 03/21/21 03:18 108 H 17 107/65 96 03/21/21 03:03 105 H 17 130/89 96 03/21/21 02:48 106 H 17 99/71 L 96 03/21/21 02:32 105 H 20 94/70 L 96 03/21/21 02:17 106 H 20 94/56 L 98 03/21/21 02:02 106 H 20 112/91 96 03/21/21 01:47 107 H 20 134/109 H 97 03/21/21 01:33 107 H 17 106/64 97 03/21/21 01:17 107 H 18 124/51 L 96 03/21/21 01:02 109 H 22 110/65 95 03/21/21 00:47 107 H 17 129/70 97 03/21/21 00:32 109 H 18 103/68 96 03/21/21 00:17 108 H 18 99/59 L 96 03/21/21 00:02 114 H 21 122/65 95 03/20/21 23:47 116 H 27 H 106/58 L 94 03/20/21 23:34 107 H 18 106/62 97 03/20/21 23:18 108 H 19 94/60 L 96 03/20/21 23:03 110 H 19 104/62 96 03/20/21 22:02 110 H 19 93/61 L 96 Laboratory Results Abnormal lab results 03/20/21 03/20/21 03/20/21 Range/Units 13:44 19:09 19:09 RBC (4.7-6.1) M/uL Hgb (14.0-18.0) g/dL Hct (42-52) % Plt Count (130-400) K/uL APTT > 139.0 H* (21.0-31.0) Seconds Sodium 129 L (136-145) mmol/L Potassium (3.5-5.1) mmol/L Chloride 92 L (98-107) mmol/L Anion Gap (3-11) Creatinine 0.38 L (0.6-1.4) mg/dl BUN/Creatinine Ratio 25.1 H (10-20) Glucose 120 H (70-99) mg/dl Calcium 7.7 L (8.5-10.1) mg/dl Magnesium 1.3 L (1.8-2.4) mg/dl Troponin I 0.388 H* (0-0.045) ng/ml Cortisol AM Sample (4.3-22.4) mcg/dl Urine Osmolality 484 L (500-800) mOsm/kg 03/20/21 03/21/21 03/21/21 Range/Units 22:17 03:22 03:22 RBC (4.7-6.1) M/uL Hgb (14.0-18.0) g/dL Hct (42-52) % Plt Count (130-400) K/uL APTT 83.4 H* 80.0 H* (21.0-31.0) Seconds Sodium 126 L (136-145) mmol/L Potassium 3.3 L (3.5-5.1) mmol/L Chloride 92 L (98-107) mmol/L Anion Gap 2.0 L (3-11) Creatinine 0.28 L (0.6-1.4) mg/dl BUN/Creatinine Ratio 32.2 H (10-20) Glucose 103 H (70-99) mg/dl Calcium 7.7 L (8.5-10.1) mg/dl Magnesium (1.8-2.4) mg/dl Troponin I 0.209 H* (0-0.045) ng/ml Cortisol AM Sample (4.3-22.4) mcg/dl Urine Osmolality (500-800) mOsm/kg 03/21/21 03/21/21 03/21/21 Range/Units 03:22 07:00 10:51 RBC 3.34 L (4.7-6.1) M/uL Hgb 11.0 L (14.0-18.0) g/dL Hct 32.0 L (42-52) % Plt Count 103 L (130-400) K/uL APTT 53.8 H* (21.0-31.0) Seconds Sodium (136-145) mmol/L Potassium (3.5-5.1) mmol/L Chloride (98-107) mmol/L Anion Gap (3-11) Creatinine (0.6-1.4) mg/dl BUN/Creatinine Ratio (10-20) Glucose (70-99) mg/dl Calcium (8.5-10.1) mg/dl Magnesium (1.8-2.4) mg/dl Troponin I (0-0.045) ng/ml Cortisol AM Sample 22.92 H (4.3-22.4) mcg/dl Urine Osmolality (500-800) mOsm/kg Diagnostic Findings Chest X-Ray 03/21/21 10:44 SINGLE VIEW CHEST CLINICAL HISTORY: Aspiration.. FINDINGS: An AP, portable, supine chest radiograph is compared to chest x-ray dated 03/20/2021 and correlated with chest CT dated 03/18/2021. The examination is degraded by portable technique and patient rotation. Endotracheal and enteric tubes have been removed. A left internal jugular central venous catheter is unc hanged in position. The heart is enlarged noting atherosclerotic calcification of the thoracic aorta. This is largely obscured. The coronary vasculature appears congested. There is elevation of the left hemidiaphragm with near complete opacification of the left hemithorax. Minimal left apical lung parenchyma remains aerated. A small pleural effusion is seen on the right with basilar consolidation. No pneumothorax is identified. The skeletal structures are osteopenic. The bony thorax is grossly intact. A left shoulder arthroplasty is in place. IMPRESSION: 1. Endotracheal and enteric tubes have been removed. 2. There is elevation of the left hemidiaphragm with near-complete opacification of the left hemithorax. This has significantly increased from yesterday and likely represent a combination of atelectasis and pleural fluid. 3. A small pleural effusion is seen at the right lung base with right basilar consolidation. 4. Prominence of the pulmonary vascular suggests congestive change. Clinical correlation will be required. ACT 112: Negative or not required by law. Electronically signed by: Curt Delaney M.D. 03/21/2021 11:33 AM Resident Activity Tracking Resident Involvement: Resident Care Provided Care Provided: Adult Hospital Medicine (1) Dysphagia Dysphagia type: unspecified Qualified Code(s): R13.10 - Dysphagia, unspecified (2) Aspiration pneumonia Aspiration pneumonia type: unspecified Laterality: bilateral Lung location: upper lobe of lung Qualified Code(s): J69.0 - Pneumonitis due to inhalation of food and vomit
[2021-03-21] MEDS: TRIAMCINOLONE ACET 0.1% CR 15 GM TUBE TOP SCH ×2 (09:27→22:40)
[2021-03-21] MEDS: DOXYCYCLINE HYCLATE 100 MG in DEXTROSE 5% 100 ML IV SCH (09:27)
[2021-03-21] MEDS ORDERED: FUROSEMIDE 40 MG in SYRINGE 0 ML IV ONE ×2 (10:30→16:30)
[2021-03-21] MEDS ORDERED: ALBUT/IPRATROP 3MG/0.5MG NEB 3 ML VIAL NEB STA (10:47)
[2021-03-21] MEDS ORDERED: ALBUT/IPRATROP 3MG/0.5MG NEB 3 ML VIAL ONE (10:57)
[2021-03-21 11:30] LABS: Partial Thromboplastin Time 53.8 Seconds (21.0-31.0)
--- NOTE | 2021-03-21 11:35 | XRay Report ---
SINGLE VIEW CHEST CLINICAL HISTORY: Aspiration.. FINDINGS: An AP, portable, supine chest radiograph is compared to chest x-ray dated 03/20/2021 and onesimo elated with chest CT dated 03/18/2021. The examination is degraded by portable technique and patient ro tation. Endotracheal and enteric tubes have been removed. A left internal jugular central venous cath eter is unchanged in position. The heart is enlarged noting atherosclerotic calcification of the thor acic aorta. This is largely obscured. The coronary vasculature appears congested. There is elevation of the left hemidiaphragm with near complete opacification of the left hemithorax. Minimal left apica l lung parenchyma remains aerated. A small pleural effusion is seen on the right with basilar consoli dation. No pneumothorax is identified. The skeletal structures are osteopenic. The bony thorax is nicolas ssly intact. A left shoulder arthroplasty is in place. IMPRESSION: 1. Endotracheal and enteric tubes have been removed. 2. There is elevation of the left hemidiaphragm with near-complete opacification of the left hemithor ax. This has significantly increased from yesterday and likely represent a combination of atelectasis and pleural fluid. 3. A small pleural effusion is seen at the right lung base with right basilar consolidation. 4. Prominence of the pulmonary vascular suggests congestive change. Clinical correlation will be requ ired. ACT 112: Negative or not required by law. Electronically signed by: Curt Delaney M.D. 03/21/2021 11:33 AM
--- NOTE | 2021-03-21 11:57 | Communication Note ---
Date of Service: March 21, 2021 Patient completed FEES study evaluation today. Shortly thereafter he had hypoxemia and increased work of breathing. Transition to nonrebreather and then to CPAP with improvement in the respiratory status. Follow-up chest x-ray was performed which revealed atelectasis of the left lung. We will proceed with fiberoptic bronchoscopy to clear secretions. The patient appears clinically improved currently. Otherwise, please refer to the [facility] practice note for assessment and plan. The patient was seen and evaluated. EMR was reviewed and he was discussed on multidisciplinary rounds. We are restarting his metoprolol. He remains anticoagulated. He will require a follow-up ultrasound of the left upper extremity/arterial study to evaluate for propagation of the clot within the next several days. He unfortunately appears to have persistent swallowing issues. GI will be consulted for potential placement of EGD. We will place nasogastric tube to allow for administration of meds and nutritional support. If the patient were to progress to mechanical ventilation again, could consider tracheostomy at that point time. Hopefully with the current measures, he will be able to manage pulmonary toilet to clear secretions. Discussed with patient at bedside as well as with critical care bedside nurse. Can likely go to floor later today after bronchoscopy if does well. Total CC time 54 min excluding procedures. Coding Level of Care Code Critical Care 1st 30-74 mins
--- NOTE | 2021-03-21 12:32 | Procedure Note ---
Procedure Note Date of Service March 21, 2021 Note Procedure: Therapeutic aspiration of secretions, initial Provider: Floyd Calvo MD Consent: Verbal by patient and timeout verified prior to procedure. Procedure: Patient was in the ICU. He developed respiratory distress and a chest x-ray demonstrated atelectasis of left lung. Urgent bronchoscopy was recommended the patient and he agreed to proceed. Given his tenuous status, we proceeded with only topical anesthesia of the nasopharynx. He received nebulized lidocaine as well as lidocaine gel in the nares. He was placed on oxygen via a facemask at 15 L/min. Vital signs were monitored throughout the procedure. After topical anesthesia of the airways per respiratory therapy protocol, the fiberoptic scope was advanced through the right nares initially using the smaller disposable glide scope bronchoscope. Oropharynx was unremarkable. Vocal cords were visualized and were normal with secretions pooling around the arytenoids. Topical anesthesia of the cords was achieved with instillation of lidocaine through the scope. Scope was then passed through the vocal cords. The trachea was slightly tortuous. There were thick tenacious secretions present within the main trachea. Extensive lavage was conducted. The secretions were so thick that we were unable to aspirate them through the working channel of the scope and the scope was withdrawn with a large mucous plug attached. At that point I elected to transition to the disposable bronchoscope with a larger working channel. We were unable to pass this through the right nares but were able to pass it through the left nares without difficulty. The scope was advanced through the vocal cords without difficulty. Secretions were again aspirated until we were able to visualize the trachea. Main edwar was sharp. Anesthesia of the lower airways was achieved with instillation of lidocaine through the scope. A sequential and systematic examination of the lower airways was conducted. The right-sided airways were obscured by thick tenacious mucoid plugs which required serial lavage and suctioning. The underlying mucosa appeared unremarkable. The airways were cleared. Left-sided airways were also obscured by thick tenacious mucus which was lavaged and suctioned clear and the mucosa appeared unremarkable. The bronchoscope was then removed from the airways. The patient tolerated the procedure well without obvious complication. Patient's oxygenation improved significantly post bronchoscopy Impression: 1. Mucous plugging obscuring the left mainstem bronchus and extending into the right lower lobe bronchus successfully aspirated Coding CPT Codes Pulmonary/Thoracic - Pulmonary and Thoracic: 62872 Bronchoscopy, clear airways ([id number]) [facility] Procedure Codes (Charges) Pulmonary/Thoracic Procedure 2: Pulmonary and Thoracic: 86436 Bronchoscopy, clear airways
--- NOTE | 2021-03-21 12:36 | Hospitalist Progress Note ---
Date of Service March 21, 2021 Assessment & Plan Admission and Anticipated Discharge Date Admission Date: March 18, 2021 Physical Exam Physical Exam: General:. NAD, well developed HEENT:.Normal Conjunctiva, EOMI Lungs:. CTA, no wheezing or crackles Heart:. Normal S1, S2, no murmur Abdominal:. ND, Soft, NT, normal BS MSK:. No leg edema Skin:. no rash Psych:. AAAx3, normal affect Results & Data Results & Data ([facility]) Vital Signs (Past 12 Hours) Vital Signs Pulse Pulse Resp BP Pulse Ox 03/21/21 11:40 96 03/21/21 11:10 134 H 28 H 91 03/21/21 11:08 134 H 28 H 91 03/21/21 10:42 149 H 175/121 H 03/21/21 08:57 123 H 103/75 03/21/21 08:07 158 H 115/88 03/21/21 04:32 110 H 24 136/65 94 03/21/21 04:17 108 H 19 118/68 95 03/21/21 04:03 111 H 20 121/64 93 03/21/21 03:48 108 H 18 95/68 L 95 03/21/21 03:32 107 H 17 135/73 97 03/21/21 03:18 108 H 17 107/65 96 03/21/21 03:03 105 H 17 130/89 96 03/21/21 02:48 106 H 17 99/71 L 96 03/21/21 02:32 105 H 20 94/70 L 96 03/21/21 02:17 106 H 20 94/56 L 98 03/21/21 02:02 106 H 20 112/91 96 03/21/21 01:47 107 H 20 134/109 H 97 03/21/21 01:33 107 H 17 106/64 97 03/21/21 01:17 107 H 18 124/51 L 96 03/21/21 01:02 109 H 22 110/65 95 03/21/21 00:47 107 H 17 129/70 97
[2021-03-21] MEDS ORDERED: METOPROLOL TARTRATE 1 MG/ML VIAL IV STA (13:14)
--- NOTE | 2021-03-21 13:47 | Gastrointestinal Consultation ---
Date of Consultation March 21, 2021 Assessment & Plan (1) Aspiration pneumonia: 75 year old male w/ pAF, BPH, IBM, and muscular dystrophy admitted for acute on chronic respiratory failure on 03/18 and transferred to ICU on 03/19/21 after cardiac arrest secondary to aspiration/choking episode now extubated. Tentative plan for EGD w/ PEG in the OR Stop heparin drip 6 hours before EGD w/ PEG Supervising Physician Co-Signing Physician Notes Attg add: I interviewed and examined pt, reviewed chart and labs. Pt wih dysphagia from neuromuscular disease, needs PEG. R /b/i of PEG discussed, including the possibilty that PEG may not prevent aspiration. Pt understands risks of procedure, and wishes to proceed. Also d/w . History of Present Illness Reason for Consultation: PEG request Requesting Physician: Kalee Attending Physician: Collin Granda MD History of Present Illness 75 year old male pAF, BPH, IBM, and muscular dystrophy admitted for acute on chronic respiratory failure on 03/18 and transferred to ICU on 03/19/21 after cardiac arrest secondary to a choking episode. Was extubated 03/20/21. GI asked to evaluate for PEG tube given ongoing aspiration risk and failed repeat speech eval study. Allergies Allergy/AdvReac Type Severity Reaction Status Date / Time bee venom protein (honey bee) Allergy Severe ANAPHYLAXIS Verified 03/18/21 16:38 sulfamethoxazole Allergy Intermediate RED Verified 03/18/21 16:38 [From Bactrim] SWOLLEN HIVES trimethoprim [From Bactrim] Allergy Intermediate RED Verified 03/18/21 16:38 SWOLLEN HIVES Home Medications Medication Instructions Recorded Confirmed Type acetaminophen 500 mg tablet 1,000 mg PO DIRECTED PRN 12/01/18 03/18/21 History (Tylenol Extra Strength) gabapentin 600 mg tablet 1,200 mg PO BID 12/01/18 03/18/21 History metoprolol tartrate 25 mg tablet 25 mg PO BID 12/01/18 03/18/21 History pantoprazole 40 mg tablet,delayed 40 mg PO BID 12/01/18 03/18/21 History release paroxetine HCl 30 mg tablet (Paxil) 30 mg PO BID 12/01/18 03/18/21 History tamsulosin 0.4 mg capsule (Flomax) 0.8 mg PO HS 12/01/18 03/18/21 History aspirin 81 mg tablet 81 mg PO DAILY 03/18/21 03/18/21 History atorvastatin 40 mg tablet 40 mg PO DAILY 03/18/21 03/18/21 History hydroxyzine HCl 25 mg tablet 25 mg PO Q6 PRN 03/18/21 03/18/21 History magnesium chloride 64 mg 64 mg PO DAILY 03/18/21 03/18/21 History tablet,extended release triamcinolone acetonide 0.1 % 1 applic TOPICAL BID 03/18/21 03/18/21 History topical cream Patient History Medical History (Updated 03/20/21 @ 14:03 by Ruddy Jaimes MD) Atrial flutter Henry's esophagus Benign neoplasm of colon " 06/09/99- hyperplastic polyp and tubular adenoma 06/27/2011- 2 polyps, path shows adenomatous" BPH (benign prostatic hypertrophy) Chronic hyponatremia Dyslipidemia GERD (gastroesophageal reflux disease) H/O alcohol abuse History of stroke "per Epic record, old infarct noted on head CT 08/13" HTN (hypertension) Hx of sepsis Inclusion body myositis (IBM) Malignant neoplasm prostate "s/p implant 07/10/02" Neuropathy Osteoarthritis Paroxysmal atrial tachycardia Sjogren's syndrome Typical atrial flutter Surgical History H/O colonoscopy H/O elbow surgery S/P hemorrhoidectomy S/P hip replacement S/P shoulder replacement "left" Family History Other Cancer Diabetes Heart disease Stroke Social History Smoking Status: Former smoker Hx Alcohol Use: Yes Alcohol type: other Hx Substance Use: No Preferred Language: Georgian Communication Ability: Unable Classification And Treatment Director Required: No Beliefs That Will Affect Care: None marital status: Current Living Situation: Spouse and Family current occupational status: retired Other Information That Helps Us Care for You: No Feels Safe at Home: Yes Safety Concerns: Feels Safe At This Time Assistive Devices: Denture - Upper, Denture - Lower and Oxygen - Continuous Assistive Devices Comment: no glasses with him Review of Systems Review of Systems: All systems reviewed & are unremarkable except as noted in HPI & below Physical Exam Constitutional: + ill appearing (chronically); no acute distress Neck: trachea midline, no thyromegaly Respiratory: normal respiratory effort, lungs clear to auscultation Cardiovascular: Rate/Rhythm: + tachycardic Gastrointestinal (Abdomen): normal bowel sounds, soft, nontender, no hepatosplenomegaly Skin: no rashes, warm and dry Results & Data ([facility]) Vital Signs (Past 12 Hours) Vital Signs Pulse Pulse Resp BP Pulse Ox 03/21/21 11:40 96 03/21/21 11:10 134 H 28 H 91 03/21/21 11:08 134 H 28 H 91 03/21/21 10:42 149 H 175/121 H 03/21/21 08:57 123 H 103/75 03/21/21 08:07 158 H 115/88 03/21/21 04:32 110 H 24 136/65 94 03/21/21 04:17 108 H 19 118/68 95 03/21/21 04:03 111 H 20 121/64 93 03/21/21 03:48 108 H 18 95/68 L 95 03/21/21 03:32 107 H 17 135/73 97 03/21/21 03:18 108 H 17 107/65 96 03/21/21 03:03 105 H 17 130/89 96 03/21/21 02:48 106 H 17 99/71 L 96 03/21/21 02:32 105 H 20 94/70 L 96 03/21/21 02:17 106 H 20 94/56 L 98 03/21/21 02:02 106 H 20 112/91 96 03/21/21 01:47 107 H 20 134/109 H 97 (1) Aspiration pneumonia Aspiration pneumonia type: unspecified Laterality: bilateral Lung location: upper lobe of lung Qualified Code(s): J69.0 - Pneumonitis due to inhalation of food and vomit
--- NOTE | 2021-03-21 14:58 | XRay Report ---
XR chest 1V portable HISTORY: 75 years-old Male f/u opacified L hemithoraxx. s/p bronch follow-up study in a patient with opacification of the left hemithorax. COMPARISON: Chest radiograph of same day at 10:58 AM TECHNIQUE: Portable AP view of the chest FINDINGS: Cardiac silhouette is enlarged. Unchanged positioning of the left IJ central venous catheter. A feedi ng tube has been placed with distal tip projected over the abdominal left upper quadrant in expected location of the mid stomach. Moderate left hemidiaphragmatic elevation. Trace right and small left pl eural effusions with left greater than right bibasilar consolidation. There is improved aeration of t he lungs with persistent patchy bilateral airspace opacities and pulmonary vascular congestion. No pn eumothorax. Degenerative changes of the right shoulder and spine. Left shoulder arthroplasty. IMPRESSION: 1. Improved aeration of the left lung status post bronchoscopy with persistent bilateral airspace opa cities. 2. Moderate left hemidiaphragmatic elevation. 3. Trace right and small left pleural effusions. 4. Cardiomegaly with pulmonary vascular congestion. ACT 112: Negative or not required by law. The above report was generated using voice recognition software. It may contain grammatical, syntax o r spelling errors. Electronically signed by: Thierry Moran M.D. 03/21/2021 2:57 PM
[2021-03-21] MEDS: LANSOPRAZOLE 30 MG SOLTAB NG SCH (15:10)
[2021-03-21] MEDS: GABAPENTIN 250 MG/5 ML 470 ML BTL PO SCH (15:10)
[2021-03-21] MEDS: ASPIRIN 81 MG CHEW NG SCH (15:11)
[2021-03-21] MEDS: HEPARIN SODIUM/DEXTROSE 25,000 UNITS/500 ML BAG IV SCH (15:11)
[2021-03-21] MEDS: METOPROLOL TARTRATE 25 MG TAB PO SCH ×2 (15:12→22:39)
[2021-03-21 15:16] LABS: Magnesium 1.6 mg/dl (1.8-2.4); Phosphorus 2.3 mg/dl (2.5-4.9); Thyroid Stimulating Hormone 5.58 uIu/ml (0.300-4.500)
[2021-03-21] MEDS: ALBUT/IPRATROP 3MG/0.5MG NEB 3 ML VIAL NEB SCH ×2 (15:19→19:34)
[2021-03-21 15:20] LABS: Calcium 7.8 mg/dl (8.5-10.1); Creatinine Clr Calc Pharmacy 174.5 ml/min; Est GFR (African American) 136.6 ml/min; Est GFR (Non-African American) 117.8 ml/min; Potassium 4.1 mmol/L (3.5-5.1)
[2021-03-21 15:28] LABS: T4 Free Thyroxine 1.39 ng/dl (0.8-1.6)
[2021-03-21] MEDS ORDERED: MAGNESIUM SULFATE / D5W 1 GM/100 ML BAG IV ONE (16:00)
[2021-03-21] MEDS ORDERED: METOPROLOL SUCC 25MG EXT REL TAB PO ONE (16:09)
[2021-03-21] MEDS ORDERED: METOPROLOL TARTRATE 25 MG TAB PO STA (16:10)
[2021-03-21] MEDS ORDERED: PEPTAMEN 1.5 CAL 1,000 ML BAG NG SCH (16:30)
[2021-03-21] MEDS ORDERED: POTASSIUM PHOS 3 MMOL/1 ML INFUSION IV STA (17:27)
[2021-03-21] MEDS: TUBE FEEDING WATER FLUSH NG SCH ×2 (17:54→22:41)
[2021-03-21] MEDS ORDERED: POTASSIUM PHOSPHATE 9 MMOL in SODIUM CHLORIDE 0.9% 250 ML IV ONE (18:00)
[2021-03-21] MEDS ORDERED: SODIUM CHLOR 7% 4 ML NEB NEB SCH (19:00)
[2021-03-21] MEDS ORDERED: STAT IV Infusion **Titration per Protocol STA ×3 (19:25→23:48)
[2021-03-21] MEDS ORDERED: RAPID SEQUENCE INDUCTION BAG ONE (19:34)
--- NOTE | 2021-03-21 19:35 | Communication Note ---
Date of Service: March 21, 20211904: Patient was noted to be hypoxic with oxygen saturations in the mid to low 80s. Patient was on oxygen mask, but despite this, he was tachypneic and labored with his breathing. Nursing staff did reapply patient's BiPAP. Patient had desaturated significantly earlier in the day requiring bronchoscopy and temporary BiPAP use, however this was short-lived. Unfortunately, the patient is clinically declining and is agitated as he is hypoxic, agitated, and having difficulty with breathing. He did improve somewhat with BiPAP, but still is tachypneic and with struggle breathing. Thankfully, his oxygenation is did improve and I was able to have a conversation with him at bedside. I did discuss the need for probable endotracheal intubation if he did not improve with BiPAP alone. He acknowledges this and recognizes that in discussion with attending earlier in the day that if he requires reintubation, the patient will likely require tracheostomy tube for his ongoing issues of respiratory failure with associated aspiration pneumonia and profound hypoxia. Patient request that I reach out to his as well. I did discuss the case my attending physician who agrees that if the patient requires increased oxygenation, that intubation is likely the best option as he has poor respiratory effort secondary to muscular dystrophy and inability to clear secretions. 1919: Attempted to call Maribel ([phone]). No answer. Left message to return call. 2009: Called Maribel ([phone]). Agrees with proceeding with intubation. She understands that this will likely lead to need for tracheostomy tube placement. She request that we proceed with any/all measures to continue to maintain her current status. She understands that intubation is necessary and that if he is intubated, he will likely require tracheostomy placement. She is in agreement with this at this point and agrees with proceeding with intubation. I did discuss risks, benefits, and alternatives with the over the phone. She understands any procedure has inherent risks, but she states that she is concerned that without intubation and progression to tracheostomy tube placement, the patient will likely worsen. She actually reports that she fears that if the patient had not been in the hospital when he had respiratory arrest earlier during stay, that he would have at home while EMS was in route. I agree with this assessment and after lengthy discussion, she agrees with emergent endotracheal intubation for airway protection and proceeding with tracheostomy tube if necessary. This discussion will be had with attending tomorrow pending clinical outcome throughout the night. I did reach out to my anesthesia colleague. He was kind enough to present at bedside to aid in intubation procedure. Please see separate note. After intubation, the patient did have a period of profound hypotension. He was bolused with 500 cc of normal saline and his Nic-Synephrine was restarted. He had previously been on Nic-Synephrine drip within the last few days, however this was discontinued. Additionally, the patient had previously required epinephrine and Levophed which were also discontinued. Despite titration upwards of the Nic-Synephrine drip and fluid bolus, the patient remained profoundly hypotensive with systolic blood pressures in the 50s. The patient heart rate which had been sustained in the 130s to 140s had dropped precipitously in the 90s. This was concerning for possible eminent arrest. At this point, verbal orders were given to nursing staff to provide half an amp of epinephrine and resuscitative measure. It should be noted that the patient never lost pulses, but there was difficulty assessing peripheral pulses. I was able to evaluate femoral pulse with ultrasound which was appropriate with doppler. After receiving half an amp of epinephrine, the patient's heart rate escalated into the 170s to 180s which was sustained. At that point, the patient became hypertensive. Nic-Synephrine drip was discontinued temporarily. IV fluids remain running at 150 mL's per hour. Tachycardia was short-lived as the epinephrine wore off. As the epinephrine did wear off, his blood pressure declined again into the 70s to 80s systolically. Verbal orders to restart Nic- Synephrine drip and complete 500 cc saline bolus was provided nursing staff. An ABG was obtained via ultrasound by myself and read by respiratory therapy. Unfortunately, the patient is difficult to assess at baseline for blood pressures given previously noted arterial disease. Patient's ABG was found to be seven-point /240/29. Ventilator settings were adjusted appropriately by respiratory therapy staff. It should be noted that throughout the episode of hypotension followed by improvement in blood pressure, the patient maintained good pulse ox waveform with saturation in the 90s to near 100%. Chest x-ray was obtained and reviewed by myself. Tube was retracted slightly by respiratory therapy at my direction. Patient to remain on Nic-Synephrine drip in the interim. Hopefully this may be titrated down as the patient's sedation and paralytic wear off. Patient is now stabilized with appropriate systolics, MAPs, and pulse oximetry readings. I have personally spent 45 minutes of critical care time in the direct management of this patient. This is a life/limb threatening event. This includes time spent evaluating patient, direct bedside care, chart review, placing orders, interpretation of diagnostic studies, discussion with consultants, patient, and family members, as well as other required patient management activities. This time is exclusive of all separately billable procedures, and teaching time and separate from and in addition to any other critical care service time. Coding Level of Care Code Critical Care waqas lincoln'l 30 min Time Spent (min) 45
[2021-03-21] MEDS: PHENYLEPHRINE HCL 20 MG in DEXTROSE 5% 500 ML IV SCH (19:36)
--- NOTE | 2021-03-21 20:14 | XRay Report ---
XR chest 1V portable CLINICAL HISTORY: sob COMPARISON STUDY: March 21, 2021 at 1:57 hours FINDINGS: No pneumothorax. No pleural effusion. Redemonstration of significantly elevated left hemidiaphragm associated with atelectasis/infiltrate a t the left base. Stable opacities in the right mid to lower lung. Diffuse prominence of pulmonary interstitium is again seen bilaterally. Cardiomediastinal silhouette remains mildly enlarged and stable since prior. Pulmonary vasculature is obscured. Aorta is calcified.. Osseous structures: Degenerative changes of the spine There is fluid-filled loops of small bowel is again seen within upper abdomen. Stable position of feeding tube and left-sided venous catheter. IMPRESSION: 1. Stable bilateral airspace opacities. Elevation of the left hemidiaphragm. 2. No evidence of pleural effusion. 3. Redemonstration of cardiomegaly and possible pulmonary edema. 4. Support apparatus as above. ACT 112: Negative or not required by law. The above report was generated using voice recognition software. It may contain grammatical, syntax o r spelling errors. Electronically signed by: Raiza Powers DO 03/21/2021 8:12 PM
[2021-03-21] MEDS ORDERED: SODIUM CHLORIDE 0.9% 1000ML 500 ML IV ONE (20:52)
[2021-03-21] MEDS ORDERED: NOREPINEPHRINE/D5W 8 MG/508 ML IV ONE (20:56)
--- NOTE | 2021-03-21 21:28 | Anesthesia Procedure Note ---
Anesthesia Procedure Note Intubation Note Vital Signs: 127/77 131 20 97 Date of procedure: 03/21/21 Indication for intubation: Failure to ventilate and Failure to oxygenate Consent: Risk / Benefits Reviewed With: PT / POA / Parent / Guardian, Accepts Plan and Informed Consent Obtained Monitors attached: Blood Pressure, CO2, EKG and Pulse Oximetry Time out completed: Yes Premedication: Midazolam (mg) (5) and Fentanyl (mcg) (100) Paralytic medication: Rocuronium (mg) (80) Intubation technique: Adequate preoxygenation and RSI Equipment: Glidescope View: Grade 1 Endotracheal tube: 8.0 Attempts: 1 Tube placement confirmation: auscultation and Positive CO2 detection Procedure Summary: called by ICU PA-C. Patient extubated earlier today, generalized muscle weakness from muscular dystrophy. Slowly failing to ventilate on BiPAP. Exam performed and patient consented. The PA-C performed intubation under my supervision. Post op hemodynamics and ventilation adequate. Further management per critical care team. Post-procedure: Pt hemodynamically stable, Pt tolerates well, No complication and Post placement CXR ordered
--- NOTE | 2021-03-21 21:33 | Procedure Note ---
Procedure Note Date of Service March 21, 2021 Note APC: Dave Sam PA-C. Attending: Dr. Calvo A time-out was completed verifying correct patient, procedure, site, positioning. Patient was evaluated and required intubation for respiratory failure in the setting of muscular dystrophy with poor respiratory effort compounded by aspiration pneumonia. Patient previously with cardiac arrest secondary to profound hypoxia while on the floor. Patient progressing to complete respiratory failure and need for endotracheal intubation. Emergent consent was implied given patients rapidly declining clinical status and need for airway protection. The patient was prepared in the appropriate fashion. Sedation was achieved utilizing etomidate, rocuronium, Versed, and Fentanyl, per Dr. Durham administration. The patient was easily ventilated using [id number] to achieve adequate oxygenation. An 8.0 Tajik endotracheal tube was placed using GlideScope to 24 cm at the lip. The stylette was removed and balloon was inflated with 10mL of air. Appropriate Colorimetric change was appreciated. Bilateral breath sounds were heard without air sounds in the abdomen. Dr. Durham was present for the entire procedure. Post Intubation Chest X-ray confirms placement without pneumothorax. Tube slightly deep. Tube retracted 1.5 cm by RT at my direction. Patient tolerated the procedure well. Hypotensive after procedure. Corrected quickly as discussed in communication noted. Coding CPT Codes Resuscitation - Resuscitation: 21766 Endotracheal Intubation, emergency ([id number]) [facility] [place] ([place]arges) Resuscitation Resuscitation: 54826 Endotracheal Intubation, emergency
[2021-03-21 21:39] LABS: iSTAT Allen Test Pass; iSTAT Art Bld Gas pCO2 Correct 39 mmHg (35-46); iSTAT Art Bld Gas pH Corrected 7.489 (7.35-7.45); iSTAT Arterial Blood Gas HCO3 29 meg/L (19-24); iSTAT Arterial Blood Gas pCO2 37 mmHg (35-46); iSTAT Arterial Blood Gas pO2 240 mmHg (80-95); iSTAT Arterial Blood Gas pO2 C 244; iSTAT Carbon Dioxide 30 mmol/L (24-31); iSTAT FiO2 100 %; iSTAT Hematocrit 29 % (42-52); iSTAT Hemoglobin 9.9 g/dl (14.0-18.0); iSTAT Potassium 3.2 mmol/L (3.3-5.0); iSTAT Site R Radial; iSTAT Sodium 128 mmol/L (135-144)
--- NOTE | 2021-03-21 21:46 | XRay Report ---
XR chest 1V portable CLINICAL HISTORY: s/p intubation COMPARISON STUDY: March 21, 2021 at 19:17 hours FINDINGS: No pneumothorax. Minimal left pleural effusion. Atelectasis/infiltrates at bilateral bases are again seen. Diffuse prominence of pulmonary interstitium. Low lung volumes. Cardiomediastinal silhouette is stable. Pulmonary vasculature is obscured. Aorta is calcified.. Osseous structures: Degenerative changes of the spine. Prosthetic left shoulder. Interval near resolution of previously seen elevation of the left hemidiaphragm. Stable position of gastric tube and left central venous catheter. Interval placement of the endotrach eal tube with tip projecting 3.5 cm above edwar. IMPRESSION: 1. Tip of endotracheal tube is projecting 3.5 cm above edwar. The rest of support apparatus as abov e. 2. Interval improvement of elevation of the left hemidiaphragm. 3. Small left pleural effusion and atelectasis/infiltrates at bilateral bases. 4. The rest of findings as above. ACT 112: Negative or not required by law. The above report was generated using voice recognition software. It may contain grammatical, syntax o r spelling errors. Electronically signed by: Raiza Powers DO 03/21/2021 9:45 PM
[2021-03-21] MEDS: NOREPINEPHRINE/D5W 8 MG/508 ML BAG IV SCH (22:40)
[2021-03-21] MEDS: TAMSULOSIN HCL 0.4 MG CAP PO SCH (22:40)
[2021-03-22] MEDS: ACETAMINOPHEN 1,000 MG/100 ML VIAL IV PRN (00:07)
[2021-03-22] MEDS: AMPICILLIN/SULBACTAM SOD 3,000 MG in 0.9 % SODIUM CHLORIDE 100 ML IV SCH ×4 (00:07→19:30)
[2021-03-22] MEDS: fentaNYL DRIP 1,250 MCG/250 ML BAG IV SCH (00:15)
[2021-03-22 00:35] LABS: Basophils # (auto) 0.01 K/uL (0-0.2); Basophils % (auto) 0.1 %; Hematocrit (blood only) 28.6 % (42-52); Immature Granulocytes # (auto) 0.02 K/uL (0.00-0.02); Immature Granulocytes % (auto) 0.2 %; Lymphocytes # (auto) 0.87 K/uL (1.2-3.4); Lymphocytes % (auto) 7.8 %; Mean Corpuscular Volume 94.4 fL (80-100); Mean Platelet Volume 10.7 fL (7.4-10.4); Monocytes # (auto) 1.35 K/uL (0.11-0.59); Monocytes % (auto) 12.1 %; Neutrophils # (auto) 8.91 K/uL (1.4-6.5); Neutrophils % (auto) 79.8 %; Platelet Count 126 K/uL (130-400); RDW Standard Deviation 44.6 fL (36.4-46.3); Red Blood Count 3.03 M/uL (4.7-6.1); White Blood Count 11.16 K/uL (4.8-10.8)
[2021-03-22] MEDS: NOREPINEPHRINE/D5W 8 MG/508 ML BAG IV SCH (00:43)
[2021-03-22] MEDS: PHENYLEPHRINE HCL 20 MG in DEXTROSE 5% 500 ML IV SCH ×6 (01:12→15:06)
[2021-03-22] MEDS: TUBE FEEDING WATER FLUSH NG SCH ×6 (02:35→21:05)
[2021-03-22 05:08] LABS: Hematocrit (blood only) 28.9 % (42-52); Hemoglobin 10.3 g/dL (14.0-18.0); Mean Corpuscular Hemoglobin 33.6 pg (25-34); Mean Corpuscular Hgb Conc 35.6 g/dL (32-36); Mean Corpuscular Volume 94.1 fL (80-100); Mean Platelet Volume 10.6 fL (7.4-10.4); Platelet Count 132 K/uL (130-400); RDW Coefficient of Variation 12.8 % (11.5-14.5); RDW Standard Deviation 44.1 fL (36.4-46.3); Red Blood Count 3.07 M/uL (4.7-6.1); White Blood Count 11.36 K/uL (4.8-10.8)
[2021-03-22 05:19] LABS: INR 1.1 (0.9-1.1); Partial Thromboplastin Ratio 1.3; Partial Thromboplastin Time 34.9 Seconds (21.0-31.0); Prothrombin Time 10.9 Seconds (9.0-12.0)
[2021-03-22 05:28] LABS: BUN Creatinine Ratio 25.6 (10-20); Calcium 7.6 mg/dl (8.5-10.1); Creatinine Clr Calc Pharmacy 150.7 ml/min; Est GFR (African American) 128.6 ml/min; Est GFR (Non-African American) 110.9 ml/min; Magnesium 1.6 mg/dl (1.8-2.4); Phosphorus 1.9 mg/dl (2.5-4.9); Potassium 2.9 mmol/L (3.5-5.1)
[2021-03-22 05:30] LABS: iSTAT Art Bld Gas pCO2 Correct 34 mmHg (35-46); iSTAT Art Bld Gas pH Corrected 7.546 (7.35-7.45); iSTAT Arterial Blood Gas HCO3 30 meg/L (19-24); iSTAT Arterial Blood Gas pCO2 34 mmHg (35-46); iSTAT Arterial Blood Gas pH 7.55 (7.35-7.45); iSTAT Arterial Blood Gas pO2 97 mmHg (80-95); iSTAT Arterial Blood Gas pO2 C 100; iSTAT Carbon Dioxide 31 mmol/L (24-31); iSTAT FiO2 40 %; iSTAT Hematocrit 30 % (42-52); iSTAT Hemoglobin 10.2 g/dl (14.0-18.0); iSTAT Potassium 2.8 mmol/L (3.3-5.0); iSTAT Site R Brachial; iSTAT Sodium 126 mmol/L (135-144)
[2021-03-22] MEDS ORDERED: POTASSIUM PHOS 3 MMOL/1 ML INFUSION IV STA (06:00)
[2021-03-22] MEDS: MAGNESIUM SULFATE / D5W 1 GM/100 ML BAG IV SCH ×3 (06:17→09:50)
[2021-03-22] MEDS: POTASSIUM CHLORIDE / WTR 20 MEQ/100 ML PLCT IV SCH ×3 (06:18→09:50)
[2021-03-22] MEDS ORDERED: POTASSIUM PHOSPHATE 24 MMOL in SODIUM CHLORIDE 0.9% 500 ML IV ONE (06:30)
[2021-03-22] MEDS: TRIAMCINOLONE ACET 0.1% CR 15 GM TUBE TOP SCH ×2 (07:54→20:46)
[2021-03-22] MEDS: LANSOPRAZOLE 30 MG SOLTAB NG SCH (07:55)
[2021-03-22] MEDS: PROSOURCE NO CARB 30 ML/PKT NG SCH (07:55)
[2021-03-22] MEDS ORDERED: MIDAZOLAM HCL 5 MG/ML 1 ML VIAL IV STA (07:58)
[2021-03-22] MEDS ORDERED: STAT IV Infusion **Titration per Protocol STA (07:58)
[2021-03-22] MEDS ORDERED: PROPOFOL BOLUS FROM BAG IV PRN (07:58)
[2021-03-22] MEDS ORDERED: ROCURONIUM BROMIDE 10 MG/ML 5 ML VIAL IV STA (07:59)
--- NOTE | 2021-03-22 08:06 | XRay Report ---
XR chest 1V portable HISTORY: Respiratory failure. Follow-up. COMPARISON: Chest 03/21/2021. FINDINGS: Endotracheal tube terminates 3.8 cm from the edwar. The feeding tube terminates in the sto mach. There is a left shoulder prosthesis. No pneumothorax. Mild diffuse interstitial thickening and patchy bibasilar densities have slightly improved. The heart remains enlarged. A left-sided jugular c entral venous catheter terminates at the proximal SVC. This is also unchanged. IMPRESSION: 1. Satisfactory support line placement. 2. Slight improved aeration within the lungs. ACT 112: Negative or not required by law. Electronically signed by: Seamus Chen M.D. 03/22/2021 8:04 AM
--- NOTE | 2021-03-22 08:44 | Communication Note ---
Date of Service: March 22, 2021 GI still awaiting confirmation of timing for EGD w/ PEG tomorrow. Hep gtt will need to be held for 6 hours prior to EGD w/ PEG. Attg add: I interviewed and examined pt, reviewed chart and labs. Agree with above.
--- NOTE | 2021-03-22 10:02 | Critical Care Progress Note ---
Date of Service March 22, 2021 Assessment & Plan (1) Admitted to intensive care unit: Plan: 75 y/o male w/ PMHx of pAF, BPH, IBM, and muscular dystrophy admitted for acute on chronic respiratory failure on 03/18 and transferred to ICU on 03/19/21 after cardiac arrest 2/2 choking episode. Extubated 4:40pm on 03/20. He aspirated during the speech swallow eval on 03/21 w/ desaturation and is s/p bronchoscopy for mucous plug removal. 03/21 evening, he had increased work of breathing and desaturation and required reintubation. Tracheostomy on 03/22, currently on ventilator via trach. NEURO - CAM-ICU: unable to assess. RASS-1 sedation: fentanyl+propofol pressors: phenylephrine 1.1 weaned off norepi. CARDIAC - - paroxysmal atrial fibrillation, converted to sinus since 03/21 evening - was not on anticoag previously. reviewed hx. subdural hematoma from fall in 2019. thrombocytopenia in past - started on therapeutic heparin drip on 03/20 because has L arterial clot. - hold home metoprolol tartrate PO 25 mg BID while patient is in sinus - shock, resolved - likely cardiogenic shock s/p PEA - echo EF>70%, hyperdynamic. No LV wall motion abnormalities. Moderately calcified aortic valve. Afib w/ RVR during study, technically difficult study. - elevated trop has peaked - weaned off pressors 03/20 - 03/21 evening: after intubation/sedation, patient had profound hypoglycemia that required pressor support, since weaned off - likely medication related, sedation and metoprolol. less likely cardiogenic RESP - - ventilator dependent acute on chronic respiratory failure with hypoxia, off ventilator 03/20. Reintubated 03/21 evening. 03/22 trach. - AM vent settings AC. Vt 450->400. RR 12. Peep 5. FiO2 40->30. Ppeak 25.1, appropriate. - likely secondary to hypoxic cardiac arrest secondary to choking - fluid overload may be contributory - earlier cxrs w/ pulm vasc congestion. recent cxrs still w/ mild bibasilar densities, but aeration improved - aspirated during speech swallow eval 03/21. cxr w/ opacified L hemithorax- >bronch (removed mucous plug, no food particles noted) - no scheduled diuresis. diurese as needed respiratory alkalosis - per AM ABG 7.55/34/97/30 - tidal volume decreased from 450->400. -history of muscular dystrophy - with restrictive lung disease and chronically elevated L hemidiaphragm - s/p trach 03/22 GI - - history of esophageal dysmotility, most likely the cause of choking - GI plans for PEG tube placement 03/23 - hold heparin 6 hours prior - Corsafe NG tube placed 03/22. resume tube feeds RENAL/LYTES metabolic alkalosis, most likely saline-responsive, resolved - urine Cl 31, indeterminate range, 2/2 lasix - considered volume depletion, less likely GI losses - no further workup hypokalemia, hypomagnesemia - repleted, follow BMPs --Chronic hyponatremia 129- 131 - Na this admission downtrended to 126 - per workup, hypotonic 266. volume status euvolemic vs hypervolemic - if euvolemic hyponatremia: Uosm 484, most consistent w/ SIADH. AM cortisol upper limit of normal, not low. - if hypervolemic hyponatremia: consider CHF/volume overload. FENa 0.2% - per chart review, patient has seen [facility] nephrology in past who suspected SIADH - follow via BMP. TSH ~5. fluid restrict when able. - 3.4L in 1.5L out past 24 hrs. cumulative 6.5L in 4.2L out, most likely hypervolemic - continue chahal and Is/Os ENDO - AM cortisol upper limit of normal, no known prior hx of endocrine problems - TSH slightly elevated, likely in context of hospitalization HEME - had issues w/ thrombocytopenia in past, stable. follow cbc left radial thrombus - heparin drip, held prior to trach, will restart later today - recheck LUE arterial doppler in 2-3 days to make sure clot not spreading ID - - aspiration pneumonia - 03/18 CTA: multifocal airspace opacity within the right upper lobe and left upper lobe likely representing pneumonia - Continue with antibiotics. Zosyn->Unasyn. Doxy for atypical coverage. 48-72 hour course before titrate down - 03/18 BC NG 48 hrs. follow. 03/19 bronchial culture w/ light normal alejandra. Gram stain w/ rare epithlial cells, rare gram pos cocci, rare gram pos bacilli, many polys. - 03/21 stopped doxy. continue Unasyn for 24 more hours. - fever - tmax of 38.6C overnight, after intubation. downtrended and resolved w/ tylenol but febrile range x 2-3 hours - check sputum, blood, and urine cultures - if spike fever, will consider escalating abx. Unasyn due to finish at midnight VTE: SCDs and therapeutic heparin drip (held) GI: Lansoprazole Lines: PIVs x2 on right. L IJ Diet: NPO. No meds or water by mouth. Oral hygiene (mouth swabs) q4h. NG tube feeds. Dispo: ICU, but possibly will wean off ventilation this afternoon. will likely need short facility stay after dispo from hospital code status: full continue goals of care discussion PT/OT not indicated at this time (2) Cardiac arrest: (3) Chronic hyponatremia: (4) Acute and chronic respiratory failure with hypoxia: (5) Aspiration pneumonia: (6) Paroxysmal atrial fibrillation: (7) Dysphagia: (8) BPH (benign prostatic hypertrophy): (9) Inclusion body myositis (IBM): (10) Elevated troponin: (11) Hypokalemia: (12) Aspiration into airway: Admission and Anticipated Discharge Date Admission Date: March 18, 2021 Supervising Physician Co-Signing Physician Notes Patient seen and examined. Discussed with bedside critical care nurse as well as with on the phone and on multidisciplinary rounds. Agree with assessment and plan as noted by the family practice resident with the following exceptions. Patient required reintubation due to respiratory distress largely from pulmonary toilet issues. The patient and family had both agreed to tracheostomy should he develop persistent respiratory failure. This will be accomplished this morning. I suspect that his hemodynamic instability overnight is likely related to sedation issues which should resolve once the tracheostomy was placed. We will plan on weaning his sedation back to off and should be able to come off the pressors. Continue tube feeding via the nasoenteric tube. He will undergo PEG tube placement likely tomorrow. Discussed with case management. I think the patient can likely return home due to the complex medical needs at this point in time. Referral will be made to LTAC. If he does well on trach collar trials, will move him out of the ICU to the floor. Patient has had low-grade fevers. Cultures remain negative but repeat cultures are pending. His anemia is stable without evidence of ongoing bleeding. Blood gas demonstrated respiratory alkalosis which should improve with trach collar trials. His electrolytes are being repleted. Sodium level has dropped. He is on the ICU electrolyte replacement protocol. We will restart tube feeding of the tracheostomy was placed. Patient is critically ill at this point time. A total of 49 minutes exclusive of procedures was spent in evaluation management of this patient with life- threatening illness. Subjective Per night team, patient was intubated overnight for respiratory distress and desaturation. He also became profoundly hypotensive afterwards and required pressors. He had a fever to 38.6C overnight after intubation that resolved se veral hours later s/p Tylenol. Hx limited by patient's sedated state, RASS-1. Review of Systems Review of Systems: Constitutional: Denies fever, chills Cardiovascular: + chest discomfort Respiratory: + shortness of breath Gastrointestinal: Denies abdominal pain, nausea, vomiting Genitourinary: + chahal Musculoskeletal: Denies weakness, muscle aches/pain Neurological: Denies headache, numbness, tingling Physical Exam Physical Exam: Constitutional: Grossly A&Ox3, limited exam as patient is ventilated. NAD. Cooperative HEENT: PERRL, EOMI Respiratory system: +ETT. Coarse during mechanical ventilated breaths anterior and lateral lung yu. CVS: Regular rate and rhythm. No murmurs, rubs, or gallops. Abdomen: Soft, nontender, nondistended. Extremities: Moving all extremities Neuro: Awake, following commands G/U: Positive Chahal Results & Data Results & Data ([facility]) Vital Signs (Past 12 Hours) Vital Signs Temp Pulse Resp BP Pulse Ox 03/22/21 07:08 81 16 96 03/22/21 06:00 37.5 C 87 113/66 97 03/22/21 05:50 37.5 C 88 88/48 L 95 03/22/21 05:45 37.5 C 90 96/49 L 93 03/22/21 05:32 37.5 C 99 H 03/22/21 05:15 37.5 C 84 132/79 95 03/22/21 05:00 37.5 C 82 16 133/72 99 03/22/21 04:45 37.5 C 80 135/71 99 03/22/21 04:00 37.5 C 83 122/70 97 03/22/21 03:30 37.5 C 82 157/85 H 97 03/22/21 03:00 37.6 C H 84 146/82 H 97 03/22/21 02:34 37.7 C H 84 140/77 98 03/22/21 02:00 38.0 C H 85 125/74 96 03/22/21 01:30 38.3 C H 85 16 117/76 97 03/22/21 01:15 88 03/22/21 01:04 38.4 C H 86 126/76 98 03/22/21 00:31 38.6 C H 89 80/48 L 95 03/22/21 00:04 38.4 C H 96 H 124/75 97 03/21/21 23:34 38.2 C H 95 H 118/78 97 03/21/21 23:04 38.0 C H 98 H 148/89 H 99 03/21/21 22:34 37.8 C H 97 H 164/98 H 99 03/21/21 22:04 37.9 C H 87 16 94/59 L 99 Laboratory Results Abnormal lab results 03/21/21 03/21/21 03/21/21 Range/Units 10:51 14:17 14:17 WBC (4.8-10.8) K/uL RBC (4.7-6.1) M/uL Hgb (14.0-18.0) g/dL POC Hgb (14.0-18.0) g/dl Hct (42-52) % POC Hct (42-52) % Plt Count (130-400) K/uL MPV (7.4-10.4) fL Neut # (Auto) (1.4-6.5) K/uL Lymph # (Auto) (1.2-3.4) K/uL [place] # (Auto) (0.11-0.59) K/uL APTT 53.8 H* (21.0-31.0) Seconds POC pH (7.35-7.45) POC pCO2 (35-46) mmHg POC pO2 (80-95) mmHg POC HCO3 (19-24) annette/L POC Base Excess (-9-1.8) annette/L ABG pH (Temp Correct) (7.35-7.45) ABG pCO2 (Temp Corrct (35-46) mmHg POC ABG O2 Sat (90-95) % POC Sodium (135-144) mmol/L Sodium 126 L (136-145) mmol/L POC Potassium (3.3-5.0) mmol/L Potassium (3.5-5.1) mmol/L Chloride 93 L (98-107) mmol/L Creatinine 0.38 L (0.6-1.4) mg/dl BUN/Creatinine Ratio 26.0 H (10-20) Glucose 115 H (70-99) mg/dl Calcium 7.8 L (8.5-10.1) mg/dl Phosphorus 2.3 L (2.5-4.9) mg/dl Magnesium 1.6 L (1.8-2.4) mg/dl TSH 5.580 H (0.300-4.500) uIu/ml 03/21/21 03/22/21 03/22/21 Range/Units 21:24 00:24 04:57 WBC 11.16 H (4.8-10.8) K/uL RBC 3.03 L (4.7-6.1) M/uL Hgb 10.0 L (14.0-18.0) g/dL POC Hgb 9.9 L (14.0-18.0) g/dl Hct 28.6 L (42-52) % POC Hct 29 L (42-52) % Plt Count 126 L (130-400) K/uL MPV 10.7 H (7.4-10.4) fL Neut # (Auto) 8.91 H (1.4-6.5) K/uL Lymph # (Auto) 0.87 L (1.2-3.4) K/uL [place] # (Auto) 1.35 H (0.11-0.59) K/uL APTT (21.0-31.0) Seconds POC pH 7.50 H (7.35-7.45) POC pCO2 (35-46) mmHg POC pO2 240 H (80-95) mmHg POC HCO3 29 H (19-24) annette/L POC Base Excess 6.0 H (-9-1.8) annette/L ABG pH (Temp Correct) 7.489 H (7.35-7.45) ABG pCO2 (Temp Corrct (35-46) mmHg POC ABG O2 Sat 100.0 H (90-95) % POC Sodium 128 L (135-144) mmol/L Sodium 122 L (136-145) mmol/L POC Potassium 3.2 L (3.3-5.0) mmol/L Potassium 2.9 L D (3.5-5.1) mmol/L Chloride 90 L (98-107) mmol/L Creatinine 0.44 L (0.6-1.4) mg/dl BUN/Creatinine Ratio 25.6 H (10-20) Glucose 158 H (70-99) mg/dl Calcium 7.6 L (8.5-10.1) mg/dl Phosphorus 1.9 L (2.5-4.9) mg/dl Magnesium 1.6 L (1.8-2.4) mg/dl TSH (0.300-4.500) uIu/ml 03/22/21 03/22/21 03/22/21 Range/Units 04:57 04:57 05:14 WBC 11.36 H (4.8-10.8) K/uL RBC 3.07 L (4.7-6.1) M/uL Hgb 10.3 L (14.0-18.0) g/dL POC Hgb 10.2 L (14.0-18.0) g/dl Hct 28.9 L (42-52) % POC Hct 30 L (42-52) % Plt Count (130-400) K/uL MPV 10.6 H (7.4-10.4) fL Neut # (Auto) (1.4-6.5) K/uL Lymph # (Auto) (1.2-3.4) K/uL [place] # (Auto) (0.11-0.59) K/uL APTT 34.9 H (21.0-31.0) Seconds POC pH 7.55 H* (7.35-7.45) POC pCO2 34 L (35-46) mmHg POC pO2 97 H (80-95) mmHg POC HCO3 30 H (19-24) annette/L POC Base Excess 7.0 H (-9-1.8) annette/L ABG pH (Temp Correct) 7.546 H* (7.35-7.45) ABG pCO2 (Temp Corrct 34 L (35-46) mmHg POC ABG O2 Sat 98.0 H (90-95) % POC Sodium 126 L (135-144) mmol/L Sodium (136-145) mmol/L POC Potassium 2.8 L (3.3-5.0) mmol/L Potassium (3.5-5.1) mmol/L Chloride (98-107) mmol/L Creatinine (0.6-1.4) mg/dl BUN/Creatinine Ratio (10-20) Glucose (70-99) mg/dl Calcium (8.5-10.1) mg/dl Phosphorus (2.5-4.9) mg/dl Magnesium (1.8-2.4) mg/dl TSH (0.300-4.500) uIu/ml Diagnostic Findings Chest X-Ray 03/22/21 07:00 XR chest 1V portable HISTORY: Respiratory failure. Follow-up. COMPARISON: Chest 03/21/2021. FINDINGS: Endotracheal tube terminates 3.8 cm from the edwar. The feeding tube terminates in the stomach. There is a left shoulder prosthesis. No pneumothorax. Mild diffuse interstitial thickening and patchy bibasilar densities have slightly improved. The heart remains enlarged. A left-sided jugular central venous catheter terminates at the proximal SVC. This is also unchanged. IMPRESSION: 1. Satisfactory support line placement. 2. Slight improved aeration within the lungs. ACT 112: Negative or not required by law. Electronically signed by: Seamus Chen M.D. 03/22/2021 8:04 AM Resident Activity Tracking Resident Involvement: Resident Care Provided Care Provided: Adult Hospital Medicine (1) Dysphagia Dysphagia type: unspecified Qualified Code(s): R13.10 - Dysphagia, unspecified (2) Aspiration pneumonia Aspiration pneumonia type: unspecified Laterality: bilateral Lung location: upper lobe of lung Qualified Code(s): J69.0 - Pneumonitis due to inhalation of food and vomit
[2021-03-22] MEDS: propofoL 1,000 MG/100 ML VIAL IV SCH (10:30)
--- NOTE | 2021-03-22 11:15 | Procedure Note ---
Procedure Note Date of Service March 22, 2021 Note Procedure Name: Fiberoptic bronchoscopy for placement of percutaneous tracheostomy tube Procedure time out: side/site verified, patient ID confirmed, correct procedure Consent obtained: written (The risks, benefits, indications, potential complications, and alternatives were explained to the family and informed consent obtained by Dr. Calvo.) Time of procedure: 10:30 Performed by: physician tax accounting manager: Curt Santizo PA-C Indications: diagnostic, therapeutic Contraindications: Heparin drip stopped. Aspirin held. APTT within acceptable limits. No other anticoagulants or antiplatelets. Platelet count 132,000 Indication: Patient requiring percutaneous placement of tracheostomy tube. Fiberoptic bronchoscopy required for clearance of secretions prior to the procedure, visualization of cannulization, and verification of airways status post procedure. The bronchoscope was introduced into the endotracheal tube. A large mucous plug was removed from the left main bronchus. There was also evidence of mucus and secretions at the edwar. These were also evacuated. There was minimal bleeding and no significant bronchial trauma. There were minimal secretions in the subsegmental branches of the left lower lobe. These were evacuated. The right and main left bronchus as well as the segmental branches of the right middle and right lower lobe and left upper, lingula and left lower lobes were again examined with minimal blood and minimal secretions. There was no evidence of bronchial trauma on the final examination with the fiberoptic scope. The cuff of the endotracheal tube was deflated and the endotracheal tube was withdrawn to the level of the vocal cords using video bronchoscopy. The cuff was lightly reinflated and the fiberoptic bronchoscope was advanced to the tip of the endotracheal tube. The needle entry site in the trachea midline was visualized as was the placement of the guidewire into the distal trachea. Photographs were taken to confirm placement of the guidewire. After placement of the tracheostomy tube, the bronchoscope was withdrawn from the endotracheal tube and introduced through the tracheostomy tube to confirm correct placement. The bronchoscope was then withdrawn to allow suturing of the tracheostomy tube into position. After confirmation of position and securement of the tracheostomy tube the endotracheal tube was removed. The patient experienced no desaturation or complication during the procedure. Dr. Calvo was present for the entire procedure as he was performing the surgical portion of the percutaneous tracheostomy Complications: none Patient tolerated procedure: well Post-procedure vital signs: reviewed and stable Comments: The patient received sedation and neuromuscular blockade for the procedure with airway intact with endotracheal tube. This was ordered, administered, and monitored by Dr. Calvo during my portion of the procedure. Coding
--- NOTE | 2021-03-22 11:15 | Procedure Note ---
Procedure Note Date of Service March 22, 2021 Note Procedure: Bedside percutaneous dilatation of tracheostomy with placement of a 6.0 fenestrated cuffed Shiley tracheostomy tube. Indication: Recurrent respiratory failure with inability to manage secretions in a patient with known muscular dystrophy Rectifying Attendant Dr. Floyd Calvo Drop Man, KIAH Santizo Estimated blood loss: Less than 10 mL Anesthesia: 40 mg rocuronium, 5 mg propofol bolus, 4 mg Versed, fentanyl infusion with 50 mcg bolus Consent: Patient was unable to provide consent as he was on the ventilator. Risks and benefits were discussed with the patient's who provide telephone consent witnessed by the ICU nurse. Procedure: Patient was in the ICU on the ventilator. Continuous vital signs were monitored. He was placed on 100% FiO2 on the ventilator. Sedation was achieved as noted above. Landmarks were identified. A neck roll was placed under the shoulders to allow for neck flexion. There was some inability to completely extend the neck. Ultrasound was performed over the anterior trachea and demonstrated no large vascular bridging structures. The area was cleaned and prepped with chlorhexidine and sterile field established. Using 10 cc of 1% lidocaine with epinephrine, an area just inferior to the cricoid cartilage was infiltrated. Using 11 blade scalpel, a 1.5cm horizontal incision was made. Using blunt dissection, the tissues were . With my forefinger is able to palpate the anterior tracheal rings. At that point time KIAH santizo advanced the flexible bronchoscope through the endotracheal tube. Please see his separate note. The endotracheal tube and bronchoscope were withdrawn to the level of the glottis. I was able to observe ballottement of the anterior trachea with the curved forceps. Under direct bronchoscopic visualization, an 18-gauge Angiocath needle was advanced through the interspace between the first and second tracheal rings. The needle was withdrawn and the catheter left in place. A wire was passed into the distal airway and the catheter removed. The wire was verified to be in good position bronchoscopically. Dilatation over the wire was conducted including the guiding catheter and Blue Rhino dilator. This did result in fracture of the first tracheal ring. A previously tested 6 oh fenestrated cuffed endotracheal tube had been loaded on a loading catheter. The Blue Rhino dilator was removed leaving the guiding catheter and wire in place. The Shiley catheter and loading catheter were advanced over the guiding catheter and wire into the airway. The loading catheter, guiding catheter, and wire were then removed. The bronchoscope was then withdrawn from the endotracheal tube and advanced through the newly placed tracheostomy tube and verified to be within the airway. The inner cannula was replaced and the balloon inflated and the patient were attached to the ventilator. Appropriate tidal volumes were detected. Using 2-0 Vicryl, stay sutures were placed at the 6 and 12:00 positions and the trach ties were secured. Minimal bleeding was encountered. The neck roll was removed. Patient tolerated the procedure well without obvious complication. Sedation will be weaned and he will be transition to trach collar trials as tolerated. Coding CPT Codes ENT - ENT: 77761 Incision of windpipe ([id number]) [facility] Procedure Codes (Charges) ENT ENT: 11574 Incision of windpipe
--- NOTE | 2021-03-22 12:20 | Billing Data ---
Date of Service March 22, 2021 Coding Level of Care Code Critical Care 1st 30-74 mins Time Spent (min) 48
--- NOTE | 2021-03-22 13:54 | Electrocardiogram Report ---
Test Reason : Blood Pressure : / mmHG Vent. Rate : 125 BPM Atrial Rate : 107 BPM P-R Int : 000 ms QRS Dur : 094 ms QT Int : 312 ms P-R-T Axes : 000 038 144 degrees QTc Int : 450 ms Poor data quality, interpretation may be adversely affected Atrial fibrillation with rapid ventricular response Nonspecific ST and T wave abnormality Abnormal ECG When compared with ECG of 18-MAR-2021 10:37, Atrial fibrillation has replaced Sinus rhythm Vent. rate has increased BY 41 BPM Nonspecific T wave abnormality, worse in Inferior leads Nonspecific T wave abnormality, worse in Anterolateral leads Confirmed by Sandeep Ballesteros ([id number]) on 03/22/2021 1:53:45 PM Referred By: REFERRED SELF Confirmed By:Ezio Ballesteros
--- NOTE | 2021-03-22 15:45 | Hospitalist Progress Note ---
Date of Service March 22, 2021 Assessment & Plan (1) Acute and chronic respiratory failure with hypoxia: (2) Aspiration pneumonia: (3) Multilobar lung infiltrate: Plan: Patient is a 75 yr male with H/O Inclusion body myositis muscular dystrophy, chronic hyponatremia, MITZI with nocturnal hypoxemia on 2 L nasal cannula O2, restrictive lung disease due to muscular dystrophy, paroxysmal atrial fibrillation in setting of bronchodilators, hypertension, mild aortic valve stenosis, BPH and other medical problems listed below who presents with worsening shortness of breath over the past few days and found to have acute on chronic hypoxic respiratory failure and multilobar pneumonia. Acute Reparatory failure with Hypoxia Suspected Multifocal Pneumonia S/P Bronchoscopy for mucous plug removal S/P Tracheostomy on 03/22 --CTA:No PE. Multifocal airspace opacity within the right upper lobe and left upper lobe likely representing pneumonia. Short-term follow-up in 4-[address] on nonemergency basis is recommended. Evaluation of the right hemidiaphragm with complete atelectasis of the left lower lobe. Gas-filled loop of large bowel is seen within upper abdomen which is in upper limits of normal. Mild four-chamber cardiomegaly. -Empiric Zosyn, Doxy transitioned to Unasyn -Continue Pulm hygiene -Appreciate Parts Puller help -On Vent currently -Wean off of pressors as able Aspiration Respiratory arrest leading to cardiac arrest Cardiogenic Shock/PEA--Resolved 03/19 21 - PM - CODE BLUE--Intubated Piece of food was removed at intubation, patient then also underwent bronchoscopy-secretions removed Speech Therapy H/O Esophageal dysmotility Planned for EGD with PEG placement Appreciate GI Input (4) Inclusion body myositis (IBM): Plan: Progressive, very limited motor function in LUE. Currently ambulates in motorized scooter Follows with [facility] Fall precautions, able to eat soft bite sized diet (5) Chronic hyponatremia: Plan: Likely due to SIADH Evaluated by Nephrology Dr. Leggett previously Continue fluid restriction Monitor with daily BMP (6) Paroxysmal atrial fibrillation: Plan: Follows with Dr. Minor, Cardiology Amiodarone recently discontinued Resume Metoprolol as able Awaiting results of OP zio monitor Not on anticoagulation due to H/O subdural hematoma(due to fall) and Thrombocytopenia (7) BPH (benign prostatic hypertrophy): Plan: Continue Flomax H/O muscular dystrophy Restrictive lung disease Chronically elevated left hemidiaphragm Continue management as above Hypokalemia Hypomagnesemia Replace electrolytes as needed Left radius thrombus Resume heparin drip as able Recheck left upper extremity arterial Dopplers in 2 to 3 days DVT Px: SQ heparin Code status: FULL CODE Admission and Anticipated Discharge Date Admission Date: March 18, 2021 Subjective Patient is seen and examined at bedside Off sedation currently but still drowsy Weaning off pressors currently S/P Trach this morning No distress exam Unable to provide any history Review of Systems Review of Systems: Unobtainable due to endotracheal tube Physical Exam Physical Exam: Physical Exam: Vitals signs as noted above General Appearance:Moderately built and nourished, no apparent distress Head: normocephalic, Atraumatic Eyes: normal inspection, EOMI Neck: supple, Trachea midline, +Trach Respiratory/Chest: Coarse breath sounds, No accessory muscle use Cardiovascular: S1, S2, No murmur Abdomen/GI:Soft, Non tender, Bowel sounds present Extremities/Musculoskeletal:normal inspection, no edema Neurologic/Psych:grossly no focal neurological deficits Skin: normal color, warm Results & Data Results & Data ([facility]) Vital Signs (Past 12 Hours) Vital Signs Temp Pulse Resp BP Pulse Ox 03/22/21 15:11 12 96 03/22/21 13:03 36.3 C L 86 125/65 96 03/22/21 12:33 36.4 C L 88 108/60 95 03/22/21 12:03 36.5 C 92 H 112/60 93 03/22/21 11:33 36.7 C 96 H 99/61 L 92 03/22/21 11:07 103 H 12 90 03/22/21 11:03 36.8 C 105 H 112/62 99 03/22/21 10:33 36.8 C 83 89/51 L 100 03/22/21 10:00 36.9 C 90 126/68 98 03/22/21 09:30 37.0 C 86 101/56 L 100 03/22/21 09:15 37.0 C 87 89/58 L 99 03/22/21 08:30 37.1 C 91 H 100/68 98 03/22/21 08:00 37.1 C 92 H 112/62 96 03/22/21 07:30 37.1 C 82 130/70 100 03/22/21 07:14 37.2 C 83 141/85 H 99 03/22/21 07:08 81 16 96 03/22/21 06:30 37.4 C 83 137/76 97 03/22/21 06:00 37.5 C 87 113/66 97 03/22/21 05:50 37.5 C 88 88/48 L 95 03/22/21 05:45 37.5 C 90 96/49 L 93 03/22/21 05:32 37.5 C 99 H 03/22/21 05:15 37.5 C 84 132/79 95 03/22/21 05:00 37.5 C 82 16 133/72 99 03/22/21 04:45 37.5 C 80 135/71 99 03/22/21 04:00 37.5 C 83 122/70 97 03/22/21 03:30 37.5 C 82 157/85 H 97 Laboratory Results Short CBC 03/22/21 03/22/21 Range/Units 00:24 04:57 WBC 11.16 H 11.36 H (4.8-10.8) K/uL Hgb 10.0 L 10.3 L (14.0-18.0) g/dL Hct 28.6 L 28.9 L (42-52) % Plt Count 126 L 132 (130-400) K/uL BMP 03/22/21 04:57 Sodium 122 L Potassium 2.9 L D Chloride 90 L Carbon Dioxide 29 BUN 11 Creatinine 0.44 L Glucose 158 H Calcium 7.6 L (1) Aspiration pneumonia Aspiration pneumonia type: unspecified Laterality: bilateral Lung location: upper lobe of lung Qualified Code(s): J69.0 - Pneumonitis due to inhalation of food and vomit
[2021-03-22] MEDS: ICU ELECTROLYTE REPLACEMENT PROTOCOL SCH (18:42)
[2021-03-22] MEDS ORDERED: Heparin IV Adult Wt-Based Standard *NO* Bolus Protocol IV ONE (19:22)
--- NOTE | 2021-03-22 19:28 | Anesthesiology Consultation ---
Date of Service March 22, 2021 The patient has multiple medical issues and received a tracheostomy yesterday due to aspiration pneumonia. He has chronic hyponatremia with a current sodium level of 122. I spoke with Dave from the ICU about correcting his hyponatremia. The patient will have his sodium level checked again in the morning. Consent for anesthesia will need to be obtained from the patient's . Assessment & Plan (1) Encounter for pre-operative examination: Chart Review Chart Review: Pending: Refer to Additional Notes / Consult section (sodium level to be rechecked) and Patient NOT seen in Pre Admission Testing Consults Requested none History Surgery Operation Date: 03/23/21 11:30 Proposed Procedures p Esophagogastroduodenoscopy with - Alvino Meza MD s PEG Tube Placement - Alvino Meza MD Height/Weight Height: 5 ft 8 in Weight: 89.7 kg Allergies Allergy/AdvReac Type Severity Reaction Status Date / Time bee venom protein (honey bee) Allergy Severe ANAPHYLAXIS Verified 03/18/21 16:38 sulfamethoxazole Allergy Intermediate RED Verified 03/18/21 16:38 [From Bactrim] SWOLLEN HIVES trimethoprim [From Bactrim] Allergy Intermediate RED Verified 03/18/21 16:38 SWOLLEN HIVES Medications Home Medications Medication Instructions Recorded Confirmed Last Taken acetaminophen 500 mg tablet 1,000 mg PO DIRECTED PRN 12/01/18 03/18/21 11/07/20 19:00 (Tylenol Extra Strength) gabapentin 600 mg tablet 1,200 mg PO BID 12/01/18 03/18/21 11/07/20 metoprolol tartrate 25 mg tablet 25 mg PO BID 12/01/18 03/18/21 11/07/20 pantoprazole 40 mg tablet,delayed 40 mg PO BID 12/01/18 03/18/21 11/07/20 release paroxetine HCl 30 mg tablet (Paxil) 30 mg PO BID 12/01/18 03/18/21 11/07/20 tamsulosin 0.4 mg capsule (Flomax) 0.8 mg PO HS 12/01/18 03/18/21 11/07/20 aspirin 81 mg tablet 81 mg PO DAILY 03/18/21 03/18/21 Unknown atorvastatin 40 mg tablet 40 mg PO DAILY 03/18/21 03/18/21 Unknown hydroxyzine HCl 25 mg tablet 25 mg PO Q6 PRN 03/18/21 03/18/21 Unknown magnesium chloride 64 mg 64 mg PO DAILY 03/18/21 03/18/21 Unknown tablet,extended release triamcinolone acetonide 0.1 % 1 applic TOPICAL BID 03/18/21 03/18/21 Unknown topical cream Active Medications Generic Name Dose Route Start Last Admin Trade Name Lance PRN Reason Stop Dose Admin Albuterol 3 ml 03/21/21 15:00 03/21/21 19:34 Albut/Ipratrop 3mg/0.5mg Neb 3 Ml Vial NEB 04/20/21 14:59 Not Given Q4R RUPERTO Aspirin 81 mg 03/19/21 09:00 03/20/21 10:56 Aspirin 81 Mg Ectab PO 04/18/21 08:59 Not Given DAILY [facility] Aspirin 81 mg 03/20/21 11:00 03/21/21 15:11 Aspirin 81 Mg Chew NG 04/19/21 10:59 Not Given DAILY [facility] Atorvastatin Calcium 40 mg 03/19/21 09:00 03/20/21 10:56 Atorvastatin 40 Mg Tab PO 04/18/21 08:59 Not Given DAILY [facility] Fentanyl Citrate 50 mcg 03/21/21 23:48 03/22/21 03:30 Fentanyl Bolus From Bag IV 04/04/21 23:47 50 mcg Q60M PRN Administration Pain or Agitation Gabapentin 1,200 mg 03/18/21 21:00 03/20/21 10:56 Gabapentin 600 Mg Tab PO 04/17/21 20:59 Not Given BID [facility] Gabapentin 1,200 mg 03/20/21 11:00 03/21/21 15:10 Gabapentin 250 Mg/5 Ml 470 Ml Btl PO 04/19/21 10:59 Not Given BID [facility] Ampicillin Sodium/Sulbactam 108 mls @ 216 mls/hr 03/20/21 12:00 03/22/21 19:30 Sodium 3,000 mg/ Sodium IV 03/22/21 23:59 216 mls/hr Chloride Q6H RUPERTO Administration Protocol Phenylephrine HCl 20 mg/ 502 mls @ 0 mls/hr 03/21/21 19:30 03/22/21 18:44 Dextrose IV 04/20/21 19:29 0 mcg/kg/min .Q0M RUPERTO 0 mls/hr Titration Protocol 0 MCG/KG/MIN Norepinephrine Bitartrate 8 mg in 508 mls @ 0 mls/hr 03/21/21 21:00 03/22/21 15:51 Levophed/D5w IV 04/20/21 20:59 Infused .Q0M RUPERTO Titration Protocol 0 MCG/KG/MIN Fentanyl Citrate 1,250 mcg in 250 mls @ 0 mls/hr 03/21/21 23:45 03/22/21 15:49 Fentanyl Drip IV 04/04/21 23:44 Infused .Q0M RUPERTO Titration Protocol 0 MCG/HR Acetaminophen 1,000 mg in 100 mls @ 400 mls/hr 03/21/21 23:48 03/22/21 00:46 Ofirmev IV 03/24/21 23:47 Infused Q8H PRN Infusion Fever Propofol 1,000 mg in 100 mls @ 10.764 mls/hr 03/22/21 08:00 03/22/21 11:17 Diprivan IV 03/25/21 07:59 Infused .Q9H18M RUPERTO Titration Protocol 20 MCG/KG/MIN Lansoprazole 30 mg 03/20/21 11:00 03/22/21 07:55 Lansoprazole 30 Mg Soltab NG 04/19/21 10:59 Not Given DAILY [facility] Magnesium Chloride 64 mg 03/19/21 09:00 03/20/21 10:57 Magnesium Chloride 64mg Delayed Rel Tab PO 04/18/21 08:59 Not Given DAILY [facility]UP[facility]O Metoprolol Tartrate 25 mg 03/18/21 21:00 03/20/21 10:57 Metoprolol Tartrate 25 Mg Tab PO 04/17/21 20:59 Not Given BID RUPERTO Metoprolol Tartrate 25 mg 03/21/21 09:00 03/21/21 22:39 Metoprolol Tartrate 25 Mg Tab PO 04/20/21 08:59 Not Given BID RUP[facility]O Miscellaneous 1 ea 03/22/21 18:00 03/22/21 18:42 Icu Electrolyte Replacement Protocol N/A 03/29/21 17:59 Not Given BID@18 RUPERTO Protocol Nutritional Formula 30 ml 03/22/21 09:00 03/22/21 07:55 Prosource No Carb 30 Ml/Pkt NG 04/21/21 08:59 Not Given DAILY [facility] Pantoprazole Sodium 40 mg 03/18/21 21:00 03/20/21 10:57 Pantoprazole 40 Mg Tab PO 04/17/21 20:59 Not Given BID RUPERTO Paroxetine HCl 30 mg 03/18/21 21:00 03/20/21 10:57 Paroxetine Hcl 20 Mg Tab PO 04/17/21 20:59 Not Given BID [facility]O Propofol 20 mg 03/22/21 07:58 03/22/21 10:30 Propofol Bolus From Bag IV 03/25/21 07:57 20 mg Q5M PRN Administration Sedation Sterile Water 30 ml 03/21/21 18:00 03/22/21 18:43 Tube Feeding Water Flush NG 04/20/21 17:59 Not Given Q4H RUPERTO Tamsulosin HCl 0.8 mg 03/18/21 21:00 03/21/21 22:40 Tamsulosin Hcl 0.4 Mg Cap PO 04/17/21 20:59 Not Given HS RUPERTO Triamcinolone Acetonide 1 appln 03/18/21 21:00 03/22/21 07:54 Triamcinolone Acet 0.1% Cr 15 Gm Tube TOP 04/17/21 20:59 1 appln BID RUPERTO Administration Past Medical History Medical History Anemia Atrial flutter Henry's esophagus Benign neoplasm of colon " 06/09/99- hyperplastic polyp and tubular adenoma 06/27/2011- 2 polyps, path shows adenomatous" BPH (benign prostatic hypertrophy) Chronic hyponatremia Dyslipidemia GERD (gastroesophageal reflux disease) H/O alcohol abuse History of stroke "per Epic record, old infarct noted on head CT 08/13" HTN (hypertension) Hx of sepsis Inclusion body myositis (IBM) Malignant neoplasm prostate "s/p implant 07/10/02" Neuropathy Osteoarthritis Paroxysmal atrial tachycardia Sjogren's syndrome Typical atrial flutter Past Family History Family History Other Cancer Diabetes Heart disease Stroke Past Surgical History Surgical History H/O colonoscopy H/O elbow surgery S/P hemorrhoidectomy S/P hip replacement S/P shoulder replacement "left" Social History Smoking Status: Former smoker Hx Alcohol Use: Yes Alcohol type: other alcohol intake frequency: 0-2 drinks per day Hx Substance Use: No Physical Exam Vital Signs Last Vital Signs Temp 36.6 C 03/22/21 18:33 Pulse 100 H 03/22/21 18:33 Resp 12 03/22/21 15:11 BP 101/61 03/22/21 18:33 Pulse Ox 95 03/22/21 18:33 Testing Laboratory Results 03/22/21 04:57 03/22/21 04:57 PT 10.9 Seconds (9.0-12.0) 03/22/21 04:57 INR 1.1 (0.9-1.1) 03/22/21 04:57 APTT 34.9 Seconds (21.0-31.0) H 03/22/21 04:57 Urine Color Dark Yellow 03/18/21 12:21 Urine Appearance Clear (Clear) 03/18/21 12:21 Urine pH 7.0 (4.5-7.5) 03/18/21 12:21 Ur Specific Bend 1.018 (1.000-1.030) 03/18/21 12:21 Urine Protein Negative (Negative) 03/18/21 12:21 Urine Glucose (UA) Negative (Negative) 03/18/21 12:21 Urine Ketones Negative (Negative) 03/18/21 12:21 Urine Nitrite Negative (Negative) 03/18/21 12:21 Ur Leukocyte Esterase Negative (Negative) 03/18/21 12:21 03/19/21 19:30 Acid Fast Bacilli Smear - Final Ba Lavage,Left Lower Lobe 03/19/21 19:30 Gram Stain - Final Ba Lavage,Left Lower Lobe Bronchial Culture - Final Light normal alejandra. 03/18/21 12:19 Aerobic Blood Culture - Preliminary Blood No growth in Aerobic bottle after 48 hours. Anaerobic Blood Culture - Preliminary No growth in Anaerobic bottle after 48 hours. 03/18/21 12:09 Aerobic Blood Culture - Preliminary Blood No growth in Aerobic bottle after 48 hours. Anaerobic Blood Culture - Preliminary No growth in Anaerobic bottle after 48 hours. 03/19/21 19:30 Fungal Smear - Final Ba Lavage,Left Lower Lobe Electrocardiogram Date: 03/21/21 Findings: + NSST changes and + AFIB @ (125) Chest X-Ray Date: 03/22/21 XR chest 1V portable HISTORY: Respiratory failure. Follow-up. COMPARISON: Chest 03/21/2021. FINDINGS: Endotracheal tube terminates 3.8 cm from the edwar. The feeding tube terminates in the stomach. There is a left shoulder prosthesis. No pneumothorax. Mild diffuse interstitial thickening and patchy bibasilar densities have slightly improved. The heart remains enlarged. A left-sided jugular central venous catheter terminates at the proximal SVC. This is also unchanged. IMPRESSION: 1. Satisfactory support line placement. 2. Slight improved aeration within the lungs. ACT 112: Negative or not required by law. Electronically signed by: Seamus Chen M.D. 03/22/2021 8:04 AM Dictated: 03/22/21 08Transcribed: 03/22/21802 Echocardiogram Date: 03/20/21 EF: 70 Valvular Disease: + (cannot exclude hemodynamically significant aortic stenosis)
[2021-03-22] MEDS: TAMSULOSIN HCL 0.4 MG CAP PO SCH (20:45)
[2021-03-22] MEDS: HEPARIN SODIUM/DEXTROSE 25,000 UNITS/500 ML BAG IV SCH (20:48)
[2021-03-23] MEDS: TUBE FEEDING WATER FLUSH NG SCH ×6 (01:15→21:11)
[2021-03-23 03:38] LABS: Hematocrit (blood only) 25.9 % (42-52); Mean Corpuscular Hemoglobin 32.8 pg (25-34); Mean Corpuscular Hgb Conc 34.7 g/dL (32-36); Mean Corpuscular Volume 94.5 fL (80-100); Mean Platelet Volume 10.5 fL (7.4-10.4); Platelet Count 104 K/uL (130-400); RDW Coefficient of Variation 12.9 % (11.5-14.5); Red Blood Count 2.74 M/uL (4.7-6.1); White Blood Count 7.27 K/uL (4.8-10.8)
[2021-03-23 03:55] LABS: Partial Thromboplastin Ratio 2.2
[2021-03-23 04:06] LABS: Partial Thromboplastin Time 57.8 Seconds (21.0-31.0)
[2021-03-23 04:15] LABS: Alanine Aminotransferase 50 U/L (12-78); Albumin Globulin Ratio 0.5 (0.9-2); Albumin Level 1.8 gm/dl (3.4-5.0); Alkaline Phosphatase 82 U/L (45-117); Aspartate Aminotransferase 57 U/L (15-37); BUN Creatinine Ratio 32.7 (10-20); Bilirubin,Total 1.8 mg/dl (0.2-1); Blood Urea Nitrogen 7 mg/dl (7-18); Calcium 7.7 mg/dl (8.5-10.1); Carbon Dioxide 29 mmol/L (21-32); Chloride 92 mmol/L (98-107); Creatinine Clr Calc Pharmacy 341.9 ml/min; Est GFR (African American) > 150.0 ml/min; Est GFR (Non-African American) > 150.0 ml/min; Globulin 3.8 gm/dl (2.5-4.0); Glucose 93 mg/dl (70-99); Magnesium 1.5 mg/dl (1.8-2.4); Phosphorus 2.5 mg/dl (2.5-4.9); Potassium 3.9 mmol/L (3.5-5.1); Sodium 127 mmol/L (136-145); Total Protein 5.6 gm/dl (6.4-8.2)
[2021-03-23] MEDS: ICU ELECTROLYTE REPLACEMENT PROTOCOL SCH ×2 (04:22→18:07)
[2021-03-23] MEDS ORDERED: SODIUM PHOSPHATE 3 MMOL/1 ML INFUSION IV STA (04:25)
[2021-03-23 04:33] LABS: INR 1.1 (0.9-1.1); Prothrombin Time 10.9 Seconds (9.0-12.0)
[2021-03-23] MEDS: MAGNESIUM SULFATE / D5W 1 GM/100 ML BAG IV SCH ×4 (04:35→10:43)
[2021-03-23] MEDS: POTASSIUM CHLORIDE / WTR 20 MEQ/100 ML PLCT IV SCH ×2 (04:53→06:29)
[2021-03-23] MEDS ORDERED: SODIUM PHOSPHATE 15 MMOL in SODIUM CHLORIDE 0.9% 250 ML IV ONE (05:00)
[2021-03-23] MEDS ORDERED: MAGNESIUM SULFATE / D5W 1 GM/100 ML BAG IV SCH (05:56)
--- NOTE | 2021-03-23 06:47 | Critical Care Progress Note ---
Date of Service March 23, 2021 Assessment & Plan (1) Admitted to intensive care unit: Plan: 75 y/o male w/ PMHx of pAF, BPH, IBM, and muscular dystrophy admitted for acute on chronic respiratory failure (03/18), intubated for cardiac arrest 2/2 choking (03/19), extubated, reintubated, and is s/p tracheostomy on 03/22. NEURO - CAM-ICU: negative. RASS 0. CARDIAC - - paroxysmal atrial fibrillation, converted to sinus since 03/21 evening, currently sinus tach 100s - started on therapeutic heparin drip on 03/20 because has L arterial clot. - hold home metoprolol tartrate PO 25 mg BID while patient is in sinus - shock, resolved - echo EF>70%, hyperdynamic - elevated trop has peaked - not on pressors RESP - - ventilator dependent acute on chronic respiratory failure with hypoxia. 03/22 trach. - AM vent settings AC. Vt 400. RR 12. Peep 5. FiO2 30. - impaired mucous clearance, fluid overload as well as restrictive lung disease may be contributory - earlier cxrs w/ pulm vasc congestion, bibasilar densities - no scheduled diuresis. diurese w/ IV lasix 40 1x/day as needed. will give dose today - resumed Duoneb treatments and hypertonic saline flushes. continue chest physiotherapy - respiratory alkalosis - per 03/22 AM ABG 7.55/34/97/30 - should improve w/ trach collar trials - history of muscular dystrophy - with restrictive lung disease and chronically elevated L hemidiaphragm GI - - history of esophageal dysmotility, most likely the cause of choking - GI plans for PEG tube placement 03/23. Currently has Corsafe NG. - hyperbilirubinemia 1.8 - chronic AST/ALT elevation downtrending. alk phos not elevated. reassuring - check indirect bili in AM RENAL/LYTES - hypokalemia, hypomagnesemia, hypocalcemia - repleting, follow CMPs - chronic hyponatremia 129- 131 - stable 127 at this time - per workup, hypotonic 266. volume status euvolemic vs hypervolemic - if euvolemic hyponatremia: Uosm 484, most consistent w/ SIADH. AM cortisol upper limit of normal, not low. - if hypervolemic hyponatremia: consider CHF/volume overload. FENa 0.2% - per chart review, patient has seen [facility] nephrology in past who suspected SIADH - follow via BMP. fluid restrict when able. - metabolic alkalosis, most likely saline-responsive, resolved - 3L in 2.1L out past 24 hrs. cumulative 11.2L in 6.3L out, most likely hypervolemic - LE edema worsened. No crackles on lung exam. No appreciable JVD on R. Net pos 5L this admission. - continue chahal and Is/Os. remove chahal after PEG tube placement. PRN diuresis as above. ENDO - AM cortisol upper limit of normal, no known prior hx of endocrine problems - TSH slightly elevated, likely in context of hospitalization HEME - mild chronic thrombocytopenia - stable. follow cbc. smear not indicated. left radial thrombus - heparin drip, held prior to PEG tube - recheck LUE arterial doppler in 1-2 days to make sure clot not spreading - can consider DOAC or other anticoagulation options in future. hx subdural hematoma in 2019 from fall. chronic mild thrombocytopenia >100 ID - - aspiration pneumonia, resolved - 03/18 CTA: multifocal airspace opacity within the right upper lobe and left upper lobe likely representing pneumonia - 03/21 stopped doxy. 03/22 completed Unasyn - fever (38.6C 03/22 1AM) - repeat sputum, blood, and urine cultures pending - if spike fever, will consider escalating abx - leukocytosis resolved. No fevers overnight 03/22-03/23, reassuring VTE: SCDs and therapeutic heparin drip (held since 5AM). GI: Lansoprazole Lines: PIVs x2 on right. L IJ Diet: NPO. No meds or water by mouth. Oral hygiene (mouth swabs) q4h. NG tube feeds held since 5AM Dispo: ICU. Awaiting LTACH placement. code status: full continue goals of care discussion PT/OT reordered because will need for placement (2) Cardiac arrest: (3) Chronic hyponatremia: (4) Acute and chronic respiratory failure with hypoxia: (5) Aspiration pneumonia: (6) Paroxysmal atrial fibrillation: (7) Dysphagia: (8) BPH (benign prostatic hypertrophy): (9) Inclusion body myositis (IBM): (10) Elevated troponin: (11) Hypokalemia: (12) Aspiration into airway: Admission and Anticipated Discharge Date Admission Date: March 18, 2021 Supervising Physician Co-Signing Physician Notes Patient seen and examined. Discussed with bedside critical care nurse as well as multidisciplinary rounds. Agree with assessment and plan as noted by the family practice resident with the following exceptions. Patient is done well with intermittent pressure support trials. He clearly has issues liberating from the ventilator and is not able to tolerate trach collar at this point time. He was disconnected inadvertently from the ventilator for short period of time and rapidly desaturated and developed respiratory distress. Heparin and tube feeding are being held for PEG tube placement later today. Will restart once cleared by GI. We will continue attempts to wean from the ventilator. Trending his anemia. No indication for transfusion currently. Patient's sodium is stable. We will continue to follow with diuretics. Electrolytes are being repleted. Sputum culture demonstrated pinpoint growth with a few gram-negative rods on the Gram stain and awaiting reincubation. We will continue to trend for now but hold antibiotics pending culture results the most the patient should be febrile or having worsening oxygenation issues. Referral has been made to LTAC. Awaiting insurance acceptance. From a critical care standpoint, the patient would likely be appropriate for discharge tomorrow. 45 minutes critical care time was spent evaluation management stabilize this patient with life-threatening illness Subjective Patient tolerated 40 minutes of pressure support on ventilator overnight before requiring assist control. This morning, he was seen while trialing pressure support. He has SOB and some discomfort at trach color, but denies chest pain, headache, N/V, or other symptoms. Denies confusion. Review of Systems Review of Systems: Constitutional: Denies fever, chills Cardiovascular: Denies chest pain Respiratory: + shortness of breath Gastrointestinal: Denies abdominal pain, nausea, vomiting Genitourinary: + chahal Musculoskeletal: Denies muscle aches/pain Neurological: Denies headache, numbness, tingling Physical Exam Physical Exam: Constitutional: Grossly A&Ox3, limited exam as patient is ventilated. NAD. Cooperative. HEENT: PERRL. Grossly EOMI. No appreciable JVD on right. Respiratory system: +trach. Coarse during mechanical ventilated breaths anterior and lateral lung yu. Breath sounds are quieter left vs right anterior/laterally. Posterior lung yu coarse and equal bilaterally. CVS: Tachycardic rate and rhythm. No murmurs, rubs, or gallops. 2+ bilateral lower extremity edema, possibly weeping, worsened from yesterday. Abdomen: Soft, nontender, nondistended. Extremities: Moving all extremities. L hand +edema, continues to improve daily. Neuro: Awake, following commands G/U: Positive Chahal Results & Data Results & Data ([facility]) Vital Signs (Past 12 Hours) Vital Signs Temp Pulse Resp BP Pulse Ox 03/23/21 05:58 37.3 C 109 H 18 105/54 L 95 03/23/21 05:20 136 H 28 H 94 03/23/21 04:58 37.2 C 108 H 20 123/62 96 03/23/21 04:38 99 H 22 94 03/23/21 03:58 37.5 C 99 H 20 93/55 L 100 03/23/21 03:15 13 03/23/21 02:59 37.5 C 102 H 22 104/55 L 99 03/23/21 01:58 37.5 C 104 H 18 127/55 L 98 03/23/21 00:58 37.4 C 105 H 18 106/56 L 100 03/23/21 00:54 20 03/22/21 23:58 37.2 C 113 H 20 115/73 100 03/22/21 22:59 37.2 C 101 H 22 144/69 H 100 03/22/21 21:58 37.2 C 103 H 20 94/56 L 100 03/22/21 20:58 37.0 C 112 H 20 134/72 98 03/22/21 20:15 108 H 21 98 03/22/21 19:33 36.7 C 104 H 20 127/71 96 03/22/21 19:03 36.6 C 115 H 20 159/73 H 99 Laboratory Results Abnormal lab results 03/23/21 03/23/21 03/23/21 Range/Units 03:00 03:00 03:00 RBC 2.74 L (4.7-6.1) M/uL Hgb 9.0 L (14.0-18.0) g/dL Hct 25.9 L (42-52) % Plt Count 104 L (130-400) K/uL MPV 10.5 H (7.4-10.4) fL APTT 57.8 H* (21.0-31.0) Seconds Sodium 127 L (136-145) mmol/L Chloride 92 L (98-107) mmol/L Creatinine 0.20 L (0.6-1.4) mg/dl BUN/Creatinine Ratio 32.7 H (10-20) Calcium 7.7 L (8.5-10.1) mg/dl Magnesium 1.5 L (1.8-2.4) mg/dl Total Bilirubin 1.8 H (0.2-1) mg/dl AST 57 H (15-37) U/L Total Protein 5.6 L (6.4-8.2) gm/dl Albumin 1.8 L (3.4-5.0) gm/dl Albumin/Globulin Ratio 0.5 L (0.9-2) Diagnostic Findings cxr: Interpreted by me. Trach collar and NG positions appropriate. Decreased aeration vs yesterday's cxr. Chest X-Ray 03/23/21 07:00 XR chest 1V portable HISTORY: Shortness of breath. Follow-up. COMPARISON: 03/22/2021. FINDINGS: Feeding tube terminates in the body of the stomach. Left jugular central venous catheter terminus at the SVC. There appears to be a partially visualized tracheostomy tube. There is a left shoulder prosthesis. No pneumothorax. Diffuse interstitial thickening and patchy bibasilar densities persist. The heart remains mildly enlarged. Suspect trace bilateral pleural effusions. IMPRESSION: 1. Satisfactory support line placement. 2. No change in the diffuse interstitial thickening and patchy bibasilar densities/effusions. ACT 112: Negative or not required by law. Electronically signed by: Seamus Chen M.D. 03/23/2021 8:09 AM Critical Care Time 45 Resident Activity Tracking Resident Involvement: Resident Care Provided Care Provided: Adult Hospital Medicine (1) Dysphagia Dysphagia type: unspecified Qualified Code(s): R13.10 - Dysphagia, unspec ified (2) Aspiration pneumonia Aspiration pneumonia type: unspecified Laterality: bilateral Lung location: upper lobe of lung Qualified Code(s): J69.0 - Pneumonitis due to inhalation of food and vomit
--- NOTE | 2021-03-23 08:10 | XRay Report ---
XR chest 1V portable HISTORY: Shortness of breath. Follow-up. COMPARISON: 03/22/2021. FINDINGS: Feeding tube terminates in the body of the stomach. Left jugular central venous catheter te rminus at the SVC. There appears to be a partially visualized tracheostomy tube. There is a left shou lder prosthesis. No pneumothorax. Diffuse interstitial thickening and patchy bibasilar densities pers ist. The heart remains mildly enlarged. Suspect trace bilateral pleural effusions. IMPRESSION: 1. Satisfactory support line placement. 2. No change in the diffuse interstitial thickening and patchy bibasilar densities/effusions. ACT 112: Negative or not required by law. Electronically signed by: Seamus Chen M.D. 03/23/2021 8:09 AM
[2021-03-23] MEDS: propofoL 1,000 MG/100 ML VIAL IV SCH ×3 (08:15→12:58)
[2021-03-23] MEDS: PHENYLEPHRINE HCL 20 MG in DEXTROSE 5% 500 ML IV SCH (08:15)
--- NOTE | 2021-03-23 08:25 | Communication Note ---
Date of Service: March 23, 2021 Heparin gtt on hold. Plan for EGD w/ PEG today. Attg add: I interviewed and examined pt, reviewed chart and labs.
[2021-03-23] MEDS: LANSOPRAZOLE 30 MG SOLTAB NG SCH ×2 (08:32→13:57)
[2021-03-23] MEDS: PROSOURCE NO CARB 30 ML/PKT NG SCH ×2 (08:32→14:04)
[2021-03-23] MEDS: TRIAMCINOLONE ACET 0.1% CR 15 GM TUBE TOP SCH ×3 (08:32→21:11)
[2021-03-23] MEDS ORDERED: FUROSEMIDE 40 MG in SYRINGE 0 ML IV ONE (09:15)
[2021-03-23] MEDS ORDERED: CALCIUM GLUCONATE 10% 1,000 MG in SODIUM CHLORIDE 0.9% 50 ML IV ONE (09:15)
[2021-03-23] MEDS ORDERED: NURSING DECISION MEDICATION PRN (10:51)
[2021-03-23] MEDS: SODIUM CHLOR 7% 4 ML NEB NEB SCH ×2 (11:03→19:19)
[2021-03-23] MEDS: ALBUT/IPRATROP 3MG/0.5MG NEB 3 ML VIAL NEB SCH ×4 (11:03→23:34)
[2021-03-23] MEDS ORDERED: ARTIFICIAL TEARS OP OINT 3.5 GM TUBE OP PRN (11:18)
[2021-03-23] MEDS ORDERED: ceFAZolin 2000MG 2,000 MG/15 ML SYR IV SCH (11:30)
[2021-03-23] MEDS ORDERED: FUROSEMIDE 40 MG/4 ML VIAL IV STA (11:33)
--- NOTE | 2021-03-23 12:21 | History & Physical Bridge Note ---
Date of Service March 23, 2021 History & Physical Bridge Note I have examined the patient, reviewed the History & Physical and in the interval since the performance of the History & Physical I have noted the following changes of clinical significance: no changes noted
[2021-03-23] MEDS ORDERED: ePHEDrine sulfate 50 MG/ML AMP IV PRN (12:45)
[2021-03-23] MEDS ORDERED: ATROPINE SULFATE 0.1 MG/ML 10ML SYR IV PRN (12:45)
[2021-03-23] MEDS ORDERED: MIDAZOLAM HCL 1 MG/ML 2ML VIAL ONE (13:03)
--- NOTE | 2021-03-23 13:33 | GI REPORT ---
Patient Name: Leon Ayala Procedure Date: 03/23/2021 12:12 PM Date of : 1945 Admit Type: Inpatient Age: 75 Gender: Male Attending MD: Alvino Meza MD Procedure: Upper GI endoscopy Providers: Alvino Meza MD Referring MD: Josiah Hope Md Indications: Place PEG due to neurological disorder causing impaired swallowing Medicines: See the Anesthesia note for documentation of the administered medications Complications: No immediate complications. Estimated Blood Loss: Estimated blood loss: none. Procedure: Pre-Anesthesia Assessment: - ASA Grade Assessment: IV - A patient with severe systemic disease that is a constant threat to life. After obtaining informed consent, the endoscope was passed under direct vision. Throughout the procedure, the patient's blood pressure, pulse, and oxygen saturations were monitored continuously. The Endoscope was introduced through the mouth, and advanced to the second part of duodenum. The upper GI endoscopy was accomplished without difficulty. The patient tolerated the procedure well. Findings: The examined esophagus was normal. Diffuse moderately erythematous mucosa without bleeding was found in the gastric fundus. The exam of the stomach was otherwise normal. The examined duodenum was normal. The patient was placed in the supine position for PEG placement. The stomach was insufflated to appose gastric and abdominal childress. A site was located in the body of the stomach with excellent transillumination for placement. The abdominal wall was marked and prepped in a sterile manner. The area was anesthetized with 5 mL of 1% lidocaine. The trocar needle was introduced through the abdominal wall and into the stomach under direct endoscopic view. A snare was introduced through the endoscope and opened in the gastric lumen. The guide wire was passed through the trocar and into the open snare. The snare was closed around the guide wire. The endoscope and snare were removed, pulling the wire out through the mouth. A skin incision was made at the site of needle insertion. The externally removable 20 Fr Jim-Cook gastrostomy tube was lubricated. The G-tube was tied to the guide wire and pulled through the mouth and into the stomach. The trocar needle was removed, and the gastrostomy tube was pulled out from the stomach through the skin. The external bumper was attached to the gastrostomy tube, and the tube was cut to remove the guide wire. The final position of the gastrostomy tube was confirmed by relook endoscopy, and skin marking noted to be 3.5 cm at the external bumper. The final tension and compression of the abdominal wall by the PEG tube and external bumper were checked and revealed that the bumper was moderately tight and mildly deforming the skin. The feeding tube was capped, and the tube site cleaned and dressed. There were no pictures captured during exam due to computer error. Impression: - Normal esophagus. - Erythematous mucosa in the gastric fundus. - Normal examined duodenum. - An externally removable PEG placement was successfully completed. - No specimens collected. Recommendation: - Please follow the post-PEG recommendations including: Nutrition consult for formula and volume, external bolster 1 cm from abdominal wall, NPO x4 hrs then water today, may use PEG today for meds and water, may use PEG tomorrow for feedings, flush PEG daily with 60 ml water, check site for bleeding q 4 hrs and clean site with soap and water daily and dry thoroughly. Alvino Meza M.D. Alvino Meza MD 03/23/2021 1:32:42 PM This report has been signed electronically. Note Initiated On: 03/23/2021 12:12 PM Number of Addenda: 0 I attest to the content of the Intraoperative Record and orders documented therein, exceptions below {[id number]}
[2021-03-23] MEDS ORDERED: SUGAMMADEX SODIUM 200 MG/2 ML VIAL IV ONE (13:54)
--- NOTE | 2021-03-23 14:05 | Billing Data ---
Date of Service March 23, 2021 Coding Level of Care Code Critical Care 1st 30-74 mins Time Spent (min) 46
--- NOTE | 2021-03-23 14:32 | Anesthesiology Progress Note ---
Date of Service March 23, 2021 Anesthesia Post Procedure Vital Signs Vital Signs: Temp Pulse Resp BP Pulse Ox 03/23/21 14:15 36.7 C 102 H 25 H 157/74 H 92 03/23/21 14:00 36.5 C 100 H 28 H 117/80 95 03/23/21 13:58 36.5 C 102 H 24 109/91 99 03/23/21 13:53 36.5 C 96 H 18 132/79 98 03/23/21 13:48 36.5 C 99 H 18 118/73 95 03/23/21 13:46 98 H 18 95 03/23/21 13:43 36.6 C 96 H 18 109/64 95 03/23/21 12:27 37 C 105 H 16 134/78 93 03/23/21 11:59 36.6 C 102 H 134/78 96 03/23/21 11:09 102 H 16 96 03/23/21 10:59 36.7 C 101 H 109/49 L 100 03/23/21 09:59 36.8 C 120 H 171/107 H 90 03/23/21 08:15 124 H 28 H 96 03/23/21 08:00 37.0 C 120 H 97 03/23/21 06:58 37.2 C 103 H 116/58 L 97 03/23/21 05:58 37.3 C 109 H 18 105/54 L 95 03/23/21 05:20 136 H 28 H 94 03/23/21 04:58 37.2 C 108 H 20 123/62 96 03/23/21 04:38 99 H 22 94 03/23/21 03:58 37.5 C 99 H 20 93/55 L 100 03/23/21 03:15 13 03/23/21 02:59 37.5 C 102 H 22 104/55 L 99 03/23/21 01:58 37.5 C 104 H 18 127/55 L 98 03/23/21 00:58 37.4 C 105 H 18 106/56 L 100 03/23/21 00:54 20 03/22/21 23:58 37.2 C 113 H 20 115/73 100 03/22/21 22:59 37.2 C 101 H 22 144/69 H 100 03/22/21 21:58 37.2 C 103 H 20 94/56 L 100 03/22/21 20:58 37.0 C 112 H 20 134/72 98 03/22/21 20:15 108 H 21 98 03/22/21 19:33 36.7 C 104 H 20 127/71 96 03/22/21 19:03 36.6 C 115 H 20 159/73 H 99 03/22/21 18:33 36.6 C 100 H 101/61 95 03/22/21 18:03 36.5 C 97 H 122/62 96 03/22/21 17:33 36.5 C 102 H 119/68 97 03/22/21 17:03 36.4 C L 101 H 123/64 97 03/22/21 16:48 36.4 C L 100 H 121/62 100 03/22/21 16:33 36.3 C L 98 H 129/73 96 03/22/21 16:18 36.3 C L 99 H 127/67 96 03/22/21 16:03 36.4 C L 102 H 115/78 96 03/22/21 16:00 101 H 03/22/21 15:48 36.3 C L 101 H 138/94 96 03/22/21 15:33 36.3 C L 93 H 129/70 99 03/22/21 15:18 36.3 C L 92 H 133/74 98 03/22/21 15:11 12 96 03/22/21 15:03 36.2 C L 96 H 141/77 H 98 03/22/21 14:48 36.2 C L 89 114/68 100 03/22/21 14:33 36.2 C L 88 114/61 98 Transfer of Care Handoff Completed per policy Notes Mental Status: alert / awake / arousable and participated in evaluation Patient Amnestic to Procedure: Yes Nausea / Vomiting: adequately controlled Pain: adequately controlled Airway Patency, RR, SpO2: stable & adequate BP & HR: stable & adequate Hydration State: stable & adequate Anesthetic Complications: no major complications apparent and Pt Satisfied with anesthetic care Notes: The patient is status post EGD with PEG tube placement with Dr. Meza. He was administered a non triggering anesthetic given his history of myositits. At the end of the procedure he was transported back to the ICU on full monitors. He is now awake with no complaints, all VSS. I did inform his nurse that additional air was added to his trach cuff during the procedure to minimize iar leak once he was placed the ventilator. She stated she was aware and called respiratory to check the cuff.
[2021-03-23] MEDS ORDERED: PIPERACILL/TAZOBAC CONSULT ACTIVE PRN (17:10)
--- NOTE | 2021-03-23 17:25 | Communication Note ---
Date of Service: March 23, 2021 Febrile to 38.4 this afternoon. risk factors: frequently aspirates. ventilator use. s/p trach 03/22 and PEG tube 03/23 micro reviewed: 03/22 sputum culture w/ pinpoint growth, reincubating. Sputum gram stain w/ many polys, few mononucleated cells, and rare gram neg bacilli. 03/22 urine/blood cultures pending. imaging reviewed: 03/22 cxr w/o new infiltrates labs reviewed: no leukocytosis. 03/20 procalc 1.21. Exam. Ill/tired appearing. Mild tactile temp. Anterior and lateral lung yu clear. Lines w/o erythema. PEG tube has 1x1 guaze piece surrounding tube, but no visible erythema beyond this. plan: check procalc in AM. empiric Zosyn 4.5g q8h x 2 days. cxr in AM. I have discussed the plan with the supervising attending.
[2021-03-23] MEDS ORDERED: PIPERACILLIN/TAZOBACTAM 4.5 GM in DEXTROSE 5% 100 ML IV ONE (17:30)
[2021-03-23] MEDS: ACETAMINOPHEN 1,000 MG/100 ML VIAL IV PRN (17:50)
--- NOTE | 2021-03-23 18:13 | Hospitalist Progress Note ---
Date of Service March 23, 2021 Assessment & Plan (1) Acute and chronic respiratory failure with hypoxia: (2) Aspiration pneumonia: (3) Multilobar lung infiltrate: Plan: Patient is a 75 yr male with H/O Inclusion body myositis muscular dystrophy, chronic hyponatremia, MITZI with nocturnal hypoxemia on 2 L nasal cannula O2, restrictive lung disease due to muscular dystrophy, paroxysmal atrial fibrillation in setting of bronchodilators, hypertension, mild aortic valve stenosis, BPH and other medical problems listed below who presents with worsening shortness of breath over the past few days and found to have acute on chronic hypoxic respiratory failure and multilobar pneumonia. Acute Reparatory failure with Hypoxia Suspected Multifocal Pneumonia S/P Bronchoscopy for mucous plug removal S/P Tracheostomy on 03/22 --CTA:No PE. Multifocal airspace opacity within the right upper lobe and left upper lobe likely representing pneumonia. Short-term follow-up in 4-[address] on nonemergency basis is recommended. Evaluation of the right hemidiaphragm with complete atelectasis of the left lower lobe. Gas-filled loop of large bowel is seen within upper abdomen which is in upper limits of normal. Mild four-chamber cardiomegaly. -Continue Zosyn -Continue Pulm hygiene -Appreciate Human Services Program Specialist help -Off pressors, sedation -Wean off of Vent as able May need LTAC placement Febrile today Aspiration Respiratory arrest leading to cardiac arrest Cardiogenic Shock/PEA--Resolved 03/19 21 - PM - CODE BLUE--Intubated Piece of food was removed at intubation, patient then also underwent bronchoscopy-secretions removed Speech Therapy H/O Esophageal dysmotility Appreciate GI Input S/P PEG placement on 03/23/21 Planned for tube feeding tomorrow (4) Inclusion body myositis (IBM): Plan: Progressive, very limited motor function in LUE. 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 Leggett previously Continue fluid restriction Monitor with daily BMP Sodium 127 today (6) Paroxysmal atrial fibrillation: Plan: Follows with Dr. Minor, Cardiology Amiodarone recently discontinued Resume Metoprolol as able Awaiting results of OP zio monitor Not on anticoagulation due to H/O subdural hematoma(due to fall) and Thrombocytopenia (7) BPH (benign prostatic hypertrophy): Plan: Continue Flomax H/O muscular dystrophy Restrictive lung disease Chronically elevated left hemidiaphragm Continue management as above Hypokalemia Hypomagnesemia Replace electrolytes as needed Left radius thrombus Off heparin drip currently Recheck left upper extremity arterial Dopplers in 2 to 3 days DVT Px: Resume Heparin as able Code status: FULL CODE Admission and Anticipated Discharge Date Admission Date: March 18, 2021 Subjective Patient is seen and examined at bedside History difficult to obtain due to trach Discussed with patient's family at bedside Had PEG tube placement today Off sedation, pressors On weaning trial during my encounter Review of Systems Review of Systems: All systems reviewed & are unremarkable except as noted in Subjective Physical Exam Physical Exam: Physical Exam: Vitals signs as noted above General Appearance:Moderately built and nourished, no apparent distress Head: normocephalic, Atraumatic Eyes: normal inspection, EOMI Neck: supple, Trachea midline, +Trach Respiratory/Chest: Coarse breath sounds, No accessory muscle use Cardiovascular: S1, S2, No murmur Abdomen/GI:Soft, Non tender, Bowel sounds present, +PEG Extremities/Musculoskeletal:normal inspection, RUE swelling, +Contractures Neurologic/Psych:Alert, awake, unable to perform complete neuro exam Skin: normal color, warm Results & Data Results & Data ([facility]) Vital Signs (Past 12 Hours) Vital Signs Temp Pulse Resp BP Pulse Ox 03/23/21 15:00 108 H 18 95 03/23/21 14:30 36.8 C 102 H 24 126/77 93 03/23/21 14:15 36.7 C 102 H 25 H 157/74 H 92 03/23/21 14:00 36.5 C 100 H 28 H 117/80 95 03/23/21 13:58 36.5 C 102 H 24 109/91 99 03/23/21 13:53 36.5 C 96 H 18 132/79 98 03/23/21 13:48 36.5 C 99 H 18 118/73 95 03/23/21 13:46 98 H 18 95 03/23/21 13:43 36.6 C 96 H 18 109/64 95 03/23/21 12:27 37 C 105 H 16 134/78 93 03/23/21 11:59 36.6 C 102 H 134/78 96 03/23/21 11:09 102 H 16 96 03/23/21 10:59 36.7 C 101 H 109/49 L 100 03/23/21 09:59 36.8 C 120 H 171/107 H 90 03/23/21 08:15 124 H 28 H 96 03/23/21 08:00 37.0 C 120 H 97 03/23/21 06:58 37.2 C 103 H 116/58 L 97 Laboratory Results Short CBC 03/23/21 Range/Units 03:00 WBC 7.27 (4.8-10.8) K/uL Hgb 9.0 L (14.0-18.0) g/dL Hct 25.9 L (42-52) % Plt Count 104 L (130-400) K/uL BMP 03/23/21 03:00 Sodium 127 L Potassium 3.9 D Chloride 92 L Carbon Dioxide 29 BUN 7 Creatinine 0.20 L Glucose 93 Calcium 7.7 L Liver Function 03/23/21 Range/Units 03:00 Total Bilirubin 1.8 H (0.2-1) mg/dl AST 57 H (15-37) U/L ALT 50 (12-78) U/L Alkaline Phosphatase 82 (45-117) U/L Albumin 1.8 L (3.4-5.0) gm/dl (1) Aspiration pneumonia Aspiration pneumonia type: unspecified Laterality: bilateral Lung location: upper lobe of lung Qualified Code(s): J69.0 - Pneumonitis due to inhalation of food and vomit
[2021-03-23] MEDS: PIPERACILLIN/TAZOBACTAM 4.5 GM in DEXTROSE 5% 100 ML IV SCH (21:11)
[2021-03-23] MEDS: TAMSULOSIN HCL 0.4 MG CAP PO SCH (21:11)
[2021-03-24] MEDS: TUBE FEEDING WATER FLUSH NG SCH ×3 (02:12→08:14)
[2021-03-24] MEDS: ALBUT/IPRATROP 3MG/0.5MG NEB 3 ML VIAL NEB SCH ×6 (03:45→23:26)
[2021-03-24] MEDS: PIPERACILLIN/TAZOBACTAM 4.5 GM in DEXTROSE 5% 100 ML IV SCH ×3 (04:22→20:10)
[2021-03-24 04:49] LABS: Hematocrit (blood only) 25.5 % (42-52); Hemoglobin 8.8 g/dL (14.0-18.0); Mean Corpuscular Hemoglobin 32.2 pg (25-34); Mean Corpuscular Hgb Conc 34.5 g/dL (32-36); Mean Corpuscular Volume 93.4 fL (80-100); Mean Platelet Volume 10.4 fL (7.4-10.4); Platelet Count 115 K/uL (130-400); RDW Coefficient of Variation 13.1 % (11.5-14.5); RDW Standard Deviation 44.5 fL (36.4-46.3); Red Blood Count 2.73 M/uL (4.7-6.1); White Blood Count 5.36 K/uL (4.8-10.8)
[2021-03-24 05:10] LABS: INR 1.1 (0.9-1.1); Prothrombin Time 10.9 Seconds (9.0-12.0)
[2021-03-24 05:15] LABS: Albumin Globulin Ratio 0.5 (0.9-2); BUN Creatinine Ratio 23.2 (10-20); Bilirubin Direct 0.9 mg/dl (0-0.2); Bilirubin,Total 1.5 mg/dl (0.2-1); Calcium 8.3 mg/dl (8.5-10.1); Creatinine Clr Calc Pharmacy 199.1 ml/min; Est GFR (African American) 141.3 ml/min; Est GFR (Non-African American) 121.9 ml/min; Globulin 3.8 gm/dl (2.5-4.0); Magnesium 2.4 mg/dl (1.8-2.4); Phosphorus 4.4 mg/dl (2.5-4.9); Total Protein 5.8 gm/dl (6.4-8.2)
[2021-03-24] MEDS: ICU ELECTROLYTE REPLACEMENT PROTOCOL SCH ×2 (05:52→18:08)
[2021-03-24 05:54] LABS: Partial Thromboplastin Time 53.8 Seconds (21.0-31.0)
[2021-03-24] MEDS: POTASSIUM CHLORIDE / WTR 20 MEQ/100 ML PLCT IV SCH ×4 (06:23→13:14)
--- NOTE | 2021-03-24 07:35 | Hospitalist Progress Note ---
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 Acute Reparatory failure with Hypoxia Suspected Multifocal Pneumonia S/P Bronchoscopy for mucous plug removal S/P Tracheostomy on 03/22 --CTA:No PE. Multifocal airspace opacity within the right upper lobe and left upper lobe likely representing pneumonia. Short-term follow-up in 4-[address] on nonemergency basis is recommended. Evaluation of the right hemidiaphragm with complete atelectasis of the left lower lobe. Gas-filled loop of large bowel is seen within upper abdomen which is in upper limits of normal. Mild four-chamber cardiomegaly. -Blood Cx: No growth to date Sputum Cx: Yeast -Continue Zosyn empirically -Continue Pulm hygiene -Appreciate Rod Straightener help -Off pressors, sedation -Continue to require vent support May need LTAC placement Weaning trial daily Aspiration Respiratory arrest leading to cardiac arrest Cardiogenic Shock/PEA--Resolved 03/19 21 - PM - CODE BLUE--Intubated Piece of food was removed at intubation, patient then also underwent bronchoscopy-secretions removed Speech Therapy H/O Esophageal dysmotility Appreciate GI Input S/P PEG placement on 03/23/21 Continue tube feeds (4) Inclusion body myositis (IBM): Plan: Progressive, very limited motor function in LUE. 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 Leggett previously Continue fluid restriction Monitor with daily BMP Sodium 129 today (6) Paroxysmal atrial fibrillation: Plan: Follows with Dr. Minor, Cardiology Amiodarone recently discontinued Resume Metoprolol as able Awaiting results of OP zio monitor Not on anticoagulation due to H/O subdural hematoma(due to fall) and Thrombocytopenia (7) BPH (benign prostatic hypertrophy): Plan: Continue Flomax H/O muscular dystrophy Restrictive lung disease Chronically elevated left hemidiaphragm Continue management as above Hypokalemia Hypomagnesemia Replace electrolytes as needed Left UE thrombus Repeat Doppler on 03/24/21 showed no occlusive thrombus On IV Heparin DVT Px: IV Heparin Code status: FULL CODE Admission and Anticipated Discharge Date Admission Date: March 18, 2021 Subjective Patient is seen and examined at bedside History difficult to obtain due to trach No distress on exam Remains on Vent Planned to be started on Tube feeds today Patient denies dyspnea, chest pain, any pain at trach collar Low grade fever today Review of Systems Review of Systems: All systems reviewed & are unremarkable except as noted in Subjective Physical Exam Physical Exam: Physical Exam: Vitals signs as noted above General Appearance:Moderately built and nourished, no apparent distress Head: normocephalic, Atraumatic Eyes: normal inspection, EOMI Neck: supple, Trachea midline, +Trach Respiratory/Chest: Normal breath sounds, No accessory muscle use Cardiovascular: S1, S2, No murmur Abdomen/GI:Soft, Non tender, Bowel sounds present, +PEG Extremities/Musculoskeletal:normal inspection, RUE swelling, +Contractures Neurologic/Psych:Alert, awake, unable to perform complete neuro exam Skin: normal color, warm Results & Data Results & Data ([facility]) Vital Signs (Past 12 Hours) Vital Signs Temp Pulse Pulse Resp BP Pulse Ox 03/24/21 06:30 37.0 C 101 H 22 149/79 H 97 03/24/21 05:30 36.9 C 104 H 18 138/65 99 03/24/21 04:30 36.7 C 113 H 20 167/82 H 100 03/24/21 03:45 101 H 101 H 19 98 03/24/21 03:30 36.9 C 97 H 18 131/53 L 99 03/24/21 02:30 36.8 C 101 H 18 119/50 L 94 03/24/21 01:30 36.9 C 101 H 18 124/80 92 03/24/21 00:30 37.1 C 107 H 21 124/50 L 91 03/23/21 23:36 18 03/23/21 23:35 104 H 18 94 03/23/21 23:30 37.4 C 105 H 22 113/52 L 93 03/23/21 22:30 37.7 C H 110 H 18 95/57 L 92 03/23/21 22:15 37.7 C H 115 H 20 106/61 93 03/23/21 21:30 37.8 C H 115 H 20 102/60 100 03/23/21 20:30 38.0 C H 119 H 18 96/52 L 98 Laboratory Results Short CBC 03/24/21 Range/Units 04:32 WBC 5.36 (4.8-10.8) K/uL Hgb 8.8 L (14.0-18.0) g/dL Hct 25.5 L (42-52) % Plt Count 115 L (130-400) K/uL BMP 03/24/21 04:32 Sodium 129 L Potassium 3.0 L D Chloride 92 L Carbon Dioxide 30 BUN 8 Creatinine 0.35 L Glucose 112 H Calcium 8.3 L Liver Function 03/24/21 Range/Units 04:32 Total Bilirubin 1.5 H (0.2-1) mg/dl Direct Bilirubin 0.9 H (0-0.2) mg/dl AST 59 H (15-37) U/L ALT 48 (12-78) U/L Alkaline Phosphatase 85 (45-117) U/L Albumin 2.0 L (3.4-5.0) gm/dl (1) Aspiration pneumonia Aspiration pneumonia type: unspecified Laterality: bilateral Lung location: upper lobe of lung Qualified Code(s): J69.0 - Pneumonitis due to inhalation of food and vomit
[2021-03-24] MEDS: SODIUM CHLOR 7% 4 ML NEB NEB SCH ×2 (07:41→20:42)
[2021-03-24] MEDS: propofoL 1,000 MG/100 ML VIAL IV SCH ×2 (07:58→07:59)
--- NOTE | 2021-03-24 07:58 | Critical Care Progress Note ---
Date of Service March 24, 2021 Assessment & Plan (1) Admitted to intensive care unit: Plan: 75 y/o male w/ PMHx of pAF, BPH, IBM, and muscular dystrophy admitted for acute on chronic respiratory failure (03/18), intubated for cardiac arrest 2/2 choking (03/19), extubated, reintubated, and is s/p tracheostomy on 03/22, s/p PEG tube on 03/23. Stable. Overnight events: Afebrile since 9pm. Continued used of ventilator. No acute events. NEURO - CAM-ICU: negative. RASS 0. CARDIAC - - paroxysmal atrial fibrillation, converted to sinus since 03/21 evening, currently sinus tach 100s - started on therapeutic heparin drip on 03/20 because has L arterial clot. - hold home metoprolol tartrate PO 25 mg BID while patient is in sinus - shock, resolved - echo EF>70%, hyperdynamic - elevated trop has peaked - not on pressors RESP - - ventilator dependent acute on chronic respiratory failure with hypoxia. 03/22 trach. - 03/24AM vent settings AC. RR 18. Vt 400. peep 5. FiO2 30. ETCo2 304. - currently at PS14 RR 29 peep 5 fio2 30 Vt 500, Ppeak 21.5 - impaired mucous clearance, fluid overload as well as restrictive lung disease may be contributory - earlier cxrs w/ pulm vasc congestion, bibasilar densities - no scheduled diuresis. diurese w/ IV lasix 40 1x/day as needed. will give dose today - resumed Duoneb treatments and hypertonic saline flushes. continue chest physiotherapy - subj improvement in respiratory status. good diuresis/UOP overnight 03/23- 03/24 - respiratory alkalosis - per 03/22 AM ABG 7.55/34/97/30 - should improve w/ trach collar trials - history of muscular dystrophy - with restrictive lung disease and chronically elevated L hemidiaphragm GI - - history of esophageal dysmotility, most likely the cause of choking - s/p PEG tube placement 03/23 - restarted feeds. meds via PEG. restarted home PO meds. exception: for Mg repletion cannot crush MgCl. - hyperbilirubinemia stable - chronic AST/ALT elevation downtrending. alk phos not elevated. reassuring RENAL/LYTES - hypokalemia, hypomagnesemia, hypocalcemia - repleting, follow metabolic panels - chronic hyponatremia 129- 131 - stable 127 at this time - per workup, hypotonic 266. volume status euvolemic vs hypervolemic - if euvolemic hyponatremia: Uosm 484, most consistent w/ SIADH. AM cortisol upper limit of normal, not low. - if hypervolemic hyponatremia: consider CHF/volume overload. FENa 0.2% - per chart review, patient has seen [facility] nephrology in past who suspected SIADH - follow via BMP. fluid restrict when able. - metabolic alkalosis, most likely saline-responsive, resolved - 03/23-03/24: 1.2L in 3.5L out past 24 hrs. cumulative 13L in 10L out, most likely hypervolemic - continue Is/Os. PRN diuresis as above. Chahal out today because s/p PEG and able to void at home. L IJ out because not needing pressors. ENDO - AM cortisol upper limit of normal, no known prior hx of endocrine problems - TSH slightly elevated, likely in context of hospitalization HEME - mild chronic thrombocytopenia - stable. follow cbc. smear not indicated. left radial thrombus - heparin drip, held prior to PEG tube - recheck LUE arterial doppler today; occlusive thrombus at L radial resolved. L radial slightly decreased flow compared to R radial. - can consider DOAC or other anticoagulation options in future. hx subdural hematoma in 2019 from fall. chronic mild thrombocytopenia >100 ID - - aspiration pneumonia, resolved - 03/18 CTA: multifocal airspace opacity within the right upper lobe and left upper lobe likely representing pneumonia - 03/21 stopped doxy. 03/22 completed Unasyn - fever (38.6C 03/22 1AM, 03/23 evening) - repeat sputum, blood, and urine cultures pending; UC neg. BC 48 hrs neg. sputum culture: yeast, not savan[place] albicans/dub - spiked fever 03/23 evening Tmax 38.6, resolved overnight, started 48 hours of IV Zosyn (812 PM start) to empirically cover for VAP vs aspiration PNA - leukocytosis resolved. VTE: SCDs and therapeutic heparin drip GI: Lansoprazole Lines: PIVs x2 on right. L IJ Diet: NPO. No meds or water by mouth. Oral hygiene (mouth swabs) q4h. PEG tube feeds Dispo: ICU. Awaiting LTACH placement. code status: full continue goals of care discussion PT/OT reordered because will need for placement. encourage sitting up in chair (2) Cardiac arrest: (3) Chronic hyponatremia: (4) Acute and chronic respiratory failure with hypoxia: (5) Aspiration pneumonia: (6) Paroxysmal atrial fibrillation: (7) Dysphagia: (8) BPH (benign prostatic hypertrophy): (9) Inclusion body myositis (IBM): (10) Elevated troponin: (11) Hypokalemia: (12) Aspiration into airway: Admission and Anticipated Discharge Date Admission Date: March 18, 2021 Supervising Physician Co-Signing Physician Notes Patient seen and examined. Discussed with bedside critical care nurse as well as multidisciplinary rounds. Agree with assessment and plan as noted by the [facility] practice resident with the following exceptions. Patient is doing well clinically. He has improved mental status. He has been up to the chair with physical therapy and Occupational Therapy. Were working on LTAC placement. He is tolerating pressure support weans but not yet ready to go to trach collar trials. He was placed on antibiotics empirically. Awaiting cultures. If cultures remain negative antibiotics will be discontinued in the next 24 to 48 hours. Will restart tube feeding. Heparin has been restarted. The repeat ultrasound of the right upper extremity demonstrates resolution of the previously noted arterial thrombosis. His indication now for anticoagulation would be atrial fibrillation which has been paroxysmal and intermittent. Can continue to discuss with the patient and his risks and benefits of long-term anticoagulation. Continue metoprolol. Continue to monitor patient in the ICU until he is stable on trach collar trials or accepted at LTAC. Patient was updated at the bedside. Subjective No subjective complaints. Denies neck pain, chest pain, SOB, abd pain. Review of Systems Review of Systems: Constitutional: Denies fever, chills Cardiovascular: Denies chest pain Respiratory: + shortness of breath Gastrointestinal: Denies abdominal pain, nausea, vomiting Genitourinary: + chahal Musculoskeletal: Denies muscle aches/pain Neurological: Denies headache, numbness, tingling Physical Exam Physical Exam: Constitutional: Grossly A&Ox3, limited exam as patient is ventilated. NAD. Cooperative. HEENT: PERRL. Grossly EOMI. Respiratory system: +trach. Lungs clear anteriorly and laterally. CVS: Tachycardic rate and rhythm. No murmurs, rubs, or gallops. 2+ bilateral lower extremity edema, slightly worse on right Abdomen: Soft, nontender, nondistended. +PEG. Extremities: Moving all extremities. L hand +edema, continues to improve daily. Neuro: Awake, following commands G/U: Positive Chahal Results & Data Results & Data ([facility]) Vital Signs (Past 12 Hours) Vital Signs HR mostly low 100s. afeb since 9pm. 37.0C most recent. Temp Pulse Pulse Resp BP Pulse Ox 03/24/21 06:30 37.0 C 101 H 22 149/79 H 97 03/24/21 05:30 36.9 C 104 H 18 138/65 99 03/24/21 04:30 36.7 C 113 H 20 167/82 H 100 03/24/21 03:45 101 H 101 H 19 98 03/24/21 03:30 36.9 C 97 H 18 131/53 L 99 03/24/21 02:30 36.8 C 101 H 18 119/50 L 94 03/24/21 01:30 36.9 C 101 H 18 124/80 92 03/24/21 00:30 37.1 C 107 H 21 124/50 L 91 03/23/21 23:36 18 03/23/21 23:35 104 H 18 94 03/23/21 23:30 37.4 C 105 H 22 113/52 L 93 03/23/21 22:30 37.7 C H 110 H 18 95/57 L 92 03/23/21 22:15 37.7 C H 115 H 20 106/61 93 03/23/21 21:30 37.8 C H 115 H 20 102/60 100 03/23/21 20:30 38.0 C H 119 H 18 96/52 L 98 Laboratory Results WBC resolved. 11.36->7.27->5.36. Hb 10.3->9->8.8, stable. Na stable 129. K 3.9- >3.0. Ca 7.7->8.3. Alb 1.8->2. phos 2.5->4.4. Mg 1.5->2.4. T bili 1.8->1.5 stable. AST 59 stable. Sputum culture reincubating 03/24/21 04:32 03/24/21 04:32 Diagnostic Findings Chest X-Ray 03/24/21 07:00 XR chest 1V portable CLINICAL HISTORY: f/u lung opacities COMPARISON STUDY: March 23, 2021 FINDINGS: No pneumothorax. Stable small left pleural effusion. Unchanged atelectasis/infiltrates at bilateral bases. Lung volumes are decreased with crowded lung markings. Redemonstration of mild elevation of the left hemidiaphragm. Costomediastinal silhouette is stable. Interval removal of feeding tube. Stable position of left-sided central venous catheter and tracheostomy tube. Pulmonary vasculature is indistinct.. Aorta is calcified. Osseous structures: Mild osteopenia. Degenerative changes of the spine. Gas-filled loops of bowel are again seen within left upper quadrant. Prosthetic left shoulder is again seen. IMPRESSION: 1. Stable small left pleural effusion. Unchanged atelectasis/infiltrates at bilateral bases. 2. Possible mild pulmonary edema. 3. Support apparatus as above. ACT 112: Negative or not required by law. The above report was generated using voice recognition software. It may contain grammatical, syntax or spelling errors. Electronically signed by: Raiza Powers DO 03/24/2021 11:25 AM Duplex Scan Upper Extremity Artery 03/24/21 09:40 ULTRASOUND BILATERAL UPPER EXTREMITY ARTERIAL CLINICAL HISTORY: Reassess left radial artery clot. COMPARISON STUDY: Left upper extremity arterial ultrasound dated 03/19/2021. TECHNIQUE: Real-time grayscale and color Doppler sonography of the right and left upper extremity arteries is performed. Right upper extremity: The right upper extremity arteries are widely patent with no evidence of hemodynamically significant stenosis or occlusion. Normal Doppler arterial waveforms. Velocities within the right common carotid artery measure up to 93 cm/s. Velocities within the subclavian artery measure up to 80 cm/s, and velocities within the right axillary artery measure up to 89 cm/s. Velocities within the brachial artery measure up to 58 cm/s. The renal arteries are patent with velocities measuring up to 61 cm/s. Left upper extremity: The left upper extremity arteries are patent. There is slightly diminished flow within the left radial artery as compared to the right. Occlusive thrombus seen on 03/19/2021 is no longer identified. The remaining arteries of the left upper extremity are patent. Normal Doppler waveforms are maintained. The left subclavian artery is patent with velocities measuring up to 40 cm/s. Velocities in the axillary artery measure up to 96 cm/s, and velocities in the left brachial artery measure up to 102 cm/s. Velocities within the radial artery measure up to 100 cm/s, and within the ulnar artery measure up to 107 cm/s. IMPRESSION: 1. Flow is now seen within the distal left radial artery. The occlusive thrombus seen on 03/19/2021 is no identified. 2. There is slightly diminished flow suggested in the left radial artery as compared to the right. 3. Otherwise normal Doppler assessment of the arteries of the right and left upper extremity. Dictated: 03/24/2021 12:47 PM Transcribed: 03/24/2021 1:20 PM Ladonna [id number] AMINA_Cherrie Electronically signed by: Curt Delaney M.D. 03/24/2021 1:21 PM Resident Activity Tracking Resident Involvement: Resident Care Provided Care Provided: Adult Hospital Medicine (1) Dysphagia Dysphagia type: unspecified Qualified Code(s): R13.10 - Dysphagia, unspecified (2) Aspiration pneumonia Aspiration pneumonia type: unspecified Laterality: bilateral Lung location: upper lobe of lung Qualified Code(s): J69.0 - Pneumonitis due to inhalation of food and vomit
[2021-03-24] MEDS: HEPARIN SODIUM/DEXTROSE 25,000 UNITS/500 ML BAG IV SCH ×2 (07:59→20:06)
[2021-03-24] MEDS: PROSOURCE NO CARB 30 ML/PKT NG SCH (08:04)
[2021-03-24] MEDS: LANSOPRAZOLE 30 MG SOLTAB NG SCH (08:05)
[2021-03-24] MEDS: TRIAMCINOLONE ACET 0.1% CR 15 GM TUBE TOP SCH ×2 (08:06→20:15)
[2021-03-24] MEDS: fentaNYL DRIP 1,250 MCG/250 ML BAG IV SCH (08:42)
[2021-03-24] MEDS ORDERED: FUROSEMIDE 40 MG in SYRINGE 0 ML IV ONE (10:00)
--- NOTE | 2021-03-24 11:26 | XRay Report ---
XR chest 1V portable CLINICAL HISTORY: f/u lung opacities COMPARISON STUDY: March 23, 2021 FINDINGS: No pneumothorax. Stable small left pleural effusion. Unchanged atelectasis/infiltrates at bilateral bases. Lung volumes are decreased with crowded lung ma rkings. Redemonstration of mild elevation of the left hemidiaphragm. Costomediastinal silhouette is stable. Interval removal of feeding tube. Stable position of left-sided central venous catheter and tracheost margaret tube. Pulmonary vasculature is indistinct.. Aorta is calcified. Osseous structures: Mild osteopenia. Degenerative changes of the spine. Gas-filled loops of bowel are again seen within left upper quadrant. Prosthetic left shoulder is again seen. IMPRESSION: 1. Stable small left pleural effusion. Unchanged atelectasis/infiltrates at bilateral bases. 2. Possible mild pulmonary edema. 3. Support apparatus as above. ACT 112: Negative or not required by law. The above report was generated using voice recognition software. It may contain grammatical, syntax o r spelling errors. Electronically signed by: Raiza Powers DO 03/24/2021 11:25 AM
[2021-03-24] MEDS: TUBE FEEDING WATER FLUSH PEG SCH ×3 (13:15→22:23)
--- NOTE | 2021-03-24 13:22 | Ultrasound Report ---
ULTRASOUND BILATERAL UPPER EXTREMITY ARTERIAL CLINICAL HISTORY: Reassess left radial artery clot. COMPARISON STUDY: Left upper extremity arterial ultrasound dated 03/19/2021. TECHNIQUE: Real-time grayscale and color Doppler sonography of the right and left upper extremity art eries is performed. Right upper extremity: The right upper extremity arteries are widely patent with no evidence of hemod ynamically significant stenosis or occlusion. Normal Doppler arterial waveforms. Velocities within th e right common carotid artery measure up to 93 cm/s. Velocities within the subclavian artery measure up to 80 cm/s, and velocities within the right axillary artery measure up to 89 cm/s. Velocities with in the brachial artery measure up to 58 cm/s. The renal arteries are patent with velocities measuring up to 61 cm/s. Left upper extremity: The left upper extremity arteries are patent. There is slightly diminished flow within the left radial artery as compared to the right. Occlusive thrombus seen on 03/19/2021 is no lo nger identified. The remaining arteries of the left upper extremity are patent. Normal Doppler wavefo fanta are maintained. The left subclavian artery is patent with velocities measuring up to 40 cm/s. Chase ocities in the axillary artery measure up to 96 cm/s, and velocities in the left brachial artery eliseo ure up to 102 cm/s. Velocities within the radial artery measure up to 100 cm/s, and within the ulnar artery measure up to 107 cm/s. IMPRESSION: 1. Flow is now seen within the distal left radial artery. The occlusive thrombus seen on 03/19/2021 is no identified. 2. There is slightly diminished flow suggested in the left radial artery as compared to the right. 3. Otherwise normal Doppler assessment of the arteries of the right and left upper extremity. Dictated: 03/24/2021 12:47 PM Transcribed: 03/24/2021 1:20 PM Ladonna [id number] AM[facility]Cherrie Electronically signed by: Curt Delaney M.D. 03/24/2021 1:21 PM
--- NOTE | 2021-03-24 14:59 | Billing Data ---
Date of Service March 24, 2021 Coding Level of Care Code 10833 Subseq Hosp Care Lvl 3
[2021-03-24] MEDS: PEPTAMEN 1.5 CAL 1,000 ML BAG PEG SCH (18:07)
[2021-03-24] MEDS: TAMSULOSIN HCL 0.4 MG CAP PO SCH (20:12)
[2021-03-24] MEDS: PARoxetine HCL 20 MG TAB PEG SCH (20:14)
[2021-03-24] MEDS: METOPROLOL TARTRATE 25 MG TAB PO SCH (20:40)
[2021-03-24 20:58] LABS: BUN Creatinine Ratio 30.6 (10-20); Calcium 8.2 mg/dl (8.5-10.1); Creatinine Clr Calc Pharmacy 192.1 ml/min; Est GFR (African American) 139.6 ml/min; Est GFR (Non-African American) 120.5 ml/min; Potassium 3.5 mmol/L (3.5-5.1)
[2021-03-24] MEDS: POTASSIUM CHLORIDE 20 MEQ/15 ML UDC NG SCH (22:16)
[2021-03-25] MEDS: TUBE FEEDING WATER FLUSH PEG SCH ×7 (00:22→21:02)
[2021-03-25] MEDS: POTASSIUM CHLORIDE 20 MEQ/15 ML UDC NG SCH ×3 (01:50→13:29)
[2021-03-25] MEDS: ALBUT/IPRATROP 3MG/0.5MG NEB 3 ML VIAL NEB SCH ×6 (04:25→22:45)
[2021-03-25 05:40] LABS: Basophils # (auto) 0.02 K/uL (0-0.2); Basophils % (auto) 0.4 %; Eosinophils # (auto) 0.22 K/uL (0-0.5); Eosinophils % (auto) 4.2 %; Hematocrit (blood only) 23.7 % (42-52); Hemoglobin 8.3 g/dL (14.0-18.0); Immature Granulocytes # (auto) 0.02 K/uL (0.00-0.02); Immature Granulocytes % (auto) 0.4 %; Lymphocytes # (auto) 0.85 K/uL (1.2-3.4); Mean Corpuscular Hemoglobin 33.1 pg (25-34); Mean Corpuscular Volume 94.4 fL (80-100); Monocytes # (auto) 0.93 K/uL (0.11-0.59); Monocytes % (auto) 17.5 %; Neutrophils # (auto) 3.26 K/uL (1.4-6.5); Neutrophils % (auto) 61.5 %; Platelet Count 157 K/uL (130-400); RDW Coefficient of Variation 13.2 % (11.5-14.5); RDW Standard Deviation 45.7 fL (36.4-46.3); Red Blood Count 2.51 M/uL (4.7-6.1)
[2021-03-25] MEDS: PIPERACILLIN/TAZOBACTAM 4.5 GM in DEXTROSE 5% 100 ML IV SCH ×2 (05:50→13:15)
[2021-03-25 05:52] LABS: Partial Thromboplastin Ratio 1.8
[2021-03-25 05:56] LABS: Partial Thromboplastin Time 47.2 Seconds (21.0-31.0)
[2021-03-25 06:05] LABS: BUN Creatinine Ratio 32.8 (10-20); Calcium 8.1 mg/dl (8.5-10.1); Creatinine Clr Calc Pharmacy 210.1 ml/min; Est GFR (African American) 144.7 ml/min; Est GFR (Non-African American) 124.9 ml/min; Magnesium 2.1 mg/dl (1.8-2.4); Potassium 3.9 mmol/L (3.5-5.1)
[2021-03-25 06:11] LABS: Phosphorus 3.7 mg/dl (2.5-4.9)
[2021-03-25] MEDS: SODIUM CHLOR 7% 4 ML NEB NEB SCH ×2 (07:40→19:58)
[2021-03-25] MEDS: ICU ELECTROLYTE REPLACEMENT PROTOCOL SCH ×2 (07:46→17:35)
--- NOTE | 2021-03-25 08:32 | Critical Care Progress Note ---
Date of Service March 25, 2021 Assessment & Plan (1) Admitted to intensive care unit: Plan: Impression: 75 y/o male w/ PMHx of pAF, BPH, IBM, and muscular dystrophy admitted for acute on chronic respiratory failure (03/18), intubated for cardiac arrest 2/2 choking (03/19), extubated, reintubated, and is s/p tracheostomy on 03/22. 24-hour events: Tolerating pressure support ventilation. Transition to trach collar this morning. Tube feeds advance to goal. T-max of 38 1 in the last 24 hours. 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 Working with PT OT. Out of bed to chair via Lauren lift. Appears at his baseline. CARDIAC -paroxysmal atrial fibrillation. Currently rate controlled on heparin drip. Continue metoprolol. RESP -inability to manage secretions resulted in intubation x2 with eventual tracheostomy placement. He has a 6 [address] fen[address] cuff in place. Continue pressure support weans with transition to trach collar as tolerated. Continuing hypertonic saline for pulmonary toilet. Patient has an elevated left hemidiaphragm also likely contributing to his respiratory insufficiency. Chest x-ray today demonstrated stable findings. GI -status post PEG tube. Tube feeding per nutrition. RENAL/LYTES -continue gentle diuresis. 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 Continue to follow at this point in time. Fluid restrict. Decrease free water flushes -maintain chronic Gonsalves catheter ENDO -no current issues. Glycemic control per protocol HEME -mild anemia. No indication for transfusion. Patient did have a left arterial thrombosis. Follow-up ultrasound demonstrated resolution. He is on heparin for atrial fibrillation. Can transition to Eliquis ID -cultures negative today. Low-grade fevers. He is completed a course of Unasyn and doxycycline. He was placed on Zosyn empirically, will discontinue antibiotics for now and continue to follow fever curve and white blood cell count VTE: SCDs and therapeutic heparin drip GI: Lansoprazole Lines: PIVs x2 on right. L IJ Diet: Tube feedings per dietary Dispo: ICU. Awaiting LTACH placement.. Awaiting bed availability and insurance approval. Hopefully sometime next week code status: full (2) Cardiac arrest: (3) Chronic hyponatremia: (4) Acute and chronic respiratory failure with hypoxia: (5) Aspiration pneumonia: (6) Paroxysmal atrial fibrillation: (7) Dysphagia: (8) BPH (benign prostatic hypertrophy): (9) Inclusion body myositis (IBM): (10) Elevated troponin: (11) Hypokalemia: (12) Aspiration into airway: Admission and Anticipated Discharge Date Admission Date: March 18, 2021 Subjective Patient seen and examined. Discussed with critical care nurse at bedside. Patient was just placed a trach collar this morning. He is experiencing some mild increased work of breathing. He had no issues overnight and slept well. He is tolerating tube feeding without issue. Review of Systems Review of Systems: All systems reviewed & are unremarkable except as noted in HPI & below Constitutional: no fever, no chills, no sweats, no fatigue and no weight loss Ear, Nose, Mouth, Throat: no nasal congestion, no nasal discharge and no epistaxis Respiratory: no cough, no dyspnea and no hemoptysis Cardiovascular: no chest pain with activity, no palpitations and no edema Gastrointestinal: no abdominal pain, no nausea, no vomiting and no dysphagia Musculoskeletal: no joint pain and no myalgia Integumentary: no rash and no lesions Neurologic: no generalized weakness, no tingling, no paresthesia, no dizziness and no syncope Psychiatric: no anxiety Endocrine: no polydipsia and no cold intolerance Hematologic / Lymphatic: no easy bleeding and no lymphadenopathy Physical Exam Constitutional: WD/WN, vitals as above Patient has significant muscular dystrophy with weakness of the upper extremities and some mild contractures. Neck: trachea midline, no thyromegaly Trach site clean dry and intact Respiratory: normal respiratory effort, lungs clear to auscultation Cardiovascular: RRR, no murmur, no edema Gastrointestinal (Abdomen): normal bowel sounds, soft, nontender, no hepatosplenomegaly PEG site clean dry and intact Skin: no rashes, warm and dry Neurologic: Nonfocal exam Lymphatic: no cervical lymphadenopathy Results & Data Results & Data ([facility]) Vital Signs (Past 12 Hours) Vital Signs Temp Pulse Pulse Resp BP Pulse Ox 03/25/21 08:05 95 H 97 03/25/21 07:49 87 25 H 98 03/25/21 06:00 37.3 C 90 82/40 L 97 03/25/21 05:02 37.2 C 91 H 96 03/25/21 04:30 37.3 C 88 103/55 L 95 03/25/21 04:29 89 23 97 03/25/21 04:26 88 23 99 03/25/21 04:00 37.3 C 81 83/46 L 95 03/25/21 03:30 37.3 C 82 100/58 L 98 03/25/21 03:00 37.3 C 82 78/48 L 96 03/25/21 02:30 37.3 C 83 84/51 L 96 03/25/21 02:00 37.3 C 83 100/65 95 03/25/21 01:30 37.4 C 85 99/50 L 92 03/25/21 01:00 37.4 C 85 102/42 L 100 03/25/21 00:30 37.4 C 83 92/53 L 100 03/25/21 00:21 83 03/25/21 00:00 37.4 C 83 85/58 L 100 03/24/21 23:31 37.4 C 82 78/60 L 95 03/24/21 23:26 82 24 100 03/24/21 23:00 37.4 C 75 100/57 L 98 03/24/21 22:30 37.4 C 80 85/52 L 97 03/24/21 21:30 37.2 C 87 95/57 L 97 03/24/21 20:43 105 H 26 H 96 03/24/21 20:30 37.2 C 100 H 109/65 94 Critical Care Results & Data Vital Signs (Past 12 Hours) Vital Signs Temp Pulse Pulse Resp BP Pulse Ox 03/25/21 08:05 95 H 97 03/25/21 07:49 87 25 H 98 03/25/21 06:00 37.3 C 90 82/40 L 97 03/25/21 05:02 37.2 C 91 H 96 03/25/21 04:30 37.3 C 88 103/55 L 95 03/25/21 04:29 89 23 97 03/25/21 04:26 88 23 99 03/25/21 04:00 37.3 C 81 83/46 L 95 03/25/21 03:30 37.3 C 82 100/58 L 98 03/25/21 03:00 37.3 C 82 78/48 L 96 03/25/21 02:30 37.3 C 83 84/51 L 96 03/25/21 02:00 37.3 C 83 100/65 95 03/25/21 01:30 37.4 C 85 99/50 L 92 03/25/21 01:00 37.4 C 85 102/42 L 100 03/25/21 00:30 37.4 C 83 92/53 L 100 03/25/21 00:21 83 03/25/21 00:00 37.4 C 83 85/58 L 100 03/24/21 23:31 37.4 C 82 78/60 L 95 03/24/21 23:26 82 24 100 03/24/21 23:00 37.4 C 75 100/57 L 98 03/24/21 22:30 37.4 C 80 85/52 L 97 03/24/21 21:30 37.2 C 87 95/57 L 97 03/24/21 20:43 105 H 26 H 96 Lab & Micro Results (Past 24 Hours) RBC 2.51 M/uL (4.7-6.1) L 03/25/21 WBC 5.30 K/uL (4.8-10.8) 03/25/21 Hgb 8.3 g/dL (14.0-18.0) L 03/25/21 Hct 23.7 % (42-52) L 03/25/21 MCV 94.4 fL (80-100) 03/25/21 MCH 33.1 pg (25-34) 03/25/21 MCHC 35.0 g/dL (32-36) 03/25/21 RDW Standard Deviation 45.7 fL (36.4-46.3) 03/25/21 RDW Coefficient of Variation 13.2 % (11.5-14.5) 03/25/21 Plt Count 157 K/uL (130-400) 03/25/21 MPV 11.0 fL (7.4-10.4) H 03/25/21 Neutrophils (%) (Auto) 61.5 % 03/25/21 Lymphocytes (%) (Auto) 16.0 % 03/25/21 Monocytes # (Auto) 0.93 K/uL (0.11-0.59) H 03/25/21 Eosinophils # (Auto) 0.22 K/uL (0-0.5) 03/25/21 Immature Granulocyte % (Auto) 0.4 % 03/25/21 Neutrophils # (Auto) 3.26 K/uL (1.4-6.5) 03/25/21 Lymphocytes # (Auto) 0.85 K/uL (1.2-3.4) L 03/25/21 Monocytes # (Auto) 0.93 K/uL (0.11-0.59) H 03/25/21 Eosinophils # (Auto) 0.22 K/uL (0-0.5) 03/25/21 Basophils # (Auto) 0.02 K/uL (0-0.2) 03/25/21 Immature Granulocyte # (Auto) 0.02 K/uL (0.00-0.02) 03/25/21 Na 128 mmol/L (136-145) L 03/25/21 K 3.9 mmol/L (3.5-5.1) 03/25/21 Cl 94 mmol/L (98-107) L 03/25/21 CO2 30 mmol/L (21-32) 03/25/21 Anion Gap 4.0 (3-11) 03/25/21 BUN 11 mg/dl (7-18) 03/25/21 Creatinine 0.33 mg/dl (0.6-1.4) L 03/25/21 Estimated GFR ( Amer) 144.7 ml/min 03/25/21 Estimated GFR (Non-Af Amer) 124.9 ml/min 03/25/21 BUN/Creatinine Ratio 32.8 (10-20) H 03/25/21 Glu 119 mg/dl (70-99) H 03/25/21 Ca 8.1 mg/dl (8.5-10.1) L 03/25/21 Phosphorus Level 3.7 mg/dl (2.5-4.9) 03/25/21 Mg 2.1 mg/dl (1.8-2.4) 03/25/21 04:37 03/25/21 Calcium Level 8.1 mg/dl (8.5-10.1) L 03/25/21 04:37 03/25/21 Microbiology 03/22/21 12:01 Aerobic Blood Culture - Preliminary Blood No growth in Aerobic bottle after 48 hours. Anaerobic Blood Culture - Preliminary No growth in Anaerobic bottle after 48 hours. 03/22/21 11:52 Aerobic Blood Culture - Preliminary Blood No growth in Aerobic bottle after 48 hours. Anaerobic Blood Culture - Preliminary No growth in Anaerobic bottle after 48 hours. 03/22/21 13:40 Urine Culture - Final Urine,Indwelling Cath No growth - less than 1,000 colonies/mL. 03/22/21 13:14 Gram Stain - Final Sputum,Trach Sputum Culture - Final Yeast not Zee albicans/dub Diagnostic Findings (Past 24 Hours) Chest X-Ray 03/24/21 07:00 XR chest 1V portable CLINICAL HISTORY: f/u lung opacities COMPARISON STUDY: March 23, 2021 FINDINGS: No pneumothorax. Stable small left pleural effusion. Unchanged atelectasis/infiltrates at bilateral bases. Lung volumes are decreased with crowded lung markings. Redemonstration of mild elevation of the left hemidiaphragm. Costomediastinal silhouette is stable. Interval removal of feeding tube. Stable position of left-sided central venous catheter and tracheostomy tube. Pulmonary vasculature is indistinct.. Aorta is calcified. Osseous structures: Mild osteopenia. Degenerative changes of the spine. Gas-filled loops of bowel are again seen within left upper quadrant. Prosthetic left shoulder is again seen. IMPRESSION: 1. Stable small left pleural effusion. Unchanged atelectasis/infiltrates at bilateral bases. 2. Possible mild pulmonary edema. 3. Support apparatus as above. ACT 112: Negative or not required by law. The above report was generated using voice recognition software. It may contain grammatical, syntax or spelling errors. Electronically signed by: Raiza Powers DO 03/24/2021 11:25 AM Duplex Scan Upper Extremity Artery 03/24/21 09:40 ULTRASOUND BILATERAL UPPER EXTREMITY ARTERIAL CLINICAL HISTORY: Reassess left radial artery clot. COMPARISON STUDY: Left upper extremity arterial ultrasound dated 03/19/2021. TECHNIQUE: Real-time grayscale and color Doppler sonography of the right and left upper extremity arteries is performed. Right upper extremity: The right upper extremity arteries are widely patent with no evidence of hemodynamically significant stenosis or occlusion. Normal Doppler arterial waveforms. Velocities within the right common carotid artery measure up to 93 cm/s. Velocities within the subclavian artery measure up to 80 cm/s, and velocities within the right axillary artery measure up to 89 cm/s. Velocities within the brachial artery measure up to 58 cm/s. The renal arteries are patent with velocities measuring up to 61 cm/s. Left upper extremity: The left upper extremity arteries are patent. There is slightly diminished flow within the left radial artery as compared to the right. Occlusive thrombus seen on 03/19/2021 is no longer identified. The remaining arteries of the left upper extremity are patent. Normal Doppler waveforms are maintained. The left subclavian artery is patent with velocities measuring up to 40 cm/s. Velocities in the axillary artery measure up to 96 cm/s, and velocities in the left brachial artery measure up to 102 cm/s. Velocities within the radial artery measure up to 100 cm/s, and within the ulnar artery measure up to 107 cm/s. IMPRESSION: 1. Flow is now seen within the distal left radial artery. The occlusive thrombus seen on 03/19/2021 is no identified. 2. There is slightly diminished flow suggested in the left radial artery as compared to the right. 3. Otherwise normal Doppler assessment of the arteries of the right and left upper extremity. Dictated: 03/24/2021 12:47 PM Transcribed: 03/24/2021 1:20 PM [place] [id number] [email or web address] Electronically signed by: Curt Delaney M.D. 03/24/2021 1:21 PM I & O Totals 24 Hours 03/24/21 03/25/21 03/26/21 06:59 06:59 06:59 Intake Total 1191.85 / 1191.85 1060.333 / 1060.333 Output Total 3476 / 3476 1451 / 1451 Balance -2284.15 / -2284.15 -390.667 / -390.667 Cumulative 03/18/21 09:54 thru 03/25/21 04:50 Intake Total 37126.141 Output Total 90685 Balance 2528.141 RT Ventilator Mngmt (Last Documented) Ventilator Ordered Settings Ventilator Support Mode CPAP 03/25/21 07:49 Respiratory Rate 25 03/25/21 07:49 Ventilator Tidal Volume 400 03/25/21 04:29 Setting Minute Ventilation 5.5 03/25/21 07:49 Ventilator Positive Pressure 10 03/25/21 07:49 Support Setting Positive End Expiratory 5 03/25/21 07:49 Pressure Fraction of Inspired Oxygen 30 03/25/21 07:49 Peak Inspiratory Flow 40 03/24/21 07:40 Machine Comment pt placed back on AC mode for 03/24/21 20:43 Ventilator - PT Measurements Respiratory Rate 25 Exhaled Tidal Volume 313 Minute Ventilation 5.5 Peak Inspiratory Airway 17 Pressure Mean Airway Pressure 8 Plateau Pressure 20 Respiratory Cycle Inspiratory: 1:3.0 Expiratory Ratio Inspiratory Phase Time 0.55 End-Tidal CO2 34 Static Lung Compliance 26.60 Dynamic Lung Compliance 26.08 Normal Static Lung Compliance 47.00 Patient Measurements Comment patient tried on PS again and patient got very anxietal and tachypneic. Attempted for 8 mins then placed back on full vent. Coding Level of Care Code 38430 Subseq Hosp Care Lvl 3 Diagnoses Admitted to intensive care unit Z78.9 Cardiac arrest I46.9 Chronic hyponatremia E87.1 Acute and chronic respiratory failure with hypoxia J96.21 Aspiration pneumonia J69.0 Aspiration pneumonia type: unspecified Laterality: bilateral Lung location: upper lobe of lung Paroxysmal atrial fibrillation I48.0 Dysphagia R13.10 Dysphagia type: unspecified BPH (benign prostatic hypertrophy) N40.0 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
[2021-03-25] MEDS: PARoxetine HCL 20 MG TAB PEG SCH ×2 (09:18→20:49)
[2021-03-25] MEDS: METOPROLOL TARTRATE 25 MG TAB PO SCH ×3 (09:18→20:48)
[2021-03-25] MEDS: ATORVASTATIN 40 MG TAB PEG SCH (09:19)
[2021-03-25] MEDS: LANSOPRAZOLE 30 MG SOLTAB NG SCH (09:19)
[2021-03-25] MEDS: TRIAMCINOLONE ACET 0.1% CR 15 GM TUBE TOP SCH ×2 (09:20→21:02)
[2021-03-25] MEDS: PROSOURCE NO CARB 30 ML/PKT PEG SCH (09:20)
--- NOTE | 2021-03-25 10:25 | XRay Report ---
XR chest 1V portable HISTORY: Shortness of breath. f/u lung opacities COMPARISON: Chest 03/24/2021. FINDINGS: The tracheostomy tube appears in good position. Left jugular central venous catheter termin us at the proximal SVC. There are low lung volumes. Diffuse interstitial thickening and bibasilar air space opacities have slightly improved. Suspect trace bilateral pleural fusions. The heart remains mi ldly enlarged. There is a left shoulder prosthesis. IMPRESSION: 1. Slight improved aeration within the lungs. 2. Satisfactory support line placement. 3. Low lung volumes and trace bilateral pleural effusions are again noted. ACT 112: Negative or not required by law. Electronically signed by: Seamus Chen M.D. 03/25/2021 10:24 AM
[2021-03-25] MEDS: APIXABAN 2.5 MG TAB PO SCH ×2 (13:13→20:47)
--- NOTE | 2021-03-25 15:41 | Hospitalist Progress Note ---
Date of Service March 25, 2021 Assessment & Plan (1) Acute and chronic respiratory failure with hypoxia: (2) Aspiration pneumonia: (3) Multilobar lung infiltrate: Plan: Patient is a 75 yr male with H/O Inclusion body myositis muscular dystrophy, chronic hyponatremia, MITZI with nocturnal hypoxemia on 2 L nasal cannula O2, restrictive lung disease due to muscular dystrophy, paroxysmal atrial fibrillation in setting of bronchodilators, hypertension, mild aortic valve stenosis, BPH and other medical problems listed below who presents with worsening shortness of breath over the past few days and found to have acute on chronic hypoxic respiratory failure and multilobar pneumonia. Acute Reparatory failure with Hypoxia Suspected Multifocal Pneumonia S/P Bronchoscopy for mucous plug removal S/P Tracheostomy on 03/22 --CTA:No PE. Multifocal airspace opacity within the right upper lobe and left upper lobe likely representing pneumonia. Short-term follow-up in 4-[address] on nonemergency basis is recommended. Evaluation of the right hemidiaphragm with complete atelectasis of the left lower lobe. Gas-filled loop of large bowel is seen within upper abdomen which is in upper limits of normal. Mild four-chamber cardiomegaly. -Blood Cx: No growth to date Sputum Cx: Yeast -On Zosyn currently -Continue Pulm hygiene -Appreciate Pediatric Clinical Nurse Specialist help -Off pressors, sedation -Continue to require vent support May need LTAC placement Transiently on trach collar this morning Currently on pressure support Aspiration Respiratory arrest leading to cardiac arrest Cardiogenic Shock/PEA--Resolved 03/19 21 - PM - CODE BLUE--Intubated Piece of food was removed at intubation, patient then also underwent bronchoscopy-secretions removed Speech Therapy H/O Esophageal dysmotility Appreciate GI Input S/P PEG placement on 03/23/21 Tolerating tube feeds (4) Inclusion body myositis (IBM): Plan: Progressive, very limited motor function in LUE. Currently ambulates in motorized scooter Follows with [place] neurology Fall precautions, able to eat soft bite sized diet (5) Chronic hyponatremia: Plan: Likely due to SIADH Evaluated by Nephrology Dr. Leggett previously Continue fluid restriction Monitor with daily BMP Sodium 128 today (6) Paroxysmal atrial fibrillation: Plan: Follows with Dr. Minor, Cardiology Amiodarone recently discontinued Continue Metoprolol Awaiting results of OP zio monitor Not on anticoagulation due to H/O subdural hematoma(due to fall) and Thrombocytopenia On Eliquis currently (7) BPH (benign prostatic hypertrophy): Plan: Continue Flomax H/O muscular dystrophy Restrictive lung disease Chronically elevated left hemidiaphragm Continue management as above Hypokalemia Hypomagnesemia Replace electrolytes as needed Left UE thrombus Repeat Doppler on 03/24/21 showed no occlusive thrombus IV Heparin discontinued Started on Eliquis DVT Px: Eliquis Code status: FULL CODE Admission and Anticipated Discharge Date Admission Date: March 18, 2021 Subjective Patient is seen and examined at bedside Transiently on Trach Collar this morning Offers no complaints Heparin ggt discontinued Tolerating tube feeds Patient denies dyspnea, chest pain, any pain at trach collar Afebrile today Review of Systems Review of Systems: All systems reviewed & are unremarkable except as noted in Subjective Physical Exam Physical Exam: Physical Exam: Vitals signs as noted above General Appearance:Moderately built and nourished, no apparent distress Head: normocephalic, Atraumatic Eyes: normal inspection, EOMI Neck: supple, Trachea midline, +Trach Respiratory/Chest: Normal breath sounds, No accessory muscle use Cardiovascular: S1, S2, No murmur Abdomen/GI:Soft, Non tender, Bowel sounds present, +PEG Extremities/Musculoskeletal:normal inspection, RUE swelling, +Contractures Neurologic/Psych:Alert, awake, unable to perform complete neuro exam Skin: normal color, warm Results & Data Results & Data ([facility]) Vital Signs (Past 12 Hours) Vital Signs Temp Pulse Pulse Resp BP Pulse Ox 03/25/21 13:00 36.5 C 83 112/59 L 99 03/25/21 12:00 36.6 C 88 99/51 L 95 03/25/21 11:05 85 20 100 03/25/21 11:00 36.6 C 86 98/55 L 100 03/25/21 10:00 36.9 C 84 91/52 L 99 03/25/21 09:21 92 H 24 98 03/25/21 09:00 37.0 C 89 80/45 L 97 03/25/21 08:05 95 H 97 03/25/21 08:00 37.1 C 93 H 114/97 100 03/25/21 07:49 87 25 H 98 03/25/21 07:00 37.1 C 84 97/55 L 99 03/25/21 06:00 37.3 C 90 82/40 L 97 03/25/21 05:02 37.2 C 91 H 96 03/25/21 04:30 37.3 C 88 103/55 L 95 03/25/21 04:29 89 23 97 03/25/21 04:26 88 23 99 03/25/21 04:00 37.3 C 81 83/46 L 95 Laboratory Results Short CBC 03/25/21 Range/Units 04:37 WBC 5.30 (4.8-10.8) K/uL Hgb 8.3 L (14.0-18.0) g/dL Hct 23.7 L (42-52) % Plt Count 157 (130-400) K/uL BMP 03/24/21 03/25/21 20:04 04:37 Sodium 127 L 128 L Potassium 3.5 D 3.9 Chloride 93 L 94 L Carbon Dioxide 30 30 BUN 11 11 Creatinine 0.36 L 0.33 L Glucose 109 H 119 H Calcium 8.2 L 8.1 L (1) Aspiration pneumonia Aspiration pneumonia type: unspecified Laterality: bilateral Lung location: upper lobe of lung Qualified Code(s): J69.0 - Pneumonitis due to inhalation of food and vomit
[2021-03-25] MEDS: TAMSULOSIN HCL 0.4 MG CAP PO SCH (20:50)
[2021-03-26] MEDS: ALBUT/IPRATROP 3MG/0.5MG NEB 3 ML VIAL NEB SCH ×6 (02:58→23:16)
[2021-03-26] MEDS: TUBE FEEDING WATER FLUSH PEG SCH ×6 (03:10→22:02)
[2021-03-26 05:02] LABS: Hematocrit (blood only) 25.6 % (42-52); Hemoglobin 8.8 g/dL (14.0-18.0); Mean Corpuscular Hemoglobin 32.7 pg (25-34); Mean Corpuscular Hgb Conc 34.4 g/dL (32-36); Mean Corpuscular Volume 95.2 fL (80-100); Mean Platelet Volume 10.4 fL (7.4-10.4); Platelet Count 175 K/uL (130-400); RDW Coefficient of Variation 13.5 % (11.5-14.5); RDW Standard Deviation 46.7 fL (36.4-46.3); Red Blood Count 2.69 M/uL (4.7-6.1); White Blood Count 5.45 K/uL (4.8-10.8)
[2021-03-26 05:12] LABS: Partial Thromboplastin Ratio 1.2; Partial Thromboplastin Time 30.5 Seconds (21.0-31.0)
[2021-03-26 05:35] LABS: BUN Creatinine Ratio 38.9 (10-20); Blood Urea Nitrogen 10 mg/dl (7-18); Calcium 8.2 mg/dl (8.5-10.1); Carbon Dioxide 28 mmol/L (21-32); Chloride 97 mmol/L (98-107); Creatinine Clr Calc Pharmacy 254.8 ml/min; Est GFR (African American) > 150.0 ml/min; Est GFR (Non-African American) 135.6 ml/min; Glucose 127 mg/dl (70-99); Magnesium 1.9 mg/dl (1.8-2.4); Potassium 3.6 mmol/L (3.5-5.1); Sodium 129 mmol/L (136-145)
[2021-03-26 05:49] LABS: Phosphorus 2.4 mg/dl (2.5-4.9)
[2021-03-26] MEDS: ICU ELECTROLYTE REPLACEMENT PROTOCOL SCH ×2 (06:18→16:42)
[2021-03-26] MEDS: POTASSIUM CHLORIDE 20 MEQ/15 ML UDC NG SCH ×2 (06:23→09:39)
[2021-03-26] MEDS: MAGNESIUM SULFATE / D5W 1 GM/100 ML BAG IV SCH ×2 (06:23→08:41)
[2021-03-26] MEDS: SODIUM CHLOR 7% 4 ML NEB NEB SCH ×2 (07:20→19:26)
--- NOTE | 2021-03-26 08:27 | Critical Care Progress Note ---
Date of Service March 26, 2021 Assessment & Plan (1) Admitted to intensive care unit: Plan: Impression: 75 y/o male w/ PMHx of pAF, BPH, IBM, and muscular dystrophy admitted for acute on chronic respiratory failure (03/18), intubated for cardiac arrest 2/2 choking (03/19), extubated, reintubated, and is s/p tracheostomy on 03/22. 24-hour events: Out of bed to his chair. Tolerating tube feeding. Brief period of trach collar trial then pressure support during the day. Return to rate overnight. 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 Working with PT OT. Out of bed to chair via Lauren lift. Appears at his baseline. CARDIAC -paroxysmal atrial fibrillation. Currently rate controlled on low-dose Eliquis. Started low-dose due to prior history of subdural. If he does okay over the next several days can advance to full dose Eliquis. Continue metoprolol. RESP -inability to manage secretions resulted in intubation x2 with eventual tracheostomy placement. He has a [address] Could consider removing the sutures for the tracheostomy within the next couple days. Continue pressure support weans with transition to trach collar as tolerated. If the patient is able to tolerate trach trial collars, would reengage speech therapy for placement of a speaking valve. Continuing hypertonic saline for pulmonary toilet. Patient has an elevated left hemidiaphragm also likely contributing to his respiratory insufficiency. GI -status post PEG tube. Tube feeding per nutrition. 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 Continue to follow at this point in time. Fluid restrict. -maintain chronic Gonsalves catheter ENDO -no current issues. Glycemic control per protocol HEME -mild anemia. No indication for transfusion. Patient did have a left arterial thrombosis. Follow-up ultrasound demonstrated resolution. He is on Eliquis for atrial fibrillation. ID -cultures negative today. Low-grade fevers now resolved. He is completed a course of Unasyn and doxycycline. Off antibiotics currently. Continue to trend clinical course and fever curve. VTE: SCDs and therapeutic heparin drip GI: Lansoprazole Lines: PIVs x2 on right. L IJ Diet: Tube feedings per dietary Dispo: ICU. Awaiting LTACH placement.. Awaiting bed availability and insurance approval. Hopefully sometime next week code status: full (2) Cardiac arrest: (3) Chronic hyponatremia: (4) Acute and chronic respiratory failure with hypoxia: (5) Aspiration pneumonia: (6) Paroxysmal atrial fibrillation: (7) Dysphagia: (8) BPH (benign prostatic hypertrophy): (9) Inclusion body myositis (IBM): (10) Elevated troponin: (11) Hypokalemia: (12) Aspiration into airway: Admission and Anticipated Discharge Date Admission Date: March 18, 2021 Subjective Patient offers no complaints this morning. He is awake alert. He tolerated brief periods of trach collar yesterday and pressure support wean. He is returned to a rate overnight. He is not having issues with secretion management. Tube feeding is running at goal. Review of Systems Review of Systems: All systems reviewed & are unremarkable except as noted in HPI & below Physical Exam Constitutional: WD/WN, vitals as above Neck: trachea midline, no thyromegaly Trach site clean dry and intact Respiratory: normal respiratory effort, lungs clear to auscultation Cardiovascular: RRR, no murmur, no edema Gastrointestinal (Abdomen): normal bowel sounds, soft, nontender, no hepatosplenomegaly Skin: no rashes, warm and dry Lymphatic: no cervical lymphadenopathy Results & Data Results & Data ([facility]) Vital Signs (Past 12 Hours) Vital Signs Temp Pulse Resp BP Pulse Ox 03/26/21 03:22 80 26 H 95 03/26/21 00:55 80 03/26/21 00:00 37.1 C 80 103/67 93 03/25/21 23:00 37.4 C 73 100/56 L 96 03/25/21 22:46 72 21 95 03/25/21 22:00 37.3 C 77 104/58 L 95 03/25/21 21:00 37.2 C 85 94/57 L 91 Critical Care Results & Data Vital Signs (Past 12 Hours) Vital Signs Temp Pulse Resp BP Pulse Ox 03/26/21 03:22 80 26 H 95 03/26/21 00:55 80 03/26/21 00:00 37.1 C 80 103/67 93 03/25/21 23:00 37.4 C 73 100/56 L 96 03/25/21 22:46 72 21 95 03/25/21 22:00 37.3 C 77 104/58 L 95 03/25/21 21:00 37.2 C 85 94/57 L 91 Lab & Micro Results (Past 24 Hours) RBC 2.69 M/uL (4.7-6.1) L 03/26/21 WBC 5.45 K/uL (4.8-10.8) 03/26/21 Hgb 8.8 g/dL (14.0-18.0) L 03/26/21 Hct 25.6 % (42-52) L 03/26/21 MCV 95.2 fL (80-100) 03/26/21 MCH 32.7 pg (25-34) 03/26/21 MCHC 34.4 g/dL (32-36) 03/26/21 RDW Standard Deviation 46.7 fL (36.4-46.3) H 03/26/21 RDW Coefficient of Variation 13.5 % (11.5-14.5) 03/26/21 Plt Count 175 K/uL (130-400) 03/26/21 MPV 10.4 fL (7.4-10.4) 03/26/21 Na 129 mmol/L (136-145) L 03/26/21 K 3.6 mmol/L (3.5-5.1) 03/26/21 Cl 97 mmol/L (98-107) L 03/26/21 CO2 28 mmol/L (21-32) 03/26/21 Anion Gap 4.0 (3-11) 03/26/21 BUN 10 mg/dl (7-18) 03/26/21 Creatinine 0.27 mg/dl (0.6-1.4) L 03/26/21 Estimated GFR ( Amer) > 150.0 ml/min 03/26/21 Estimated GFR (Non-Af Amer) 135.6 ml/min 03/26/21 BUN/Creatinine Ratio 38.9 (10-20) H 03/26/21 Glu 127 mg/dl (70-99) H 03/26/21 Ca 8.2 mg/dl (8.5-10.1) L 03/26/21 Phosphorus Level 2.4 mg/dl (2.5-4.9) L 03/26/21 Mg 1.9 mg/dl (1.8-2.4) 03/26/21 04:20 03/26/21 Calcium Level 8.2 mg/dl (8.5-10.1) L 03/26/21 04:20 03/26/21 Diagnostic Findings (Past 24 Hours) Chest X-Ray 03/25/21 07:00 XR chest 1V portable HISTORY: Shortness of breath. f/u lung opacities COMPARISON: Chest 03/24/2021. FINDINGS: The tracheostomy tube appears in good position. Left jugular central venous catheter terminus at the proximal SVC. There are low lung volumes. Diffuse interstitial thickening and bibasilar airspace opacities have slightly improved. Suspect trace bilateral pleural fusions. The heart remains mildly enl arged. There is a left shoulder prosthesis. IMPRESSION: 1. Slight improved aeration within the lungs. 2. Satisfactory support line placement. 3. Low lung volumes and trace bilateral pleural effusions are again noted. ACT 112: Negative or not required by law. Electronically signed by: Seamus Chen M.D. 03/25/2021 10:24 AM I & O Totals 24 Hours 03/25/21 03/26/21 03/27/21 06:59 06:59 06:59 Intake Total 1060.333 / 1060.333 849 / 849 Output Total 1451 / 1451 1295 / 1295 Balance -390.667 / -390.667 -446 / -446 Cumulative 03/18/21 09:54 thru 03/26/21 05:30 Intake Total 38973.141 Output Total 67999 Balance 2082.141 RT Ventilator Mngmt (Last Documented) Ventilator Ordered Settings Ventilator Support Mode Assist Control 03/26/21 05:00 Respiratory Rate 26 03/26/21 03:22 Ventilator Tidal Volume 400 03/26/21 05:00 Setting Minute Ventilation 10.4 03/26/21 03:22 Ventilator Positive Pressure 10 03/25/21 22:46 Support Setting Positive End Expiratory 5 03/26/21 05:00 Pressure Fraction of Inspired Oxygen 30 03/26/21 05:00 Peak Inspiratory Flow 40 03/24/21 07:40 Machine Comment pt placed back on AC for inc WOB 03/26/21 03:22 Ventilator - PT Measurements Respiratory Rate 26 Exhaled Tidal Volume 418 Minute Ventilation 10.4 Peak Inspiratory Airway 24 Pressure Mean Airway Pressure 11 Plateau Pressure 22.5 Respiratory Cycle Inspiratory: 1:2.3 Expiratory Ratio Inspiratory Phase Time 0.80 End-Tidal CO2 34 Static Lung Compliance 23.89 Dynamic Lung Compliance 22.00 Normal Static Lung Compliance 46.00 Patient Measurements Comment patient tried on PS again and patient got very anxietal and tachypneic. Attempted for 8 mins then placed back on full vent. Coding Level of Care Code 77699 Subseq Hosp Care Lvl 3 Diagnoses Admitted to intensive care unit Z78.9 Cardiac arrest I46.9 Chronic hyponatremia E87.1 Acute and chronic respiratory failure with hypoxia J96.21 Aspiration pneumonia J69.0 Aspiration pneumonia type: unspecified Laterality: bilateral Lung location: upper lobe of lung Paroxysmal atrial fibrillation I48.0 Dysphagia R13.10 Dysphagia type: unspecified BPH (benign prostatic hypertrophy) N40.0 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
[2021-03-26] MEDS: PARoxetine HCL 20 MG TAB PEG SCH ×2 (09:39→20:57)
[2021-03-26] MEDS: PROSOURCE NO CARB 30 ML/PKT PEG SCH (09:39)
[2021-03-26] MEDS: APIXABAN 2.5 MG TAB PO SCH ×2 (09:39→20:56)
[2021-03-26] MEDS: LANSOPRAZOLE 30 MG SOLTAB NG SCH (09:40)
[2021-03-26] MEDS: ATORVASTATIN 40 MG TAB PEG SCH (09:40)
[2021-03-26] MEDS: METOPROLOL TARTRATE 25 MG TAB PO SCH ×2 (09:40→20:57)
[2021-03-26] MEDS: TRIAMCINOLONE ACET 0.1% CR 15 GM TUBE TOP SCH ×2 (10:40→22:03)
--- NOTE | 2021-03-26 10:50 | Hospitalist Progress Note ---
Date of Service March 26, 2021 Assessment & Plan (1) Acute and chronic respiratory failure with hypoxia: (2) Aspiration pneumonia: (3) Multilobar lung infiltrate: Plan: Patient is a 75 yr male with H/O Inclusion body myositis muscular dystrophy, chronic hyponatremia, MITZI with nocturnal hypoxemia on 2 L nasal cannula O2, restrictive lung disease due to muscular dystrophy, paroxysmal atrial fibrillation in setting of bronchodilators, hypertension, mild aortic valve stenosis, BPH and other medical problems listed below who presents with worsening shortness of breath over the past few days and found to have acute on chronic hypoxic respiratory failure and multilobar pneumonia. Acute Reparatory failure with Hypoxia Suspected Multifocal Pneumonia S/P Bronchoscopy for mucous plug removal S/P Tracheostomy on 03/22 --CTA:No PE. Multifocal airspace opacity within the right upper lobe and left upper lobe likely representing pneumonia. Short-term follow-up in 4-[address] on nonemergency basis is recommended. Evaluation of the right hemidiaphragm with complete atelectasis of the left lower lobe. Gas-filled loop of large bowel is seen within upper abdomen which is in upper limits of normal. Mild four-chamber cardiomegaly. -Blood Cx: No growth to date Sputum Cx: Yeast -Received Zosyn empirically -Continue Pulm hygiene -Appreciate Education Nurse help -Off pressors, Off sedation Vent management as per ICU team May need LTAC placement Trach collar as tolerated Blood Cultures remain negative Aspiration Respiratory arrest leading to cardiac arrest Cardiogenic Shock/PEA--Resolved 03/19 21 - PM - CODE BLUE--Intubated Piece of food was removed at intubation, patient then also underwent bronchoscopy-secretions removed Speech Therapy H/O Esophageal dysmotility Appreciate GI Input S/P PEG placement on 03/23/21 Tolerating tube feeds (4) Inclusion body myositis (IBM): Plan: Progressive, very limited motor function in LUE. Currently ambulates in motorized scooter Follows with [place] neurology Fall precautions, able to eat soft bite sized diet (5) Chronic hyponatremia: Plan: Likely due to SIADH Evaluated by Nephrology Dr. Leggett previously Continue fluid restriction Monitor with daily BMP Sodium 129 today (6) Paroxysmal atrial fibrillation: Plan: Follows with Dr. Minor, Cardiology Amiodarone recently discontinued Continue Metoprolol Awaiting results of OP zio monitor Not on anticoagulation due to H/O subdural hematoma(due to fall) and Thrombocytopenia On Eliquis currently (7) BPH (benign prostatic hypertrophy): Plan: Continue Flomax H/O muscular dystrophy Restrictive lung disease Chronically elevated left hemidiaphragm Continue management as above Hypokalemia Hypomagnesemia Hypophosphatemia Replace electrolytes as needed Left UE thrombus Repeat Doppler on 03/24/21 showed no occlusive thrombus IV Heparin discontinued On Eliquis DVT Px: Eliquis Code status: FULL CODE Admission and Anticipated Discharge Date Admission Date: March 18, 2021 Subjective Patient is seen and examined at bedside States feeling better today No new complaints Patient denies dyspnea, chest pain, any pain at trach collar Review of Systems Review of Systems: All systems reviewed & are unremarkable except as noted in Subjective Physical Exam Physical Exam: Physical Exam: Vitals signs as noted above General Appearance:Moderately built and nourished, no apparent distress Head: normocephalic, Atraumatic Eyes: normal inspection, EOMI Neck: supple, Trachea midline, +Trach Respiratory/Chest: Normal breath sounds, No accessory muscle use Cardiovascular: S1, S2, No murmur Abdomen/GI:Soft, Non tender, Bowel sounds present, +PEG Extremities/Musculoskeletal:normal inspection, RUE swelling, +Contractures Neurologic/Psych:Alert, awake, unable to perform complete neuro exam Skin: normal color, warm Results & Data Results & Data ([facility]) Vital Signs (Past 12 Hours) Vital Signs Temp Pulse Resp BP Pulse Ox 03/26/21 07:37 85 29 H 91 03/26/21 07:20 19 03/26/21 03:22 80 26 H 95 03/26/21 00:55 80 03/26/21 00:00 37.1 C 80 103/67 93 03/25/21 23:00 37.4 C 73 100/56 L 96 Laboratory Results Short CBC 03/26/21 Range/Units 04:20 WBC 5.45 (4.8-10.8) K/uL Hgb 8.8 L (14.0-18.0) g/dL Hct 25.6 L (42-52) % Plt Count 175 (130-400) K/uL BMP 03/26/21 04:20 Sodium 129 L Potassium 3.6 Chloride 97 L Carbon Dioxide 28 BUN 10 Creatinine 0.27 L Glucose 127 H Calcium 8.2 L (1) Aspiration pneumonia Aspiration pneumonia type: unspecified Laterality: bilateral Lung location: upper lobe of lung Qualified Code(s): J69.0 - Pneumonitis due to inhalation of food and vomit
[2021-03-26] MEDS: PEPTAMEN 1.5 CAL 1,000 ML BAG PEG SCH (13:06)
[2021-03-26] MEDS: POT PHOSPHATE MONOBASIC W/ SOD TAB NG SCH ×3 (16:40→23:44)
[2021-03-26] MEDS: TAMSULOSIN HCL 0.4 MG CAP PO SCH (20:58)
[2021-03-27] MEDS: TUBE FEEDING WATER FLUSH PEG SCH ×6 (00:15→22:33)
[2021-03-27] MEDS: ALBUT/IPRATROP 3MG/0.5MG NEB 3 ML VIAL NEB SCH ×6 (03:13→22:27)
[2021-03-27 05:04] LABS: Hematocrit (blood only) 26.5 % (42-52); Hemoglobin 8.9 g/dL (14.0-18.0); Mean Corpuscular Hemoglobin 32.7 pg (25-34); Mean Corpuscular Hgb Conc 33.6 g/dL (32-36); Mean Corpuscular Volume 97.4 fL (80-100); Mean Platelet Volume 10.5 fL (7.4-10.4); Platelet Count 194 K/uL (130-400); RDW Coefficient of Variation 13.8 % (11.5-14.5); RDW Standard Deviation 48.6 fL (36.4-46.3); Red Blood Count 2.72 M/uL (4.7-6.1); White Blood Count 6.82 K/uL (4.8-10.8)
[2021-03-27 05:30] LABS: Blood Urea Nitrogen 12 mg/dl (7-18); Calcium 7.8 mg/dl (8.5-10.1); Carbon Dioxide 28 mmol/L (21-32); Chloride 99 mmol/L (98-107); Creatinine Clr Calc Pharmacy 302.5 ml/min; Est GFR (African American) > 150.0 ml/min; Est GFR (Non-African American) 144.9 ml/min; Glucose 139 mg/dl (70-99); Magnesium 2.1 mg/dl (1.8-2.4); Potassium 3.7 mmol/L (3.5-5.1); Sodium 130 mmol/L (136-145)
[2021-03-27 05:31] LABS: Phosphorus 2.1 mg/dl (2.5-4.9)
[2021-03-27] MEDS: ICU ELECTROLYTE REPLACEMENT PROTOCOL SCH ×2 (05:39→16:18)
[2021-03-27] MEDS ORDERED: SODIUM PHOSPHATE 3 MMOL/1 ML INFUSION IV STA (05:45)
[2021-03-27] MEDS ORDERED: SODIUM PHOSPHATE 15 MMOL in SODIUM CHLORIDE 0.9% 250 ML IV ONE (06:00)
[2021-03-27] MEDS: POTASSIUM CHLORIDE 20 MEQ/15 ML UDC NG SCH ×2 (06:06→08:57)
[2021-03-27] MEDS: SODIUM CHLOR 7% 4 ML NEB NEB SCH ×2 (07:19→19:23)
--- NOTE | 2021-03-27 08:48 | Critical Care Progress Note ---
Date of Service March 27, 2021 Assessment & Plan (1) Admitted to intensive care unit: Plan: Impression: 75 y/o male w/ PMHx of pAF, BPH, IBM, and muscular dystrophy admitted for acute on chronic respiratory failure (03/18), intubated for cardiac arrest 2/2 choking (03/19), extubated, reintubated, and is s/p tracheostomy on 03/22. 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 Working with PT/OT. Out of bed to chair via Lauren lift. Appears at his baseline. CARDIAC -paroxysmal atrial fibrillation. Currently rate controlled on low-dose Eliquis. Started low-dose due to prior history of subdural. If he does okay over the next several days can advance to full dose Eliquis. Continue metoprolol. Patient is status post cardiac arrest with no evidence of residual side effects. RESP -inability to manage secretions resulted in intubation x2 with eventual tracheostomy placement. He has a [address] Could consider removing the sutures for the tracheostomy within the next couple days. Continue pressure support weans with transition to trach collar as tolerated. Continuing hypertonic saline for pulmonary toilet. Patient has an elevated left hemidiaphragm also likely contributing to his respiratory insufficiency. Consider placement of speaking valve for speech therapy. GI -status post PEG tube. Tube feeding per nutrition. 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 Continue to follow at this point in time. Fluid restrict. -maintain chronic Gonsalves catheter ENDO -no current issues. Glycemic control per protocol HEME -mild anemia. No indication for transfusion. Patient did have a left arterial thrombosis. Follow-up ultrasound demonstrated resolution. He is on Eliquis for atrial fibrillation. ID -yeast noted on sputum cultures from 03/22/2021. BAL from 03/19/2021 also with evidence of yeast. Likely contaminant. Patient afebrile. [. VTE: SCDs and therapeutic heparin drip GI: Lansoprazole Lines: PIVs x2 on right. L IJ Diet: Tube feedings per dietary Dispo: Stable for transfer to LTAC. code status: full (2) Cardiac arrest: (3) Chronic hyponatremia: (4) Acute and chronic respiratory failure with hypoxia: (5) Aspiration pneumonia: (6) Paroxysmal atrial fibrillation: (7) Dysphagia: (8) BPH (benign prostatic hypertrophy): (9) Inclusion body myositis (IBM): (10) Elevated troponin: (11) Hypokalemia: (12) Aspiration into airway: Admission and Anticipated Discharge Date Admission Date: March 18, 2021 Subjective Patient seen and examined this morning. No overnight events. Patient is awake, alert and oriented. He is unable to vocalize due to the tracheostomy. Review of Systems Review of Systems: All systems reviewed & are unremarkable except as noted in HPI & below Physical Exam Constitutional: WD/WN, vitals as above Neck: trachea midline, no thyromegaly Trach site clean dry and intact Respiratory: normal respiratory effort, lungs clear to auscultation Cardiovascular: RRR, no murmur, no edema Gastrointestinal (Abdomen): normal bowel sounds, soft, nontender, no hepatosplenomegaly Skin: no rashes, warm and dry Lymphatic: no cervical lymphadenopathy Results & Data Results & Data ([facility]) Vital Signs (Past 12 Hours) Vital Signs Temp Pulse Resp BP Pulse Ox 03/27/21 07:19 82 22 98 03/27/21 05:01 99.3 F 85 90/68 L 96 03/27/21 04:00 99.5 F 83 89/51 L 95 03/27/21 03:13 80 19 94 03/27/21 03:00 99.9 F H 83 91/47 L 95 03/27/21 02:00 100.0 F H 85 98/44 L 95 03/27/21 01:00 100.4 F H 84 98/50 L 91 03/27/21 00:20 85 03/27/21 00:00 100.4 F H 88 102/46 L 89 L 03/26/21 23:16 84 18 93 03/26/21 23:00 100.6 F H 72 98/58 L 99 03/26/21 22:00 99.9 F H 71 92/51 L 97 03/26/21 21:00 84 106/52 L 93 vital signs, labs and imaging personally reviewed Coding Level of Care Code 11912 Subseq Hosp Care Lvl 3 Diagnoses Admitted to intensive care unit Z78.9 Cardiac arrest I46.9 Chronic hyponatremia E87.1 Acute and chronic respiratory failure with hypoxia J96.21 Aspiration pneumonia J69.0 Aspiration pneumonia type: unspecified Laterality: bilateral Lung location: upper lobe of lung Paroxysmal atrial fibrillation I48.0 Dysphagia R13.10 Dysphagia type: unspecified BPH (benign prostatic hypertrophy) N40.0 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
[2021-03-27] MEDS: LANSOPRAZOLE 30 MG SOLTAB NG SCH (08:57)
[2021-03-27] MEDS: PARoxetine HCL 20 MG TAB PEG SCH ×2 (08:57→21:31)
[2021-03-27] MEDS: METOPROLOL TARTRATE 25 MG TAB PO SCH ×2 (08:57→21:31)
[2021-03-27] MEDS: PROSOURCE NO CARB 30 ML/PKT PEG SCH (08:57)
[2021-03-27] MEDS: APIXABAN 2.5 MG TAB PO SCH ×2 (08:58→21:26)
[2021-03-27] MEDS: TRIAMCINOLONE ACET 0.1% CR 15 GM TUBE TOP SCH ×2 (08:58→21:34)
[2021-03-27] MEDS: ATORVASTATIN 40 MG TAB PEG SCH (08:58)
[2021-03-27] MEDS: ASPIRIN 81 MG CHEW NG SCH (11:36)
[2021-03-27] MEDS: GABAPENTIN 250 MG/5 ML 470 ML BTL PO SCH ×2 (11:37→21:28)
--- NOTE | 2021-03-27 15:48 | Hospitalist Progress Note ---
Date of Service March 27, 2021 Assessment & Plan (1) Acute and chronic respiratory failure with hypoxia: (2) Aspiration pneumonia: (3) Multilobar lung infiltrate: Plan: Patient is a 75 yr male with H/O Inclusion body myositis muscular dystrophy, chronic hyponatremia, MITZI with nocturnal hypoxemia on 2 L nasal cannula O2, restrictive lung disease due to muscular dystrophy, paroxysmal atrial fibrillation in setting of bronchodilators, hypertension, mild aortic valve stenosis, BPH and other medical problems listed below who presents with worsening shortness of breath over the past few days and found to have acute on chronic hypoxic respiratory failure and multilobar pneumonia. Acute Reparatory failure with Hypoxia Suspected Multifocal Pneumonia S/P Bronchoscopy for mucous plug removal S/P Tracheostomy on 03/22 --CTA:No PE. Multifocal airspace opacity within the right upper lobe and left upper lobe likely representing pneumonia. Short-term follow-up in 4-[address] on nonemergency basis is recommended. Evaluation of the right hemidiaphragm with complete atelectasis of the left lower lobe. Gas-filled loop of large bowel is seen within upper abdomen which is in upper limits of normal. Mild four-chamber cardiomegaly. 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 Currently ambulates in motorized scooter Follows with [place] neurology Fall precautions, able to eat soft bite sized diet (5) Chronic hyponatremia: Plan: Likely due to SIADH Evaluated by Nephrology Dr. Leggett previously Continue fluid restriction Monitor with daily BMP Sodium 130 today (6) Paroxysmal atrial fibrillation: Plan: Follows with Dr. Minor, Cardiology Amiodarone recently discontinued Continue Metoprolol Awaiting results of OP zio monitor Not on anticoagulation due to H/O subdural hematoma(due to fall) and Thrombocytopenia On Eliquis currently (Low dose to h/o subdural) Advanced to full dose Eliquis if tolerated (7) BPH (benign prostatic hypertrophy): Plan: Continue Flomax H/O muscular dystrophy Restrictive lung disease Chronically elevated left hemidiaphragm Continue management as above Hypokalemia Hypomagnesemia Hypophosphatemia Replace electrolytes as needed Left UE thrombus Repeat Doppler on 03/24/21 showed no occlusive thrombus IV Heparin discontinued On Eliquis DVT Px: Eliquis Code status: FULL CODE Admission and Anticipated Discharge Date Admission Date: March 18, 2021 Subjective Patient is seen and examined at bedside Was on trach collar during my encounter No new complaints today Discussed with bi data architect Patient denies dyspnea, chest pain, any pain at trach collar Review of Systems Review of Systems: All systems reviewed & are unremarkable except as noted in Subjective Physical Exam Physical Exam: Physical Exam: Vitals signs as noted above General Appearance:Moderately built and nourished, no apparent distress Head: normocephalic, Atraumatic Eyes: normal inspection, EOMI Neck: supple, Trachea midline, +Trach Respiratory/Chest: Normal breath sounds, No accessory muscle use Cardiovascular: S1, S2, No murmur Abdomen/GI:Soft, Non tender, Bowel sounds present, +PEG Extremities/Musculoskeletal:normal inspection, RUE swelling, +Contractures Neurologic/Psych:Alert, awake, unable to perform complete neuro exam Skin: normal color, warm Results & Data Results & Data ([facility]) Vital Signs (Past 12 Hours) Vital Signs Temp Pulse Pulse Resp BP Pulse Ox 03/27/21 15:13 83 18 96 03/27/21 13:04 82 18 98 03/27/21 10:17 82 82 18 99 03/27/21 07:19 82 22 98 03/27/21 05:01 37.4 C 85 90/68 L 96 03/27/21 04:00 37.5 C 83 89/51 L 95 Laboratory Results Short CBC 03/27/21 Range/Units 04:29 WBC 6.82 (4.8-10.8) K/uL Hgb 8.9 L (14.0-18.0) g/dL Hct 26.5 L (42-52) % Plt Count 194 (130-400) K/uL BMP 03/27/21 04:29 Sodium 130 L Potassium 3.7 Chloride 99 Carbon Dioxide 28 BUN 12 Creatinine 0.23 L Glucose 139 H Calcium 7.8 L (1) Aspiration pneumonia Aspiration pneumonia type: unspecified Laterality: bilateral Lung location: upper lobe of lung Qualified Code(s): J69.0 - Pneumonitis due to inhalation of food and vomit
[2021-03-27] MEDS: TAMSULOSIN HCL 0.4 MG CAP PO SCH (21:31)
[2021-03-28] MEDS: TUBE FEEDING WATER FLUSH PEG SCH ×6 (00:46→23:37)
[2021-03-28] MEDS: ALBUT/IPRATROP 3MG/0.5MG NEB 3 ML VIAL NEB SCH ×6 (03:20→22:55)
[2021-03-28 05:12] LABS: BUN Creatinine Ratio 48.7 (10-20); Blood Urea Nitrogen 11 mg/dl (7-18); Carbon Dioxide 30 mmol/L (21-32); Chloride 100 mmol/L (98-107); Creatinine Clr Calc Pharmacy 289.9 ml/min; Est GFR (African American) > 150.0 ml/min; Est GFR (Non-African American) 142.3 ml/min; Glucose 140 mg/dl (70-99); Phosphorus 2.5 mg/dl (2.5-4.9); Potassium 4.2 mmol/L (3.5-5.1); Sodium 131 mmol/L (136-145)
[2021-03-28] MEDS: ICU ELECTROLYTE REPLACEMENT PROTOCOL SCH ×2 (05:19→18:20)
[2021-03-28] MEDS ORDERED: SODIUM PHOSPHATE 3 MMOL/1 ML INFUSION IV STA (05:22)
[2021-03-28] MEDS: MAGNESIUM SULFATE / D5W 1 GM/100 ML BAG IV SCH ×2 (05:41→08:14)
[2021-03-28] MEDS ORDERED: SODIUM PHOSPHATE 15 MMOL in SODIUM CHLORIDE 0.9% 250 ML IV ONE (06:00)
[2021-03-28] MEDS: SODIUM CHLOR 7% 4 ML NEB NEB SCH ×2 (07:05→20:08)
--- NOTE | 2021-03-28 07:57 | Hospitalist Progress Note ---
Date of Service March 28, 2021 Assessment & Plan (1) Acute and chronic respiratory failure with hypoxia: (2) Aspiration pneumonia: (3) Multilobar lung infiltrate: Plan: Patient is a 75 yr male with H/O Inclusion body myositis muscular dystrophy, chronic hyponatremia, MITZI with nocturnal hypoxemia on 2 L nasal cannula O2, restrictive lung disease due to muscular dystrophy, paroxysmal atrial fibrillation in setting of bronchodilators, hypertension, mild aortic valve stenosis, BPH and other medical problems listed below who presents with worsening shortness of breath over the past few days and found to have acute on chronic hypoxic respiratory failure and multilobar pneumonia. Acute Reparatory failure with Hypoxia Suspected Multifocal Pneumonia S/P Bronchoscopy for mucous plug removal S/P Tracheostomy on 03/22 --CTA:No PE. Multifocal airspace opacity within the right upper lobe and left upper lobe likely representing pneumonia. Short-term follow-up in 4-[address] on nonemergency basis is recommended. Evaluation of the right hemidiaphragm with complete atelectasis of the left lower lobe. Gas-filled loop of large bowel is seen within upper abdomen which is in upper limits of normal. Mild four-chamber cardiomegaly. -Blood Cx: No growth Sputum Cx: Yeast -Received Zosyn empirically -Continue Pulm hygiene -Appreciate Principal Solutions Architect help -Off pressors, Off sedation Continue trach collar Plan to discharge to LTAC placement as able Aspiration Respiratory arrest leading to cardiac arrest Cardiogenic Shock/PEA--Resolved 03/19 21 - PM - CODE BLUE--Intubated Piece of food was removed at intubation, patient then also underwent bronchoscopy-secretions removed Speech Therapy H/O Esophageal dysmotility Appreciate GI Input S/P PEG placement on 03/23/21 Tolerating tube feeds (4) Inclusion body myositis (IBM): Plan: Progressive, very limited motor function in LUE. Currently ambulates in motorized scooter Follows with [place] [facility] Fall precautions, able to eat soft bite sized diet (5) Chronic hyponatremia: Plan: Likely due to SIADH Evaluated by Nephrology Dr. Leggett previously Continue fluid restriction Monitor with daily BMP Sodium 131 today (6) Paroxysmal atrial fibrillation: Plan: Follows with Dr. Minor, Cardiology Amiodarone recently discontinued Continue Metoprolol Awaiting results of OP zio monitor Not on anticoagulation due to H/O subdural hematoma(due to fall) and Thromb ocytopenia On Eliquis currently (Low dose to h/o subdural) Advanced to full dose Eliquis if tolerated (7) BPH (benign prostatic hypertrophy): Plan: Continue Flomax H/O muscular dystrophy Restrictive lung disease Chronically elevated left hemidiaphragm Continue management as above Hypokalemia Hypomagnesemia Hypophosphatemia Replace electrolytes as needed Left UE thrombus Repeat Doppler on 03/24/21 showed no occlusive thrombus IV Heparin discontinued On Eliquis DVT Px: Eliquis Code status: FULL CODE Admission and Anticipated Discharge Date Admission Date: March 18, 2021 Subjective Patient is seen and examined at bedside No new complaints Doing well Patient denies dyspnea, chest pain, any pain at trach collar Had speech eval today Review of Systems Review of Systems: All systems reviewed & are unremarkable except as noted in Subjective Physical Exam Physical Exam: Physical Exam: Vitals signs as noted above General Appearance:Moderately built and nourished, no apparent distress Head: normocephalic, Atraumatic Eyes: normal inspection, EOMI Neck: supple, Trachea midline, +Trach Respiratory/Chest: Normal breath sounds, No accessory muscle use Cardiovascular: S1, S2, No murmur Abdomen/GI:Soft, Non tender, Bowel sounds present, +PEG Extremities/Musculoskeletal:normal inspection, RUE swelling, +Contractures Neurologic/Psych:Alert, awake, unable to perform complete neuro exam Skin: normal color, warm Results & Data Results & Data ([facility]) Vital Signs (Past 12 Hours) Vital Signs Temp Pulse Resp BP Pulse Ox 03/28/21 07:00 79 27 H 94 03/28/21 05:00 37.0 C 78 122/63 94 03/28/21 04:00 37.0 C 80 106/64 95 03/28/21 03:31 80 30 H 96 03/28/21 03:00 37.1 C 75 104/59 L 95 03/28/21 02:00 37.1 C 73 101/45 L 96 03/28/21 01:00 37.2 C 74 94/55 L 95 03/28/21 00:00 37.3 C 75 110/64 94 03/27/21 23:00 37.4 C 73 111/61 95 03/27/21 22:39 72 21 99 03/27/21 22:00 37.1 C 80 128/65 100 03/27/21 21:00 37.1 C 88 137/64 99 03/27/21 20:00 37.1 C 90 151/77 H 98 Laboratory Results [facility] 03/28/21 04:30 Sodium 131 L Potassium 4.2 Chloride 100 Carbon Dioxide 30 BUN 11 Creatinine 0.24 L Glucose 140 H Calcium 8.0 L (1) Aspiration pneumonia Aspiration pneumonia type: unspecified Laterality: bilateral Lung location: upper lobe of lung Qualified Code(s): J69.0 - Pneumonitis due to inhalation of food and vomit
[2021-03-28] MEDS: PARoxetine HCL 20 MG TAB PEG SCH ×2 (08:14→22:07)
[2021-03-28] MEDS: PROSOURCE NO CARB 30 ML/PKT PEG SCH (08:14)
[2021-03-28] MEDS: TRIAMCINOLONE ACET 0.1% CR 15 GM TUBE TOP SCH ×2 (08:15→22:08)
[2021-03-28] MEDS: METOPROLOL TARTRATE 25 MG TAB PO SCH ×2 (08:15→22:05)
[2021-03-28] MEDS: LANSOPRAZOLE 30 MG SOLTAB NG SCH (08:15)
[2021-03-28] MEDS: ATORVASTATIN 40 MG TAB PEG SCH (08:15)
[2021-03-28] MEDS: ASPIRIN 81 MG CHEW NG SCH (08:15)
[2021-03-28] MEDS: APIXABAN 2.5 MG TAB PO SCH ×2 (08:15→21:56)
[2021-03-28] MEDS: GABAPENTIN 250 MG/5 ML 470 ML BTL PO SCH ×2 (08:54→21:55)
--- NOTE | 2021-03-28 09:25 | Critical Care Progress Note ---
Date of Service March 28, 2021 Assessment & Plan (1) Admitted to intensive care unit: Plan: Impression: 75 y/o male w/ PMHx of pAF, BPH, IBM, and muscular dystrophy admitted for acute on chronic respiratory failure (03/18), intubated for cardiac arrest 2/2 choking (03/19), extubated, reintubated, and is s/p tracheostomy on 03/22. 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 Working with PT/OT. Out of bed to chair via Lauren lift. Appears at his baseline. CARDIAC -paroxysmal atrial fibrillation. Currently rate controlled on low-dose Eliquis. Started low-dose due to prior history of subdural. If he does okay over the next several days can advance to full dose Eliquis. Continue metoprolol. Patient is status post cardiac arrest with no evidence of residual side effects. RESP -inability to manage secretions resulted in intubation x2 with eventual tracheostomy placement. He has a [address] Could consider removing the sutures for the tracheostomy within the next couple days. We will attempt to leave the patient on continuous trach collar as he is doing quite well at this time. Continuing hypertonic saline for pulmonary toilet. Patient has an elevated left hemidiaphragm also likely contributing to his respiratory insufficiency. GI -status post PEG tube. Tube feeding per nutrition. 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 Continue to follow at this point in time. Fluid restrict. -maintain chronic Gonsalves catheter ENDO -no current issues. Glycemic control per protocol HEME -mild anemia. No indication for transfusion. Patient did have a left arterial thrombosis. Follow-up ultrasound demonstrated resolution. He is on Eliquis for atrial fibrillation. ID -yeast noted on sputum cultures from 03/22/2021. BAL from 03/19/2021 also with evidence of yeast. Likely contaminant. Patient afebrile. [. VTE: SCDs and therapeutic heparin drip GI: Lansoprazole Lines: PIVs x2 on right. Diet: Tube feedings per dietary Dispo: Stable for transfer to LTAC or shelter facility. code status: full (2) Cardiac arrest: (3) Chronic hyponatremia: (4) Acute and chronic respiratory failure with hypoxia: (5) Aspiration pneumonia: (6) Paroxysmal atrial fibrillation: (7) Dysphagia: (8) BPH (benign prostatic hypertrophy): (9) Inclusion body myositis (IBM): (10) Elevated troponin: (11) Hypokalemia: (12) Aspiration into airway: Admission and Anticipated Discharge Date Admission Date: March 18, 2021 Subjective Patient seen and examined. He is nonverbal due to tracheostomy status. No overnight events. Appears to be in good spirits. No distress. Review of Systems Review of Systems: Limited due to the patient's tracheostomy status. Physical Exam Constitutional: WD/WN, vitals as above Neck: trachea midline, no thyromegaly Trach site clean dry and intact Respiratory: normal respiratory effort, lungs clear to auscultation Cardiovascular: RRR, no murmur, no edema Gastrointestinal (Abdomen): normal bowel sounds, soft, nontender, no hepatosplenomegaly Skin: no rashes, warm and dry Lymphatic: no cervical lymphadenopathy Results & Data Results & Data ([facility]) Vital Signs (Past 12 Hours) Vital Signs Temp Pulse Resp BP Pulse Ox 03/28/21 07:00 79 27 H 94 03/28/21 05:00 98.6 F 78 122/63 94 03/28/21 04:00 98.6 F 80 106/64 95 03/28/21 03:31 80 30 H 96 03/28/21 03:00 98.8 F 75 104/59 L 95 03/28/21 02:00 98.8 F 73 101/45 L 96 03/28/21 01:00 99.0 F 74 94/55 L 95 03/28/21 00:00 99.1 F 75 110/64 94 03/27/21 23:00 99.3 F 73 111/61 95 03/27/21 22:39 72 21 99 03/27/21 22:00 98.8 F 80 128/65 100 vital signs, labs and imaging personally reviewed Coding Level of Care Code 44690 Subseq Hosp Care Lvl 2 Diagnoses Admitted to intensive care unit Z78.9 Cardiac arrest I46.9 Chronic hyponatremia E87.1 Acute and chronic respiratory failure with hypoxia J96.21 Aspiration pneumonia J69.0 Aspiration pneumonia type: unspecified Laterality: bilateral Lung location: upper lobe of lung Paroxysmal atrial fibrillation I48.0 Dysphagia R13.10 Dysphagia type: unspecified BPH (benign prostatic hypertrophy) N40.0 Inclusion body myositis (IBM) G72.41 Elevated troponin R77.8 Hypokalemia E87.6 Aspiration into airway T17.908A (1) Dysphagia Dysphagia type: unspecified Qualified Code(s): R13.10 - Dysphagia, unspecified (2) Aspiration pneumonia Aspiration pneumonia type: unspecified Laterality: bilateral Lung location: upper lobe of lung Qualified Code(s): J69.0 - Pneumonitis due to inhalation of food and vomit
[2021-03-28] MEDS: PEPTAMEN 1.5 CAL 1,000 ML BAG PEG SCH (14:49)
[2021-03-28] MEDS: TAMSULOSIN HCL 0.4 MG CAP PO SCH (22:07)
[2021-03-29] MEDS: TUBE FEEDING WATER FLUSH PEG SCH ×6 (01:42→20:41)
[2021-03-29] MEDS: ALBUT/IPRATROP 3MG/0.5MG NEB 3 ML VIAL NEB SCH ×6 (03:12→23:15)
[2021-03-29 05:00] LABS: Hematocrit (blood only) 30.2 % (42-52); Hemoglobin 10.1 g/dL (14.0-18.0); Mean Corpuscular Hemoglobin 32.7 pg (25-34); Mean Corpuscular Hgb Conc 33.4 g/dL (32-36); Mean Corpuscular Volume 97.7 fL (80-100); Mean Platelet Volume 9.7 fL (7.4-10.4); Platelet Count 246 K/uL (130-400); RDW Coefficient of Variation 13.9 % (11.5-14.5); RDW Standard Deviation 48.1 fL (36.4-46.3); Red Blood Count 3.09 M/uL (4.7-6.1); White Blood Count 8.81 K/uL (4.8-10.8)
[2021-03-29 05:33] LABS: Anion Gap 0 (3-11); BUN Creatinine Ratio 55.6 (10-20); Blood Urea Nitrogen 11 mg/dl (7-18); Calcium 8.4 mg/dl (8.5-10.1); Carbon Dioxide 31 mmol/L (21-32); Chloride 98 mmol/L (98-107); Creatinine Clr Calc Pharmacy 347.9 ml/min; Est GFR (African American) > 150.0 ml/min; Est GFR (Non-African American) > 150.0 ml/min; Glucose 134 mg/dl (70-99); Phosphorus 2.8 mg/dl (2.5-4.9); Potassium 4.3 mmol/L (3.5-5.1); Sodium 129 mmol/L (136-145)
[2021-03-29] MEDS: ICU ELECTROLYTE REPLACEMENT PROTOCOL SCH (05:48)
[2021-03-29] MEDS: MAGNESIUM SULFATE / D5W 1 GM/100 ML BAG IV SCH ×2 (06:09→07:56)
[2021-03-29] MEDS: SODIUM CHLOR 7% 4 ML NEB NEB SCH ×2 (07:47→19:10)
[2021-03-29] MEDS: ACETAMINOPHEN SUSP 325 MG/10.15 ML UDC PEG PRN (07:58)
[2021-03-29] MEDS: LANSOPRAZOLE 30 MG SOLTAB NG SCH (08:01)
[2021-03-29] MEDS: ATORVASTATIN 40 MG TAB PEG SCH (08:01)
[2021-03-29] MEDS: ASPIRIN 81 MG CHEW NG SCH (08:01)
[2021-03-29] MEDS: APIXABAN 2.5 MG TAB PO SCH (08:01)
[2021-03-29] MEDS: METOPROLOL TARTRATE 25 MG TAB PO SCH ×2 (08:02→20:40)
[2021-03-29] MEDS: PROSOURCE NO CARB 30 ML/PKT PEG SCH (08:02)
[2021-03-29] MEDS: PARoxetine HCL 20 MG TAB PEG SCH ×2 (08:02→20:40)
[2021-03-29] MEDS: TRIAMCINOLONE ACET 0.1% CR 15 GM TUBE TOP SCH ×2 (08:03→20:40)
[2021-03-29] MEDS: GABAPENTIN 250 MG/5 ML 470 ML BTL PO SCH ×2 (08:05→20:39)
--- NOTE | 2021-03-29 10:29 | Critical Care Progress Note ---
Date of Service March 29, 2021 Assessment & Plan (1) Admitted to intensive care unit: Plan: Impression: 75 y/o male w/ PMHx of pAF, BPH, IBM, and muscular dystrophy admitted for acute on chronic respiratory failure (03/18), intubated for cardiac arrest 2/2 choking (03/19), extubated, reintubated, and is s/p tracheostomy on 03/22. 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 Working with PT/OT. Out of bed to chair via Lauren lift. Appears at his baseline. CARDIAC -paroxysmal atrial fibrillation. Eliquis increased to the usual dose for anticoagulation. Continue metoprolol. Patient is status post cardiac arrest with no evidence of residual side effects. RESP -inability to manage secretions resulted in intubation x2 with eventual tracheostomy placement. He has a [address] Continuing hypertonic saline for pulmonary toilet. Patient has an elevated left hemidiaphragm also likely contributing to his respiratory insufficiency. Tolerating speaking valve very well. GI -status post PEG tube. Tube feeding per nutrition. Failed swallow study evaluation. RENAL/LYTES -mild hyponatremia present likely due to SIADH. Stable. -maintain chronic Gonsalves catheter ENDO -no current issues. Glycemic control per protocol HEME -mild anemia. No indication for transfusion. Patient did have a left arterial thrombosis. Follow-up ultrasound demonstrated resolution. He is on Eliquis for atrial fibrillation. ID -yeast noted on sputum cultures from 03/22/2021. BAL from 03/19/2021 also with evidence of yeast. Likely contaminant. Patient afebrile. VTE: SCDs and therapeutic heparin drip GI: Lansoprazole Lines: PIVs x2 on right. Diet: Tube feedings per dietary Dispo: Stable for transfer to LTAC or prison facility. Case management assisting. code status: Full code (2) Cardiac arrest: (3) Chronic hyponatremia: (4) Acute and chronic respiratory failure with hypoxia: (5) Aspiration pneumonia: (6) Paroxysmal atrial fibrillation: (7) Dysphagia: (8) BPH (benign prostatic hypertrophy): (9) Inclusion body myositis (IBM): (10) Elevated troponin: (11) Hypokalemia: (12) Aspiration into airway: Admission and Anticipated Discharge Date Admission Date: March 18, 2021 Subjective Patient seen and examined this morning. He is doing well with a speaking valve in place. He is currently on trach collar. Denies any significant complaints. Sutures removed at bedside. Review of Systems Review of Systems: All systems reviewed & are unremarkable except as noted in HPI & below Physical Exam Constitutional: WD/WN, vitals as above Neck: trachea midline, no thyromegaly Trach site clean dry and intact Respiratory: normal respiratory effort, lungs clear to auscultation Cardiovascular: RRR, no murmur, no edema Gastrointestinal (Abdomen): normal bowel sounds, soft, nontender, no hepatosplenomegaly Skin: no rashes, warm and dry Psychiatric: A+Ox3, euthymic affect Lymphatic: no cervical lymphadenopathy Results & Data Results & Data ([facility]) Vital Signs (Past 12 Hours) Vital Signs Temp Pulse Pulse Resp BP Pulse Ox 03/29/21 07:36 86 20 96 03/29/21 06:01 100.0 F H 89 25 H 130/51 L 97 03/29/21 05:00 100.0 F H 86 25 H 130/76 98 03/29/21 04:00 99.7 F H 83 24 144/78 H 98 03/29/21 03:29 82 22 94 03/29/21 03:00 99.7 F H 87 25 H 122/85 91 03/29/21 02:00 99.5 F 83 24 127/67 100 03/29/21 01:31 94 H 03/29/21 01:00 99.5 F 79 24 139/71 94 03/29/21 00:08 99.5 F 79 26 H 132/82 99 03/28/21 23:01 96 H 20 100 03/28/21 23:00 99.0 F 94 H 19 155/89 H 99 Vital signs, labs and imaging personally reviewed Coding Level of Care Code 78798 Subseq Hosp Care Lvl 3 Diagnoses Admitted to intensive care unit Z78.9 Cardiac arrest I46.9 Chronic hyponatremia E87.1 Acute and chronic respiratory failure with hypoxia J96.21 Aspiration pneumonia J69.0 Aspiration pneumonia type: unspecified Laterality: bilateral Lung location: upper lobe of lung Paroxysmal atrial fibrillation I48.0 Dysphagia R13.10 Dysphagia type: unspecified BPH (benign prostatic hypertrophy) N40.0 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
[2021-03-29] MEDS: PEPTAMEN 1.5 CAL 1,000 ML BAG PEG SCH (12:13)
--- NOTE | 2021-03-29 18:19 | Hospitalist Progress Note ---
Date of Service March 29, 2021 delayed entry date of service noted above Assessment & Plan (1) Acute and chronic respiratory failure with hypoxia: (2) Aspiration pneumonia: (3) Multilobar lung infiltrate: Plan: Patient is a 75 yr male with H/O Inclusion body myositis muscular dystrophy, chronic hyponatremia, MITZI with nocturnal hypoxemia on 2 L nasal cannula O2, restrictive lung disease due to muscular dystrophy, paroxysmal atrial fibrillation in setting of bronchodilators, hypertension, mild aortic valve stenosis, BPH and other medical problems listed below who presents with worsening shortness of breath over the past few days and found to have acute on chronic hypoxic respiratory failure and multilobar pneumonia. Acute Reparatory failure with Hypoxia Suspected Multifocal Pneumonia S/P Bronchoscopy for mucous plug removal S/P Tracheostomy on 03/22 --CTA:No PE. Multifocal airspace opacity within the right upper lobe and left upper lobe likely representing pneumonia. Short-term follow-up in 4-[address] on nonemergency basis is recommended. Evaluation of the right hemidiaphragm with complete atelectasis of the left lower lobe. Gas-filled loop of large bowel is seen within upper abdomen which is in upper limits of normal. Mild four-chamber cardiomegaly. -Blood Cx: No growth Sputum Cx: Yeast -Received Zosyn empirically - stable -Off pressors, Off sedation Continue trach collar - awaiting transfer to LTAC Aspiration Respiratory arrest leading to cardiac arrest Cardiogenic Shock/PEA--Resolved 03/19 21 - PM - CODE BLUE--Intubated Piece of food was removed at intubation, patient then also underwent bronchoscopy-secretions removed Speech Therapy H/O Esophageal dysmotility Appreciate GI Input S/P PEG placement on 03/23/21 -- tube feeding without issues (4) Inclusion body myositis (IBM): Plan: Progressive, very limited motor function in LUE. Currently ambulates in motorized scooter Follows with [place] [facility] (5) Chronic hyponatremia: Plan: Likely due to SIADH Evaluated by Nephrology Dr. Leggett previously Continue fluid restriction Monitor with daily BMP Sodium 129 (6) Paroxysmal atrial fibrillation: Plan: Follows with Dr. Minor, Cardiology Continue Metoprolol Awaiting results of OP zio monitor On Eliquis currently (Low dose to h/o subdural) (7) BPH (benign prostatic hypertrophy): Plan: Continue Flomax H/O muscular dystrophy Restrictive lung disease Chronically elevated left hemidiaphragm Continue management as above Left UE thrombus Repeat Doppler on 03/24/21 showed no occlusive thrombus On Eliquis DVT Px: Eliquis Code status: FULL CODE Admission and Anticipated Discharge Date Admission Date: March 18, 2021 Subjective ff up for respiratory failure, etc seen resting in chair, comfortable smiling states he feels ok overall no dyspnea, chest pain, palpitations no abdominal pain, nausea no other symptoms Review of Systems Review of Systems: all noted and negative except for above Physical Exam Physical Exam: General- oriented x 2, not in distress, speaks in sentences with no effort or accessory muscle use Eyes- anicteric Neck- no JVD trach in place: no bleeding ,discharge Lungs- clear BS BL Heart- normal rate, regular rhythm; no murmurs Abdomen- normal bowel sounds, nondistended, soft, nontender Extremities- no pretibial edema, no calf tenderness Neuro- alert, oriented x 2; no gross focal neurologic deficits Skin- warm & dry Results & Data Results & Data ([facility]) Vital Signs (Past 12 Hours) Vital Signs Temp Pulse Pulse Resp BP Pulse Ox 03/29/21 15:43 76 20 96 03/29/21 15:00 37.8 C H 80 109/52 L 95 03/29/21 14:00 37.4 C 76 94/59 L 93 03/29/21 13:26 77 26 H 93 03/29/21 13:00 36.7 C 81 24 115/73 92 03/29/21 12:00 36.8 C 78 21 112/63 93 03/29/21 11:11 78 20 92 03/29/21 11:01 36.9 C 80 23 105/51 L 92 03/29/21 10:00 36.9 C 75 21 106/55 L 92 03/29/21 09:00 37.1 C 80 23 113/56 L 92 03/29/21 08:00 37.7 C H 88 16 142/87 H 03/29/21 07:36 86 20 96 03/29/21 07:00 37.8 C H 88 25 H 116/67 95 all noted and reviewed including below (1) Aspiration pneumonia Aspiration pneumonia type: unspecified Laterality: bilateral Lung location: upper lobe of lung Qualified Code(s): J69.0 - Pneumonitis due to inhalation of food and vomit
[2021-03-29] MEDS: APIXABAN 5 MG TABLET PO SCH (20:39)
[2021-03-29] MEDS: TAMSULOSIN HCL 0.4 MG CAP PO SCH (20:39)
[2021-03-30] MEDS: TUBE FEEDING WATER FLUSH PEG SCH ×6 (02:17→20:37)
[2021-03-30] MEDS: ALBUT/IPRATROP 3MG/0.5MG NEB 3 ML VIAL NEB SCH ×6 (02:33→22:54)
[2021-03-30 05:00] LABS: Basophils # (auto) 0.01 K/uL (0-0.2); Basophils % (auto) 0.1 %; Eosinophils # (auto) 0.14 K/uL (0-0.5); Eosinophils % (auto) 1.7 %; Hematocrit (blood only) 28.3 % (42-52); Hemoglobin 9.4 g/dL (14.0-18.0); Immature Granulocytes # (auto) 0.05 K/uL (0.00-0.02); Immature Granulocytes % (auto) 0.6 %; Lymphocytes # (auto) 0.84 K/uL (1.2-3.4); Lymphocytes % (auto) 9.9 %; Mean Corpuscular Hgb Conc 33.2 g/dL (32-36); Mean Corpuscular Volume 99.3 fL (80-100); Monocytes # (auto) 1.71 K/uL (0.11-0.59); Monocytes % (auto) 20.2 %; Neutrophils % (auto) 67.5 %; Platelet Count 247 K/uL (130-400); RDW Coefficient of Variation 14.1 % (11.5-14.5); RDW Standard Deviation 49.2 fL (36.4-46.3); Red Blood Count 2.85 M/uL (4.7-6.1); White Blood Count 8.45 K/uL (4.8-10.8)
[2021-03-30 05:33] LABS: BUN Creatinine Ratio 48.2 (10-20); Blood Urea Nitrogen 14 mg/dl (7-18); Calcium 8.1 mg/dl (8.5-10.1); Carbon Dioxide 30 mmol/L (21-32); Chloride 98 mmol/L (98-107); Creatinine Clr Calc Pharmacy 244.3 ml/min; Est GFR (African American) > 150.0 ml/min; Est GFR (Non-African American) 133.6 ml/min; Glucose 137 mg/dl (70-99); Magnesium 2.2 mg/dl (1.8-2.4); Phosphorus 2.8 mg/dl (2.5-4.9); Potassium 4.1 mmol/L (3.5-5.1); Sodium 131 mmol/L (136-145)
[2021-03-30] MEDS: SODIUM CHLOR 7% 4 ML NEB NEB SCH ×2 (07:14→19:20)
--- NOTE | 2021-03-30 08:26 | Critical Care Progress Note ---
Date of Service March 30, 2021 Assessment & Plan (1) Admitted to intensive care unit: Plan: Impression: 75 y/o male w/ PMHx of pAF, BPH, IBM, and muscular dystrophy admitted for acute on chronic respiratory failure (03/18), intubated for cardiac arrest 2/2 choking (03/19), extubated, reintubated, and is s/p tracheostomy on 03/22. 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 Working with PT/OT. Out of bed to chair via Lauren lift. Appears at his baseline. CARDIAC -paroxysmal atrial fibrillation. We will hold morning dose of Eliquis given the lower lip bleeding. Continue metoprolol. Patient is status post cardiac arrest with no evidence of residual side effects. RESP -inability to manage secretions resulted in intubation x2 with eventual tracheostomy placement. He has a [address] Continuing hypertonic saline for pulmonary toilet. Patient has an elevated left hemidiaphragm also likely contributing to his respiratory insufficiency. We will transition to a speaking valve later today if respiratory status improves throughout the day. GI -status post PEG tube. Tube feeding per nutrition. Failed swallow study evaluation. RENAL/LYTES -mild hyponatremia present likely due to SIADH. Stable. -maintain chronic Gonsalves catheter ENDO -no current issues. Glycemic control per protocol HEME -mild anemia. No indication for transfusion. Patient did have a left arterial thrombosis. Follow-up ultrasound demonstrated resolution. He is on Eliquis for atrial fibrillation. ID -yeast noted on sputum cultures from 03/22/2021. BAL from 03/19/2021 also with evidence of yeast. Likely contaminant. Patient afebrile. VTE: SCDs and therapeutic heparin drip GI: Lansoprazole Lines: PIVs x2 on right. Diet: Tube feedings per dietary Dispo: Stable for transfer to LTAC or intermediate facility. Case management assisting. code status: Full code (2) Cardiac arrest: (3) Chronic hyponatremia: (4) Acute and chronic respiratory failure with hypoxia: (5) Aspiration pneumonia: (6) Paroxysmal atrial fibrillation: (7) Dysphagia: (8) BPH (benign prostatic hypertrophy): (9) Inclusion body myositis (IBM): (10) Elevated troponin: (11) Hypokalemia: (12) Aspiration into airway: Admission and Anticipated Discharge Date Admission Date: March 18, 2021 Subjective Patient seen and examined this morning. He has some bleeding from his lower lip. He was fatigued overnight and required being placed back on the ventilator. He is a little short of breath this morning. He is currently on trach collar. Review of Systems Review of Systems: All systems reviewed & are unremarkable except as noted in HPI & below Physical Exam Constitutional: WD/WN, vitals as above ENMT: Mild bleeding noted in the lower lip Neck: trachea midline, no thyromegaly Trach site clean dry and intact Respiratory: normal respiratory effort, lungs clear to auscultation Cardiovascular: RRR, no murmur, no edema Gastrointestinal (Abdomen): normal bowel sounds, soft, nontender, no hepatosplenomegaly Skin: no rashes, warm and dry Psychiatric: A+Ox3, euthymic affect Lymphatic: no cervical lymphadenopathy Results & Data Results & Data ([facility]) Vital Signs (Past 12 Hours) Vital Signs Temp Pulse Pulse Resp BP Pulse Ox 03/30/21 08:06 87 22 96 03/30/21 07:35 86 03/30/21 06:00 98.6 F 84 108/56 L 96 03/30/21 05:00 98.4 F 87 111/55 L 97 03/30/21 04:00 98.4 F 86 121/53 L 94 03/30/21 03:25 83 19 97 03/30/21 03:00 98.6 F 82 122/73 98 03/30/21 02:35 84 19 97 03/30/21 02:00 99.1 F 83 100/51 L 97 03/30/21 01:00 99.7 F H 88 124/67 96 03/30/21 00:05 84 03/30/21 00:00 99.9 F H 84 106/55 L 96 03/29/21 23:26 84 18 94 03/29/21 23:25 84 22 94 03/29/21 23:00 100.2 F H 86 90/61 L 98 03/29/21 22:00 99.9 F H 92 H 101/50 L 95 03/29/21 21:00 99.9 F H 99 H 160/84 H 92 03/29/21 20:40 108 H 25 H 96 Vital signs, labs and imaging reviewed Coding Level of Care Code 31091 Subseq Hosp Care Lvl 2 Diagnoses Admitted to intensive care unit Z78.9 Cardiac arrest I46.9 Chronic hyponatremia E87.1 Acute and chronic respiratory failure with hypoxia J96.21 Aspiration pneumonia J69.0 Aspiration pneumonia type: unspecified Laterality: bilateral Lung location: upper lobe of lung Paroxysmal atrial fibrillation I48.0 Dysphagia R13.10 Dysphagia type: unspecified BPH (benign prostatic hypertrophy) N40.0 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
[2021-03-30] MEDS: GABAPENTIN 250 MG/5 ML 470 ML BTL PO SCH ×2 (08:30→20:56)
[2021-03-30] MEDS: ASPIRIN 81 MG CHEW NG SCH (08:30)
[2021-03-30] MEDS: APIXABAN 5 MG TABLET PO SCH ×2 (08:30→20:58)
[2021-03-30] MEDS: LANSOPRAZOLE 30 MG SOLTAB NG SCH (08:30)
[2021-03-30] MEDS: METOPROLOL TARTRATE 25 MG TAB PO SCH ×2 (08:31→20:58)
[2021-03-30] MEDS: PARoxetine HCL 20 MG TAB PEG SCH ×2 (08:31→20:56)
[2021-03-30] MEDS: TRIAMCINOLONE ACET 0.1% CR 15 GM TUBE TOP SCH ×2 (08:33→20:38)
[2021-03-30] MEDS: PROSOURCE NO CARB 30 ML/PKT PEG SCH (08:33)
[2021-03-30] MEDS: ATORVASTATIN 40 MG TAB PEG SCH (08:33)
[2021-03-30] MEDS ORDERED: FUROSEMIDE 20 MG in SYRINGE 0 ML IV ONE (10:45)
[2021-03-30] MEDS ORDERED: PROPOFOL IV EMULSION 10 MG/ML 100 ML VIAL IV ONE (10:53)
[2021-03-30] MEDS ORDERED: STAT IV Infusion **Titration per Protocol STA ×2 (10:56→11:53)
--- NOTE | 2021-03-30 11:13 | XRay Report ---
XR chest 1V portable HISTORY: hypoxia COMPARISON: Chest 03/25/2021. FINDINGS: Volume loss within the left hemithorax with near complete opacification of the left hemitho rax. This has significantly resting the interval and favors atelectasis from possible mucous plug. Th e tracheostomy tube is in good position. No pneumothorax. The heart remains mildly enlarged. There is mild interstitial thickening within the right lung, unchanged. There is a left shoulder prosthesis. IMPRESSION: Interval development of near complete opacification of the left hemithorax with associated volume los s. Therefore, this favors atelectasis and could be secondary to mucous plugging. This finding was dis cussed with Dr. Aponte at 11:05 AM on 03/30/2021. ACT 112: Negative or not required by law. Electronically signed by: Seamus Chen M.D. 03/30/2021 11:11 AM
--- NOTE | 2021-03-30 11:26 | Procedure Note ---
Procedure Note: Bronchoscopy Procedure PREOPERATIVE DIAGNOSIS: Left lung whiteout POSTOPERATIVE DIAGNOSIS: Left lung whiteout PROCEDURE PERFORMED: Flexible fiberoptic bronchoscopy with washings of the left upper lobe. COMPLICATIONS: Postprocedural hypotension. INDICATION: Relieve mucus plugging PROCEDURE: Informed consent was obtained from the patient prior to the procedure. A timeout was performed at bedside prior to the procedure. Patient was given 10 mg boluses of propofol in sequential aliquots for a total of 40 mg of propofol. The scope was introduced via the tracheostomy. No obvious bleeding was noted in the tracheostomy. Trachea appeared normal. There was some mild posterior wall collapse. Rosa Maria was sharp. Thick white secretions were noted emanating from the left mainstem bronchus. These were aspirated clear. I advanced the scope into the left upper lobe where thick secretions were noted in the superior and inferior division. These were aspirated clear. There was friable mucosa and mild bleeding. 60 mL of saline was instilled in the left upper lobe and 20 mL was aspirated back. Mucous plugs were suctioned clear. I turned my attention to the left lower lobe and all the relevant subsegments. These were suctioned clear mucus. I then inspected the right upper lobe, right middle lobe and right lower lobe. No obvious lesions or significant secretions were noted. The scope was then withdrawn. The patient had some mild postprocedural hypotension and was briefly started on Levophed. He is mentating well. Postprocedural chest x-ray shows improvement of aeration of the left upper lobe. Follow-up sputum cultures.
[2021-03-30] MEDS: propofoL 1,000 MG/100 ML VIAL IV SCH ×2 (11:43→20:37)
[2021-03-30] MEDS ORDERED: NOREPINEPHRINE/D5W 8 MG/508 ML IV ONE (11:54)
--- NOTE | 2021-03-30 11:54 | XRay Report ---
XR chest 1V portable CLINICAL HISTORY: follow up post bronch COMPARISON STUDY: March 30, 2021 at 10:29 hours FINDINGS: No pneumothorax. Recently seen large left pleural effusion is decreased since prior with improvement of aeration of th e left lung parenchyma. Left hemidiaphragm is elevated. Lung volumes are decreased with crowded lung markings. Small atelectasis/infiltrates are seen at the right base. Cardiomediastinal silhouette is prominent a nd partially obscured by surrounding opacities. Pulmonary vasculature is obscured. Stable position of tracheostomy tube.. Osseous structures: Degenerative changes of the spine. Prosthetic left shoulder joint is again seen. IMPRESSION: 1. Interval decrease in size of the large left pleural effusion. Interval improvement of aeration of the left lung parenchyma. 2. Low lung volumes. Atelectasis/infiltrate at the right base. 3. The rest of findings as above. ACT 112: Negative or not required by law. The above report was generated using voice recognition software. It may contain grammatical, syntax o r spelling errors. Electronically signed by: Raiza Powers DO 03/30/2021 11:52 AM
[2021-03-30] MEDS: NOREPINEPHRINE/D5W 8 MG/508 ML BAG IV SCH (12:00)
[2021-03-30] MEDS: PEPTAMEN 1.5 CAL 1,000 ML BAG PEG SCH (12:01)
[2021-03-30] MEDS ORDERED: CEFEPIME CONSULT ACTIVE PRN (13:55)
[2021-03-30] MEDS: ACETYLCYSTEINE 20% INHAL SOLN 4ML ***DISPENSED BY RESP. INH SCH ×2 (14:45→18:59)
[2021-03-30] MEDS: CEFEPIME 2,000 MG in SYRINGE 0 ML IV SCH ×2 (14:48→23:16)
[2021-03-30] MEDS ORDERED: LACTATED RINGER'S 500 ML IV ONE (16:03)
[2021-03-30 16:44] LABS: Basophil Body Fluid Man 0 %; Eosinophil Body Fluid Man 0 %; Fluid Mono/Macrophage 9 %; Lymphocyte Body Fluid Man 2 %; Neutrophil Body Fluid Man 89 %
[2021-03-30] MEDS: ACETAMINOPHEN SUSP 325 MG/10.15 ML UDC PEG PRN (16:49)
--- NOTE | 2021-03-30 18:07 | Hospitalist Progress Note ---
Date of Service March 30, 2021 Assessment & Plan (1) Acute and chronic respiratory failure with hypoxia: (2) Aspiration pneumonia: (3) Multilobar lung infiltrate: Plan: per Dr. Hope's notes: Patient is a 75 yr male with H/O Inclusion body myositis muscular dystrophy, chronic hyponatremia, MITZI with nocturnal hypoxemia on 2 L nasal cannula O2, restrictive lung disease due to muscular dystrophy, paroxysmal atrial fibrillation in setting of bronchodilators, hypertension, mild aortic valve stenosis, BPH and other medical problems listed below who presents with worsening shortness of breath over the past few days and found to have acute on chronic hypoxic respiratory failure and multilobar pneumonia. Acute Reparatory failure with Hypoxia Suspected Multifocal Pneumonia S/P Bronchoscopy for mucous plug removal S/P Tracheostomy on 03/22 --CTA:No PE. Multifocal airspace opacity within the right upper lobe and left upper lobe likely representing pneumonia. Short-term follow-up in 4-[address] on nonemergency basis is recommended. Evaluation of the right hemidiaphragm with complete atelectasis of the left lower lobe. Gas-filled loop of large bowel is seen within upper abdomen which is in upper limits of normal. Mild four-chamber cardiomegaly. -Blood Cx: No growth Sputum Cx: Yeast -Off pressors, Off sedation 03/31 (+) complete opacificiation of L lung s/p repeat Bronch repeat CXR improved currently on Mech Vent on Cefepime IV monitor Aspiration Respiratory arrest leading to cardiac arrest Cardiogenic Shock/PEA--Resolved per Dr. Hope's notes: 03/19 21 - PM - CODE BLUE--Intubated Piece of food was removed at intubation, patient then also underwent bronchoscopy-secretions removed Speech Therapy H/O Esophageal dysmotility Appreciate GI Input S/P PEG placement on 03/23/21 - no issues (4) Inclusion body myositis (IBM): Plan: Progressive, very limited motor function in LUE. 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 Leggett previously fluid restriction Na 131 (6) Paroxysmal atrial fibrillation: Plan: per Dr. Hope's notes: Follows with Dr. Kopinski, Cardiology Amiodarone recently discontinued Continue Metoprolol Awaiting results of OP zio monitor Not on anticoagulation due to H/O subdural hematoma(due to fall) and Thrombocytopenia Eliquis (7) BPH (benign prostatic hypertrophy): Plan: Continue Flomax H/O muscular dystrophy Restrictive lung disease Chronically elevated left hemidiaphragm Continue management as above Left UE thrombus Repeat Doppler on 03/24/21 showed no occlusive thrombus On Eliquis DVT Px: Eliquis Code status: FULL CODE Admission and Anticipated Discharge Date Admission Date: March 18, 2021 Subjective ff up for acute hypoxic respiratory failure ,etc found to have complete opacification of left lung s/p Bronch seen resting in bed, on [facility] vent alert, in good spirits states he feels ok overall denies chest pain, dyspnea, dizziness, nausea, chills no other symptoms Review of Systems Review of Systems: all noted and negative except for above Physical Exam Physical Exam: General- oriented x2, not in distress, speaks in sentences with no effort or accessory muscle use Eyes- anicteric Neck- no JVD Lungs- mild rhonchi anteriorly Heart- normal rate, regular rhythm; no murmurs Abdomen- normal bowel sounds, nondistended, soft, nontender peg tube in place Extremities- no pretibial edema, no calf tenderness Neuro- alert, oriented x 3; no gross focal neurologic deficits Skin- warm & dry Results & Data Results & Data ([facility]) Vital Signs (Past 12 Hours) Vital Signs Temp Pulse Pulse Resp BP Pulse Ox 03/30/21 17:41 37.1 C 83 120/62 95 03/30/21 17:12 37.1 C 83 108/78 95 03/30/21 16:11 37.2 C 83 113/54 L 97 03/30/21 15:41 37.2 C 84 68/48 L 95 03/30/21 14:45 79 79 23 97 03/30/21 14:42 37.3 C 79 136/59 L 99 03/30/21 13:41 37.3 C 78 99/58 L 97 03/30/21 12:32 37.2 C 75 119/55 L 97 03/30/21 12:01 37.4 C 78 105/51 L 94 03/30/21 11:56 37.4 C 78 76/37 L 92 03/30/21 11:52 87 78 23 100 03/30/21 11:47 37.4 C 78 72/35 L 95 03/30/21 11:36 37.4 C 77 77/54 L 100 03/30/21 11:18 37.3 C 82 101/79 100 03/30/21 11:13 37.3 C 86 142/76 H 100 03/30/21 11:08 37.3 C 81 108/59 L 100 03/30/21 11:00 37.3 C 83 119/64 98 03/30/21 10:00 37.1 C 84 105/69 94 03/30/21 09:00 36.9 C 87 156/80 H 95 03/30/21 08:06 87 22 96 03/30/21 08:01 36.9 C 93 H 135/69 95 03/30/21 07:35 86 03/30/21 07:00 37.0 C 85 112/57 L 96 all noted and reviewed including below (1) Aspiration pneumonia Aspiration pneumonia type: unspecified Laterality: bilateral Lung location: upper lobe of lung Qualified Code(s): J69.0 - Pneumonitis due to inhalation of food and vomit
[2021-03-30] MEDS: TAMSULOSIN HCL 0.4 MG CAP PO SCH (20:56)
[2021-03-30] MEDS ORDERED: CEFEPIME 1,000 MG in SYRINGE 0 ML IV SCH (21:00)
[2021-03-31] MEDS: TUBE FEEDING WATER FLUSH PEG SCH ×6 (00:05→20:17)
[2021-03-31] MEDS: ALBUT/IPRATROP 3MG/0.5MG NEB 3 ML VIAL NEB SCH ×6 (03:23→22:09)
[2021-03-31 05:06] LABS: Basophils # (auto) 0.02 K/uL (0-0.2); Basophils % (auto) 0.3 %; Eosinophils # (auto) 0.18 K/uL (0-0.5); Eosinophils % (auto) 2.3 %; Hematocrit (blood only) 27.9 % (42-52); Hemoglobin 9.3 g/dL (14.0-18.0); Immature Granulocytes # (auto) 0.06 K/uL (0.00-0.02); Immature Granulocytes % (auto) 0.8 %; Lymphocytes # (auto) 1.13 K/uL (1.2-3.4); Lymphocytes % (auto) 14.4 %; Mean Corpuscular Hemoglobin 33.3 pg (25-34); Mean Corpuscular Hgb Conc 33.3 g/dL (32-36); Mean Platelet Volume 10.1 fL (7.4-10.4); Neutrophils # (auto) 5.34 K/uL (1.4-6.5); Neutrophils % (auto) 68.2 %; Platelet Count 268 K/uL (130-400); RDW Coefficient of Variation 14.7 % (11.5-14.5); Red Blood Count 2.79 M/uL (4.7-6.1); White Blood Count 7.83 K/uL (4.8-10.8)
[2021-03-31 05:36] LABS: BUN Creatinine Ratio 75.6 (10-20); Blood Urea Nitrogen 17 mg/dl (7-18); Calcium 8.3 mg/dl (8.5-10.1); Carbon Dioxide 32 mmol/L (21-32); Chloride 98 mmol/L (98-107); Creatinine Clr Calc Pharmacy 308.7 ml/min; Est GFR (African American) > 150.0 ml/min; Est GFR (Non-African American) 147.5 ml/min; Glucose 122 mg/dl (70-99); Magnesium 1.9 mg/dl (1.8-2.4); Phosphorus 3.1 mg/dl (2.5-4.9); Potassium 4.4 mmol/L (3.5-5.1); Sodium 132 mmol/L (136-145)
[2021-03-31] MEDS: CEFEPIME 2,000 MG in SYRINGE 0 ML IV SCH ×3 (06:02→21:22)
[2021-03-31] MEDS: propofoL 1,000 MG/100 ML VIAL IV SCH ×2 (06:03→14:19)
[2021-03-31] MEDS: ACETYLCYSTEINE 20% INHAL SOLN 4ML ***DISPENSED BY RESP. INH SCH ×2 (07:10→19:13)
[2021-03-31] MEDS: SODIUM CHLOR 7% 4 ML NEB NEB SCH ×2 (07:10→19:11)
[2021-03-31] MEDS: APIXABAN 5 MG TABLET PO SCH ×2 (08:27→20:15)
[2021-03-31] MEDS: ASPIRIN 81 MG CHEW NG SCH (08:27)
[2021-03-31] MEDS: ATORVASTATIN 40 MG TAB PEG SCH (08:28)
[2021-03-31] MEDS: LANSOPRAZOLE 30 MG SOLTAB NG SCH (08:28)
[2021-03-31] MEDS: METOPROLOL TARTRATE 25 MG TAB PO SCH ×2 (08:28→20:15)
[2021-03-31] MEDS: TRIAMCINOLONE ACET 0.1% CR 15 GM TUBE TOP SCH ×2 (08:29→20:48)
[2021-03-31] MEDS: PROSOURCE NO CARB 30 ML/PKT PEG SCH (08:29)
[2021-03-31] MEDS: PARoxetine HCL 20 MG TAB PEG SCH ×2 (08:29→20:16)
[2021-03-31] MEDS: GABAPENTIN 250 MG/5 ML 470 ML BTL PO SCH ×2 (08:31→20:15)
--- NOTE | 2021-03-31 09:14 | Critical Care Progress Note ---
Date of Service March 31, 2021 Assessment & Plan (1) Admitted to intensive care unit: Plan: Impression: 75 y/o male w/ PMHx of pAF, BPH, IBM, and muscular dystrophy admitted for acute on chronic respiratory failure (03/18), intubated for cardiac arrest 2/2 choking (03/19), extubated, reintubated, and is s/p tracheostomy on 03/22. 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 Working with PT/OT. Out of bed to chair via Lauren lift. Appears at his baseline. CARDIAC -paroxysmal atrial fibrillation. Continue full dose Eliquis. Continue metoprolol. Patient is status post cardiac arrest with no evidence of residual side effects. RESP -inability to manage secretions resulted in intubation x2 with eventual tracheostomy placement. He has a [address] Continuing hypertonic saline for pulmonary toilet. Patient has an elevated left hemidiaphragm also likely contributing to his respiratory insufficiency. Status post bronchoscopy 03/30/2021 due to mucous plugging on the left. Chest x-ray improved 03/31/2021. Mucomyst added to his regimen. Continue 4 times daily vest therapy. GI -status post PEG tube. Tube feeding per nutrition. Failed swallow study evaluation. RENAL/LYTES -mild hyponatremia present likely due to SIADH. Stable. -maintain chronic Gonsalves catheter ENDO -no current issues. Glycemic control per protocol HEME -mild anemia. No indication for transfusion. Patient did have a left arterial thrombosis. Follow-up ultrasound demonstrated resolution. He is on Eliquis for atrial fibrillation. ID -yeast noted on sputum cultures from 03/22/2021. BAL from 03/19/2021 also with evidence of yeast. Likely contaminant. Patient afebrile. VTE: SCDs and Eliquis. GI: Lansoprazole Lines: PIVs x2 on right. Diet: Tube feedings per dietary Dispo: Stable for transfer to LTAC or custodial facility. Case management assisting. code status: Full code (2) Cardiac arrest: (3) Chronic hyponatremia: (4) Acute and chronic respiratory failure with hypoxia: (5) Aspiration pneumonia: (6) Paroxysmal atrial fibrillation: (7) Dysphagia: (8) BPH (benign prostatic hypertrophy): (9) Inclusion body myositis (IBM): (10) Elevated troponin: (11) Hypokalemia: (12) Aspiration into airway: (13) Atelectasis of left lung: Admission and Anticipated Discharge Date Admission Date: March 18, 2021 Subjective Patient seen and examined this morning. He is currently on trach collar. No acute events overnight. His breathing is improved today, but still little labored. Dynamically stable. No fevers or chills. Review of Systems Review of Systems: All systems reviewed & are unremarkable except as noted in HPI & below Results & Data Results & Data [facility]) Vital Signs (Past 12 Hours) Vital Signs Temp Pulse Pulse Resp BP Pulse Ox 03/31/21 07:26 85 20 97 03/31/21 06:11 98.6 F 84 20 146/75 H 96 03/31/21 05:11 98.6 F 86 17 120/59 L 95 03/31/21 04:11 98.6 F 82 20 116/57 L 94 03/31/21 03:23 79 23 95 03/31/21 03:12 98.8 F 79 20 113/57 L 98 03/31/21 02:11 98.8 F 77 22 99/52 L 98 03/31/21 01:12 98.8 F 78 20 92/51 L 97 03/31/21 00:11 98.6 F 78 20 96/58 L 97 03/30/21 23:11 99.0 F 76 19 103/69 97 03/30/21 22:54 74 25 H 98 03/30/21 22:12 99.0 F 74 16 93/61 L 98 03/30/21 21:37 98.6 F 78 20 125/83 98 vital signs, labs and imaging personally reviewed. Chest x-ray imaging with improved aeration compared to yesterday. Coding Level of Care Code 72767 Subseq Hosp Care Lvl 2 Diagnoses Admitted to intensive care unit Z78.9 Cardiac arrest I46.9 Chronic hyponatremia E87.1 Acute and chronic respiratory failure with hypoxia J96.21 Aspiration pneumonia J69.0 Aspiration pneumonia type: unspecified Laterality: bilateral Lung location: upper lobe of lung Paroxysmal atrial fibrillation I48.0 Dysphagia R13.10 Dysphagia type: unspecified BPH (benign prostatic hypertrophy) N40.0 Inclusion body myositis (IBM) G72.41 Elevated troponin R77.8 Hypokalemia E87.6 Aspiration into airway T17.908A Atelectasis of left lung J98.11 (1) Aspiration pneumonia Aspiration pneumonia type: unspecified Laterality: bilateral Lung location: upper lobe of lung Qualified Code(s): J69.0 - Pneumonitis due to inhalation of food and vomit (2) Dysphagia Dysphagia type: unspecified Qualified Code(s): R13.10 - Dysphagia, unspecified
[2021-03-31] MEDS: PEPTAMEN 1.5 CAL 1,000 ML BAG PEG SCH (09:46)
[2021-03-31] MEDS: NOREPINEPHRINE/D5W 8 MG/508 ML BAG IV SCH (12:11)
--- NOTE | 2021-03-31 14:38 | XRay Report ---
XR chest 1V portable CLINICAL HISTORY: f/u COMPARISON STUDY: March 30, 2021 FINDINGS: No pneumothorax. Mild interval improvement of the left-sided pleural effusion. Atelectasis/infiltrate at the left lowe r lung are also slightly improved. Minimal atelectasis at the right base is again seen. Cardiac silhouette is stable. Aorta is calcified. Pulmonary vasculature is obscured.. Osseous structures: Mild degenerative changes of the spine. Stable position of tracheostomy tube. IMPRESSION: 1. Mild interval improvement of the left pleural effusion and atelectasis/infiltrate at the left bas e. 2. The rest of findings as above. ACT 112: Negative or not required by law. The above report was generated using voice recognition software. It may contain grammatical, syntax o r spelling errors. Electronically signed by: Raiza Powers DO 03/31/2021 2:37 PM
[2021-03-31] MEDS ORDERED: DOCUSATE SODIUM SYRUP 100 MG/10 ML UDC PO STA (16:09)
--- NOTE | 2021-03-31 16:35 | Hospitalist Progress Note ---
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 Acute Reparatory failure with Hypoxia Suspected Multifocal Pneumonia S/P Bronchoscopy for mucous plug removal S/P Tracheostomy on 03/22 --CTA:No PE. Multifocal airspace opacity within the right upper lobe and left upper lobe likely representing pneumonia. Short-term follow-up in 4-[address] on nonemergency basis is recommended. Evaluation of the right hemidiaphragm with complete atelectasis of the left lower lobe. Gas-filled loop of large bowel is seen within upper abdomen which is in upper limits of normal. Mild four-chamber cardiomegaly. -Blood Cx: No growth Sputum Cx: Yeast 03/31 (+) complete opacificiation of L lung s/p repeat Bronch 03/30 repeat CXR improved currently on trach collar sputum culture: gram neg bacilli on Cefepime IV afebrile, good o2 sats monitor Aspiration Respiratory arrest leading to cardiac arrest Cardiogenic Shock/PEA--Resolved 03/19 21 - PM - CODE BLUE--Intubated Piece of food was removed at intubation, patient then also underwent bronchoscopy-secretions removed Speech Therapy H/O Esophageal dysmotility Appreciate GI Input S/P PEG placement on 03/23/21 -- tube feeding without issues (4) Inclusion body myositis (IBM): Plan: Progressive, very limited motor function in LUE. Currently ambulates in motorized scooter Follows with [place] [facility] (5) Chronic hyponatremia: Plan: Likely due to SIADH Evaluated by Nephrology Dr. Leggett previously Continue fluid restriction Monitor with daily BMP Sodium 132 (6) Paroxysmal atrial fibrillation: Plan: Follows with Dr. Minor, Cardiology Continue Metoprolol Awaiting results of OP zio monitor On Eliquis currently (Low dose to h/o subdural) (7) BPH (benign prostatic hypertrophy): Plan: Continue Flomax H/O muscular dystrophy Restrictive lung disease Chronically elevated left hemidiaphragm Continue management as above Left UE thrombus Repeat Doppler on 03/24/21 showed no occlusive thrombus On Eliquis DVT Px: Eliquis Code status: FULL CODE Admission and Anticipated Discharge Date Admission Date: March 18, 2021 Subjective ff up for respiratory failure, etc seen resting on his chair in good spirits comfortable on trach collar no dyspnea, cough no chest pain, nausea, chills (+) constipation Review of Systems Review of Systems: all noted and negative except for above Physical Exam Physical Exam: General- oriented x 2, not in distress, speaks in sentences with no effort or accessory muscle use Eyes- anicteric Neck- no JVD trach collar: no bleeding, discharge Lungs- clear breath sounds bilaterally, no rales/wheezes Heart- normal rate, regular rhythm; no murmurs Abdomen- normal bowel sounds, nondistended, soft, nontender Extremities- no pretibial edema, no calf tenderness Neuro- alert, oriented x 2; no gross focal neurologic deficits Skin- warm & dry Results & Data Results & Data ([facility]) Vital Signs (Past 12 Hours) Vital Signs Temp Pulse Pulse Resp BP Pulse Ox 03/31/21 15:21 88 20 96 03/31/21 11:12 37.1 C 84 127/77 98 03/31/21 11:07 87 20 96 03/31/21 10:11 37.0 C 84 134/72 96 03/31/21 09:12 36.8 C 87 135/69 92 03/31/21 08:13 37.0 C 93 H 192/81 H 90 03/31/21 07:26 85 20 97 03/31/21 07:12 37.1 C 88 109/69 100 03/31/21 06:11 37.0 C 84 20 146/75 H 96 03/31/21 05:11 37.0 C 86 17 120/59 L 95 all noted and reviewed including below (1) Aspiration pneumonia Aspiration pneumonia type: unspecified Laterality: bilateral Lung location: upper lobe of lung Qualified Code(s): J69.0 - Pneumonitis due to inhalation of food and vomit
[2021-03-31] MEDS: SENNOSIDES 8.8 MG/5 ML UDC PO SCH (17:50)
[2021-03-31] MEDS: TAMSULOSIN HCL 0.4 MG CAP PO SCH (20:15)
[2021-03-31] MEDS: DOCUSATE SODIUM SYRUP 100 MG/10 ML UDC PO SCH (20:15)
[2021-03-31] MEDS: DOCUSATE SODIUM/SENNA 50/8.6MG TAB PO SCH (20:15)
[2021-04-01] MEDS: TUBE FEEDING WATER FLUSH PEG SCH ×6 (00:44→19:36)
[2021-04-01] MEDS: ALBUT/IPRATROP 3MG/0.5MG NEB 3 ML VIAL NEB SCH ×6 (03:11→22:30)
[2021-04-01] MEDS: propofoL 1,000 MG/100 ML VIAL IV SCH (03:33)
[2021-04-01 05:15] LABS: Basophils # (auto) 0.02 K/uL (0-0.2); Basophils % (auto) 0.3 %; Eosinophils # (auto) 0.23 K/uL (0-0.5); Hematocrit (blood only) 28.2 % (42-52); Hemoglobin 9.4 g/dL (14.0-18.0); Immature Granulocytes # (auto) 0.06 K/uL (0.00-0.02); Immature Granulocytes % (auto) 0.8 %; Lymphocytes # (auto) 0.92 K/uL (1.2-3.4); Lymphocytes % (auto) 12.2 %; Mean Corpuscular Hemoglobin 32.6 pg (25-34); Mean Corpuscular Hgb Conc 33.3 g/dL (32-36); Mean Corpuscular Volume 97.9 fL (80-100); Monocytes # (auto) 1.21 K/uL (0.11-0.59); Neutrophils # (auto) 5.11 K/uL (1.4-6.5); Neutrophils % (auto) 67.7 %; Platelet Count 293 K/uL (130-400); RDW Coefficient of Variation 14.6 % (11.5-14.5); RDW Standard Deviation 50.3 fL (36.4-46.3); Red Blood Count 2.88 M/uL (4.7-6.1); White Blood Count 7.55 K/uL (4.8-10.8)
[2021-04-01] MEDS: CEFEPIME 2,000 MG in SYRINGE 0 ML IV SCH (05:23)
[2021-04-01 05:32] LABS: BUN Creatinine Ratio 75.8 (10-20); Blood Urea Nitrogen 18 mg/dl (7-18); Calcium 8.3 mg/dl (8.5-10.1); Carbon Dioxide 32 mmol/L (21-32); Chloride 97 mmol/L (98-107); Creatinine Clr Calc Pharmacy 282.7 ml/min; Est GFR (African American) > 150.0 ml/min; Est GFR (Non-African American) 142.3 ml/min; Glucose 147 mg/dl (70-99); Magnesium 1.9 mg/dl (1.8-2.4); Potassium 3.9 mmol/L (3.5-5.1); Sodium 130 mmol/L (136-145)
[2021-04-01 05:33] LABS: Phosphorus 2.6 mg/dl (2.5-4.9)
[2021-04-01] MEDS: SODIUM CHLOR 7% 4 ML NEB NEB SCH ×2 (07:03→19:46)
[2021-04-01] MEDS: ACETYLCYSTEINE 20% INHAL SOLN 4ML ***DISPENSED BY RESP. INH SCH ×2 (07:03→19:46)
--- NOTE | 2021-04-01 08:23 | Critical Care Progress Note ---
Date of Service April 01, 2021 Assessment & Plan (1) Admitted to intensive care unit: Plan: Impression: 75 y/o male w/ PMHx of pAF, BPH, IBM, and muscular dystrophy admitted for acute on chronic respiratory failure (03/18), intubated for cardiac arrest 2/2 choking (03/19), extubated, reintubated, and is s/p tracheostomy on 03/22. 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 Working with PT/OT. Out of bed to chair via Lauren lift. Appears at his baseline. CARDIAC -paroxysmal atrial fibrillation. Continue full dose Eliquis. Continue metoprolol. Patient is status post cardiac arrest with no evidence of residual side effects. RESP -inability to manage secretions resulted in intubation x2 with eventual tracheostomy placement. He has a [address] Continuing hypertonic saline for pulmonary toilet. Patient has an elevated left hemidiaphragm also likely contributing to his respiratory insufficiency. Status post bronchoscopy 03/30/2021 due to mucous plugging on the left. Chest x-ray improved 03/31/2021. Mucomyst added to his regimen. Continue 4 times daily vest therapy. Pansensitive Klebsiella pneumoniae growing from the [facility] cultures. We will repeat chest x-ray today. GI -status post PEG tube. Tube feeding per nutrition. Failed swallow study evaluation. RENAL/LYTES -mild hyponatremia present likely due to SIADH. Stable. -maintain chronic Gonsalves catheter ENDO -no current issues. Glycemic control per protocol HEME -mild anemia. No indication for transfusion. Patient did have a left arterial thrombosis. Follow-up ultrasound demonstrated resolution. He is on Eliquis for atrial fibrillation. ID -bronchoscopy cultures from 03/30/2021 pansensitive Klebsiella pneumonia. Will de-escalate cefepime to ceftriaxone. Treat for 7 days total. VTE: SCDs and Eliquis. GI: Lansoprazole Lines: PIVs x2 on right. Diet: Tube feedings per dietary Dispo: Transfer to LTAC in [place] on Saturday. Case management assisting. code status: Full code (2) Cardiac arrest: (3) Chronic hyponatremia: (4) Acute and chronic respiratory failure with hypoxia: (5) Aspiration pneumonia: (6) Paroxysmal atrial fibrillation: (7) Dysphagia: (8) BPH (benign prostatic hypertrophy): (9) Inclusion body myositis (IBM): (10) Elevated troponin: (11) Hypokalemia: (12) Aspiration into airway: (13) Atelectasis of left lung: (14) Klebsiella pneumonia: Admission and Anticipated Discharge Date Admission Date: March 18, 2021 Subjective Patient seen and examined this morning. He is less short of breath than yesterday. He denies any significant complaint. No overnight events. Tolerating trach collar at this time. Review of Systems Review of Systems: All systems reviewed & are unremarkable except as noted in Subjective Physical Exam Constitutional: WD/WN, vitals as above Neck: trachea midline, no thyromegaly Trach site clean dry and intact Respiratory: normal respiratory effort, lungs clear to auscultation Cardiovascular: RRR, no murmur, no edema Gastrointestinal (Abdomen): normal bowel sounds, soft, nontender, no hepatosplenomegaly Skin: no rashes, warm and dry Psychiatric: A+Ox3, euthymic affect Lymphatic: no cervical lymphadenopathy Results & Data Results & Data ([facility]) Vital Signs (Past 12 Hours) Vital Signs Temp Pulse Pulse Resp BP Pulse Ox 04/01/21 07:05 88 18 98 04/01/21 05:44 98.6 F 83 122/67 96 04/01/21 04:44 99.0 F 85 107/65 93 04/01/21 03:44 99.3 F 85 24 113/56 L 89 L 04/01/21 02:44 99.5 F 79 105/58 L 90 04/01/21 01:44 99.5 F 77 95/54 L 95 04/01/21 00:44 99.7 F H 78 99/52 L 95 03/31/21 23:44 99.5 F 79 101/51 L 94 03/31/21 23:34 80 03/31/21 22:44 99.5 F 81 108/61 96 03/31/21 22:30 80 22 93 03/31/21 21:44 99.3 F 83 143/83 H 97 03/31/21 21:00 99.3 F 84 22 96 Vital signs, labs and imaging personally reviewed Coding Level of Care Code 58351 Subseq Hosp Care Lvl 3 Diagnoses Admitted to intensive care unit Z78.9 Cardiac arrest I46.9 Chronic hyponatremia E87.1 Acute and chronic respiratory failure with hypoxia J96.21 Aspiration pneumonia J69.0 Aspiration pneumonia type: unspecified Laterality: bilateral Lung location: upper lobe of lung Paroxysmal atrial fibrillation I48.0 Dysphagia R13.10 Dysphagia type: unspecified BPH (benign prostatic hypertrophy) N40.0 Inclusion body myositis (IBM) G72.41 Elevated troponin R77.8 Hypokalemia E87.6 Aspiration into airway T17.908A Atelectasis of left lung J98.11 Klebsiella pneumonia J15.0 (1) Aspiration pneumonia Aspiration pneumonia type: unspecified Laterality: bilateral Lung location: upper lobe of lung Qualified Code(s): J69.0 - Pneumonitis due to inhalation of food and vomit (2) Dysphagia Dysphagia type: unspecified Qualified Code(s): R13.10 - Dysphagia, unspecified
--- NOTE | 2021-04-01 09:04 | XRay Report ---
XR chest 1V portable CLINICAL HISTORY: atelectasis COMPARISON STUDY: Chest radiograph March 31, 2021. FINDINGS: Tracheostomy tube is in place. Incidental note is made of a left shoulder arthroplasty. Rig ht basilar opacity is present. Left lung aeration has significantly diminished since prior examinatio n. There is evidence for left lung volume loss. There may be a small left pleural effusion. There is no pneumothorax. IMPRESSION: Significant increase in opacification of the left lung with volume loss. This favors ate lectasis and could be secondary to mucous plugging. ACT 112: Negative or not required by law. Electronically signed by: Reggie Knight M.D. 04/01/2021 9:03 AM
[2021-04-01] MEDS ORDERED: STAT IV Infusion **Titration per Protocol STA (09:06)
[2021-04-01] MEDS ORDERED: PROPOFOL BOLUS FROM BAG IV PRN (09:06)
[2021-04-01] MEDS ORDERED: PROPOFOL IV EMULSION 10 MG/ML 100 ML VIAL IV ONE (09:09)
[2021-04-01] MEDS ORDERED: NOREPINEPHRINE/D5W 8 MG/508 ML BAG IV SCH (09:15)
[2021-04-01] MEDS ORDERED: propofoL 1,000 MG/100 ML VIAL IV SCH (09:15)
[2021-04-01] MEDS: ATORVASTATIN 40 MG TAB PEG SCH (09:56)
[2021-04-01] MEDS: APIXABAN 5 MG TABLET PO SCH ×2 (09:56→19:38)
[2021-04-01] MEDS: DOCUSATE SODIUM SYRUP 100 MG/10 ML UDC PO SCH ×2 (09:56→19:38)
[2021-04-01] MEDS: DOCUSATE SODIUM/SENNA 50/8.6MG TAB PO SCH ×2 (09:56→20:01)
[2021-04-01] MEDS: LANSOPRAZOLE 30 MG SOLTAB NG SCH (09:57)
[2021-04-01] MEDS: PARoxetine HCL 20 MG TAB PEG SCH ×2 (09:57→19:37)
[2021-04-01] MEDS: ASPIRIN 81 MG CHEW NG SCH (09:57)
[2021-04-01] MEDS: PROSOURCE NO CARB 30 ML/PKT PEG SCH (09:57)
[2021-04-01] MEDS: cefTRIAXone SODIUM 2,000 MG in DEXTROSE 5% 50 ML IV SCH (09:57)
[2021-04-01] MEDS: SENNOSIDES 8.8 MG/5 ML UDC PO SCH (09:58)
[2021-04-01] MEDS: TRIAMCINOLONE ACET 0.1% CR 15 GM TUBE TOP SCH ×2 (09:58→20:02)
[2021-04-01] MEDS: GABAPENTIN 250 MG/5 ML 470 ML BTL PO SCH ×2 (09:59→20:01)
--- NOTE | 2021-04-01 10:14 | Procedure Note ---
Procedure Note: Bronchoscopy Procedure Bronchoscopy was performed to clear mucus secretions from the left lung. The patient gave verbal consent for the procedure. There is also a written consent signed previously for bronchoscopy. Timeout was performed prior to the procedure. Sedation was utilized with a continuous propofol infusion. Bronchoscope was inserted via the tracheostomy adapter. The patient was ventilated using mechanical ventilation. 5 mL of 1% lidocaine was instilled onto the edwar. The trachea was midline. Edwar was sharp. Thick mucus was noted emanating from the left mainstem bronchus. This was suctioned and clear. The scope had to be removed several times in order to clear the scope with saline of the mucous plugs. The scope was readvanced into the airways into the left upper and left lower lobe. Airways were cleared of mucus. The bronchoscope was then completely removed. Oxygenation improved after bronchoscopy. Patient did have postprocedural hypotension and is currently on a Levophed infusion. We are weaning Levophed off.
[2021-04-01] MEDS: METOPROLOL TARTRATE 25 MG TAB PO SCH ×2 (10:18→19:39)
--- NOTE | 2021-04-01 10:49 | XRay Report ---
XR chest 1V portable CLINICAL HISTORY: POST BRONCH COMPARISON STUDY: Chest radiograph performed earlier today. FINDINGS: Tracheostomy tube and left shoulder arthroplasty are noted. There is no pneumothorax. Left lung aeration is improved. There is residual left mid and lower lung opacity with a small left pleura l effusion. IMPRESSION: 1. Interval improvement in left lung aeration. Residual left lung opacity with a small left pleural e ffusion. 2. No pneumothorax. ACT 112: Negative or not required by law. Electronically signed by: Reggie Knight M.D. 04/01/2021 10:48 AM
--- NOTE | 2021-04-01 17:16 | Hospitalist Progress Note ---
Date of Service April 01, 2021 Assessment & Plan (1) Acute and chronic respiratory failure with hypoxia: (2) Aspiration pneumonia: (3) Multilobar lung infiltrate: Plan: Patient is a 75 yr male with H/O Inclusion body myositis muscular dystrophy, chronic hyponatremia, MITZI with nocturnal hypoxemia on 2 L nasal cannula O2, restrictive lung disease due to muscular dystrophy, paroxysmal atrial fibrillation in setting of bronchodilators, hypertension, mild aortic valve stenosis, BPH and other medical problems listed below who presents with worsening shortness of breath over the past few days and found to have acute on chronic hypoxic respiratory failure and multilobar pneumonia. Acute Reparatory failure with Hypoxia Suspected Multifocal Pneumonia S/P Bronchoscopy for mucous plug removal S/P Tracheostomy on 03/22 --CTA:No PE. Multifocal airspace opacity within the right upper lobe and left upper lobe likely representing pneumonia. Short-term follow-up in 4-[address] on nonemergency basis is recommended. Evaluation of the right hemidiaphragm with complete atelectasis of the left lower lobe. Gas-filled loop of large bowel is seen within upper abdomen which is in upper limits of normal. Mild four-chamber cardiomegaly. -Blood Cx: No growth Sputum Cx: Yeast 04/02 currently on trach collar sputum culture: Klebsiella pneumoniae on Ceftriaxone IV afebrile, good o2 sats monitor Aspiration Respiratory arrest leading to cardiac arrest Cardiogenic Shock/PEA--Resolved 03/19 21 - PM - CODE BLUE--Intubated Piece of food was removed at intubation, patient then also underwent bronchoscopy-secretions removed Speech Therapy H/O Esophageal dysmotility Appreciate GI Input S/P PEG placement on 03/23/21 -- tube feeding without issues (4) Inclusion body myositis (IBM): Plan: Progressive, very limited motor function in LUE. Currently ambulates in motorized scooter Follows with [place] [facility] (5) Chronic hyponatremia: Plan: Likely due to SIADH Evaluated by Nephrology Dr. Legegtt previously Continue fluid restriction Monitor with daily BMP Sodium 132 (6) Paroxysmal atrial fibrillation: Plan: Follows with Dr. Minor, Cardiology Continue Metoprolol Awaiting results of OP zio monitor On Eliquis currently (Low dose to h/o subdural) (7) BPH (benign prostatic hypertrophy): Plan: Continue Flomax H/O muscular dystrophy Restrictive lung disease Chronically elevated left hemidiaphragm Continue management as above Left UE thrombus Repeat Doppler on 03/24/21 showed no occlusive thrombus On Eliquis DVT Px: Eliquis Code status: FULL CODE Admission and Anticipated Discharge Date Admission Date: March 18, 2021 Subjective ff up for respiratory failure, etc seen resting in bed, comfortable in good spirits on trach collar no dyspnea, cough no chills no chest pain, palpitations, dizziness no issues with tube feeding no other symptoms Review of Systems Review of Systems: all noted and negative except for above Physical Exam Physical Exam: General- oriented x 3, not in distress, speaks in sentences with no effort or accessory muscle use Eyes- anicteric Neck- no JVD trach in place: no discharge, bleeding Lungs- clear breath sounds bilaterally, no rhonchi Heart- normal rate, regular rhythm; no murmurs Abdomen- normal bowel sounds, nondistended, soft, nontender peg tube in place: no bleeding, leak Extremities- no pretibial edema, no calf tenderness Neuro- alert, oriented x 3; no gross focal neurologic deficits Skin- warm & dry Results & Data Results & Data ([facility]) Vital Signs (Past 12 Hours) Vital Signs Temp Pulse Pulse Resp BP Pulse Ox 04/01/21 10:52 88 20 99 04/01/21 10:30 36.8 C 81 119/69 94 04/01/21 10:00 36.7 C 81 128/77 96 04/01/21 09:30 36.5 C 89 158/110 H 100 04/01/21 09:25 36.5 C 91 H 168/88 H 98 04/01/21 08:44 36.4 C L 86 154/74 H 95 04/01/21 07:44 36.6 C 88 137/65 97 04/01/21 07:05 88 18 98 04/01/21 06:44 36.8 C 83 119/61 95 04/01/21 05:44 37.0 C 83 122/67 96 (1) Aspiration pneumonia Aspiration pneumonia type: unspecified Laterality: bilateral Lung location: upper lobe of lung Qualified Code(s): J69.0 - Pneumonitis due to inhalation of food and vomit
[2021-04-01] MEDS: TAMSULOSIN HCL 0.4 MG CAP PO SCH (19:40)
[2021-04-01] MEDS: guaiFENesin SUGAR FREE 200 MG/10 ML UDC PEG SCH (20:01)
[2021-04-01] MEDS ORDERED: guaiFENesin SUGAR FREE 200 MG/10 ML UDC PEG SCH (21:00)
[2021-04-01] MEDS ORDERED: guaiFENesin 600 MG TABCR PO SCH (21:00)
[2021-04-02] MEDS: TUBE FEEDING WATER FLUSH PEG SCH ×6 (02:12→20:30)
[2021-04-02] MEDS: ALBUT/IPRATROP 3MG/0.5MG NEB 3 ML VIAL NEB SCH ×6 (03:07→22:38)
[2021-04-02 05:33] LABS: Basophils # (auto) 0.01 K/uL (0-0.2); Basophils % (auto) 0.2 %; Eosinophils # (auto) 0.22 K/uL (0-0.5); Eosinophils % (auto) 3.6 %; Hematocrit (blood only) 29.1 % (42-52); Hemoglobin 9.6 g/dL (14.0-18.0); Immature Granulocytes # (auto) 0.06 K/uL (0.00-0.02); Lymphocytes # (auto) 1.02 K/uL (1.2-3.4); Lymphocytes % (auto) 16.9 %; Mean Corpuscular Hemoglobin 32.4 pg (25-34); Mean Corpuscular Volume 98.3 fL (80-100); Mean Platelet Volume 9.9 fL (7.4-10.4); Monocytes % (auto) 18.2 %; Neutrophils # (auto) 3.64 K/uL (1.4-6.5); Neutrophils % (auto) 60.1 %; Platelet Count 315 K/uL (130-400); RDW Coefficient of Variation 14.8 % (11.5-14.5); RDW Standard Deviation 51.8 fL (36.4-46.3); Red Blood Count 2.96 M/uL (4.7-6.1); White Blood Count 6.05 K/uL (4.8-10.8)
[2021-04-02 06:01] LABS: BUN Creatinine Ratio 70.5 (10-20); Blood Urea Nitrogen 16 mg/dl (7-18); Calcium 8.6 mg/dl (8.5-10.1); Carbon Dioxide 31 mmol/L (21-32); Chloride 98 mmol/L (98-107); Creatinine Clr Calc Pharmacy 305.9 ml/min; Est GFR (African American) > 150.0 ml/min; Est GFR (Non-African American) 147.5 ml/min; Glucose 128 mg/dl (70-99); Magnesium 1.9 mg/dl (1.8-2.4); Sodium 132 mmol/L (136-145)
[2021-04-02 06:07] LABS: Phosphorus 3.7 mg/dl (2.5-4.9)
[2021-04-02] MEDS: ACETYLCYSTEINE 20% INHAL SOLN 4ML ***DISPENSED BY RESP. INH SCH ×2 (07:57→19:20)
--- NOTE | 2021-04-02 08:02 | XRay Report ---
XR chest 1V portable CLINICAL HISTORY: f/u COMPARISON STUDY: Chest radiograph April 01, 2021 at 10:38 AM. FINDINGS: Left shoulder arthroplasty is incidentally noted. Tracheostomy tube is in place. Partial op acification of the left lung with a small left pleural effusion is similar to prior exam. Cardiomegal y is unchanged. There is no evidence for overt pulmonary edema. There is no pneumothorax. IMPRESSION: No significant change in partial opacification of the left lung with a small left pleura l effusion. ACT 112: Negative or not required by law. Electronically signed by: Reggie Knight M.D. 04/02/2021 8:00 AM
[2021-04-02] MEDS: SODIUM CHLOR 7% 4 ML NEB NEB SCH ×2 (08:28→19:43)
[2021-04-02] MEDS: GABAPENTIN 250 MG/5 ML 470 ML BTL PO SCH ×2 (08:50→21:20)
[2021-04-02] MEDS: PROSOURCE NO CARB 30 ML/PKT PEG SCH (08:50)
[2021-04-02] MEDS: cefTRIAXone SODIUM 2,000 MG in DEXTROSE 5% 50 ML IV SCH (08:50)
[2021-04-02] MEDS: APIXABAN 5 MG TABLET PO SCH ×2 (08:50→21:16)
[2021-04-02] MEDS: PARoxetine HCL 20 MG TAB PEG SCH ×2 (08:51→21:23)
[2021-04-02] MEDS: DOCUSATE SODIUM/SENNA 50/8.6MG TAB PO SCH ×2 (08:51→21:18)
[2021-04-02] MEDS: ASPIRIN 81 MG CHEW NG SCH (08:52)
[2021-04-02] MEDS: DOCUSATE SODIUM SYRUP 100 MG/10 ML UDC PO SCH ×2 (08:52→21:18)
[2021-04-02] MEDS: LANSOPRAZOLE 30 MG SOLTAB NG SCH (08:52)
[2021-04-02] MEDS: guaiFENesin SUGAR FREE 200 MG/10 ML UDC PEG SCH ×2 (08:52→21:21)
[2021-04-02] MEDS: SENNOSIDES 8.8 MG/5 ML UDC PO SCH (08:52)
--- NOTE | 2021-04-02 08:52 | Critical Care Progress Note ---
Date of Service April 02, 2021 Assessment & Plan (1) Admitted to intensive care unit: Plan: Impression: 75 y/o male w/ PMHx of pAF, BPH, IBM, and muscular dystrophy admitted for acute on chronic respiratory failure (03/18), intubated for cardiac arrest 2/2 choking (03/19), extubated, reintubated, and is s/p tracheostomy on 03/22. 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 Working with PT/OT. Out of bed to chair via Lauren lift. Appears at his baseline. CARDIAC -paroxysmal atrial fibrillation. Continue full dose Eliquis. Continue metoprolol. Patient is status post cardiac arrest with no evidence of residual side effects. RESP -inability to manage secretions resulted in intubation x2 with eventual tracheostomy placement. He has a [address] Continuing hypertonic saline for pulmonary toilet. Patient has an elevated left hemidiaphragm also likely contributing to his respiratory insufficiency. Status post bronchoscopy 03/30/2021 and 04/01/2021 due to mucous plugging on the left. Mucomyst added to his regimen. Continue 4 times daily vest therapy. We will start MetaNebs. Pansensitive Klebsiella pneumoniae growing from [facility] cultures. GI -status post PEG tube. Tube feeding per nutrition. Failed swallow study evaluation. RENAL/LYTES -mild hyponatremia present likely due to SIADH. Stable. -maintain chronic Gonsalves catheter ENDO -no current issues. Glycemic control per protocol HEME -mild anemia. No indication for transfusion. Patient did have a left arterial thrombosis. Follow-up ultrasound demonstrated resolution. He is on Eliquis for atrial fibrillation. ID -bronchoscopy cultures from 03/30/2021 pansensitive Klebsiella pneumonia. Will de-escalate cefepime to ceftriaxone. Treat for 7 days total. VTE: SCDs and Eliquis. GI: Lansoprazole Lines: PIVs x2 on right. Diet: Tube feedings per dietary Dispo: Transfer to LTAC in [place] on Saturday. Case management assisting. code status: Full code (2) Cardiac arrest: (3) Chronic hyponatremia: (4) Acute and chronic respiratory failure with hypoxia: (5) Aspiration pneumonia: (6) Paroxysmal atrial fibrillation: (7) Dysphagia: (8) BPH (benign prostatic hypertrophy): (9) Inclusion body myositis (IBM): (10) Elevated troponin: (11) Hypokalemia: (12) Aspiration into airway: (13) Atelectasis of left lung: (14) Klebsiella pneumonia: Admission and Anticipated Discharge Date Admission Date: March 18, 2021 Subjective Patient seen this morning. No acute complaints. He was unable to tolerate his speaking valve for very long yesterday due to dyspnea. Chest x-ray completed today with evidence of left lower lobe collapse. It is improved from yesterday. No chest pain. No fevers or chills. Review of Systems Review of Systems: All systems reviewed & are unremarkable except as noted in HPI & below Physical Exam Constitutional: WD/WN, vitals as above Neck: trachea midline, no thyromegaly Trach site clean dry and intact Respiratory: Diminished lung sounds at the left lower lobe. No wheezes or rales. Cardiovascular: Regular rate, rhythm. No murmurs. 2+ pitting edema in the lower extremities bilaterally. Gastrointestinal (Abdomen): normal bowel sounds, soft, nontender, no hepatosplenomegaly Skin: no rashes, warm and dry Psychiatric: A+Ox3, euthymic affect Lymphatic: no cervical lymphadenopathy Results & Data Results & Data ([facility]) Vital Signs (Past 12 Hours) Vital Signs Temp Pulse Pulse Resp BP Pulse Ox 04/02/21 07:59 77 21 100 04/02/21 05:20 98.6 F 77 97/51 L 100 04/02/21 04:21 98.8 F 78 106/52 L 100 04/02/21 03:38 76 18 99 04/02/21 03:20 99.3 F 75 105/57 L 100 04/02/21 02:20 99.3 F 74 97/56 L 98 04/02/21 01:20 99.5 F 72 97/53 L 97 04/02/21 00:20 99.1 F 75 101/62 98 04/01/21 23:20 98.8 F 71 109/52 L 92 04/01/21 22:35 70 19 95 04/01/21 22:30 73 18 92 04/01/21 22:20 98.4 F 72 117/64 94 04/01/21 21:21 98.2 F 73 123/63 95 vital signs, labs and imaging reviewed Coding Level of Care Code 86218 Subseq Hosp Care Lvl 3 Diagnoses Admitted to intensive care unit Z78.9 Cardiac arrest I46.9 Chronic hyponatremia E87.1 Acute and chronic respiratory failure with hypoxia J96.21 Aspiration pneumonia J69.0 Aspiration pneumonia type: unspecified Laterality: bilateral Lung location: upper lobe of lung Paroxysmal atrial fibrillation I48.0 Dysphagia R13.10 Dysphagia type: unspecified BPH (benign prostatic hypertrophy) N40.0 Inclusion body myositis (IBM) G72.41 Elevated troponin R77.8 Hypokalemia E87.6 Aspiration into airway T17.908A Atelectasis of left lung J98.11 Klebsiella pneumonia J15.0 (1) Aspiration pneumonia Aspiration pneumonia type: unspecified Laterality: bilateral Lung location: upper lobe of lung Qualified Code(s): J69.0 - Pneumonitis due to inhalation of food and vomit (2) Dysphagia Dysphagia type: unspecified Qualified Code(s): R13.10 - Dysphagia, unspecified
[2021-04-02] MEDS: ATORVASTATIN 40 MG TAB PEG SCH (08:53)
[2021-04-02] MEDS: METOPROLOL TARTRATE 25 MG TAB PO SCH ×2 (08:53→21:23)
[2021-04-02] MEDS: TRIAMCINOLONE ACET 0.1% CR 15 GM TUBE TOP SCH ×2 (08:53→22:30)
--- NOTE | 2021-04-02 16:56 | Hospitalist Progress Note ---
Date of Service April 01, 2021 delayed entry date of service noted above Assessment & Plan (1) Acute and chronic respiratory failure with hypoxia: (2) Aspiration pneumonia: (3) Multilobar lung infiltrate: Plan: Patient is a 75 yr male with H/O Inclusion body myositis muscular dystrophy, chronic hyponatremia, MITZI with nocturnal hypoxemia on 2 L nasal cannula O2, restrictive lung disease due to muscular dystrophy, paroxysmal atrial fibrillation in setting of bronchodilators, hypertension, mild aortic valve stenosis, BPH and other medical problems listed below who presents with worsening shortness of breath over the past few days and found to have acute on chronic hypoxic respiratory failure and multilobar pneumonia. Acute Reparatory failure with Hypoxia Suspected Multifocal Pneumonia S/P Bronchoscopy for mucous plug removal S/P Tracheostomy on 03/22 --CTA:No PE. Multifocal airspace opacity within the right upper lobe and left upper lobe likely representing pneumonia. Short-term follow-up in 4-[address] on nonemergency basis is recommended. Evaluation of the right hemidiaphragm with complete atelectasis of the left lower lobe. Gas-filled loop of large bowel is seen within upper abdomen which is in upper limits of normal. Mild four-chamber cardiomegaly. -Blood Cx: No growth Sputum Cx: Yeast 04/01 tolerating trach collar sputum culture: Klebsiella pneumoniae on Ceftriaxone IV afebrile, good o2 sats monitor Aspiration Respiratory arrest leading to cardiac arrest Cardiogenic Shock/PEA--Resolved 03/19 21 - PM - CODE BLUE--Intubated Piece of food was removed at intubation, patient then also underwent bronchoscopy-secretions removed Speech Therapy H/O Esophageal dysmotility Appreciate GI Input S/P PEG placement on 03/23/21 -- tube feeding without issues (4) Inclusion body myositis (IBM): Plan: Progressive, very limited motor function in LUE. Currently ambulates in motorized scooter Follows with [place] [facility] (5) Chronic hyponatremia: Plan: Likely due to SIADH Evaluated by Nephrology Dr. Leggett previously Continue fluid restriction Monitor with daily BMP Sodium 130 (6) Paroxysmal atrial fibrillation: Plan: Follows with Dr. Minor, Cardiology Continue Metoprolol Awaiting results of OP zio monitor On Eliquis currently (Low dose to h/o subdural) (7) BPH (benign prostatic hypertrophy): Plan: Continue Flomax H/O muscular dystrophy Restrictive lung disease Chronically elevated left hemidiaphragm Continue management as above Left UE thrombus Repeat Doppler on 03/24/21 showed no occlusive thrombus On Eliquis DVT Px: Eliquis Code status: FULL CODE Admission and Anticipated Discharge Date Admission Date: March 18, 2021 Subjective ff up for respiratory failure etc seen resting in bed, not in distress no dyspnea, cough, chills no chest pain, palpitations, dizziness no issues with tube feeding no other symptoms Review of Systems Review of Systems: all noted and negative except for above Physical Exam Physical Exam: General- oriented x 2, not in distress, speaks in sentences with no effort or accessory muscle use Eyes- anicteric Neck- no JVD trach in place: no bleeding, no discharge Lungs-mild rhonchi on the left clear on the right Heart- normal rate, regular rhythm; no murmurs Abdomen- normal bowel sounds, nondistended, soft, nontender peg tube: no bleeding, no discharge Extremities- trace pretibial edema, no calf tenderness Neuro- alert, oriented x 3; no new gross focal neurologic deficits Skin- warm & dry Results & Data Results & Data ([facility]) Vital Signs (Past 12 Hours) all noted and reviewed including below (1) Aspiration pneumonia Aspiration pneumonia type: unspecified Laterality: bilateral Lung location: upper lobe of lung Qualified Code(s): J69.0 - Pneumonitis due to inhalation of food and vomit
[2021-04-02] MEDS: TAMSULOSIN HCL 0.4 MG CAP PO SCH (21:25)
[2021-04-03] MEDS: TUBE FEEDING WATER FLUSH PEG SCH ×6 (02:32→21:14)
[2021-04-03] MEDS: ALBUT/IPRATROP 3MG/0.5MG NEB 3 ML VIAL NEB SCH ×6 (03:09→22:50)
[2021-04-03 05:26] LABS: Basophils # (auto) 0.02 K/uL (0-0.2); Basophils % (auto) 0.3 %; Eosinophils # (auto) 0.22 K/uL (0-0.5); Eosinophils % (auto) 3.4 %; Hematocrit (blood only) 29.5 % (42-52); Hemoglobin 9.8 g/dL (14.0-18.0); Immature Granulocytes # (auto) 0.05 K/uL (0.00-0.02); Immature Granulocytes % (auto) 0.8 %; Lymphocytes % (auto) 20.2 %; Mean Corpuscular Hemoglobin 33.1 pg (25-34); Mean Corpuscular Hgb Conc 33.2 g/dL (32-36); Mean Corpuscular Volume 99.7 fL (80-100); Mean Platelet Volume 9.9 fL (7.4-10.4); Monocytes # (auto) 0.53 K/uL (0.11-0.59); Monocytes % (auto) 8.2 %; Neutrophils # (auto) 4.31 K/uL (1.4-6.5); Neutrophils % (auto) 67.1 %; Platelet Count 341 K/uL (130-400); RDW Coefficient of Variation 14.4 % (11.5-14.5); RDW Standard Deviation 50.5 fL (36.4-46.3); Red Blood Count 2.96 M/uL (4.7-6.1); White Blood Count 6.43 K/uL (4.8-10.8)
[2021-04-03 05:55] LABS: BUN Creatinine Ratio 65.9 (10-20); Blood Urea Nitrogen 17 mg/dl (7-18); Calcium 8.4 mg/dl (8.5-10.1); Carbon Dioxide 31 mmol/L (21-32); Chloride 97 mmol/L (98-107); Creatinine Clr Calc Pharmacy 259.1 ml/min; Est GFR (African American) > 150.0 ml/min; Est GFR (Non-African American) 137.7 ml/min; Glucose 131 mg/dl (70-99); Magnesium 1.9 mg/dl (1.8-2.4); Potassium 4.2 mmol/L (3.5-5.1); Sodium 132 mmol/L (136-145)
[2021-04-03 06:08] LABS: Phosphorus 3.1 mg/dl (2.5-4.9)
[2021-04-03] MEDS: SODIUM CHLOR 7% 4 ML NEB NEB SCH ×2 (08:09→19:28)
--- NOTE | 2021-04-03 08:22 | XRay Report ---
XR chest 1V portable HISTORY: 75 years-old Male f/u follow-up study in a patient with left pleural effusion COMPARISON: Chest radiograph 04/02/2021 TECHNIQUE: Portable AP view of the chest FINDINGS: Unchanged positioning of the tracheostomy cannula. Cardiomegaly. Mild linear right lung base opacitie s. Unchanged left lung base consolidation with small left pleural effusion. Left hemidiaphragmatic el evation. Degenerative changes of the spine and right shoulder. Left shoulder arthroplasty. IMPRESSION: 1. Unchanged left lung base opacities with small left pleural effusion. 2. Mild right lung base atelectasis. 3. Cardiomegaly. ACT 112: Negative or not required by law. The above report was generated using voice recognition software. It may contain grammatical, syntax o r spelling errors. Electronically signed by: Thierry Moran M.D. 04/03/2021 8:21 AM
[2021-04-03] MEDS: guaiFENesin SUGAR FREE 200 MG/10 ML UDC PEG SCH ×2 (08:28→21:21)
[2021-04-03] MEDS: GABAPENTIN 250 MG/5 ML 470 ML BTL PO SCH ×2 (08:28→21:22)
[2021-04-03] MEDS: PARoxetine HCL 20 MG TAB PEG SCH ×2 (08:28→21:18)
[2021-04-03] MEDS: PROSOURCE NO CARB 30 ML/PKT PEG SCH (08:29)
[2021-04-03] MEDS: ATORVASTATIN 40 MG TAB PEG SCH (08:29)
[2021-04-03] MEDS: ASPIRIN 81 MG CHEW NG SCH (08:29)
[2021-04-03] MEDS: METOPROLOL TARTRATE 25 MG TAB PO SCH ×2 (08:29→21:20)
[2021-04-03] MEDS: APIXABAN 5 MG TABLET PO SCH ×2 (08:29→21:22)
[2021-04-03] MEDS: LANSOPRAZOLE 30 MG SOLTAB NG SCH (08:29)
[2021-04-03] MEDS: DOCUSATE SODIUM/SENNA 50/8.6MG TAB PO SCH ×2 (08:30→21:22)
[2021-04-03] MEDS: TRIAMCINOLONE ACET 0.1% CR 15 GM TUBE TOP SCH ×2 (08:30→22:30)
[2021-04-03] MEDS: SENNOSIDES 8.8 MG/5 ML UDC PO SCH (08:30)
[2021-04-03] MEDS: DOCUSATE SODIUM SYRUP 100 MG/10 ML UDC PO SCH ×2 (08:30→21:22)
[2021-04-03] MEDS: ACETYLCYSTEINE 20% INHAL SOLN 4ML ***DISPENSED BY RESP. INH SCH ×2 (08:41→19:01)
--- NOTE | 2021-04-03 08:51 | Critical Care Progress Note ---
Date of Service April 03, 2021 Assessment & Plan (1) Admitted to intensive care unit: Plan: Leon Ayala is a 75 yo male w/ PMHx significant for pAF, BPH, IBM, and muscular dystrophy who was admitted for acute on chronic respiratory failure (03/18), intubated for cardiac arrest 2/2 choking (03/19), extubated, reintubated, and is s/p tracheostomy on 03/22. NEURO: Muscular dystrophy and inclusion body myositis. Working with PT/OT. Out of bed to chair via Lauren lift. Appears at his baseline. CARDIAC: Paroxysmal atrial fibrillation is rate-controlled. Patient is status post cardiac arrest on 03/19, with no evidence of residual side effects. - Continue full dose Eliquis and Metoprolol tartrate 25mg PO BID RESPIRATORY: inability to manage secretions resulted in intubation x2 with eventual tracheostomy placement. He has a [address] Patient has an elevated left hemidiaphragm also likely contributing to his respiratory insufficiency. Status post bronchoscopy 03/30/2021 and 04/01/2021 due to mucous plugging on the left, with overall improvement in respiratory status. Pansensitive Klebsiella pneumoniae grew from the bronch cultures. - continue with Ceftriaxone 2g IV Q24H for PNA (today is day 5 of abx) - continue hypertonic saline, Mucomyst, vest therapy QID, and percussion therapy for pulmonary toilet. GI: Status post PEG tube on 03/23. Failed swallow study evaluation. - Tube feeding per nutrition. RENAL/LYTES: Mild hyponatremia has been present, likely due to SIADH. Stable. - trend electrolytes and replete as necessary : - maintain chronic Gonsalves catheter ENDO: No current issues. - Glycemic control per protocol HEME: Chronic normocytic anemia, likely anemia of chronic disease. No indication for transfusion. Patient did have a left arterial thrombosis. Follow-up ultrasound demonstrated resolution. He is on Eliquis for atrial fibrillation. - trend CBC daily ID: Bronchoscopy cultures from 03/30/2021 pansensitive Klebsiella pneumonia. - started Cefepime on 03/29, de-escalated to Ceftriaxone on 04/01 once sensitivities were finalized - continue Ceftriaxone 2g IV Q24H, total of 7 days abx (currently day 5) VTE ppx: SCDs and Eliquis. GI ppx: Lansoprazole Lines: PIVs x2 on right. Diet: Tube feedings per dietary [facility] [place] [facility] Case management assisting. code status: Full code Thank you for allowing us to be part of this patient's care. Please refer to Dr. Ng's documentation for any further recommendations. (2) Cardiac arrest: (3) Chronic hyponatremia: (4) Acute and chronic respiratory failure with hypoxia: (5) Aspiration pneumonia: (6) Paroxysmal atrial fibrillation: (7) Dysphagia: (8) BPH (benign prostatic hypertrophy): (9) Inclusion body myositis (IBM): (10) Pneumonia: Admission and Anticipated Discharge Date Admission Date: March 18, 2021 Supervising Physician Co-Signing Physician Notes Dr. Cramer was resident physician during care of patient. I separately evaluated patient for christine portions of the history and the exam. I was present during the critical portion of medical decision making, and I discussed the case with the resident. I generally agree with the findings and plan. Transfer to [facility] later today Updated, patient will be eligible for transfer to LTAC tomorrow Subjective No acute events overnight. This morning the patient has no concerns or symptoms to report; he is comfortable on PS vent settings. Review of Systems Review of Systems: Denies fever/chills, chest pain, palpitations, N/V, abdominal pain, rash. Physical Exam Physical Exam: General: Alert and oriented. NAD. Cooperative. HEENT: Atraumatic, normocephalic. Neck: trachea midline, trach site c/d/i Pulm: Diminished lung sounds in left base. -wheezes, -rales, -rhonchi. Symmetrical chest rise. No increase work of breathing. No respiratory distress. Cardiac: RRR, -mrg. Radial pulses intact and symmetrical. No LE edema. Abdominal: soft, non-tender, non-distended, BS x 4 Skin: warm, dry, no rash Results & Data Results & Data ([facility]) Vital Signs (Past 12 Hours) Vital Signs Temp Pulse Pulse Resp BP Pulse Ox 04/03/21 08:01 79 18 100 04/03/21 06:50 37.4 C 77 92/60 L 98 04/03/21 06:21 37.4 C 80 114/73 96 04/03/21 05:51 37.6 C H 79 96/57 L 96 04/03/21 05:21 37.5 C 79 113/62 97 04/03/21 04:43 78 25 H 91 04/03/21 04:33 37.6 C H 78 105/60 92 04/03/21 03:33 37.6 C H 78 106/58 L 92 04/03/21 03:12 79 22 94 04/03/21 02:33 37.7 C H 77 99/70 L 94 04/03/21 01:33 37.7 C H 73 96/61 L 90 04/03/21 01:02 73 22 92 04/03/21 00:33 37.7 C H 73 97/50 L 91 04/02/21 23:33 37.9 C H 74 96/63 L 94 04/02/21 23:00 75 95 04/02/21 22:38 79 24 97 04/02/21 22:35 94 04/02/21 22:20 89 22 99 04/02/21 21:33 36.9 C 93 H 183/94 H 91 04/02/21 21:23 36.9 C 93 H 177/104 H 91 04/02/21 20:33 36.9 C 92 H 176/88 H 95 Resident Activity Tracking Resident Involvement: Resident Care Provided Care Provided: Adult Hospital Medicine (1) Dysphagia Dysphagia type: unspecified Qualified Code(s): R13.10 - Dysphagia, unspecified (2) Aspiration pneumonia Aspiration pneumonia type: unspecified Laterality: bilateral Lung location: upper lobe of lung Qualified Code(s): J69.0 - Pneumonitis due to inhalation of food and vomit (3) Pneumonia Laterality: unspecified laterality Lung location: unspecified part of lung Pneumonia type: due to unspecified organism Qualified Code(s): J18.9 - Pneumonia, unspecified organism
[2021-04-03] MEDS: cefTRIAXone SODIUM 2,000 MG in DEXTROSE 5% 50 ML IV SCH (10:01)
--- NOTE | 2021-04-03 10:25 | Billing Data ---
Date of Service April 03, 2021 Coding Level of Care Code 85611 Subseq Hosp Care Lvl 2
[2021-04-03] MEDS: PEPTAMEN 1.5 CAL 1,000 ML BAG PEG SCH (11:51)
--- NOTE | 2021-04-03 18:46 | Hospitalist Progress Note ---
Date of Service April 03, 2021 Assessment & Plan (1) Acute and chronic respiratory failure with hypoxia: (2) Aspiration pneumonia: (3) Multilobar lung infiltrate: Plan: Patient is a 75 yr male with H/O Inclusion body myositis muscular dystrophy, chronic hyponatremia, MITZI with nocturnal hypoxemia on 2 L nasal cannula O2, restrictive lung disease due to muscular dystrophy, paroxysmal atrial fibrillation in setting of bronchodilators, hypertension, mild aortic valve stenosis, BPH and other medical problems listed below who presents with worsening shortness of breath over the past few days and found to have acute on chronic hypoxic respiratory failure and multilobar pneumonia. Acute Reparatory failure with Hypoxia Suspected Multifocal Pneumonia S/P Bronchoscopy for mucous plug removal S/P Tracheostomy on 03/22 --CTA:No PE. Multifocal airspace opacity within the right upper lobe and left upper lobe likely representing pneumonia. Short-term follow-up in 4-[address] on nonemergency basis is recommended. Evaluation of the right hemidiaphragm with complete atelectasis of the left lower lobe. Gas-filled loop of large bowel is seen within upper abdomen which is in upper limits of normal. Mild four-chamber cardiomegaly. -Blood Cx: No growth Sputum Cx: Yeast 04/03/2021 tolerating trach collar sputum culture: Klebsiella pneumoniae on Ceftriaxone IV afebrile, good o2 sats Remains stable overall Aspiration Respiratory arrest leading to cardiac arrest Cardiogenic Shock/PEA--Resolved 03/19 21 - PM - CODE BLUE--Intubated Piece of food was removed at intubation, patient then also underwent bronchoscopy-secretions removed Speech Therapy H/O Esophageal dysmotility Appreciate GI Input S/P PEG placement on 03/23/21 -- tube feeding without issues (4) Inclusion body myositis (IBM): Plan: Progressive, very limited motor function in LUE. Currently ambulates in motorized scooter Follows with [facility] (5) Chronic hyponatremia: Plan: Likely due to SIADH Evaluated by Nephrology Dr. Leggett previously Continue fluid restriction Monitor with daily BMP Sodium 130 (6) Paroxysmal atrial fibrillation: Plan: Follows with Dr. Minor, Cardiology Continue Metoprolol Awaiting results of OP zio monitor On Eliquis currently (Low dose to h/o subdural) (7) BPH (benign prostatic hypertrophy): Plan: Continue Flomax H/O muscular dystrophy Restrictive lung disease Chronically elevated left hemidiaphragm Continue management as above Left UE thrombus Repeat Doppler on 03/24/21 showed no occlusive thrombus On Eliquis DVT Px: Eliquis (4) Inclusion body myositis (IBM): Plan: Progressive, very limited motor function in LUE. Now ambulating in motorized scooter Follows with [facility] Fall precautions, able to eat soft bite sized diet Pt chocked on food, (as above) (5) Chronic hyponatremia: Plan: Baseline Na 129-131 in setting of SIADH and excessive fluid intake, per recent consultation by Dr. Leggett Continue fluid restriction of 1.7 L Monitor with daily BMP current treatment per ICU team (6) Paroxysmal atrial fibrillation: Plan: Follows with Dr. Bowen of cardiology Amiodarone recently discontinued At home Continued Lopressor 25mg BID - now per ICU team Awaiting results of OP ziomonitor Ongoing discussion re: anticoagulation (7) BPH (benign prostatic hypertrophy): Plan: Continue Flomax DVT Ppx: SQ heparin Code status: FULL PCP: Dr. Mcfarland Dispo: ICU (after chocking episode) Admission and Anticipated Discharge Date Admission Date: March 18, 2021 Subjective Follow-up for respiratory failure, etc. Seen resting in bed, in good spirits Maribel at the bedside visiting Denies shortness of breath, cough No chest pain, palpitations, dizziness Positive BMs No other symptoms No other issues per production bow maker of Systems Review of Systems: all noted and negative except for above Physical Exam Physical Exam: General- oriented x 3, not in distress, speaks in sentences with no effort or accessory muscle use Eyes- anicteric Neck- no JVD Lungs- clear BS bilaterally, no crackles or wheezing Heart- normal rate, regular rhythm; no murmurs Abdomen- normal bowel sounds, nondistended, soft, nontender PEG tube in place, no problems Extremities- no pretibial edema, no calf tenderness Neuro- alert, oriented x 3; no gross focal neurologic deficits Skin- warm & dry Results & Data Results & Data ([facility]) Vital Signs (Past 12 Hours) Vital Signs Temp Pulse Pulse Resp BP Pulse Ox 04/03/21 18:20 36.7 C 81 22 135/71 100 04/03/21 17:21 36.7 C 78 24 128/65 96 04/03/21 16:21 36.6 C 77 16 116/73 100 04/03/21 16:00 76 04/03/21 15:21 36.7 C 77 20 112/57 L 98 04/03/21 15:09 77 04/03/21 14:44 78 18 98 04/03/21 14:43 76 18 98 04/03/21 14:21 36.6 C 80 22 111/59 L 96 04/03/21 13:20 36.7 C 72 16 116/58 L 99 04/03/21 12:20 36.7 C 71 18 128/69 97 04/03/21 12:00 37.0 C 04/03/21 11:35 99 H 18 97 04/03/21 11:20 36.8 C 72 22 120/74 96 04/03/21 10:20 36.8 C 70 20 105/61 97 04/03/21 09:21 36.8 C 78 18 117/69 93 04/03/21 08:21 37.0 C 79 24 94/61 L 100 04/03/21 08:01 79 18 100 04/03/21 08:00 37.2 C 04/03/21 07:20 37.3 C 79 16 110/57 L 98 04/03/21 06:50 37.4 C 77 92/60 L 98 all noted and reviewed including below (1) Aspiration pneumonia Aspiration pneumonia type: unspecified Laterality: bilateral Lung location: upper lobe of lung Qualified Code(s): J69.0 - Pneumonitis due to inhalation of food and vomit
[2021-04-03] MEDS: TAMSULOSIN HCL 0.4 MG CAP PO SCH (21:18)
[2021-04-04] MEDS: TUBE FEEDING WATER FLUSH PEG SCH ×3 (01:00→08:20)
[2021-04-04] MEDS: ALBUT/IPRATROP 3MG/0.5MG NEB 3 ML VIAL NEB SCH ×4 (03:05→15:24)
[2021-04-04 05:36] LABS: Basophils # (auto) 0.02 K/uL (0-0.2); Basophils % (auto) 0.3 %; Eosinophils # (auto) 0.24 K/uL (0-0.5); Eosinophils % (auto) 4.2 %; Hematocrit (blood only) 29.4 % (42-52); Hemoglobin 9.7 g/dL (14.0-18.0); Immature Granulocytes # (auto) 0.04 K/uL (0.00-0.02); Immature Granulocytes % (auto) 0.7 %; Lymphocytes # (auto) 0.81 K/uL (1.2-3.4); Lymphocytes % (auto) 14.2 %; Mean Corpuscular Hemoglobin 32.7 pg (25-34); Mean Platelet Volume 9.7 fL (7.4-10.4); Monocytes # (auto) 1.12 K/uL (0.11-0.59); Monocytes % (auto) 19.6 %; Neutrophils # (auto) 3.49 K/uL (1.4-6.5); Platelet Count 338 K/uL (130-400); RDW Coefficient of Variation 14.6 % (11.5-14.5); Red Blood Count 2.97 M/uL (4.7-6.1); White Blood Count 5.72 K/uL (4.8-10.8)
[2021-04-04 05:56] LABS: BUN Creatinine Ratio 65.8 (10-20); Blood Urea Nitrogen 18 mg/dl (7-18); Calcium 8.6 mg/dl (8.5-10.1); Carbon Dioxide 32 mmol/L (21-32); Chloride 97 mmol/L (98-107); Creatinine Clr Calc Pharmacy 251.1 ml/min; Est GFR (African American) > 150.0 ml/min; Est GFR (Non-African American) 135.6 ml/min; Glucose 134 mg/dl (70-99); Phosphorus 3.6 mg/dl (2.5-4.9); Potassium 4.2 mmol/L (3.5-5.1); Sodium 132 mmol/L (136-145)
[2021-04-04] MEDS: ACETYLCYSTEINE 20% INHAL SOLN 4ML ***DISPENSED BY RESP. INH SCH (07:59)
[2021-04-04] MEDS: SODIUM CHLOR 7% 4 ML NEB NEB SCH (07:59)
--- NOTE | 2021-04-04 08:16 | Critical Care Progress Note ---
Date of Service April 04, 2021 Assessment & Plan (1) Admitted to intensive care unit: Plan: Leon Ayala is a 75 yo male w/ PMHx significant for pAF, BPH, IBM, and muscular dystrophy who was admitted for acute on chronic respiratory failure (03/18), intubated for cardiac arrest 2/2 choking (03/19), extubated, reintubated, and is s/p tracheostomy on 03/22. NEURO: Muscular dystrophy and inclusion body myositis. Working with PT/OT. Out of bed to chair via Lauren lift. Appears at his baseline. CARDIAC: Paroxysmal atrial fibrillation is rate-controlled. Patient is status post cardiac arrest on 03/19, with no evidence of residual side effects. - Continue full dose Eliquis and Metoprolol tartrate 25mg PO BID RESPIRATORY: inability to manage secretions resulted in intubation x2 with eventual tracheostomy placement. He has a [address] Patient has an elevated left hemidiaphragm also likely contributing to his respiratory insufficiency. Status post bronchoscopy 03/30/2021 and 04/01/2021 due to mucous plugging on the left, with overall improvement in respiratory status. Pansensitive Klebsiella pneumoniae grew from the bronch cultures. - continue with Ceftriaxone 2g IV Q24H for PNA (day 01/16) - continue hypertonic saline, Mucomyst, vest therapy QID, and percussion therapy for pulmonary toilet. GI: Status post PEG tube on 03/23. Failed swallow study evaluation. - Tube feeding per nutrition. RENAL/LYTES: Mild hyponatremia has been present, likely due to SIADH. Stable. - trend electrolytes and replete as necessary : - maintain chronic Gonsalves catheter ENDO: No current issues. - Glycemic management per ICU HEME: Chronic normocytic anemia, likely anemia of chronic disease. No indication for transfusion. Patient did have a left arterial thrombosis. Follow-up ultrasound demonstrated resolution. He is on Eliquis for atrial fibrillation. - trend CBC daily ID: Bronchoscopy cultures from 03/30/2021 pansensitive Klebsiella pneumonia. - started Cefepime on 03/29, de-escalated to Ceftriaxone on 04/01 once sensitivities were finalized - continue Ceftriaxone 2g IV Q24H, total of 7 days abx (day 6) VTE ppx: SCDs and Eliquis. GI ppx: Lansoprazole Lines: PIVs x2 on right. Diet: Tube feedings per dietary CODE STATUS: Full code Disposition: Accepted to [facility] after appeal yesterday, planning for transfer today. Thank you for allowing us to be part of this patient's care. Please refer to Dr. Ng's documentation for any further recommendations. (2) Cardiac arrest: (3) Chronic hyponatremia: (4) Acute and chronic respiratory failure with hypoxia: (5) Aspiration pneumonia: (6) Paroxysmal atrial fibrillation: (7) Dysphagia: (8) BPH (benign prostatic hypertrophy): (9) Inclusion body myositis (IBM): (10) Pneumonia: Admission and Anticipated Discharge Date Admission Date: March 18, 2021 Supervising Physician Co-Signing Physician Notes Dr. Cramer was resident physician during care of patient. I separately evaluated patient for christine portions of the history and the exam. I was present during the critical portion of medical decision making, and I discussed the case with the resident. I generally agree with the findings and plan. Anticipate transfer to LTAC today Subjective No acute events overnight. Remains on PS vent settings overnight and to [facility] during the day. No complaints or concerns this morning. Review of Systems Review of Systems: Denies fever/chills, chest pain, palpitations, N/V, abdominal pain, rash. Physical Exam Physical Exam: General: Alert and oriented. NAD. Cooperative. HEENT: Atraumatic, normocephalic. Neck: trachea midline, trach site c/d/i Pulm: Diminished lung sounds in left base. -wheezes, -rales, -rhonchi. Symmetrical chest rise. No increase work of breathing. No respiratory distress. Cardiac: RRR, -mrg. Radial pulses intact and symmetrical. No LE edema. Abdominal: soft, non-tender, non-distended, BS x 4 Skin: warm, dry, no rash Results & Data Results & Data ([facility]) Vital Signs (Past 12 Hours) Vital Signs Temp Pulse Pulse Resp BP Pulse Ox 04/04/21 07:59 80 20 98 04/04/21 05:35 71 15 97 04/04/21 04:51 36.9 C 72 104/51 L 97 04/04/21 04:21 37.1 C 74 101/61 98 04/04/21 03:51 37.1 C 71 104/60 96 04/04/21 03:20 37.2 C 72 95/57 L 97 04/04/21 03:06 72 17 99 04/04/21 02:51 37.2 C 71 87/51 L 97 04/04/21 02:21 37.2 C 71 95/62 L 95 04/04/21 01:51 37.3 C 71 88/52 L 98 04/04/21 01:45 78 16 98 04/04/21 01:21 37.3 C 71 97/54 L 97 04/04/21 00:51 37.5 C 69 82/47 L 97 04/04/21 00:21 37.5 C 69 87/47 L 97 04/03/21 23:50 37.4 C 70 109/52 L 96 04/03/21 23:22 37.3 C 69 75/39 L 98 04/03/21 22:51 37.0 C 72 141/75 H 100 04/03/21 22:50 73 73 24 100 04/03/21 22:21 36.9 C 76 161/99 H 99 04/03/21 21:51 36.8 C 80 163/67 H 93 04/03/21 21:21 36.8 C 81 160/77 H 93 04/03/21 20:51 36.8 C 83 167/69 H 93 04/03/21 20:20 36.8 C 82 158/74 H 92 Resident Activity Tracking Resident Involvement: Resident Care Provided Care Provided: Adult [facility] (1) Dysphagia Dysphagia type: unspecified Qualified Code(s): R13.10 - Dysphagia, unspecified (2) Aspiration pneumonia Aspiration pneumonia type: unspecified Laterality: bilateral Lung location: upper lobe of lung Qualified Code(s): J69.0 - Pneumonitis due to inhalation of food and vomit (3) Pneumonia Laterality: unspecified laterality Lung location: unspecified part of lung Pneumonia type: due to unspecified organism Qualified Code(s): J18.9 - Pneumonia, unspecified organism
[2021-04-04] MEDS: PARoxetine HCL 20 MG TAB PEG SCH (08:20)
[2021-04-04] MEDS: APIXABAN 5 MG TABLET PO SCH (08:20)
[2021-04-04] MEDS: LANSOPRAZOLE 30 MG SOLTAB NG SCH (08:20)
[2021-04-04] MEDS: ASPIRIN 81 MG CHEW NG SCH (08:20)
[2021-04-04] MEDS: SENNOSIDES 8.8 MG/5 ML UDC PO SCH (08:21)
[2021-04-04] MEDS: METOPROLOL TARTRATE 25 MG TAB PO SCH (08:21)
[2021-04-04] MEDS: ATORVASTATIN 40 MG TAB PEG SCH (08:21)
[2021-04-04] MEDS: DOCUSATE SODIUM SYRUP 100 MG/10 ML UDC PO SCH (08:21)
[2021-04-04] MEDS: guaiFENesin SUGAR FREE 200 MG/10 ML UDC PEG SCH (08:21)
[2021-04-04] MEDS: PROSOURCE NO CARB 30 ML/PKT PEG SCH (08:22)
[2021-04-04] MEDS: TRIAMCINOLONE ACET 0.1% CR 15 GM TUBE TOP SCH (08:22)
[2021-04-04] MEDS: GABAPENTIN 250 MG/5 ML 470 ML BTL PO SCH (08:22)
[2021-04-04] MEDS: DOCUSATE SODIUM/SENNA 50/8.6MG TAB PO SCH (08:22)
--- NOTE | 2021-04-04 09:38 | Billing Data ---
Date of Service April 04, 2021 Coding Level of Care Code 23133 Subseq Hosp Care Lvl 1
[2021-04-04] MEDS: cefTRIAXone SODIUM 2,000 MG in DEXTROSE 5% 50 ML IV SCH (09:51)
--- NOTE | 2021-04-04 16:10 | Hospitalist Progress Note ---
Date of Service April 04, 2021 delayed entry date of service noted above Assessment & Plan (1) Acute and chronic respiratory failure with hypoxia: (2) Aspiration pneumonia: (3) Multilobar lung infiltrate: Plan: Patient is a 75 yr male with H/O Inclusion body myositis muscular dystrophy, chronic hyponatremia, MITZI with nocturnal hypoxemia on 2 L nasal cannula O2, restrictive lung disease due to muscular dystrophy, paroxysmal atrial fibrillation in setting of bronchodilators, hypertension, mild aortic valve stenosis, BPH and other medical problems listed below who presents with worsening shortness of breath over the past few days and found to have acute on chronic hypoxic respiratory failure and multilobar pneumonia. Acute Reparatory failure with Hypoxia Suspected Multifocal Pneumonia S/P Bronchoscopy for mucous plug removal S/P Tracheostomy on 03/22 --CTA:No PE. Multifocal airspace opacity within the right upper lobe and left upper lobe likely representing pneumonia. Short-term follow-up in 4-[address] on nonemergency basis is recommended. Evaluation of the right hemidiaphragm with complete atelectasis of the left lower lobe. Gas-filled loop of large bowel is seen within upper abdomen which is in upper limits of normal. Mild four-chamber cardiomegaly. -Blood Cx: No growth Sputum Cx: Yeast 04/04/2021 tolerating trach collar sputum culture: Klebsiella pneumoniae on Ceftriaxone IV Day 01/16 afebrile, good o2 sats Remains stable overall Aspiration Respiratory arrest leading to cardiac arrest Cardiogenic Shock/PEA--Resolved 03/19 21 - PM - CODE BLUE--Intubated Piece of food was removed at intubation, patient then also underwent bronchoscopy-secretions removed Speech Therapy H/O Esophageal dysmotility Appreciate GI Input S/P PEG placement on 03/23/21 -- tube feeding without issues (4) Inclusion body myositis (IBM): Plan: Progressive, very limited motor function in LUE. Currently ambulates in motorized scooter Follows with [facility] (5) Chronic hyponatremia: Plan: Likely due to SIADH Evaluated by Nephrology Dr. Leggett previously Continue fluid restriction Monitor with daily BMP Sodium 132 (6) Paroxysmal atrial fibrillation: Plan: Follows with Dr. Minor, Cardiology Continue Metoprolol Awaiting results of OP zio monitor On Eliquis currently (Low dose to h/o subdural) (7) BPH (benign prostatic hypertrophy): Plan: Continue Flomax (8) H/O muscular dystrophy Restrictive lung disease Chronically elevated left hemidiaphragm Continue management as above (9) Left UE thrombus Repeat Doppler on 03/24/21 showed no occlusive thrombus On Eliquis DVT Px: Eliquis Disposition transfert to LTAC (4) Inclusion body myositis (IBM): Plan: Progressive, very limited motor function in LUE. Now ambulating in motorized scooter Follows with [facility] Fall precautions, able to eat soft bite sized diet Pt chocked on food, (as above) (5) Chronic hyponatremia: Plan: Baseline Na 129-131 in setting of SIADH and excessive fluid intake, per recent consultation by Dr. Leggett Continue fluid restriction of 1.7 L Monitor with daily BMP current treatment per ICU team (6) Paroxysmal atrial fibrillation: Plan: Follows with Dr. Bowen of cardiology Amiodarone recently discontinued At home Continued Lopressor 25mg BID - now per ICU team Awaiting results of OP ziomonitor Ongoing discussion re: anticoagulation (7) BPH (benign prostatic hypertrophy): Plan: Continue Flomax DVT Ppx: SQ heparin Code status: FULL PCP: Dr. Mcfarland Dispo: ICU (after chocking episode) Admission and Anticipated Discharge Date Admission Date: March 18, 2021 Subjective ff up for acute respiratory failure, etc seen resting in bed, comfortable states he feels fine overall denies dyspnea, cough, chest, palpitaitons, dizziness no abdominal pain , nausea no other symptoms Review of Systems Review of Systems: all noted and negative except for above Physical Exam Physical Exam: General- oriented x 3, not in distress, speaks in sentences with no effort or accessory muscle use Eyes- anicteric Neck- no JVD trach in place: no bleeding, discharge, edema Lungs- clear BS BL no rales/wheezing Heart- normal rate, regular rhythm; no murmurs Abdomen- normal bowel sounds, nondistended, soft, nontender PEG tube in place: no discharge, signs of infection Extremities- no pretibial edema, no calf tenderness Neuro- alert, oriented x 3; no new gross focal neurologic deficits Skin- warm & dry Results & Data Results & Data ([facility]) Vital Signs (Past 12 Hours) Vital Signs Temp Pulse Pulse Resp BP BP BP 04/04/21 15:24 76 20 04/04/21 11:11 22 04/04/21 11:03 36.5 C 80 20 104/72 127/83 04/04/21 09:24 69 04/04/21 08:51 36.5 C 81 137/73 04/04/21 08:00 36.8 C 04/04/21 07:59 80 20 04/04/21 07:51 36.6 C 80 144/83 H 04/04/21 06:50 36.8 C 71 115/63 04/04/21 05:35 71 15 04/04/21 04:51 36.9 C 72 104/51 L 04/04/21 04:21 37.1 C 74 101/61 Pulse Ox 04/04/21 15:24 99 04/04/21 11:11 98 04/04/21 11:03 94 04/04/21 09:24 04/04/21 08:51 94 04/04/21 08:00 04/04/21 07:59 98 04/04/21 07:51 97 04/04/21 06:50 97 04/04/21 05:35 97 04/04/21 04:51 97 04/04/21 04:21 98 all noted and reviewed including below (1) Aspiration pneumonia Aspiration pneumonia type: unspecified Laterality: bilateral Lung location: upper lobe of lung Qualified Code(s): J69.0 - Pneumonitis due to inhalation of food and vomit
--- NOTE | 2021-04-05 15:28 | Discharge Summary ---
Date of Service April 05, 2021 Admission HPI Per Admitting Provider This is a 75-year-old male with PMH of inclusion body myositis muscular dystrophy, chronic hyponatremia, MITZI with nocturnal hypoxemia on 2 L nasal cannula O2, restrictive lung disease due to muscular dystrophy, paroxysmal atrial fibrillation in setting of bronchodilators, hypertension, mild aortic valve stenosis, BPH and other medical problems listed below who presents with worsening shortness of breath over the past few days. Patient significantly short of breath 4 days ago, requiring him to sit upright. Also endorsing cough with productive yellow sputum. Issues with chronic aspiration in setting of muscular dystrophy. No fever or chills. Denies any headache, lightheadedness, chest pain. Some pleuritic pain in central back when coughing. Denies any nausea, vomiting or abdominal pain. No dysuria, diarrhea constipation. Patient now ambulates with motorized vehicle. 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 Recommended for fluids to be restricted to 60 ounces daily. Also recently established with Dr. Minor of cardiology in setting of paroxysmal atrial fibrillation in setting of bronchodilators. Amiodarone was discontinued at this visit. Outpatient Zio patch monitor results pending. Not on anticoagulation at this point. PCP is Dr. Mcfarland. Admission Exam Per Admitting Provider General Appearance: vitals as above, NAD, sitting up in bed, pleasant, conversing easily Head: normocephalic, atraumatic Eyes: normal inspection, PERRL, conjunctivae normal, anicteric sclerae ENT: external ear and nose normal, oropharynx normal Neck: normal visual inspection, trachea midline, no thyromegaly Respiratory: increased respiratory effort, diminished lung sounds throughout with rhonchi, no wheeze or rales. + accessory muscle use Cardiovascular: tachycardic rate, rhythm, no murmur appreciated, normal peripheral pulses, 1+ BLE edema. Vessels: no JVD Chest: normal inspection of chest Abdomen/GI: normal bowel sounds, soft, nontender, no hepatosplenomegaly Extremities/Musculoskeletal: Hands contracted bilaterally, chronic LUE weakness, no cyanosis or clubbing Neurologic: PERRL, EOMI, accommodation nl, no face palsy, no dysarthria, CN's II-XI intact bilaterally and moves all extremities Psychiatric: A+Ox3, euthymic affect Skin: no rashes, normal color, warm/dry Principal Diagnosis ACUTE HYPOXIC RESPIRATORY FAILURE Discharge Exam General- oriented x 3, not in distress, speaks in sentences with no effort or accessory muscle use Eyes- anicteric Neck- no JVD trach in place: no bleeding, discharge, edema Lungs- clear BS BL no rales/wheezing Heart- normal rate, regular rhythm; no murmurs Abdomen- normal bowel sounds, nondistended, soft, nontender PEG tube in place: no discharge, signs of infection Extremities- no pretibial edema, no calf tenderness Neuro- alert, oriented x 3; no new gross focal neurologic deficits Skin- warm & dry Discharge Data Allergies Allergy/AdvReac Type Severity Reaction Status Date / Time bee venom protein (honey bee) Allergy Severe ANAPHYLAXIS Verified 03/18/21 16:38 sulfamethoxazole Allergy Intermediate RED Verified 03/18/21 16:38 [From Bactrim] SWOLLEN HIVES trimethoprim [From Bactrim] Allergy Intermediate RED Verified 03/18/21 16:38 SWOLLEN HIVES Consultations 03/18/21 13:39 ED Decision to Admit Stat 03/19/21 12:32 Consult Pulmonology Routine 03/21/21 11:07 Consult Gastroenterology Routine Procedures Performed Operation Date: 03/23/21 11:30 Actual Procedures p Esophagogastroduodenoscopy with(Not Applicable) - Alvino Meza MD s PEG Tube Placement(Not Applicable) - Alvino Meza MD Ordered Studies 03/18/21 13:12 CT angio chest PE protocol Stat 03/19/21 17:40 US point of care ultrasound Urgent 03/19/21 19:40 US arterial duplex UE LT Urgent 03/24/21 09:40 US arterial duplex UE LT Routine Hospital Course (1) Acute and chronic respiratory failure with hypoxia: (2) Aspiration pneumonia: (3) Multilobar lung infiltrate: Acute Reparatory failure with Hypoxia Suspected Multifocal Pneumonia S/P Bronchoscopy for mucous plug removal S/P Tracheostomy on 03/22 --CTA:No PE. Multifocal airspace opacity within the right upper lobe and left upper lobe likely representing pneumonia. Short-term follow-up in 4-[address] on nonemergency basis is recommended. Evaluation of the right hemidiaphragm with complete atelectasis of the left lower lobe. Gas-filled loop of large bowel is seen within upper abdomen which is in upper limits of normal. Mild four-chamber cardiomegaly. -Blood Cx: No growth Sputum Cx: Yeast -- required Vasopressors, Zosyn -- required repeat Bronchoscopy for hypoxia 03/30 mucus plugging removed -- sputum culture: Klebsiella pneumoniae on Ceftriaxone IV Day 01/16 afebrile, good o2 sats Remains stable overall tolerating trach collar -- transition to LTAC Aspiration Respiratory arrest leading to cardiac arrest Cardiogenic Shock/PEA--Resolved 03/19 21 - PM - CODE BLUE--Intubated Piece of food was removed at intubation, patient then also underwent bronchoscopy-secretions removed H/O Esophageal dysmotility Appreciate GI Input S/P PEG placement on 03/23/21 -- tube feeding without issues Inclusion body myositis (IBM): Plan: Progressive, very limited motor function in LUE. Currently ambulates in motorized scooter Follows with [facility] Chronic hyponatremia: Plan: Likely due to SIADH Evaluated by Nephrology Dr. Leggett previously Continue fluid restriction Monitor with daily BMP Sodium 132 Paroxysmal atrial fibrillation: Plan: Follows with Dr. Minor, Cardiology Continue Metoprolol Awaiting results of OP zio monitor On Eliquis currently (Low dose to h/o subdural) BPH (benign prostatic hypertrophy): Plan: Continue Flomax H/O muscular dystrophy Restrictive lung disease Chronically elevated left hemidiaphragm Continue management as above Left UE thrombus Repeat Doppler on 03/24/21 showed no occlusive thrombus On Eliquis DVT Px: Eliquis Disposition transfert to LTAC (4) Inclusion body myositis (IBM): Progressive, very limited motor function in LUE. Now ambulating in motorized scooter Follows with [facility] Fall precautions, able to eat soft bite sized diet Pt chocked on food, (as above) (5) Chronic hyponatremia: Baseline Na 129-131 in setting of SIADH and excessive fluid intake, per recent consultation by Dr. Leggett Continue fluid restriction of 1.7 L Monitor with daily BMP current treatment per ICU team (6) Paroxysmal atrial fibrillation: Follows with Dr. Bowen of cardiology Amiodarone recently discontinued At home Continued Lopressor 25mg BID - now per ICU team Awaiting results of OP ziomonitor Ongoing discussion re: anticoagulation (7) BPH (benign prostatic hypertrophy): Continue Flomax DVT Ppx: SQ heparin Code status: FULL PCP: Dr. Mcfarland Dispo: ICU (after chocking episode) Total Time Total Time Spent Total Time Spent (In Minutes): > 30 minutes Discharge Plan Discharge Items Patient Disposition: Trans Resident Long-Term Care Reason For Visit: ACUTE HYPOXIC RESPFAILURE, MULTILOBAR PNA Discharge Diagnosis: ACUTE HYPOXIC RESPIRATORY FAILURE PNEUMONIA S/P CARDIORESPIRATORY ARREST Activity: As commented below Activity Comment: PER PT/OT Non-emergency contact: Primary Care Provider Call non-emergency contact if: you have any medication questions, your symptoms worsen and you have a fever Follow-up/Referrals: Clark Mcfarland MD [Primary Care Provider] - Diet: Other - See Diet Comment Diet Comment: TUBE FEEDING Addtl Attending Provider Instructions: PLEASE REFER TO ACCOMPANYING HOSPITAL DISCHARGE SUMMARY. Pending Studies at Discharge: No Stand-Alone Forms: [facility] Skilled Items Patient informed of condition?: Yes DNR: No Discharge Level of Care: Other Communicable Disease: No Discharge Prognosis: Stable Lines: Peripheral IV Urinary Catheter: Yes Medications and DC Order Prescriptions: New ipratropium-albuterol 0.5 mg-3 mg(2.5 mg base)/3 mL Solution For Nebulization 3 ml NEB Q4R 30 Days RF: 0 Eliquis 5 mg Tablet 5 mg PO BID Qty: 30 RF: 1 gabapentin 250 mg/5 mL Solution 600 mg PO BID 30 Days Qty: 720 RF: 0 Peptamen 1.5 0.068 gram- 1.5 kcal/mL Liquid See Rx Instructions .ROUTE .COMPLEX 30 Days Qty: 6000 RF: 0 sodium chloride 7 % Solution For Nebulization 4 ml NEB BIDR 30 Days RF: 0 Artificial Tears (desmond/min) 83-15 % Ointment 1 applic ophthalmic (eye) BID PRN (Reason: dry eye(s)) Qty: 3.5 RF: 0 docusate sodium 60 mg/15 mL Syrup 60 mg PO BID Qty: 480 RF: 0 lansoprazole [Prevacid SoluTab] 30 mg Tablet,Disintegrat, Delay Rel 30 mg NG DAILY Qty: 30 RF: 0 sennosides [senna] 8.8 mg/5 mL Syrup 8.8 mg PO QAM 30 Days Qty: 150 RF: 0 sennosides-docusate sodium [Senokot-S] 8.6-50 mg Tablet 1 tab PO BID 30 Days Qty: 60 RF: 0 ProSource No Carb 15-60 gram-kcal/30 mL Liquid In Packet See Rx Instructions .ROUTE .COMPLEX Qty: 3000 RF: 0 acetylcysteine 200 mg/mL (20 %) Solution 5 ml inhalation Q12R 30 Days Qty: 30 RF: 0 guaifenesin 100 mg/5 mL Liquid 600 mg PEG BID Qty: 473 RF: 0 Tube Feeding Water Flush 15 ml PEG Q4H Qty: 1 RF: 2 Continued acetaminophen [Tylenol Extra Strength] 500 mg Tablet 1,000 mg PO DIRECTED PRN (Reason: Fever Or Pain) RF: 0 tamsulosin [Flomax] 0.4 mg Capsule 0.8 mg PO HS RF: 0 paroxetine HCl [Paxil] 30 mg Tablet 30 mg PO BID RF: 0 metoprolol tartrate 25 mg Tablet 25 mg PO BID RF: 0 triamcinolone acetonide 0.1 % Cream 1 applic TOPICAL BID RF: 0 hydroxyzine HCl 25 mg tablet 25 mg PO Q6 PRN (Reason: Itching) RF: 0 aspirin 81 mg Tablet 81 mg PO DAILY RF: 0 magnesium chloride 64 mg Tablet Extended Release 64 mg PO DAILY RF: 0 atorvastatin 40 mg Tablet 40 mg PO DAILY RF: 0 Discontinued gabapentin 600 mg Tablet 1,200 mg PO BID RF: 0 pantoprazole 40 mg Tablet,Delayed Release (Dr/Ec) 40 mg PO BID RF: 0 Discharge Orders: Discharge Order (Routine); Ordered 04/04/21 Ordered By: Elbert Aponte Admission Data Admit Date/Time: 03/18/21 16:41 Attending Provider: Elbert Aponte Admit Provider: Collin Granda Primary Care Provider: Clark Mcfarland Other Providers: Collin Granda ; Alvino Meza ; Yenny Ruvalcaba ; [facility] ; Josiah Hope ; [place] Other Interventions: Discharge Summary Assessment (RN) Last Done: 04/04/21 11:03
== END 2021-04-04 16:33 | DRG 3 ==
LOC: ED 09:54 → SUATTDRO 16:41 → 2S 16:41 → 1E 03-19 17:25